=== PATIENT | female | born 1975 | race African-American/Black ===

== ENCOUNTER 2020-06-20 19:17 | Emergency (ER) | payer OTHER ==
[2020-06-20] MEDS ORDERED: Zofran 4 MG/2 ML VIAL IV ONE (19:55)
[2020-06-20] MEDS ORDERED: MORPHINE SULFATE 4 MG INJ IV ONE (19:55)
[2020-06-20] MEDS ORDERED: Zithromax 250 MG TABLET PO ONE (19:56)
[2020-06-20] MEDS ORDERED: ROCEPHIN 250 MG INJ IM ONE (19:56)
[2020-06-20] MEDS ORDERED: Rocephin 500 MG INJ ONE (20:00)
[2020-06-20] MEDS ORDERED: Zofran 4 MG/2 ML VIAL ONE (20:00)
[2020-06-20] MEDS ORDERED: Zithromax 250 MG TABLET ONE (20:00)
[2020-06-20] MEDS ORDERED: MORPHINE SULFATE 4 MG INJ ONE (20:01)
[2020-06-20 20:16] LABS: Amourphous Crystal FEW /HPF (NEGATIVE); Appearance SLIGHTLY CLOUDY (CLEAR); Bacteria FEW /HPF (NEGATIVE); Bilirubin NEGATIVE (NEGATIVE); Blood SMALL Ery/ul (0-5); Epithelial Cells RARE /HPF (FEW); Glucose NEGATIVE (NEGATIVE); Ketones NEGATIVE (NEGATIVE); Leukocyte Esterase LARGE (NEGATIVE); Mucus SLIGHT /HPF (NEGATIVE); Nitrite NEGATIVE (NEGATIVE); Protein,Urine Dip 30 (Negative); Specific Gravity 1.015 (1.005-1.025); Urobilinogen 2 mg/dL (0-1); WBC 26-50 /HPF (0-5)
[2020-06-20 20:25] VITALS: BP 159/117; PULSE 96; O2SAT 94
[2020-06-20 20:28] LABS: ALBUMIN 3.9 g/dL (3.5-5.0); ALKALINE PHOSPHATASE 78 U/L (38-126); ANION GAP 8.7 MEQ/L (5-15); BLOOD UREA NITROGEN 6 mg/dL (7-17); CHLORIDE 100 mmol/L (98-107); Calcium 8.6 mg/dL (8.4-10.2); Carbon Dioxide 32 mmol/L (22-30); Creatinine 1 0.54 mg/dL (0.52-1.04); EST GLOMERULAR FILTRATION RATE > 60.0 ML/MIN; Glucose 105 mg/dL (74-106); Potassium 4.1 mmol/L (3.5-5.1); SGOT/AST 23 U/L (14-36); SGPT/ALT 12 U/L (0-35); SODIUM 137 mmol/L (137-145); Total Protein 7.3 g/dL (6.3-8.2)
[2020-06-20 20:42] LABS: Absolute Neutrophil Ct (ANC) 8.03 (1.4-6.9); BASOPHIL % 0.2 % (0.0-0.4); Basophil (Absolute #) 0.02 (0-0.4); Eosinophil % 5.5 % (0.00-5.0); Eosinophil (Absolute #) 0.68 (0-0.5); Hematocrit 40.8 % (35-47); Hemoglobin 13.7 gm/dl (12.0-16.0); Lymphocyte (Absolute #) 2.57 (1.0-4.6); Lymphocytes % 20.9 % (24.0-44.0); Mean Cell Volume 93.8 fl (78-100); Mean Corpuscular Hemoglobin 31.5 pg (26-32); Mean Corpuscular Hgb Concent. 33.6 g/dl (32-36); Mean Platelet Volume 9.8 fl (7.5-11.0); Monocyte (Absolute #) 0.99 (0.0-1.3); Monocytes % 8.1 % (0.0-12.0); Neutrophil % 65.3 % (36.0-66.0); Platelet Count 405 K/mm3 (150-450); Red Blood Count 4.35 M/mm3 (4.1-5.4); Red Cell Distribution Width 13.2 % (11.5-14.0); White Blood Count 12.3 K/mm3 (4.0-10.5)
--- NOTE | 2020-06-20 20:45 | ERPHSYRPT ---
- History of Present Illness Time Seen by Provider: 06/20/20 19:24 Source: patient Exam Limitations: no limitations Patient Subjective Stated Complaint: pt c/o vaginal pain Triage Nursing Assessment: pt came back to ER via wheelchair. Pt c/o vaginal pain, states, "It's tender, swollen, pain with urination". Pt had bladder tie up approx 1-2 years ago. Pt is poor historian. Physician History: 45 years old female with history of bladder sling almost 2 years ago presented in the ER with chief complaint of vaginal pain/burning/feeling as if she is having a uterine prolapse for the last 2 days with associated milky white discharge. Patient described this as a sharp burning pain which is aggravated with activity, urination coughing and better with being still. Denies any history of STDs in the past. No abdominal pain. Timing/Duration: day(s) (2), gradual onset, worse Activites at Onset: rest Quality: burning, sharpness Onset Location: vaginal Pain Radiation: none Severity of Pain-Max: moderate Severity of Pain-Current: moderate Sexual intercourse history: single partner Modifying Factors: Improves With: rest. Worsens With: coughing, exercise, urinating, position, walking Associated Symptoms: dysuria, swelling, vaginal discharge, vaginal fluid leakage, No abdominal pain, No lower back pain Allergies/Adverse Reactions: UNOBTAINABLE Allergy (Unverified 06/20/20 19:54) Home Medications: Albuterol 2.5 mg/0.5 ml [PROVENTIL Solution 2.5 MG/0.5 ML] 1 neb IH Q4HPRN PRN 06/20/20 [History] Hx Tetanus, Diphtheria Vaccination/Date Given: Yes Hx Influenza Vaccination/Date Given: Yes Hx Pneumococcal Vaccination/Date Given: No Travel Risk - International Travel Have you traveled outside of the country in past 3 weeks: No - Coronavirus Screening Are you exhibiting any of the following symptoms?: No Symptoms: Shortness of Breath, Headaches/Body Aches/Fatigue - Review of Systems Constitutional: No Symptoms Eyes: No Symptoms Ears, Nose, & Throat: No Symptoms Respiratory: No Symptoms Cardiac: No Symptoms Abdominal/Gastrointestinal: No Symptoms Genitourinary Symptoms: Vaginal Discharge Musculoskeletal: No Symptoms Skin: No Symptoms Neurological: No Symptoms Psychological: No Symptoms Endocrine: No Symptoms Hematologic/Lymphatic: No Symptoms - Past Medical History Pertinent Past Medical History: Yes Neurological History: Migraines, TIA ENT History: No Pertinent History Cardiac History: Hypertension Respiratory History: Asthma, Bronchitis, COPD, Emphysema, Pneumonia, Sleep Apnea Endocrine Medical History: No Pertinent History Musculoskeletal History: No Pertinent History GI Medical History: GERD History: No Pertinent History Psycho-Social History: Anxiety, Depression Female Reproductive Disorders: No Pertinent History - Past Surgical History Past Surgical History: Yes Neuro Surgical History: No Pertinent History Cardiac: No Pertinent History Respiratory: No Pertinent History Gastrointestinal: No Pertinent History Genitourinary: No Pertinent History Musculoskeletal: No Pertinent History Female Surgical History: No Pertinent History Other Surgical History: jaw fx repair, tubal pregnancies - Social History Smoking Status: Current every day smoker How long have you smoked: 32 yrs Exposure to second hand smoke: Yes Drug Use: none Patient Lives Alone: No - Female History Hx Now: No - Nursing Vital Signs Nursing Vital Signs: Initial Vital Signs Temperature 98.2 F 06/20/20 19:28 Pulse Rate 108 H 06/20/20 19:28 Respiratory Rate 22 06/20/20 19:28 Blood Pressure 154/120 06/20/20 19:28 O2 Sat by Pulse Oximetry 96 06/20/20 19:28 Pain Scale Pain Intensity 0 - Physical Exam General Appearance: no apparent distress, alert Eye Exam: eyes nml inspection Ears, Nose, Throat Exam: normal ENT inspection, pharynx normal Neck Exam: normal inspection, supple, full range of motion Respiratory Exam: normal breath sounds, lungs clear Cardiovascular Exam: regular rate/rhythm, normal heart sounds Gastrointestinal/Abdomen Exam: soft, normal bowel sounds, No tenderness Pelvic Exam: cervical motion tenderness, uterine tenderness, vaginal discharge (Milky white. Friable vagina wall.), No adnexal tenderness, No vaginal bleeding Back Exam: normal inspection, normal range of motion Neurologic Exam: alert, oriented x 3, cooperative Skin Exam: normal color SpO2 Interpretation: normal SpO2: 94 O2 Delivery: Room Air Ordered Tests: Active Orders 24 hr Category Date Time Status IV Insertion STAT Care 06/20/20 19:40 Completed CBC W DIFF Stat Lab 06/20/20 19:59 Completed CMP Stat Lab 06/20/20 19:59 Completed CULTURE,URINE Stat Lab 06/20/20 19:59 Received HCG,QUALITATIVE URINE Stat Lab 06/20/20 19:59 Completed UA W/RFX UR CULTURE Stat Lab 06/20/20 19:59 Completed Wet Prep Stat Lab 06/20/20 19:59 Completed Medication Summary Discontinued Medications Generic Name Dose Route Start Last Admin Trade Name Agustin MONTES DE OCA Reason Stop Dose Admin Azithromycin 1,000 mg 06/20/20 19:56 06/20/20 20:04 Zithromax 250 Mg Tablet PO 06/20/20 19:57 1,000 mg STAT ONE Administration Azithromycin Confirm 06/20/20 20:00 Zithromax 250 Mg Tablet Administered 06/20/20 20:01 Dose 1,000 mg .ROUTE .STK-MED ONE Ceftriaxone Sodium 250 mg 06/20/20 19:56 06/20/20 20:06 Rocephin 250 Mg Inj IM 06/20/20 19:57 250 mg STAT ONE Administration Ceftriaxone Sodium Confirm 06/20/20 20:00 Rocephin 500 Mg Inj Administered 06/20/20 20:01 Dose 500 mg .ROUTE .STK-MED ONE Doxycycline Hyclate 100 mg 06/20/20 21:12 06/20/20 21:14 Vibramycin 100 Mg PO 06/20/20 21:13 100 mg STAT ONE Administration Doxycycline Hyclate Confirm 06/20/20 21:13 Vibramycin 100 Mg Administered 06/20/20 21:14 Dose 100 mg .ROUTE .STK-MED ONE Metronidazole 500 mg 06/20/20 21:21 06/20/20 21:23 Flagyl 500 Mg PO 06/20/20 21:22 500 mg STAT ONE Administration Metronidazole Confirm 06/20/20 21:23 Flagyl 500 Mg Administered 06/20/20 21:24 Dose 500 mg .ROUTE .STK-MED ONE Morphine Sulfate 4 mg 06/20/20 19:55 06/20/20 20:05 Morphine Sulfate 4 Mg Inj IV 06/20/20 19:56 4 mg STAT ONE Administration Morphine Sulfate Confirm 06/20/20 20:01 Morphine Sulfate 4 Mg Inj Administered 06/20/20 20:02 Dose 4 mg .ROUTE .STK-MED ONE Ondansetron HCl 4 mg 06/20/20 19:55 06/20/20 20:05 Zofran 4 Mg/2 Ml Vial IV 06/20/20 19:56 4 mg STAT ONE Administration Ondansetron HCl Confirm 06/20/20 20:00 Zofran 4 Mg/2 Ml Vial Administered 06/20/20 20:01 Dose 4 mg .ROUTE .STK-MED ONE Lab/Rad Data: Laboratory Result Diagrams 06/20/20 19:59 06/20/20 19:59 Laboratory Results 06/20/20 06/20/20 06/20/20 Range/Units 19:59 19:59 19:59 WBC 12.3 H (4.0-10.5) K/mm3 RBC 4.35 (4.1-5.4) M/mm3 Hgb 13.7 (12.0-16.0) gm/dl Hct 40.8 (35-47) % MCV 93.8 (78-100) fl MCH 31.5 (26-32) pg MCHC 33.6 (32-36) g/dl RDW 13.2 (11.5-14.0) % Plt Count 405 (150-450) K/mm3 MPV 9.8 (7.5-11.0) fl Gran % 65.3 (36.0-66.0) % Eos # (Auto) 0.68 H (0-0.5) Absolute Lymphs (auto) 2.57 (1.0-4.6) Absolute Monos (auto) 0.99 (0.0-1.3) Lymphocytes % 20.9 L (24.0-44.0) % Monocytes % 8.1 (0.0-12.0) % Eosinophils % 5.5 H (0.00-5.0) % Basophils % 0.2 (0.0-0.4) % Absolute Granulocytes 8.03 H (1.4-6.9) Basophils # 0.02 (0-0.4) Sodium 137 (137-145) mmol/L Potassium 4.1 (3.5-5.1) mmol/L Chloride 100 (98-107) mmol/L Carbon Dioxide 32 H (22-30) mmol/L Anion Gap 8.7 (5-15) MEQ/L BUN 6 L (7-17) mg/dL Creatinine 0.54 (0.52-1.04) mg/dL Estimated GFR > 60.0 ML/MIN Glucose 105 (74-106) mg/dL Calcium 8.6 (8.4-10.2) mg/dL Total Bilirubin 0.40 (0.2-1.3) mg/dL AST 23 (14-36) U/L ALT 12 (0-35) U/L Alkaline Phosphatase 78 (38-126) U/L Serum Total Protein 7.3 (6.3-8.2) g/dL Albumin 3.9 (3.5-5.0) g/dL Urine Color (YELLOW) Urine Appearance (CLEAR) Urine pH (5-6) Ur Specific [place] (1.005-1.025) Urine Protein (Negative) Urine Ketones (NEGATIVE) Urine Blood (0-5) Hector/ul Urine Nitrite (NEGATIVE) Urine Bilirubin (NEGATIVE) Urine Urobilinogen (0-1) mg/dL Ur Leukocyte Esterase (NEGATIVE) Urine WBC (Auto) (0-5) /HPF Urine RBC (Auto) (0-2) /HPF U Epithel Cells (Auto) (FEW) /HPF Urine Bacteria (Auto) (NEGATIVE) /HPF Amorphous Crystals (NEGATIVE) /HPF Urine Mucus (Auto) (NEGATIVE) /HPF Urine Culture Reflexed (NO) Urine Glucose (NEGATIVE) mg/dL Urine HCG, Qual (Negative) WBC (Wet Prep) Moderate RBC (Wet Prep) Rare Epi Cells (Wet Prep) Many Bacteria (Wet Prep) Moderate Clue Cells (Wet Prep) None Seen Trichomonas (Wet Prep) Moderate Budding Yeast (Wet Prp) None Seen Chlamydia DNA Probe (NEGATIVE) N.gonorrhoeae DNA Probe (NEGATIVE) 06/20/20 06/20/20 06/20/20 Range/Units 19:59 19:59 19:59 WBC (4.0-10.5) K/mm3 RBC (4.1-5.4) M/mm3 Hgb (12.0-16.0) gm/dl Hct (35-47) % MCV (78-100) fl MCH (26-32) pg MCHC (32-36) g/dl RDW (11.5-14.0) % Plt Count (150-450) K/mm3 MPV (7.5-11.0) fl Gran % (36.0-66.0) % Eos # (Auto) (0-0.5) Absolute Lymphs (auto) (1.0-4.6) Absolute Monos (auto) (0.0-1.3) Lymphocytes % (24.0-44.0) % Monocytes % (0.0-12.0) % Eosinophils % (0.00-5.0) % Basophils % (0.0-0.4) % Absolute Granulocytes (1.4-6.9) Basophils # (0-0.4) Sodium (137-145) mmol/L Potassium (3.5-5.1) mmol/L Chloride (98-107) mmol/L Carbon Dioxide (22-30) mmol/L Anion Gap (5-15) MEQ/L BUN (7-17) mg/dL Creatinine (0.52-1.04) mg/dL Estimated GFR ML/MIN Glucose (74-106) mg/dL Calcium (8.4-10.2) mg/dL Total Bilirubin (0.2-1.3) mg/dL AST (14-36) U/L ALT (0-35) U/L Alkaline Phosphatase (38-126) U/L Serum Total Protein (6.3-8.2) g/dL Albumin (3.5-5.0) g/dL Urine Color YELLOW (YELLOW) Urine Appearance SLIGHTLY CLOUDY (CLEAR) Urine pH 6.0 (5-6) Ur Specific [place] 1.015 (1.005-1.025) Urine Protein 30 (Negative) Urine Ketones NEGATIVE (NEGATIVE) Urine Blood SMALL (0-5) Hector/ul Urine Nitrite NEGATIVE (NEGATIVE) Urine Bilirubin NEGATIVE (NEGATIVE) Urine Urobilinogen 2 (0-1) mg/dL Ur Leukocyte Esterase LARGE (NEGATIVE) Urine WBC (Auto) 26-50 (0-5) /HPF Urine RBC (Auto) 11-15 (0-2) /HPF U Epithel Cells (Auto) RARE (FEW) /HPF Urine Bacteria (Auto) FEW (NEGATIVE) /HPF Amorphous Crystals FEW (NEGATIVE) /HPF Urine Mucus (Auto) SLIGHT (NEGATIVE) /HPF Urine Culture Reflexed YES (NO) Urine Glucose NEGATIVE (NEGATIVE) mg/dL Urine HCG, Qual NEGATIVE (Negative) WBC (Wet Prep) RBC (Wet Prep) Epi Cells (Wet Prep) Bacteria (Wet Prep) Clue Cells (Wet Prep) Trichomonas (Wet Prep) Budding Yeast (Wet Prp) Chlamydia DNA Probe NOT DETECTED (NEGATIVE) N.gonorrhoeae DNA Probe DETECTED (NEGATIVE) - Progress Progress: improved, re-examined Air Movement: good Progress Note: 06/20/20 21:12 45 years old is evaluated for vaginal pain and discharge. On exam she has vaginal/cervical tenderness. Baseline work-up is grossly unremarkable. She does not have any abdominal tenderness at all. She does have UTI. She is given Rocephin and Zithromax in here and will continue with doxy to go home. She also has positive for trichomonas and started on Flagyl. Signs symptoms of worsening needing return to ER which she seems understanding. Blood Culture(s) Obtained: No Antibiotics given: Yes Counseled pt/family regarding: lab results, diagnosis, need for follow-up - Departure Departure Disposition: Home Clinical Impression: Acute UTI (urinary tract infection), Pelvic pain, Trichomonas vaginalis infection Condition: Stable Critical Care Time: No Referrals: DOCTOR,NO FAMILY [Primary Care Provider] - SALINAS PERSAUD [ACTIVE STAFF] - (1 to 2 days for reevaluation) DON BALDERAS DO [ACTIVE STAFF] - (1-2 days for reevaluation) Instructions: Pelvic Inflammatory Disease (DC), Urinary Tract Infection, Adult (DC) Additional Instructions: Follow safe sex practices. Take Tylenol/ibuprofen as needed for pain. Follow- up with [facility] for reevaluation. Return to ER for any worsening pain discharge or if develop abdominal/pelvic pain. Prescriptions: Metronidazole 500 mg [Flagyl 500 MG] 500 mg PO BID #14 tablet Doxycycline Hyclate 100 mg [Vibramycin 100 MG] 100 mg PO BID #14 tab
[2020-06-20] MEDS ORDERED: Vibramycin 100 MG PO ONE (21:12)
[2020-06-20] MEDS ORDERED: Vibramycin 100 MG ONE (21:13)
[2020-06-20 21:15] LABS: Bacteria Moderate; Clue Cells None Seen; Red Blood Cells Rare; Trichomonas Moderate; White Blood Cells Moderate; Yeast None Seen
[2020-06-20] MEDS ORDERED: Flagyl 500 MG PO ONE (21:21)
[2020-06-20] MEDS ORDERED: Flagyl 500 MG ONE (21:23)
[2020-06-20 21:42] LABS: CHLAMYDIA DNA NOT DETECTED (NEGATIVE); GC DNA Probe DETECTED (NEGATIVE)
== END 2020-06-20 21:36 | disposition home or self-care (01) ==
LOC: ED 19:17
DX: R10.2 Pelvic and perineal pain (principal); N39.0 Urinary tract infection, site not specified; A59.01 Trichomonal vulvovaginitis; N89.8 Other specified noninflammatory disorders of vagina; F17.210 Nicotine dependence, cigarettes, uncomplicated
CPT/HCPCS: 36000; 36415; 80053; 81001; 84703; 85025; 87086; 87210; 87491; 87591; 96372; 96374; 96375; 99284; J0696; J2270; J2405; A9270-GY

== ENCOUNTER 2020-06-24 16:36 | Emergency (ER) | payer OTHER ==
--- NOTE | 2020-06-24 16:39 | ERPHSYRPT ---
- History of Present Illness Time Seen by Provider: 06/24/20 16:38 Source: patient Exam Limitations: no limitations Physician History: This is a 45-year-old white female who has COPD and recently moved to [facility] from [facility]. Patient was recently placed on doxycycline and Flagyl antibiotics. Patient is out of her albuterol inhaler. She has her nebu lizer medication but the dogs chewed on her nebulizer machine tubing. Over the last 3 days, the patient states that she is having increasing shortness of breath especially with exertion. She denies chest pain. She has no abdominal pain. She is not on any steroids. She had COVID-19 infection approximately 6 to 8 weeks ago. Her shortness of breath was worsening. She does not have a primary care physician. She does not see a speech instructor. She is decreasing her smoking of cigarettes down to 1/2 pack of cigarettes a day. Timing/Duration: day(s) (3), worse Activities at Onset: activity Severity of Dyspnea-Max: moderate Severity of Dyspnea-Current: moderate Possible Cause: occasional episodes Modifying Factors: Improves With: activity Associated Symptoms: anxiety, No chest pain/discomfort Allergies/Adverse Reactions: cephalexin [From Keflex] Allergy (Verified 06/24/20 17:51) ketorolac [From Toradol] Allergy (Verified 06/24/20 17:51) lisinopril Allergy (Verified 06/24/20 17:51) Sulfa (Sulfonamide Antibiotics) Allergy (Verified 06/24/20 17:51) Home Medications: Albuterol 2.5 mg/0.5 ml [PROVENTIL Solution 2.5 MG/0.5 ML] 1 neb IH Q4HPRN PRN 06/20/20 [History] Hx Tetanus, Diphtheria Vaccination/Date Given: Yes Hx Influenza Vaccination/Date Given: Yes Hx Pneumococcal Vaccination/Date Given: No Travel Risk - International Travel Have you traveled outside of the country in past 3 weeks: No - Coronavirus Screening Are you exhibiting any of the following symptoms?: No Close contact with a COVID-19 positive Pt in past 14-21 Days: No - Review of Systems Constitutional: No Symptoms Eyes: No Symptoms Ears, Nose, & Throat: No Symptoms Respiratory: Dyspnea, Dyspnea on Exertion (ROJO) Cardiac: No Symptoms Abdominal/Gastrointestinal: No Symptoms Genitourinary Symptoms: No Symptoms Musculoskeletal: No Symptoms Skin: No Symptoms Neurological: No Symptoms Psychological: No Symptoms Endocrine: No Symptoms Hematologic/Lymphatic: No Symptoms Immunological/Allergic: No Symptoms All Other Systems: Reviewed and Negative - Past Medical History Pertinent Past Medical History: Yes Neurological History: Migraines, TIA ENT History: No Pertinent History Cardiac History: Hypertension Respiratory History: Asthma, Bronchitis, COPD, Emphysema, Pneumonia, Sleep Apnea Endocrine Medical History: No Pertinent History Musculoskeletal History: No Pertinent History GI Medical History: GERD History: No Pertinent History Psycho-Social History: Anxiety, Depression Female Reproductive Disorders: No Pertinent History - Past Surgical History Past Surgical History: Yes Neuro Surgical History: No Pertinent History Cardiac: No Pertinent History Respiratory: No Pertinent History Gastrointestinal: No Pertinent History Genitourinary: No Pertinent History Musculoskeletal: No Pertinent History Female Surgical History: No Pertinent History Other Surgical History: jaw fx repair, tubal pregnancies - Social History Smoking Status: Current every day smoker How long have you smoked: 32 yrs Exposure to second hand smoke: Yes Drug Use: none Patient Lives Alone: No - Nursing Vital Signs Nursing Vital Signs: Initial Vital Signs Temperature 97.9 F 06/24/20 16:40 Pulse Rate 102 H 06/24/20 16:40 Respiratory Rate 26 H 06/24/20 16:40 Blood Pressure 162/126 06/24/20 16:40 O2 Sat by Pulse Oximetry 97 06/24/20 16:40 Pain Scale Pain Intensity 0 - Physical Exam General Appearance: mild distress, alert, anxiety Eye Exam: PERRL/EOMI, eyes nml inspection Ears, Nose, Throat Exam: hearing grossly normal, normal ENT inspection, normal pharynx Neck Exam: normal inspection, non-tender, supple, full range of motion Respiratory Exam: respiratory distress, airway intact, rhonchi, wheezing, No chest tenderness Cardiovascular/Chest Exam: normal heart sounds, regular rate/rhythm, normal peripheral pulses, No murmur Abdominal/Gastrointestinal Exam: soft, normal bowel sounds, No tenderness Rectal Exam: not done Extremity Exam: non-tender, normal range of motion, normal inspection, normal capillary refill, no calf tenderness Neurologic Exam: alert, oriented x 3, cooperative, transcribing operator head II-XII nml as tested, normal mood/affect, nml cerebellar function, nml station & gait, sensation nml Skin Exam: normal color, warm, dry Lymphatic Exam: No adenopathy SpO2 Interpretation: normal O2 Delivery: Room Air - Course Nursing assessment & vital signs reviewed: Yes EKG Interpreted by Me: RATE (91), Sinus Rhythm, NORMAL AXIS, NORMAL INTERVALS, NORMAL QRS, Other (No acute ischemic changes. There is no comparison EKG present) Ordered Tests: Active Orders 24 hr Category Date Time Status Janitorial Account Manager STAT Care 06/24/20 17:11 Active EKG-ER Only STAT Care 06/24/20 17:10 Active IV Insertion STAT Care 06/24/20 17:10 Active Pulse Oximetry (ED) STAT Care 06/24/20 17:10 Active CHEST 1 VIEW (PORTABLE) Stat Exams 06/24/20 17:11 Completed CHEST WITH CONTRAST [CT] Stat Exams 06/24/20 18:08 Taken BLOOD CULTURE Stat Lab 06/24/20 17:43 Received CBC W DIFF Stat Lab 06/24/20 17:25 Completed CMP Stat Lab 06/24/20 17:25 Completed D-DIMER QUANTITATIVE Stat Lab 06/24/20 17:43 Completed INFLUENZA A+B NOHEMI Stat Lab 06/24/20 17:43 Completed Lactic Acid Stat Lab 06/24/20 17:30 Completed Manual Differential NC Stat Lab 06/24/20 17:25 Completed NT PRO BNP Stat Lab 06/24/20 17:25 Completed PROTIME WITH INR Stat Lab 06/24/20 17:43 Completed TROPONIN Q3H Lab 06/24/20 17:26 Completed TROPONIN Q3H Lab 06/24/20 20:15 Ordered TROPONIN Q3H Lab 06/24/20 23:15 Ordered TROPONIN Q3H Lab 06/25/20 02:15 Ordered TROPONIN Q3H Lab 06/25/20 05:15 Ordered Peak Expiratory Flow Rate ONCE RT 06/24/20 16:59 Active Respiratory Therapy Assessment DAILY RT 06/24/20 16:59 Active Medication Summary Discontinued Medications Generic Name Dose Route Start Last Admin Trade Name Freq PRN Reason Stop Dose Admin Hydrocodone Bitart/Acetaminophen 10 ml 06/24/20 17:26 06/24/20 17:56 Hydrocodone-Acetamin 2.5-108/5 Ml Solution PO 06/24/20 17:27 10 ml STAT STA Administration Hydrocodone Bitart/Acetaminophen Confirm 06/24/20 17:52 Hydrocodone-Acetamin 2.5-108/5 Ml Solution Administered 06/24/20 17:53 Dose 10 ml .ROUTE .STK-MED ONE Albuterol/Ipratropium Confirm 06/24/20 16:46 Duoneb 0.5-3 Mg/3 Ml Neb Administered 06/24/20 16:47 Dose 3 ml IH .STK-MED ONE Albuterol/Ipratropium 3 ml 06/24/20 16:51 06/24/20 16:52 Duoneb 0.5-3 Mg/3 Ml Neb IH 06/24/20 16:52 3 ml STAT ONE Administration Albuterol/Ipratropium Confirm 06/24/20 20:15 Duoneb 0.5-3 Mg/3 Ml Neb Administered 06/24/20 20:16 Dose 3 ml IH .STK-MED ONE Albuterol/Ipratropium 3 ml 06/24/20 20:20 06/24/20 20:21 Duoneb 0.5-3 Mg/3 Ml Neb IH 06/24/20 20:21 3 ml STAT ONE Administration Sodium Chloride 500 mls @ 500 mls/hr 06/24/20 18:08 06/24/20 19:20 Sodium Chloride 0.9% 500 Ml IV 06/24/20 19:07 Infused .Q1H ONE Infusion Sodium Chloride Confirm 06/24/20 18:13 Sodium Chloride 0.9% 500 Ml Administered 06/24/20 18:14 Dose 500 mls @ ud IV .STK-MED ONE Methylprednisolone Sodium Succinate 125 mg 06/24/20 17:10 06/24/20 17:55 Solu-Medrol 125 Mg IV 06/24/20 17:11 125 mg STAT ONE Administration Methylprednisolone Sodium Succinate Confirm 06/24/20 17:52 Solu-Medrol 125 Mg Administered 06/24/20 17:53 Dose 125 mg .ROUTE .STK-MED ONE Lab/Rad Data: Laboratory Result Diagrams 06/24/20 17:25 06/24/20 17:25 Laboratory Results 06/24/20 06/24/20 06/24/20 Range/Units 17:43 17:43 17:30 WBC (4.0-10.5) K/mm3 RBC (4.1-5.4) M/mm3 Hgb (12.0-16.0) gm/dl Hct (35-47) % MCV (78-100) fl MCH (26-32) pg MCHC (32-36) g/dl RDW (11.5-14.0) % Plt Count (150-450) K/mm3 MPV (7.5-11.0) fl Segmented Neutrophils (36.0-66.0) % Lymphocytes (Manual) (24-44) % Monocytes (Manual) (0.0-12.0) % Eosinophils (Manual) (0.00-3.0) % Atypical Lymphocytes % Platelet Estimate (NORMAL) RBC Morphology PT 12.0 (9.95-12.35) SECONDS INR 1.06 (0.8-3.0) D-Dimer 610 H* (215-500) ng/mL Sodium (137-145) mmol/L Potassium (3.5-5.1) mmol/L Chloride (98-107) mmol/L Carbon Dioxide (22-30) mmol/L Anion Gap (5-15) MEQ/L BUN (7-17) mg/dL Creatinine (0.52-1.04) mg/dL Estimated GFR ML/MIN Glucose (74-106) mg/dL Lactic Acid 1.0 (0.4-2.0) Calcium (8.4-10.2) mg/dL Total Bilirubin (0.2-1.3) mg/dL AST (14-36) U/L ALT (0-35) U/L Alkaline Phosphatase (38-126) U/L Troponin I (0.000-0.034) ng/mL NT-Pro-B Natriuret Pep (0-450) pg/mL Serum Total Protein (6.3-8.2) g/dL Albumin (3.5-5.0) g/dL Influenza Type A Ag NEGATIVE (NEGATIVE) Influenza Type B Ag NEGATIVE (NEGATIVE) 06/24/20 06/24/20 06/24/20 Range/Units 17:26 17:25 17:25 WBC 9.8 (4.0-10.5) K/mm3 RBC 4.46 (4.1-5.4) M/mm3 Hgb 14.1 (12.0-16.0) gm/dl Hct 41.8 (35-47) % MCV 93.7 (78-100) fl MCH 31.6 (26-32) pg MCHC 33.7 (32-36) g/dl RDW 13.2 (11.5-14.0) % Plt Count 504 H (150-450) K/mm3 MPV 9.0 (7.5-11.0) fl Segmented Neutrophils 52 (36.0-66.0) % Lymphocytes (Manual) 32 (24-44) % Monocytes (Manual) 3 (0.0-12.0) % Eosinophils (Manual) 4 H (0.00-3.0) % Atypical Lymphocytes 9 % Platelet Estimate NORMAL (NORMAL) RBC Morphology NORMAL PT (9.95-12.35) SECONDS INR (0.8-3.0) D-Dimer (215-500) ng/mL Sodium 137 (137-145) mmol/L Potassium 3.9 (3.5-5.1) mmol/L Chloride 106 (98-107) mmol/L Carbon Dioxide 28 (22-30) mmol/L Anion Gap 7.2 (5-15) MEQ/L BUN 10 (7-17) mg/dL Creatinine 0.50 L (0.52-1.04) mg/dL Estimated GFR > 60.0 ML/MIN Glucose 92 (74-106) mg/dL Lactic Acid (0.4-2.0) Calcium 8.8 (8.4-10.2) mg/dL Total Bilirubin < 0.10 L (0.2-1.3) mg/dL AST 24 (14-36) U/L ALT 14 (0-35) U/L Alkaline Phosphatase 77 (38-126) U/L Troponin I < 0.012 (0.000-0.034) ng/mL NT-Pro-B Natriuret Pep 74.8 (0-450) pg/mL Serum Total Protein 7.1 (6.3-8.2) g/dL Albumin 3.9 (3.5-5.0) g/dL Influenza Type A Ag (NEGATIVE) Influenza Type B Ag (NEGATIVE) - Progress Progress: improved, re-examined Air Movement: fair Progress Note: 06/24/20 18:40 Chest x-ray shows no acute cardiopulmonary process. 06/24/20 20:42 CAT scan of the chest with contrast shows no evidence of pulmonary embolism. There is mucoid impaction in segmental and subsegmental lower lobe bronchi. The patient does not want to remain for Mucomyst therapy. She will be discharged to home Blood Culture(s) Obtained: No Antibiotics given: No Counseled pt/family regarding: lab results, diagnosis, need for follow-up, rad results - Departure Departure Disposition: Home Clinical Impression: COPD exacerbation, Bronchitis Condition: Stable Critical Care Time: No Referrals: DOCTOR,NO FAMILY [Primary Care Provider] - Instructions: Chronic Obstructive Pulmonary Disease Additional Instructions: Stop smoking. Continue your antibiotics as prescribed. Take your steroids as prescribed. Use your nebulizer treatments as prescribed. Fill your albuterol inhaler prescription and use as instructed. Follow-up with your primary care physician for further management. Prescriptions: Prednisone 10 mg [Deltasone 10 mg] 10 mg PO TID #12 tablet Albuterol 8 gm Mdi Hfa [Ventolin Hfa MDI] 8 gm IH Q4H #1 [email or web address] Azithromycin 250 mg [Zithromax 250 MG TABLET] 250 mg PO ZPACK #6 tablet
[2020-06-24] MEDS ORDERED: DUONEB 0.5-3 MG/3 ml Neb IH ONE ×4 (16:46→20:20)
[2020-06-24] MEDS ORDERED: solu-MEDROL 125 MG IV ONE (17:10)
[2020-06-24 17:26] LABS: Hematocrit 41.8 % (35-47); Hemoglobin 14.1 gm/dl (12.0-16.0); Mean Cell Volume 93.7 fl (78-100); Mean Corpuscular Hemoglobin 31.6 pg (26-32); Mean Corpuscular Hgb Concent. 33.7 g/dl (32-36); Platelet Count 504 K/mm3 (150-450); Red Blood Count 4.46 M/mm3 (4.1-5.4); Red Cell Distribution Width 13.2 % (11.5-14.0); White Blood Count 9.8 K/mm3 (4.0-10.5)
[2020-06-24] MEDS ORDERED: HYDROCODONE-ACETAMIN 2.5-108/5 ML SOLUTION PO STA (17:26)
[2020-06-24 17:43] LABS: ALBUMIN 3.9 g/dL (3.5-5.0); ALKALINE PHOSPHATASE 77 U/L (38-126); ANION GAP 7.2 MEQ/L (5-15); BILIRUBIN,TOTAL < 0.10 mg/dL (0.2-1.3); BLOOD UREA NITROGEN 10 mg/dL (7-17); CHLORIDE 106 mmol/L (98-107); Calcium 8.8 mg/dL (8.4-10.2); Carbon Dioxide 28 mmol/L (22-30); EST GLOMERULAR FILTRATION RATE > 60.0 ML/MIN; Glucose 92 mg/dL (74-106); NT PRO BNP 74.8 pg/mL (0-450); Potassium 3.9 mmol/L (3.5-5.1); SGOT/AST 24 U/L (14-36); SGPT/ALT 14 U/L (0-35); SODIUM 137 mmol/L (137-145); Total Protein 7.1 g/dL (6.3-8.2)
[2020-06-24] MEDS ORDERED: solu-MEDROL 125 MG ONE (17:52)
[2020-06-24] MEDS ORDERED: HYDROCODONE-ACETAMIN 2.5-108/5 ML SOLUTION ONE (17:52)
[2020-06-24 17:53] LABS: INR 1.06 (0.8-3.0)
[2020-06-24] MEDS ORDERED: Sodium Chloride 0.9% 500 ML 500 ML IV ONE ×2 (18:08→18:13)
[2020-06-24 18:16] LABS: INFLUENZA A NEGATIVE (NEGATIVE); INFLUENZA B NEGATIVE (NEGATIVE)
--- NOTE | 2020-06-24 18:44 | XRAY ---
Indication: Short of breath and wheezing. COPD. Comparison: None Portable chest demonstrates normal heart and lungs. Bony thorax intact.
[2020-06-24 19:24] LABS: ATYPICAL LYMPHS 9 %; Eosinophil 4 % (0.00-3.0); Lymphocytes 32 % (24-44); Monocyte 3 % (0.0-12.0); Neutrophils 52 % (36.0-66.0); Platelet Estimate NORMAL (NORMAL); Total Cells Counted 100
[2020-06-24 20:04] VITALS: BP 169/114
[2020-06-24 20:43] VITALS: O2SAT 96
[2020-06-24 20:47] VITALS: PULSE 97
--- NOTE | 2020-06-25 07:56 | XRAY ---
Indication: Short of breath and wheezing. Nonproductive cough. Elevated d-dimer. Multiple contiguous axial images obtained through the chest using 100 cc Isovue-370 contrast and PE protocol. Comparison: None There is suboptimal opacification of the pulmonary arteries limiting evaluation for pulmonary embolus. No obvious central pulmonary embolus. Heart is not enlarged. Aorta is normal in course and caliber. Small subcarinal calcified node. No pathologic mediastinal/hilar lymphadenopathy. Lungs are inflated with right upper and right lower lobe calcified granulomas. No suspicious pulmonary mass, infiltrate, or effusion. Bony thorax intact. Limited upper abdomen unremarkable. Impression: 1. Pulmonary embolus evaluation limited due to suboptimal opacification. No obvious central pulmonary embolus. 2. No acute cardiopulmonary abnormalities. 3. Incidental old granulomatous disease. Comment: Preliminary interpretation was made by [facility]. No critical discrepancy.
== END 2020-06-24 19:55 | disposition home or self-care (01) ==
LOC: ED 16:36
DX: J44.1 Chronic obstructive pulmonary disease with (acute) exacerbation (principal); J40 Bronchitis, not specified as acute or chronic
CPT/HCPCS: 36000; 36415; 71045; 71260; 80053; 83605; 83880; 84484; 85025; 85379; 85610; 87040; 87400; 93005; 93041; 94150; 94640; 94760; 96360; 96374; 99284; J2930; A9270-GY

== ENCOUNTER 2020-06-27 03:21 | Observation (INO) | payer OTHER ==
[2020-06-27] MEDS ORDERED: solu-MEDROL 125 MG IV ONE (03:32)
[2020-06-27] MEDS ORDERED: Sodium Chloride 0.9% 1000 ML 1,000 ML IV STA (03:32)
[2020-06-27] MEDS ORDERED: PROVENTIL 2.5 MG/3 ML NEB IH ONE ×2 (03:32→03:35)
[2020-06-27] MEDS ORDERED: Sodium Chloride 0.9% 1000 ML 1,000 ML ONE (03:48)
--- NOTE | 2020-06-27 03:50 | ERPHSYRPT ---
- History of Present Illness Time Seen by Provider: 06/27/20 03:35 Source: patient Exam Limitations: no limitations Patient Subjective Stated Complaint: Pt called EMS due to SOB as was unable to sleep. Pt had sob all day but it got progressively worse. Triage Nursing Assessment: Pt arrived via EMS with SOB. Pt received 2 duoneb treatments in route and solumedrol 125mg IV in route. Pt has prod cough, thick white sputum. Lungs are wheezy I/E bilat. Heart tones reg. Physician History: Ever is a 45-year-old white female who recently moved to this area from [facility] to [place]. She has longstanding COPD she has been seen now the for the third time in 9 days for shortness of breath. She is having increasing shortness of breath over the last few days has been using her medicines as directed but states she is no better she had a COVID-19 infection approximately 6 to 8 weeks ago shortness of breath was worsening she continues to smoke she is down to half pack per day. Per the patient Activities at Onset: none Severity of Dyspnea-Max: moderate Severity of Dyspnea-Current: moderate Possible Cause: frequent episodes Modifying Factors: Improves With: activity, albuterol nebulizer, coughing, exertion Associated Symptoms: cough, chest pain/discomfort, wheezing, chills, heaviness, productive cough Allergies/Adverse Reactions: cephalexin [From Keflex] Allergy (Verified 06/27/20 03:36) ketorolac [From Toradol] Allergy (Verified 06/27/20 03:36) lisinopril Allergy (Verified 06/27/20 03:36) Sulfa (Sulfonamide Antibiotics) Allergy (Verified 06/27/20 03:36) Home Medications: Albuterol 2.5 mg/0.5 ml [PROVENTIL Solution 2.5 MG/0.5 ML] 1 neb IH Q4HPRN PRN 06/20/20 [History] Hx Tetanus, Diphtheria Vaccination/Date Given: Yes Hx Influenza Vaccination/Date Given: Yes Hx Pneumococcal Vaccination/Date Given: No Immunizations Up to Date: Yes Travel Risk - International Travel Have you traveled outside of the country in past 3 weeks: No - Coronavirus Screening Are you exhibiting any of the following symptoms?: Yes Symptoms: Shortness of Breath Close contact with a COVID-19 positive Pt in past 14-21 Days: No - Review of Systems Constitutional: No Fever, No Chills Eyes: No Symptoms Ears, Nose, & Throat: No Symptoms Respiratory: Cough, Dyspnea, Dyspnea on Exertion (ROJO), Wheezing Cardiac: No Chest Pain, No Edema, No Syncope Abdominal/Gastrointestinal: No Abdominal Pain, No Nausea, No Vomiting, No Diarrhea Genitourinary Symptoms: No Dysuria Musculoskeletal: No Back Pain, No Neck Pain Skin: No Rash Neurological: No Dizziness, No Focal Weakness, No Sensory Changes Psychological: No Symptoms Endocrine: No Symptoms All Other Systems: Reviewed and Negative - Past Medical History Pertinent Past Medical History: Yes Neurological History: Migraines, TIA ENT History: No Pertinent History Cardiac History: Hypertension Respiratory History: Asthma, Bronchitis, COPD, Emphysema, Pneumonia, Sleep Apnea Endocrine Medical History: No Pertinent History Musculoskeletal History: No Pertinent History GI Medical History: GERD History: No Pertinent History Psycho-Social History: Anxiety, Depression Female Reproductive Disorders: No Pertinent History - Past Surgical History Past Surgical History: Yes Neuro Surgical History: No Pertinent History Cardiac: No Pertinent History Respiratory: No Pertinent History Gastrointestinal: No Pertinent History Genitourinary: No Pertinent History Musculoskeletal: No Pertinent History Female Surgical History: No Pertinent History Other Surgical History: jaw fx repair, tubal pregnancies - Social History Smoking Status: Current every day smoker How long have you smoked: 32 yrs Exposure to second hand smoke: Yes Drug Use: none Patient Lives Alone: No - Female History Hx Now: No - Nursing Vital Signs Nursing Vital Signs: Initial Vital Signs Temperature 96.2 F 06/27/20 03:23 Pulse Rate 102 H 06/27/20 03:23 Respiratory Rate 24 06/27/20 03:23 Blood Pressure 160/117 06/27/20 03:23 O2 Sat by Pulse Oximetry 97 06/27/20 03:23 Pain Scale Pain Intensity 10 - Physical Exam General Appearance: moderate distress, alert Eye Exam: PERRL/EOMI Neck Exam: normal inspection, supple Respiratory Exam: rhonchi, wheezing Cardiovascular/Chest Exam: normal heart sounds, regular rate/rhythm Abdominal/Gastrointestinal Exam: soft, No tenderness, No distention, No mass Extremity Exam: non-tender, normal range of motion, normal inspection, no calf tenderness, no pedal edema Neurologic Exam: alert, oriented x 3, cooperative, car jockey II-XII nml as tested, sensation nml, No motor deficits Skin Exam: normal color, warm, No dry SpO2 Interpretation: normal SpO2: 98 O2 Delivery: BiPap/CPAP - Course Nursing assessment & vital signs reviewed: Yes EKG Interpreted by Me: RATE (100), Sinus Tach, NORMAL AXIS, NORMAL INTERVALS, Non-specific ST Changes - Radiology Exams Chest X-ray Interpretation: Interpreted by me, Negative Ordered Tests: Active Orders 24 hr Category Date Time Status EKG-ER Only STAT Care 06/27/20 03:32 Active IV Insertion STAT Care 06/27/20 03:32 Active Pulse Oximetry (ED) STAT Care 06/27/20 03:32 Active CHEST 1 VIEW (PORTABLE) Stat Exams 06/27/20 03:33 Taken CBC W DIFF Stat Lab 06/27/20 04:00 Completed CMP Stat Lab 06/27/20 04:00 Completed D-DIMER QUANTITATIVE Stat Lab 06/27/20 04:00 Completed Lactic Acid Stat Lab 06/27/20 03:55 Completed MAGNESIUM Stat Lab 06/27/20 04:00 Completed Manual Differential NC Stat Lab 06/27/20 04:00 Completed NT PRO BNP Stat Lab 06/27/20 04:00 Completed PROTIME WITH INR Stat Lab 06/27/20 04:00 Completed TROPONIN Q3H Lab 06/27/20 04:00 Completed TROPONIN Q3H Lab 06/27/20 06:45 Ordered TROPONIN Q3H Lab 06/27/20 09:45 Ordered TROPONIN Q3H Lab 06/27/20 12:45 Ordered TROPONIN Q3H Lab 06/27/20 15:45 Ordered UA W/RFX UR CULTURE Stat Lab 06/27/20 03:45 Completed BiPap/CPAP STAT RT 06/27/20 03:35 Active Respiratory Therapy Assessment DAILY RT 06/27/20 04:07 Active Medication Summary Discontinued Medications Generic Name Dose Route Start Last Admin Trade Name Freq PRN Reason Stop Dose Admin Albuterol Sulfate Confirm 06/27/20 03:32 Proventil 2.5 Mg/3 Ml Neb Administered 06/27/20 03:33 Dose 10 mg IH .STK-MED ONE Albuterol Sulfate 10 mg 06/27/20 03:35 06/27/20 03:45 Proventil 2.5 Mg/3 Ml Neb IH 06/27/20 03:36 10 mg STAT ONE Administration Sodium Chloride 1,000 mls @ 999 mls/hr 06/27/20 03:32 06/27/20 03:49 Sodium Chloride 0.9% 1000 Ml IV 06/27/20 04:32 999 mls/hr .Q1H1M STA Administration Sodium Chloride Confirm 06/27/20 03:48 Sodium Chloride 0.9% 1000 Ml Administered 06/27/20 03:49 Dose 1,000 mls @ ud .ROUTE .STK-MED ONE Methylprednisolone Sodium Succinate 125 mg 06/27/20 03:32 06/27/20 03:47 Solu-Medrol 125 Mg IV 06/27/20 03:33 Not Given STAT ONE Lab/Rad Data: Laboratory Result Diagrams 06/27/20 04:00 06/27/20 04:00 Laboratory Results 06/27/20 06/27/20 06/27/20 Range/Units 04:00 04:00 04:00 WBC (4.0-10.5) K/mm3 RBC (4.1-5.4) M/mm3 Hgb (12.0-16.0) gm/dl Hct (35-47) % MCV (78-100) fl MCH (26-32) pg MCHC (32-36) g/dl RDW (11.5-14.0) % Plt Count (150-450) K/mm3 MPV (7.5-11.0) fl PT 11.7 (9.95-12.35) SECONDS INR 1.04 (0.8-3.0) D-Dimer 368 (215-500) ng/mL Sodium 140 (137-145) mmol/L Potassium 3.4 L (3.5-5.1) mmol/L Chloride 101 (98-107) mmol/L Carbon Dioxide 30 (22-30) mmol/L Anion Gap 12.0 (5-15) MEQ/L BUN 8 (7-17) mg/dL Creatinine 0.56 (0.52-1.04) mg/dL Estimated GFR > 60.0 ML/MIN Glucose 103 (74-106) mg/dL Lactic Acid (0.4-2.0) Calcium 9.1 (8.4-10.2) mg/dL Magnesium 2.0 (1.6-2.3) mg/dL Total Bilirubin 0.10 L (0.2-1.3) mg/dL AST 33 (14-36) U/L ALT 31 (0-35) U/L Alkaline Phosphatase 83 (38-126) U/L Troponin I < 0.012 (0.000-0.034) ng/mL NT-Pro-B Natriuret Pep 189 (0-450) pg/mL Serum Total Protein 7.7 (6.3-8.2) g/dL Albumin 4.2 (3.5-5.0) g/dL Urine Color (YELLOW) Urine Appearance (CLEAR) Urine pH (5-6) Ur Specific [place] (1.005-1.025) Urine Protein (Negative) Urine Ketones (NEGATIVE) Urine Blood (0-5) Hector/ul Urine Nitrite (NEGATIVE) Urine Bilirubin (NEGATIVE) Urine Urobilinogen (0-1) mg/dL Ur Leukocyte Esterase (NEGATIVE) Urine WBC (Auto) (0-5) /HPF Urine RBC (Auto) (0-2) /HPF U Epithel Cells (Auto) (FEW) /HPF Urine Bacteria (Auto) (NEGATIVE) /HPF Urine Mucus (Auto) (NEGATIVE) /HPF Urine Culture Reflexed (NO) Urine Glucose (NEGATIVE) mg/dL 06/27/20 06/27/20 06/27/20 Range/Units 04:00 03:55 03:45 WBC 15.9 H (4.0-10.5) K/mm3 RBC 4.64 (4.1-5.4) M/mm3 Hgb 14.5 (12.0-16.0) gm/dl Hct 44.2 (35-47) % MCV 95.3 (78-100) fl MCH 31.3 (26-32) pg MCHC 32.8 (32-36) g/dl RDW 13.7 (11.5-14.0) % Plt Count 502 H (150-450) K/mm3 MPV 8.7 (7.5-11.0) fl PT (9.95-12.35) SECONDS INR (0.8-3.0) D-Dimer (215-500) ng/mL Sodium (137-145) mmol/L Potassium (3.5-5.1) mmol/L Chloride (98-107) mmol/L Carbon Dioxide (22-30) mmol/L Anion Gap (5-15) MEQ/L BUN (7-17) mg/dL Creatinine (0.52-1.04) mg/dL Estimated GFR ML/MIN Glucose (74-106) mg/dL Lactic Acid 0.7 (0.4-2.0) Calcium (8.4-10.2) mg/dL Magnesium (1.6-2.3) mg/dL Total Bilirubin (0.2-1.3) mg/dL AST (14-36) U/L ALT (0-35) U/L Alkaline Phosphatase (38-126) U/L Troponin I (0.000-0.034) ng/mL NT-Pro-B Natriuret Pep (0-450) pg/mL Serum Total Protein (6.3-8.2) g/dL Albumin (3.5-5.0) g/dL Urine Color STRAW (YELLOW) Urine Appearance CLEAR (CLEAR) Urine pH 7.0 (5-6) Ur Specific [place] 1.005 (1.005-1.025) Urine Protein NEGATIVE (Negative) Urine Ketones NEGATIVE (NEGATIVE) Urine Blood NEGATIVE (0-5) Hector/ul Urine Nitrite NEGATIVE (NEGATIVE) Urine Bilirubin NEGATIVE (NEGATIVE) Urine Urobilinogen NEGATIVE (0-1) mg/dL Ur Leukocyte Esterase NEGATIVE (NEGATIVE) Urine WBC (Auto) NONE (0-5) /HPF Urine RBC (Auto) NONE (0-2) /HPF U Epithel Cells (Auto) RARE (FEW) /HPF Urine Bacteria (Auto) NONE (NEGATIVE) /HPF Urine Mucus (Auto) SLIGHT (NEGATIVE) /HPF Urine Culture Reflexed NO (NO) Urine Glucose NEGATIVE (NEGATIVE) mg/dL - Progress Air Movement: fair Blood Culture(s) Obtained: No Antibiotics given: No Discussed with : Natanael Will see patient in: hospital (observation) - Departure Departure Disposition: Observation Clinical Impression: COPD exacerbation Condition: Stable Critical Care Time: No Referrals: DOCTOR,NO FAMILY [Primary Care Provider] - Instructions: Chronic Obstructive Pulmonary Disease, Exacerbation of COPD (DC)
[2020-06-27 04:06] LABS: Hematocrit 44.2 % (35-47); Hemoglobin 14.5 gm/dl (12.0-16.0); Mean Cell Volume 95.3 fl (78-100); Mean Corpuscular Hemoglobin 31.3 pg (26-32); Mean Corpuscular Hgb Concent. 32.8 g/dl (32-36); Mean Platelet Volume 8.7 fl (7.5-11.0); Platelet Count 502 K/mm3 (150-450); Red Blood Count 4.64 M/mm3 (4.1-5.4); Red Cell Distribution Width 13.7 % (11.5-14.0); White Blood Count 15.9 K/mm3 (4.0-10.5)
[2020-06-27 04:15] LABS: INR 1.04 (0.8-3.0); PROTIME 11.7 SECONDS (9.95-12.35)
[2020-06-27 04:31] LABS: ALBUMIN 4.2 g/dL (3.5-5.0); ALKALINE PHOSPHATASE 83 U/L (38-126); BLOOD UREA NITROGEN 8 mg/dL (7-17); CHLORIDE 101 mmol/L (98-107); Calcium 9.1 mg/dL (8.4-10.2); Carbon Dioxide 30 mmol/L (22-30); Creatinine 1 0.56 mg/dL (0.52-1.04); EST GLOMERULAR FILTRATION RATE > 60.0 ML/MIN; Glucose 103 mg/dL (74-106); NT PRO BNP 189 pg/mL (0-450); Potassium 3.4 mmol/L (3.5-5.1); SGOT/AST 33 U/L (14-36); SGPT/ALT 31 U/L (0-35); SODIUM 140 mmol/L (137-145); Total Protein 7.7 g/dL (6.3-8.2)
[2020-06-27 04:56] LABS: Appearance CLEAR (CLEAR); Bilirubin NEGATIVE (NEGATIVE); Blood NEGATIVE Ery/ul (0-5); Epithelial Cells RARE /HPF (FEW); Glucose NEGATIVE (NEGATIVE); Ketones NEGATIVE (NEGATIVE); Leukocyte Esterase NEGATIVE (NEGATIVE); Mucus SLIGHT /HPF (NEGATIVE); Nitrite NEGATIVE (NEGATIVE); Protein,Urine Dip NEGATIVE (Negative); Specific Gravity 1.005 (1.005-1.025); Urobilinogen NEGATIVE mg/dL (0-1)
[2020-06-27] MEDS ORDERED: Sodium Chloride 0.9% 1000 ML 1,000 ML IV SCH ×2 (05:30→08:45)
[2020-06-27] MEDS ORDERED: solu-MEDROL 125 MG IV SCH (06:00)
[2020-06-27 06:04] LABS: Eosinophil 1 % (0.00-3.0); Lymphocytes 41 % (24-44); Neutrophils 58 % (36.0-66.0); Platelet Estimate NORMAL (NORMAL); Total Cells Counted 100
[2020-06-27 06:23] LABS: INFLUENZA A NEGATIVE (NEGATIVE); INFLUENZA B NEGATIVE (NEGATIVE); RESPIRATORY SYNCTIAL VIRUS NEGATIVE (Negative)
--- NOTE | 2020-06-27 08:51 | XRAY ---
Indication: Short of breath. COPD. Comparison: June 24, 2020. Portable chest does not include entire left costophrenic angle. Remaining heart, lungs, and bony thorax are normal.
[2020-06-27] MEDS ORDERED: DUONEB 0.5-3 MG/3 ml Neb IH ONE ×2 (09:07→09:14)
[2020-06-27] MEDS ORDERED: Spiriva 18 Mcg/Cap Inhaler IH ONE (09:19)
[2020-06-27] MEDS: DUONEB 0.5-3 MG/3 ml Neb IH SCH ×5 (09:30→23:44)
[2020-06-27] MEDS: Advair Hfa 115/21 Common canister IH SCH ×2 (09:30→19:14)
[2020-06-27] MEDS: Spiriva 18 Mcg/Cap Inhaler IH SCH (09:30)
[2020-06-27] MEDS ORDERED: LEVOFLOXACIN 750MG/150ML D5W 750 MG/150 ML BAG IV STA (09:56)
[2020-06-27] MEDS ORDERED: Zithromax 500 MG/ 250 ML NaCl Premix 500 MG/250 ML IVPB IV SCH (10:00)
--- NOTE | 2020-06-27 10:01 | PCM.HP ---
History of Present Illness - Chief Complaint Chief Complaint: Exacerbation COPD History of Present Illness: is a 45 year old female with no local physician, has a known history of copd and hypertension. has had cough, worsening shortness of breath and wheezing over the last week to two weeks, no fever, minimal sputum production. has been hospitalized multiple times in the past elsewhere she states, continues to smoke, denies alcohol or drug use. - Review of Systems Constitutional: No Fever, No Chills Respiratory: Cough, Short Of Breath, Wheezing Cardiac: No Chest Pain, No Edema, No Syncope Abdominal/Gastrointestinal: No Abdominal Pain, No Nausea, No Vomiting, No Diarrhea Genitourinary Symptoms: No Dysuria Skin: No Rash All Other Systems: Reviewed and Negative Medications & Allergies Home Medications: Home Medication List Albuterol 2.5 mg/0.5 ml [PROVENTIL Solution 2.5 MG/0.5 ML] 1 neb IH Q4HPRN PRN 06/20/20 [History Confirmed 06/27/20] Doxycycline Hyclate 100 mg [Vibramycin 100 MG] 100 mg PO BID #14 tab 06/20/20 [Rx Confirmed 06/27/20] Metronidazole 500 mg [Flagyl 500 MG] 500 mg PO BID #14 tablet 06/20/20 [Rx Confirmed 06/27/20] Albuterol 8 gm Mdi Hfa [Ventolin Hfa MDI] 8 gm IH Q4H #1 hfa.aer.ad 06/24/20 [Rx Confirmed 06/27/20] Azithromycin 250 mg [Zithromax 250 MG TABLET] 250 mg PO ZPACK #6 tablet 06/24/20 [Rx Confirmed 06/27/20] Prednisone 10 mg [Deltasone 10 mg] 10 mg PO TID #12 tablet 06/24/20 [Rx Confirmed 06/27/20] Allergies/Adverse Reactions: Allergies Allergy/AdvReac Type Severity Reaction Status Date / Time cephalexin [From Keflex] Allergy Verified 06/27/20 03:36 ketorolac [From Toradol] Allergy Verified 06/27/20 03:36 lisinopril Allergy Verified 06/27/20 03:36 Sulfa (Sulfonamide Allergy Verified 06/27/20 03:36 Antibiotics) - Past Medical History Past Medical History: Yes Neurological History: No Pertinent History ENT History: No Pertinent History Cardiac History: No Pertinent History Respiratory History: COPD, Sleep Apnea Endocrine Medical History: No Pertinent History Musculoskelatal History: No Pertinent History GI Medical History: Pancreatitis History: No Pertinent History Pyscho-Social History: Anxiety Reproductive Disorders: No Pertinent History - Female History Are you now?: No - Past Surgical History Past Surgical History: Yes Neuro Surgical History: No Pertinent History Cardiac History: No Pertinent History Respiratory Surgery: No Pertinent History GI Surgical History: No Pertinent History Genitourinary Surgical Hx: No Pertinent History Musculskeletal Surgical Hx: No Pertinent History Female Surgical History: Tubal Ligation Other Surgical History: jaw fx repair, tubal pregnancies - Social History Smoking Status: Former smoker How long have you smoked: 30+ years Exposure to second hand smoke: Yes Alcohol: None Drug Use: none - Physical Exam Vital Signs: Vital Signs - 24 hr Temp Pulse Resp BP Pulse Ox 06/27/20 08:40 98.6 F 113 H 24 140/101 94 L 06/27/20 08:08 98.2 F 113 H 24 140/101 94 L 06/27/20 07:04 81 18 111/83 96 06/27/20 06:00 81 18 128/88 99 06/27/20 05:17 98 06/27/20 05:00 79 20 133/84 98 06/27/20 04:30 75 20 114/85 100 06/27/20 04:08 99 H 28 H 100 06/27/20 03:46 100 06/27/20 03:27 24 98 06/27/20 03:23 96.2 F 102 H 24 160/117 97 Oxygen-Last 24 hours Oxygen Flowrate (L/min)-RT 2 General Appearance: no apparent distress Neurologic Exam: alert, oriented x 3, cooperative Respiratory Exam: prolonged expirations, wheezing Cardiovascular Exam: regular rate/rhythm, normal heart sounds, normal peripheral pulses Gastrointestinal/Abdomen Exam: soft, normal bowel sounds, No tenderness, No mass Extremity Exam: normal inspection, normal range of motion, pelvis stable Skin Exam: normal color, warm, dry, No rash Results - Labs Lab/Micro Results: Lab Results-Last 24 Hours 03/09/21 03/09/21 03/09/21 Range/Units 03:45 03:55 04:00 WBC 15.9 H (4.0-10.5) K/mm3 RBC 4.64 (4.1-5.4) M/mm3 Hgb 14.5 (12.0-16.0) gm/dl Hct 44.2 (35-47) % MCV 95.3 (78-100) fl MCH 31.3 (26-32) pg MCHC 32.8 (32-36) g/dl RDW 13.7 (11.5-14.0) % Plt Count 502 H (150-450) K/mm3 MPV 8.7 (7.5-11.0) fl Segmented Neutrophils 58 (36.0-66.0) % Lymphocytes (Manual) 41 (24-44) % Eosinophils (Manual) 1 (0.00-3.0) % Platelet Estimate NORMAL (NORMAL) RBC Morphology NORMAL PT (9.95-12.35) SECONDS INR (0.8-3.0) D-Dimer (215-500) ng/mL Sodium (137-145) mmol/L Potassium (3.5-5.1) mmol/L Chloride (98-107) mmol/L Carbon Dioxide (22-30) mmol/L Anion Gap (5-15) MEQ/L BUN (7-17) mg/dL Creatinine (0.52-1.04) mg/dL Estimated GFR ML/MIN Glucose (74-106) mg/dL Lactic Acid 0.7 (0.4-2.0) Calcium (8.4-10.2) mg/dL Magnesium (1.6-2.3) mg/dL Total Bilirubin (0.2-1.3) mg/dL AST (14-36) U/L ALT (0-35) U/L Alkaline Phosphatase (38-126) U/L Troponin I (0.000-0.034) ng/mL NT-Pro-B Natriuret Pep (0-450) pg/mL Serum Total Protein (6.3-8.2) g/dL Albumin (3.5-5.0) g/dL Urine Color STRAW (YELLOW) Urine Appearance CLEAR (CLEAR) Urine pH 7.0 (5-6) Ur Specific [place] 1.005 (1.005-1.025) Urine Protein NEGATIVE (Negative) Urine Ketones NEGATIVE (NEGATIVE) Urine Blood NEGATIVE (0-5) Hector/ul Urine Nitrite NEGATIVE (NEGATIVE) Urine Bilirubin NEGATIVE (NEGATIVE) Urine Urobilinogen NEGATIVE (0-1) mg/dL Ur Leukocyte Esterase NEGATIVE (NEGATIVE) Urine WBC (Auto) NONE (0-5) /HPF Urine RBC (Auto) NONE (0-2) /HPF U Epithel Cells (Auto) RARE (FEW) /HPF Urine Bacteria (Auto) NONE (NEGATIVE) /HPF Urine Mucus (Auto) SLIGHT (NEGATIVE) /HPF Urine Culture Reflexed NO (NO) Urine Glucose NEGATIVE (NEGATIVE) mg/dL Influenza Type A Ag (NEGATIVE) Influenza Type B Ag (NEGATIVE) RSV (PCR) (Negative) SARS-CoV-2 (PCR) (NEGATIVE) 06/27/20 06/27/20 06/27/20 Range/Units 04:00 04:00 04:00 WBC (4.0-10.5) K/mm3 RBC (4.1-5.4) M/mm3 Hgb (12.0-16.0) gm/dl Hct (35-47) % MCV (78-100) fl MCH (26-32) pg MCHC (32-36) g/dl RDW (11.5-14.0) % Plt Count (150-450) K/mm3 MPV (7.5-11.0) fl Segmented Neutrophils (36.0-66.0) % Lymphocytes (Manual) (24-44) % Eosinophils (Manual) (0.00-3.0) % Platelet Estimate (NORMAL) RBC Morphology PT 11.7 (9.95-12.35) SECONDS INR 1.04 (0.8-3.0) D-Dimer 368 (215-500) ng/mL Sodium 140 (137-145) mmol/L Potassium 3.4 L (3.5-5.1) mmol/L Chloride 101 (98-107) mmol/L Carbon Dioxide 30 (22-30) mmol/L Anion Gap 12.0 (5-15) MEQ/L BUN 8 (7-17) mg/dL Creatinine 0.56 (0.52-1.04) mg/dL Estimated GFR > 60.0 ML/MIN Glucose 103 (74-106) mg/dL Lactic Acid (0.4-2.0) Calcium 9.1 (8.4-10.2) mg/dL Magnesium 2.0 (1.6-2.3) mg/dL Total Bilirubin 0.10 L (0.2-1.3) mg/dL AST 33 (14-36) U/L ALT 31 (0-35) U/L Alkaline Phosphatase 83 (38-126) U/L Troponin I < 0.012 (0.000-0.034) ng/mL NT-Pro-B Natriuret Pep 189 (0-450) pg/mL Serum Total Protein 7.7 (6.3-8.2) g/dL Albumin 4.2 (3.5-5.0) g/dL Urine Color (YELLOW) Urine Appearance (CLEAR) Urine pH (5-6) Ur Specific [place] (1.005-1.025) Urine Protein (Negative) Urine Ketones (NEGATIVE) Urine Blood (0-5) Hector/ul Urine Nitrite (NEGATIVE) Urine Bilirubin (NEGATIVE) Urine Urobilinogen (0-1) mg/dL Ur Leukocyte Esterase (NEGATIVE) Urine WBC (Auto) (0-5) /HPF Urine RBC (Auto) (0-2) /HPF U Epithel Cells (Auto) (FEW) /HPF Urine Bacteria (Auto) (NEGATIVE) /HPF Urine Mucus (Auto) (NEGATIVE) /HPF Urine Culture Reflexed (NO) Urine Glucose (NEGATIVE) mg/dL Influenza Type A Ag (NEGATIVE) Influenza Type B Ag (NEGATIVE) RSV (PCR) (Negative) SARS-CoV-2 (PCR) (NEGATIVE) 06/27/20 06/27/20 Range/Units 05:42 06:46 WBC (4.0-10.5) K/mm3 RBC (4.1-5.4) M/mm3 Hgb (12.0-16.0) gm/dl Hct (35-47) % MCV (78-100) fl MCH (26-32) pg MCHC (32-36) g/dl RDW (11.5-14.0) % Plt Count (150-450) K/mm3 MPV (7.5-11.0) fl Segmented Neutrophils (36.0-66.0) % Lymphocytes (Manual) (24-44) % Eosinophils (Manual) (0.00-3.0) % Platelet Estimate (NORMAL) RBC Morphology PT (9.95-12.35) SECONDS INR (0.8-3.0) D-Dimer (215-500) ng/mL Sodium (137-145) mmol/L Potassium (3.5-5.1) mmol/L Chloride (98-107) mmol/L Carbon Dioxide (22-30) mmol/L Anion Gap (5-15) MEQ/L BUN (7-17) mg/dL Creatinine (0.52-1.04) mg/dL Estimated GFR ML/MIN Glucose (74-106) mg/dL Lactic Acid (0.4-2.0) Calcium (8.4-10.2) mg/dL Magnesium (1.6-2.3) mg/dL Total Bilirubin (0.2-1.3) mg/dL AST (14-36) U/L ALT (0-35) U/L Alkaline Phosphatase (38-126) U/L Troponin I < 0.012 (0.000-0.034) ng/mL NT-Pro-B Natriuret Pep (0-450) pg/mL Serum Total Protein (6.3-8.2) g/dL Albumin (3.5-5.0) g/dL Urine Color (YELLOW) Urine Appearance (CLEAR) Urine pH (5-6) Ur Specific [place] (1.005-1.025) Urine Protein (Negative) Urine Ketones (NEGATIVE) Urine Blood (0-5) Hector/ul Urine Nitrite (NEGATIVE) Urine Bilirubin (NEGATIVE) Urine Urobilinogen (0-1) mg/dL Ur Leukocyte Esterase (NEGATIVE) Urine WBC (Auto) (0-5) /HPF Urine RBC (Auto) (0-2) /HPF U Epithel Cells (Auto) (FEW) /HPF Urine Bacteria (Auto) (NEGATIVE) /HPF Urine Mucus (Auto) (NEGATIVE) /HPF Urine Culture Reflexed (NO) Urine Glucose (NEGATIVE) mg/dL Influenza Type A Ag NEGATIVE (NEGATIVE) Influenza Type B Ag NEGATIVE (NEGATIVE) RSV (PCR) NEGATIVE (Negative) SARS-CoV-2 (PCR) NEGATIVE (NEGATIVE) - Radiology Impressions Radiology Exams & Impressions: Radiology Procedures Category Date Time Status CHEST 1 VIEW (PORTABLE) Stat Exams 06/27/20 03:33 Completed Assessment/Plan (1) COPD exacerbation Current Visit: Yes Status: Acute Assessment & Plan: levaquin, IV solu medrol and nebs ordered. Code(s): J44.1 - CHRONIC OBSTRUCTIVE PULMONARY DISEASE W (ACUTE) EXACERBATION
[2020-06-27] MEDS ORDERED: DUONEB 0.5-3 MG/3 ml Neb IH PRN (10:23)
[2020-06-27] MEDS ORDERED: PROVENTIL 2.5 MG/3 ML NEB IH PRN (11:02)
[2020-06-27] MEDS: solu-MEDROL 125 MG IV SCH ×2 (12:30→17:34)
[2020-06-27] MEDS ORDERED: DUONEB 0.5-3 MG/3 ml Neb IH SCH (13:00)
[2020-06-27] MEDS: Nicoderm CQ 21 MG TOP SCH (20:51)
[2020-06-28] MEDS: solu-MEDROL 125 MG IV SCH ×4 (00:59→17:36)
[2020-06-28] MEDS: DUONEB 0.5-3 MG/3 ml Neb IH SCH ×6 (03:31→23:23)
[2020-06-28 05:12] LABS: Hematocrit 41.7 % (35-47); Hemoglobin 13.7 gm/dl (12.0-16.0); Mean Cell Volume 96.5 fl (78-100); Mean Corpuscular Hemoglobin 31.7 pg (26-32); Mean Corpuscular Hgb Concent. 32.9 g/dl (32-36); Platelet Count 466 K/mm3 (150-450); Red Blood Count 4.32 M/mm3 (4.1-5.4); Red Cell Distribution Width 13.7 % (11.5-14.0); White Blood Count 23.7 K/mm3 (4.0-10.5)
[2020-06-28 05:34] LABS: ALBUMIN 3.7 g/dL (3.5-5.0); ALKALINE PHOSPHATASE 73 U/L (38-126); ANION GAP 12.1 MEQ/L (5-15); BLOOD UREA NITROGEN 11 mg/dL (7-17); CHLORIDE 102 mmol/L (98-107); Calcium 9.4 mg/dL (8.4-10.2); Carbon Dioxide 28 mmol/L (22-30); Creatinine 1 0.54 mg/dL (0.52-1.04); EST GLOMERULAR FILTRATION RATE > 60.0 ML/MIN; Glucose 150 mg/dL (74-106); MAGNESIUM 2.2 mg/dL (1.6-2.3); Potassium 3.9 mmol/L (3.5-5.1); SGOT/AST 26 U/L (14-36); SGPT/ALT 24 U/L (0-35); SODIUM 138 mmol/L (137-145); Total Protein 6.8 g/dL (6.3-8.2)
[2020-06-28] MEDS: Spiriva 18 Mcg/Cap Inhaler IH SCH (06:31)
[2020-06-28] MEDS: Advair Hfa 115/21 Common canister IH SCH ×2 (06:31→19:38)
--- NOTE | 2020-06-28 09:24 | PCM.NOTE ---
Date and Time: 06/28/20922 Subjective Assessment: patient reports some improvement in her symptoms, still with wheezing and requiring oxygen. requested mucinex and tylenol for sinus congestion/drainage Objective Exam General Appearance: no apparent distress, alert Respiratory Exam: prolonged expirations, wheezing, No accessory muscle use Cardiovascular Exam: regular rate/rhythm, normal heart sounds Gastrointestinal/Abdomen Exam: soft, No tenderness, No mass Extremity Exam: normal inspection, normal range of motion OBJECTIVE DATA Vital Signs: Vital Signs - 24 hr Temp Pulse Resp BP Pulse Ox 06/28/20 07:22 97.5 F 90 20 145/96 94 L 06/28/20 06:34 105 H 20 95 06/28/20 04:00 97 F 110 H 18 141/93 93 L 06/28/20 03:31 103 H 20 93 L 06/28/20 01:00 96 06/28/20 00:00 97.5 F 103 H 16 131/88 96 06/27/20 23:45 102 H 20 96 06/27/20 20:00 97.1 F 123 H 24 144/86 96 06/27/20 19:15 105 H 20 96 06/27/20 16:00 97.0 F 113 H 20 135/96 94 L 06/27/20 14:44 100 H 20 06/27/20 13:48 95 06/27/20 12:00 98.0 F 106 H 28 H 152/89 95 06/27/20 11:21 100 H 24 06/27/20 09:30 107 H 24 97 Oxygen-Last 24 hours Oxygen Flowrate (L/min)-RT 2 Oxygen Flowrate (L/min)-RT 2 Pain Assessment - Last Documented Pain Intensity 0 Intake and Output: Intake & Output 06/25/20 06/26/20 06/27/20 06/28/20 11:59 11:59 11:59 11:59 Intake Total 0 2290 Output Total 3400 Balance 0 -1110 Weight 73.6 kg 73.6 kg Lab Results: Lab Results-Last 24 Hours 06/27/20 06/27/20 06/27/20 Range/Units 09:50 12:50 16:05 WBC (4.0-10.5) K/mm3 RBC (4.1-5.4) M/mm3 Hgb (12.0-16.0) gm/dl Hct (35-47) % MCV (78-100) fl MCH (26-32) pg MCHC (32-36) g/dl RDW (11.5-14.0) % Plt Count (150-450) K/mm3 MPV (7.5-11.0) fl Sodium (137-145) mmol/L Potassium (3.5-5.1) mmol/L Chloride (98-107) mmol/L Carbon Dioxide (22-30) mmol/L Anion Gap (5-15) MEQ/L BUN (7-17) mg/dL Creatinine (0.52-1.04) mg/dL Estimated GFR ML/MIN Glucose (74-106) mg/dL Calcium (8.4-10.2) mg/dL Magnesium (1.6-2.3) mg/dL Total Bilirubin (0.2-1.3) mg/dL AST (14-36) U/L ALT (0-35) U/L Alkaline Phosphatase (38-126) U/L Troponin I < 0.012 < 0.012 < 0.012 (0.000-0.034) ng/mL Serum Total Protein (6.3-8.2) g/dL Albumin (3.5-5.0) g/dL 06/28/20 06/28/20 Range/Units 04:34 04:34 WBC 23.7 H (4.0-10.5) K/mm3 RBC 4.32 (4.1-5.4) M/mm3 Hgb 13.7 (12.0-16.0) gm/dl Hct 41.7 (35-47) % MCV 96.5 (78-100) fl MCH 31.7 (26-32) pg MCHC 32.9 (32-36) g/dl RDW 13.7 (11.5-14.0) % Plt Count 466 H (150-450) K/mm3 MPV 9.0 (7.5-11.0) fl Sodium 138 (137-145) mmol/L Potassium 3.9 (3.5-5.1) mmol/L Chloride 102 (98-107) mmol/L Carbon Dioxide 28 (22-30) mmol/L Anion Gap 12.1 (5-15) MEQ/L BUN 11 (7-17) mg/dL Creatinine 0.54 (0.52-1.04) mg/dL Estimated GFR > 60.0 ML/MIN Glucose 150 H (74-106) mg/dL Calcium 9.4 (8.4-10.2) mg/dL Magnesium 2.2 (1.6-2.3) mg/dL Total Bilirubin 0.20 (0.2-1.3) mg/dL AST 26 (14-36) U/L ALT 24 (0-35) U/L Alkaline Phosphatase 73 (38-126) U/L Troponin I (0.000-0.034) ng/mL Serum Total Protein 6.8 (6.3-8.2) g/dL Albumin 3.7 (3.5-5.0) g/dL Radiology Exams: Radiology Procedures Category Date Time Status CHEST 1 VIEW (PORTABLE) Stat Exams 06/27/20 03:33 Completed Multi-Disciplinary Progress Notes: Multi-Disciplinary Progress Notes 06/27/20 10:30 Case Management Note by Eloina Zhou WHEN TALKING ABOUT MEDICAL EQUIPMENT USED AT HOME. PATIENT STATES SHE USES A NEBULIZER DAILY BUT IT HARDLY WORKS. SHE STATED SHE HAS TO HIT IT TO GET IT TO WORK. SHE ALSO STATED SHE WAS ON OXYGEN AT HOME AND HAD A CPAP AT HOME TOO BUT THEY WERE "STOLEN". SHE SAID SHE NOTIFIED THE EQUIPMENT PROVIDER BUT STATED "I GOT THE RUN AROUND" AND NEVER GOT REPLACEMENTS. PATIENT STATES THIS EQUIPMENT WAS ORDERED BACK IN . CASE MANAGEMENT WILL TRY TO ARRANGE FOR A NEB MACHINE AND HOME O2 (IF NEEDED) AT TIME OF DC. PATIENT NOTIFIED SHE WILL LIKELY NEED A NEW SLEEP STUDY PERFORMED TO GET A REPLACEMENT CPAP MACHINE SINCE HER ORIGINAL ORDER IS FROM - SHE VERIFIED UNDERSTANDING. WILL NOTIFY PHYSICIAN Initialized on 06/27/20 10:30 - END OF NOTE Assessment/Plan (1) COPD exacerbation Current Visit: Yes Status: Acute Assessment & Plan: continue IV solu medrol, levaquin and nebulizer therapy Code(s): J44.1 - CHRONIC OBSTRUCTIVE PULMONARY DISEASE W (ACUTE) EXACERBATION
[2020-06-28] MEDS ORDERED: DULCOLAX 5 MG PO PRN (09:27)
[2020-06-28] MEDS: Mucinex 600MG ER Tabs PO SCH ×2 (09:51→21:22)
[2020-06-28] MEDS: LEVOFLOXACIN 750MG/150ML D5W 750 MG/150 ML BAG IV SCH (09:51)
[2020-06-28] MEDS: TYLENOL 325 MG PO PRN ×2 (09:51→19:50)
[2020-06-28] MEDS ORDERED: Zithromax 500 MG/ 250 ML NaCl Premix 500 MG/250 ML IVPB IV SCH (10:00)
[2020-06-28] MEDS: Nicoderm CQ 21 MG TOP SCH (21:22)
[2020-06-29] MEDS: solu-MEDROL 125 MG IV SCH ×2 (00:03→06:11)
[2020-06-29] MEDS: DUONEB 0.5-3 MG/3 ml Neb IH SCH ×2 (03:16→06:42)
[2020-06-29] MEDS: TYLENOL 325 MG PO PRN (03:24)
[2020-06-29 04:56] LABS: Hematocrit 42.5 % (35-47); Hemoglobin 13.7 gm/dl (12.0-16.0); Mean Cell Volume 96.8 fl (78-100); Mean Corpuscular Hemoglobin 31.2 pg (26-32); Mean Corpuscular Hgb Concent. 32.2 g/dl (32-36); Platelet Count 483 K/mm3 (150-450); Red Blood Count 4.39 M/mm3 (4.1-5.4); Red Cell Distribution Width 13.7 % (11.5-14.0)
[2020-06-29 05:15] LABS: ANION GAP 11.7 MEQ/L (5-15); BLOOD UREA NITROGEN 15 mg/dL (7-17); CHLORIDE 100 mmol/L (98-107); Calcium 9.2 mg/dL (8.4-10.2); Carbon Dioxide 29 mmol/L (22-30); Creatinine 1 0.52 mg/dL (0.52-1.04); EST GLOMERULAR FILTRATION RATE > 60.0 ML/MIN; Glucose 137 mg/dL (74-106); SODIUM 137 mmol/L (137-145)
[2020-06-29] MEDS: Spiriva 18 Mcg/Cap Inhaler IH SCH (06:42)
[2020-06-29] MEDS: Advair Hfa 115/21 Common canister IH SCH (06:42)
[2020-06-29 06:46] VITALS: PULSE 106; O2SAT 92
[2020-06-29 08:03] VITALS: BP 154/97
[2020-06-29 08:07] LABS: Lymphocytes 6 % (24-44); Monocyte 4 % (0.0-12.0); Neutrophils 90 % (36.0-66.0); Platelet Estimate NORMAL (NORMAL); Total Cells Counted 100; Toxic Granulation 1+
--- NOTE | 2020-06-29 09:18 | PCM.DS ---
Discharge Summary Date of Admission: 06/27/20 07:46 Admitting Physician: MARBELLA COLON Primary Care Provider: NO FAMILY DOCTOR Allergies Allergies cephalexin [From Keflex] Allergy (Verified 06/27/20 03:36) ketorolac [From Toradol] Allergy (Verified 06/27/20 03:36) lisinopril Allergy (Verified 06/27/20 03:36) Sulfa (Sulfonamide Antibiotics) Allergy (Verified 06/27/20 03:36) Hospital Summary - Hospital Course Hospital Course: patient admitted with cough, shortness of breath and wheezing. no local physician, consistent with acute exacerbation of copd, has progressed and is now off of oxygen maintaining room air oxygen sats currently, doing much better and requesting discharge today - Vitals & Intake/Output Vital Signs: Vital Signs Temperature 97.5 F 06/29/20 08:00 Pulse Rate 106 H 06/29/20 08:00 Respiratory Rate 16 06/29/20 08:00 Blood Pressure 154/97 06/29/20 08:00 O2 Sat by Pulse Oximetry 92 L 06/29/20 08:00 Intake & Output: Intake & Output 06/26/20 06/27/20 06/28/20 06/29/20 11:59 11:59 11:59 11:59 Intake Total 0 2290 2387 Output Total 3400 1750 Balance 0 -1110 637 Weight 73.6 kg 73.6 kg - Lab Result Diagrams: 06/29/20 04:36 06/29/20 04:36 Lab Results-Last 24 Hrs: Lab Results-Last 24 Hours 06/29/20 06/29/20 Range/Units 04:36 04:36 WBC 21.0 H (4.0-10.5) K/mm3 RBC 4.39 (4.1-5.4) M/mm3 Hgb 13.7 (12.0-16.0) gm/dl Hct 42.5 (35-47) % MCV 96.8 (78-100) fl MCH 31.2 (26-32) pg MCHC 32.2 (32-36) g/dl RDW 13.7 (11.5-14.0) % Plt Count 483 H (150-450) K/mm3 MPV 9.0 (7.5-11.0) fl Segmented Neutrophils 90 H (36.0-66.0) % Lymphocytes (Manual) 6 L (24-44) % Monocytes (Manual) 4 (0.0-12.0) % Toxic Granulation 1+ Platelet Estimate NORMAL (NORMAL) RBC Morphology NORMAL Sodium 137 (137-145) mmol/L Potassium 4.0 (3.5-5.1) mmol/L Chloride 100 (98-107) mmol/L Carbon Dioxide 29 (22-30) mmol/L Anion Gap 11.7 (5-15) MEQ/L BUN 15 (7-17) mg/dL Creatinine 0.52 (0.52-1.04) mg/dL Estimated GFR > 60.0 ML/MIN Glucose 137 H (74-106) mg/dL Calcium 9.2 (8.4-10.2) mg/dL - Procedures and Test Procedures and Tests throughout Hospitalization: Therapy Orders & Screens 06/27/20 03:35 BiPap/CPAP STAT Comment: 06/27/20 04:07 Respiratory Therapy Assessment DAILY Comment: 06/27/20 10:34 Oxygen NASAL CANNULA 2 lpm Comment: Diagnosis: Exacerbation COPD Respiratory Therapy Assessment DAILY Comment: Diagnosis: Exacerbation COPD 06/28/20 01:40 BiPap/CPAP ROUTINE Comment: Diagnosis: Exacerbation COPD Discharge Exam General Appearance: no apparent distress Respiratory Exam: prolonged expirations, No respiratory distress, No wheezing Cardiovascular Exam: regular rate/rhythm, normal heart sounds Gastrointestinal/Abdomen Exam: soft, No tenderness, No mass Extremity Exam: normal inspection, normal range of motion Skin Exam: normal color, warm, dry Final Diagnosis/Problem List - Final Discharge Diagnosis/Problem (1) COPD exacerbation Current Visit: Yes Status: Acute Assessment & Plan: home on po levaquin and prednisone taper, nebulizer machine Code(s): J44.1 - CHRONIC OBSTRUCTIVE PULMONARY DISEASE W (ACUTE) EXACERBATION (2) Hypertension Current Visit: Yes Status: Acute Assessment & Plan: add amlodipine Code(s): I10 - ESSENTIAL (PRIMARY) HYPERTENSION - Discharge Disposition: Home, Self-Care Condition: Stable Prescriptions: New Fluticasone/Salmeterol 115/21 [Advair Hfa 115/21 Common canister*] 2 puff IH BIDRT #1 aer.w.adap Prednisone 20 mg [Deltasone 20 mg] 20 mg PO UD #18 tablet Albuterol/Ipratropium 3ml Neb* [DUONEB 0.5-3 MG/3 ml Neb] 3 ml IH Q6H PRN PRN #100 ampul.neb PRN Reason: Shortness Of Breath Levofloxacin [Levaquin] 750 mg PO DAILY #3 tablet Amlodipine Besylate 5 mg [Norvasc 5 mg] 5 mg PO DAILY #30 tablet Tiotropium [place] Inhaler [Spiriva 18 Mcg/Cap Inhaler] 1 ea IH DAILY #30 inh Continue Albuterol 8 gm Mdi Hfa [Ventolin Hfa MDI] 8 gm IH Q4H #1 hfa.aer.ad Discontinued Albuterol 2.5 mg/0.5 ml [PROVENTIL Solution 2.5 MG/0.5 ML] 1 neb IH Q4HPRN PRN PRN Reason: Shortness Of Breath Metronidazole 500 mg [Flagyl 500 MG] 500 mg PO BID #14 tablet Doxycycline Hyclate 100 mg [Vibramycin 100 MG] 100 mg PO BID #14 tab Prednisone 10 mg [Deltasone 10 mg] 10 mg PO TID #12 tablet Azithromycin 250 mg [Zithromax 250 MG TABLET] 250 mg PO ZPACK #6 tablet Follow up with: MARBELLA COLON MD [ACTIVE STAFF] - 1 Week
[2020-06-29] MEDS: Mucinex 600MG ER Tabs PO SCH (09:45)
[2020-06-29] MEDS: LEVOFLOXACIN 750MG/150ML D5W 750 MG/150 ML BAG IV SCH (09:46)
== END 2020-06-29 10:05 | disposition home or self-care (01) ==
LOC: ED 03:21 → EEVIPCON 07:46 → MED SURG 07:46
PROVIDERS: ADMIT Family Medicine; ATTEND Family Medicine
DX: J44.1 Chronic obstructive pulmonary disease with (acute) exacerbation (principal); I10 Essential (primary) hypertension; R06.02 Shortness of breath; R05 Cough; R07.9 Chest pain, unspecified; R06.00 Dyspnea, unspecified; R06.2 Wheezing; Z86.16 Personal history of COVID-19; F17.210 Nicotine dependence, cigarettes, uncomplicated
CPT/HCPCS: 0241U; 36000; 36415; 71045; 80048; 80053; 81001; 83605; 83735; 83880; 84484; 85025; 85027; 85379; 85610; 93005; 94640; 94660; 94760; 96376; 99285; G0378; J0456; J1956; J2930; J7609; A9270-GY

== ENCOUNTER 2020-09-22 19:35 | Inpatient (IN) | payer OTHER ==
[2020-09-22] MEDS ORDERED: PROVENTIL 2.5 MG/3 ML NEB IH ONE (19:43)
--- NOTE | 2020-09-22 19:50 | ERPHSYRPT ---
- History of Present Illness Time Seen by Provider: 09/22/20 19:37 Source: patient Exam Limitations: no limitations Physician History: 45 years old -[place] Citizen female with history of respiratory failure secondary to COPD on oxygen, tobacco abuse presented in the ER with worsening shortness of breath for almost 2 to 3 weeks. She has finished course of oral Levaquin with no significant relief. Patient reports inability to use nebulizer for the last 2 days because her dog chewed tubing. Today her shortness of breath is getting very worse after she was coloring her hairs. On EMS arrival patient's oxygen saturation was 86%, given DuoNeb x2 and Solu-Medrol, on presentation she is tachypneic and tachycardic with some distress and saturation around 97%. Denies fever or chills. No sick contact. Did not receive Covid vaccine. Timing/Duration: week(s), constant, gradual onset, worse Activities at Onset: rest Severity of Dyspnea-Max: severe Severity of Dyspnea-Current: severe Possible Cause: smoke exposure Modifying Factors: Improves With: albuterol nebulizer, oxygen. Worsens With: activity Associated Symptoms: constant, cough, chest pain/discomfort, lightheadedness, wheezing, heaviness, heart racing, painful breathing, productive cough, tightness Allergies/Adverse Reactions: cephalexin [From Keflex] Allergy (Verified 09/22/20 19:41) ketorolac [From Toradol] Allergy (Verified 09/22/20 19:41) lisinopril Allergy (Verified 09/22/20 19:41) Sulfa (Sulfonamide Antibiotics) Allergy (Verified 09/22/20 19:41) Home Medications: Gabapentin 100 mg [Neurontin 100 MG] 1 tab PO BID 09/22/20 [History] Omeprazole 1 tab PO DAILY 09/22/20 [History] Paroxetine HCl 1 tab PO DAILY 09/22/20 [History] Hx Tetanus, Diphtheria Vaccination/Date Given: Yes Hx Influenza Vaccination/Date Given: Yes Hx Pneumococcal Vaccination/Date Given: No - Review of Systems Constitutional: Fatigue, Weakness Eyes: No Symptoms Ears, Nose, & Throat: No Symptoms Respiratory: Cough, Dyspnea, Dyspnea on Exertion (ROJO), Wheezing Cardiac: Chest Pain, Palpitations Abdominal/Gastrointestinal: No Symptoms Genitourinary Symptoms: No Symptoms Musculoskeletal: No Symptoms Skin: No Symptoms Neurological: No Symptoms Psychological: No Symptoms Endocrine: No Symptoms Hematologic/Lymphatic: No Symptoms Immunological/Allergic: No Symptoms - Past Medical History Pertinent Past Medical History: Yes Neurological History: No Pertinent History ENT History: No Pertinent History Cardiac History: No Pertinent History Respiratory History: COPD, Sleep Apnea Endocrine Medical History: No Pertinent History Musculoskeletal History: No Pertinent History GI Medical History: Pancreatitis History: No Pertinent History Psycho-Social History: Anxiety Female Reproductive Disorders: No Pertinent History - Past Surgical History Past Surgical History: Yes Neuro Surgical History: No Pertinent History Cardiac: No Pertinent History Respiratory: No Pertinent History Gastrointestinal: No Pertinent History Genitourinary: No Pertinent History Musculoskeletal: No Pertinent History Female Surgical History: Tubal Ligation Other Surgical History: jaw fx repair, tubal pregnancies - Social History Smoking Status: Former smoker How long have you smoked: 30+ years Exposure to second hand smoke: Yes Drug Use: none Patient Lives Alone: No - Nursing Vital Signs Nursing Vital Signs: Initial Vital Signs Temperature 98.7 F 09/22/20 19:35 Pulse Rate 114 H 09/22/20 19:35 Respiratory Rate 26 H 09/22/20 19:35 Blood Pressure 177/114 09/22/20 19:35 O2 Sat by Pulse Oximetry 99 09/22/20 19:35 Pain Scale Pain Intensity 6 - Physical Exam General Appearance: moderate distress, alert, anxiety Eye Exam: PERRL/EOMI, eyes nml inspection Ears, Nose, Throat Exam: hearing grossly normal, pharyngeal erythema Neck Exam: normal inspection, supple, full range of motion Respiratory Exam: diminished breath sounds, accessory muscle use, crackles/rales, rhonchi, wheezing Cardiovascular/Chest Exam: normal heart sounds, tachycardia Abdominal/Gastrointestinal Exam: soft, normal bowel sounds, No tenderness Extremity Exam: non-tender, normal range of motion Neurologic Exam: alert, oriented x 3, cooperative Skin Exam: normal color SpO2 Interpretation: O2 applied SpO2: 96 O2 Delivery: Oxymask - Course EKG Interpreted by Me: RATE ([id number]), Sinus Tach, Left [place] Deviation, NORMAL INTERVALS, Q-wave Ordered Tests: Active Orders 24 hr Category Date Time Status Program Specialist STAT Care 09/22/20 19:44 Active EKG-ER Only STAT Care 09/22/20 19:43 Active IV Insertion STAT Care 09/22/20 19:43 Active CHEST 1 VIEW (PORTABLE) Stat Exams 09/22/20 19:44 Taken ARTERIAL BLOOD GASES Stat Lab 09/22/20 19:52 Completed BLOOD CULTURE Stat Lab 09/22/20 19:55 Received CBC W DIFF Stat Lab 09/22/20 20:05 Completed CMP Stat Lab 09/22/20 20:05 Completed Lactic Acid Stat Lab 09/22/20 19:52 Completed MAGNESIUM Stat Lab 09/22/20 20:05 Completed NT PRO BNP Stat Lab 09/22/20 20:05 Completed TROPONIN Q3H Lab 09/22/20 20:05 Completed TROPONIN Q3H Lab 09/22/20 22:45 Ordered TROPONIN Q3H Lab 09/23/20 01:45 Ordered TROPONIN Q3H Lab 09/23/20 04:45 Ordered TROPONIN Q3H Lab 09/23/20 07:45 Ordered Transfer Order Routine Transfer 09/22/20 Ordered Medication Summary Generic Name Dose Route Start Last Admin Trade Name Freq PRN Reason Stop Dose Admin Azithromycin / Sodium Chloride 250 mls @ 125 mls/hr 09/22/20 20:31 IV 09/22/20 22:30 STAT ONE Discontinued Medications Generic Name Dose Route Start Last Admin Trade Name Freq PRN Reason Stop Dose Admin Albuterol Sulfate 2.5 mg 09/22/20 19:43 Proventil 2.5 Mg/3 Ml Neb IH 09/22/20 19:44 STAT ONE Piperacillin Sod/Tazobactam 100 mls @ 200 mls/hr 09/22/20 20:31 09/22/20 20:58 Sod 3.375 gm/ Sodium Chloride IV 09/22/20 21:00 200 mls/hr STAT ONE Administration Sodium Chloride 1,000 mls @ 999 mls/hr 09/22/20 20:33 09/22/20 20:46 Sodium Chloride 0.9% 1000 Ml IV 09/22/20 21:33 999 mls/hr .Q1H1M STA Administration Sodium Chloride 1,000 mls @ 999 mls/hr 09/22/20 20:34 09/22/20 21:06 Sodium Chloride 0.9% 1000 Ml IV 09/22/20 21:34 Not Given .Q1H1M STA Sodium Chloride Confirm 09/22/20 20:45 Sodium Chloride 0.9% 1000 Ml Administered 09/22/20 20:46 Dose 2,000 mls @ ud .ROUTE .STK-MED ONE Sodium Chloride Confirm 09/22/20 20:45 Sodium Chloride 100ml Mini-Bag Plus Administered 09/22/20 20:46 Dose 100 mls @ ud IV .STK-MED ONE Lorazepam 1 mg 09/22/20 21:43 09/22/20 21:48 Ativan 2 Mg/1 Ml Vial IV 09/22/20 21:44 1 mg STAT ONE Administration Lorazepam Confirm 09/22/20 21:48 Ativan 2 Mg/1 Ml Vial Administered 09/22/20 21:49 Dose 2 mg .ROUTE .STK-MED ONE Piperacillin Sod/Tazobactam Sod Confirm 09/22/20 20:45 Zosyn 3.375 Gm Vial Administered 09/22/20 20:46 Dose 3.375 gm IV .STK-MED ONE Lab/Rad Data: Laboratory Result Diagrams 09/22/20 20:05 09/22/20 20:05 Laboratory Results 09/22/20 09/22/20 09/22/20 Range/Units 20:05 20:05 20:05 WBC 13.5 H (4.0-10.5) K/mm3 RBC 4.68 (4.1-5.4) M/mm3 Hgb 15.0 (12.0-16.0) gm/dl Hct 44.4 (35-47) % MCV 94.9 (78-100) fl MCH 32.1 H (26-32) pg MCHC 33.8 (32-36) g/dl RDW 12.9 (11.5-14.0) % Plt Count 341 (150-450) K/mm3 MPV 9.4 (7.5-11.0) fl Gran % 57.2 (36.0-66.0) % Eos # (Auto) 0.62 H (0-0.5) Absolute Lymphs (auto) 4.06 (1.0-4.6) Absolute Monos (auto) 1.05 (0.0-1.3) Lymphocytes % 30.2 (24.0-44.0) % Monocytes % 7.8 (0.0-12.0) % Eosinophils % 4.6 (0.00-5.0) % Basophils % 0.2 (0.0-0.4) % Absolute Granulocytes 7.70 H (1.4-6.9) Basophils # 0.03 (0-0.4) Puncture Site pCO2 (35-45) mmHg pO2 (75-100) mmHg Base Excess (-2.0-2.0) O2 Saturation (94-100) g/dF ABG pH (7.35-7.45) ABG HCO3 (22-28) ABG O2 Sat (Measured) (95-100) % Apollo Test A-a Gradient a/A Ratio Hemoglobin Carboxyhemoglobin (0.0-6.9) % THgb Methemoglobin (1.4-1.5) % Potassium 3.6 (3.5-5.1) Temperature C POC O2 Flow Rate % Vent Mode Sodium 140 (137-145) mmol/L Chloride 105 (98-107) mmol/L Carbon Dioxide 28 (22-30) mmol/L Anion Gap 11.2 (5-15) MEQ/L BUN 15 (7-17) mg/dL Creatinine 0.69 (0.52-1.04) mg/dL Estimated GFR > 60.0 ML/MIN Glucose 123 H (74-106) mg/dL Lactic Acid (0.4-2.0) Calcium 8.6 (8.4-10.2) mg/dL Magnesium 1.9 (1.6-2.3) mg/dL Total Bilirubin 0.30 (0.2-1.3) mg/dL AST 34 (14-36) U/L ALT 21 (0-35) U/L Alkaline Phosphatase 90 (38-126) U/L Troponin I < 0.012 (0.000-0.034) ng/mL NT-Pro-B Natriuret Pep 44.9 (0-450) pg/mL Serum Total Protein 7.1 (6.3-8.2) g/dL Albumin 4.3 (3.5-5.0) g/dL 09/22/20 Range/Units 19:52 WBC (4.0-10.5) K/mm3 RBC (4.1-5.4) M/mm3 Hgb (12.0-16.0) gm/dl Hct (35-47) % MCV (78-100) fl MCH (26-32) pg MCHC (32-36) g/dl RDW (11.5-14.0) % Plt Count (150-450) K/mm3 MPV (7.5-11.0) fl Gran % (36.0-66.0) % Eos # (Auto) (0-0.5) Absolute Lymphs (auto) (1.0-4.6) Absolute Monos (auto) (0.0-1.3) Lymphocytes % (24.0-44.0) % Monocytes % (0.0-12.0) % Eosinophils % (0.00-5.0) % Basophils % (0.0-0.4) % Absolute Granulocytes (1.4-6.9) Basophils # (0-0.4) Puncture Site RIGHT RADIAL pCO2 46 H (35-45) mmHg pO2 149 H* (75-100) mmHg Base Excess 0.8 (-2.0-2.0) O2 Saturation 94.4 (94-100) g/dF ABG pH 7.37 (7.35-7.45) ABG HCO3 26.6 (22-28) ABG O2 Sat (Measured) 99.0 (95-100) % Apollo Test YES A-a Gradient 150 a/A Ratio 0.50 Hemoglobin 15.5 Carboxyhemoglobin 3.6 (0.0-6.9) % THgb Methemoglobin 1.0 L (1.4-1.5) % Potassium 3.6 (3.5-5.1) Temperature 37.0 C POC O2 Flow Rate 50 % Vent Mode BiPAP Sodium (137-145) mmol/L Chloride (98-107) mmol/L Carbon Dioxide (22-30) mmol/L Anion Gap (5-15) MEQ/L BUN (7-17) mg/dL Creatinine (0.52-1.04) mg/dL Estimated GFR ML/MIN Glucose (74-106) mg/dL Lactic Acid 0.6 (0.4-2.0) Calcium (8.4-10.2) mg/dL Magnesium (1.6-2.3) mg/dL Total Bilirubin (0.2-1.3) mg/dL AST (14-36) U/L ALT (0-35) U/L Alkaline Phosphatase (38-126) U/L Troponin I (0.000-0.034) ng/mL NT-Pro-B Natriuret Pep (0-450) pg/mL Serum Total Protein (6.3-8.2) g/dL Albumin (3.5-5.0) g/dL - Progress Progress: improved, re-examined Air Movement: fair Progress Note: 09/22/20 21:32 Patient was in moderate distress on presentation, placed on BiPAP, started on broad-spectrum antibiotics, on reevaluation feeling better. Work-up showed white count of 13, chest x-ray showed questionable pneumonia on the right side. She already have outpatient treatment failure and is given Zosyn and Zithromax at this time. Patient is feeling much better on reevaluation and satting fine on BiPAP. Discussed with Dr. Colon and patient is admitted. Blood Culture(s) Obtained: Yes Antibiotics given: Yes Discussed with .: Natanael Will see patient in: hospital (full admit) Counseled pt/family regarding: lab results, diagnosis, rad results - Departure Departure Disposition: In-patient Admission Clinical Impression: COPD exacerbation Respiratory failure Qualifiers: Chronicity: acute on chronic Respiratory failure complication: hypoxia Qualified Code(s): J96.21 - Acute and chronic respiratory failure with hypoxia Condition: Stable Critical Care Time: Yes Critical Care Time(excluding separately billable procedures): Critical 30-74 mins Referrals: MARBELLA COLON MD [Primary Care Provider] - Instructions: Chronic Obstructive Pulmonary Disease
[2020-09-22 20:13] LABS: A-aADO2 150; ABG HEMOGLOBIN 15.5; ABG POTASSIUM 3.6 (3.5-5.1); ARTERIAL BLOOD GAS BASE EXCESS 0.8 (-2.0-2.0); ARTERIAL BLOOD GAS FIO2 50 %; ARTERIAL BLOOD GAS PCO2 46 mmHg (35-45); ARTERIAL BLOOD GAS PO2 149 mmHg (75-100); ARTERIAL BLOOD GAS VENT MODE BiPAP; ARTERIAL BLOOD GAS pH 7.37 (7.35-7.45); CARBOXYHEMOGLOBIN 3.6 % THgb (0.0-6.9); HCO3- 26.6 (22-28); HGB O2 SAT 94.4 g/dF (94-100); Lactic Acid 0.6 (0.4-2.0)
[2020-09-22 20:14] LABS: ABG SITE RIGHT RADIAL; ALLEN TEST OK? YES
[2020-09-22 20:15] LABS: BASOPHIL % 0.2 % (0.0-0.4); Basophil (Absolute #) 0.03 (0-0.4); Eosinophil % 4.6 % (0.00-5.0); Eosinophil (Absolute #) 0.62 (0-0.5); Hematocrit 44.4 % (35-47); Lymphocyte (Absolute #) 4.06 (1.0-4.6); Lymphocytes % 30.2 % (24.0-44.0); Mean Cell Volume 94.9 fl (78-100); Mean Corpuscular Hemoglobin 32.1 pg (26-32); Mean Corpuscular Hgb Concent. 33.8 g/dl (32-36); Mean Platelet Volume 9.4 fl (7.5-11.0); Monocyte (Absolute #) 1.05 (0.0-1.3); Monocytes % 7.8 % (0.0-12.0); Neutrophil % 57.2 % (36.0-66.0); Platelet Count 341 K/mm3 (150-450); Red Blood Count 4.68 M/mm3 (4.1-5.4); Red Cell Distribution Width 12.9 % (11.5-14.0); White Blood Count 13.5 K/mm3 (4.0-10.5)
[2020-09-22] MEDS ORDERED: Zosyn 3.375 GM Vial 3.375 GM in Sodium Chloride 100ML MINI-BAG PLUS 100 ML IV ONE (20:31)
[2020-09-22] MEDS ORDERED: ZITHROMAX IV 500 MG*** 0 MG in Sodium Chloride 0.9% 250 ML 250 ML IV ONE (20:31)
[2020-09-22] MEDS ORDERED: Sodium Chloride 0.9% 1000 ML 1,000 ML IV STA (20:33)
[2020-09-22 20:36] LABS: ALBUMIN 4.3 g/dL (3.5-5.0); ALKALINE PHOSPHATASE 90 U/L (38-126); ANION GAP 11.2 MEQ/L (5-15); BLOOD UREA NITROGEN 15 mg/dL (7-17); CHLORIDE 105 mmol/L (98-107); Calcium 8.6 mg/dL (8.4-10.2); Carbon Dioxide 28 mmol/L (22-30); Creatinine 1 0.69 mg/dL (0.52-1.04); EST GLOMERULAR FILTRATION RATE > 60.0 ML/MIN; Glucose 123 mg/dL (74-106); MAGNESIUM 1.9 mg/dL (1.6-2.3); NT PRO BNP 44.9 pg/mL (0-450); Potassium 3.6 mmol/L (3.5-5.1); SGOT/AST 34 U/L (14-36); SGPT/ALT 21 U/L (0-35); SODIUM 140 mmol/L (137-145); Total Protein 7.1 g/dL (6.3-8.2)
[2020-09-22] MEDS ORDERED: Zosyn 3.375 GM Vial IV ONE (20:45)
[2020-09-22] MEDS ORDERED: Sodium Chloride 0.9% 1000 ML 2,000 ML ONE (20:45)
[2020-09-22] MEDS ORDERED: Sodium Chloride 100ML MINI-BAG PLUS 100 ML IV ONE (20:45)
[2020-09-22] MEDS: Sodium Chloride 0.9% 1000 ML 1,000 ML IV STA ×2 (20:58→21:06)
[2020-09-22] MEDS ORDERED: Ativan 2 MG/1 ML VIAL IV ONE (21:43)
[2020-09-22] MEDS ORDERED: Ativan 2 MG/1 ML VIAL ONE (21:48)
--- NOTE | 2020-09-22 22:19 | XRAY ---
Indication: Chest pain and short of breath. Comparison: June 27, 2020. Portable chest demonstrates new subtle right infrahilar infiltrate versus atelectasis. Remaining heart, lungs, and bony thorax unremarkable.
[2020-09-23] MEDS ORDERED: Zofran 4 MG/2 ML VIAL IV PRN (00:18)
[2020-09-23] MEDS ORDERED: DUONEB 0.5-3 MG/3 ml Neb IH SCH (00:18)
[2020-09-23] MEDS: DUONEB 0.5-3 MG/3 ml Neb IH SCH ×6 (02:53→22:54)
[2020-09-23] MEDS: Zosyn 3.375 GM Vial 3.375 GM in Sodium Chloride 100ML MINI-BAG PLUS 100 ML IV SCH ×5 (03:32→23:54)
[2020-09-23] MEDS: solu-MEDROL 125 MG IV SCH ×5 (03:33→23:31)
[2020-09-23] MEDS ORDERED: Zosyn 3.375 GM Vial IV ONE (05:26)
[2020-09-23] MEDS ORDERED: Sodium Chloride 100ML MINI-BAG PLUS 100 ML IV ONE (05:26)
[2020-09-23 06:06] LABS: Absolute Neutrophil Ct (ANC) 7.89 (1.4-6.9); BASOPHIL % 0.1 % (0.0-0.4); Basophil (Absolute #) 0.01 (0-0.4); Eosinophil (Absolute #) 0 (0-0.5); Hematocrit 41.7 % (35-47); Hemoglobin 13.9 gm/dl (12.0-16.0); Lymphocyte (Absolute #) 1.28 (1.0-4.6); Lymphocytes % 13.3 % (24.0-44.0); Mean Cell Volume 96.3 fl (78-100); Mean Corpuscular Hemoglobin 32.1 pg (26-32); Mean Corpuscular Hgb Concent. 33.3 g/dl (32-36); Mean Platelet Volume 9.6 fl (7.5-11.0); Monocyte (Absolute #) 0.42 (0.0-1.3); Monocytes % 4.4 % (0.0-12.0); Neutrophil % 82.2 % (36.0-66.0); Platelet Count 327 K/mm3 (150-450); Red Blood Count 4.33 M/mm3 (4.1-5.4); Red Cell Distribution Width 12.8 % (11.5-14.0); White Blood Count 9.6 K/mm3 (4.0-10.5)
[2020-09-23 06:26] LABS: ALBUMIN 3.7 g/dL (3.5-5.0); ALKALINE PHOSPHATASE 81 U/L (38-126); ANION GAP 8.9 MEQ/L (5-15); BLOOD UREA NITROGEN 11 mg/dL (7-17); CHLORIDE 106 mmol/L (98-107); Calcium 8.9 mg/dL (8.4-10.2); Carbon Dioxide 28 mmol/L (22-30); Creatinine 1 0.58 mg/dL (0.52-1.04); EST GLOMERULAR FILTRATION RATE > 60.0 ML/MIN; Glucose 159 mg/dL (74-106); Potassium 4.2 mmol/L (3.5-5.1); SGOT/AST 28 U/L (14-36); SGPT/ALT 20 U/L (0-35); SODIUM 138 mmol/L (137-145)
[2020-09-23] MEDS: TYLENOL 325 MG PO PRN (08:11)
[2020-09-23] MEDS: Spiriva 18 Mcg/Cap Inhaler IH SCH ×2 (08:15→11:36)
[2020-09-23] MEDS: Advair Hfa 115/21 Common canister IH SCH ×2 (08:15→19:15)
[2020-09-23] MEDS ORDERED: PROTONIX 40 MG IV IV SCH (10:00)
[2020-09-23] MEDS: ENOXAPARIN SODIUM SQ SCH (10:44)
--- NOTE | 2020-09-23 11:04 | PCM.HP ---
History of Present Illness - Chief Complaint Chief Complaint: Acute on chronic hypoxic respiratory failure History of Present Illness: is a 45 year old female who presented to the ER with cough, shortness of breath and wheezing. has longstanding copd and chronic resp failure, she was ok until her dog chewed her nebulizer tubing 2-3 days prior, now she feels poorly and cough is productive, sinus congestion and very short of breath with minimal activity. chest is sore from coughing so hard. she reports she has been monitoring her blood sugars at home off steroids recently and running 200-250 - Review of Systems Constitutional: No Fever, No Chills Respiratory: Cough, Short Of Breath, Wheezing Cardiac: No Chest Pain, No Edema, No Syncope Abdominal/Gastrointestinal: No Abdominal Pain, No Nausea, No Vomiting, No Diarrhea Genitourinary Symptoms: No Dysuria Skin: No Rash All Other Systems: Reviewed and Negative Medications & Allergies Home Medications: Home Medication List Albuterol 8 gm Mdi Hfa [Ventolin Hfa MDI] 8 gm IH Q4H #1 hfa.aer.ad 06/24/20 [Rx Confirmed 09/22/20] Albuterol/Ipratropium 3ml Neb* [DUONEB 0.5-3 MG/3 ml Neb] 3 ml IH Q6H PRN PRN #100 ampul.neb 06/29/20 [Rx Confirmed 09/22/20] Amlodipine Besylate 5 mg [Norvasc 5 mg] 5 mg PO DAILY #30 tablet 06/29/20 [Rx Confirmed 09/22/20] Fluticasone/Salmeterol 115/21 [Advair Hfa 115/21 Common canister*] 2 puff IH BIDRT #1 aer.w.adap 06/29/20 [Rx Confirmed 09/22/20] Tiotropium Apex Inhaler [Spiriva 18 Mcg/Cap Inhaler] 1 ea IH DAILY #30 inh 06/29/20 [Rx Confirmed 09/22/20] Gabapentin 100 mg [Neurontin 100 MG] 1 tab PO BID 09/22/20 [History Confirmed 09/22/20] Omeprazole 1 tab PO DAILY 09/22/20 [History Confirmed 09/22/20] Paroxetine HCl 1 tab PO DAILY 09/22/20 [History Confirmed 09/22/20] Allergies/Adverse Reactions: Allergies Allergy/AdvReac Type Severity Reaction Status Date / Time cephalexin [From Keflex] Allergy Verified 09/22/20 19:41 ketorolac [From Toradol] Allergy Verified 09/22/20 19:41 lisinopril Allergy Verified 09/22/20 19:41 Sulfa (Sulfonamide Allergy Verified 09/22/20 19:41 Antibiotics) - Past Medical History Past Medical History: Yes Neurological History: No Pertinent History ENT History: No Pertinent History Cardiac History: No Pertinent History Respiratory History: COPD, Sleep Apnea Endocrine Medical History: No Pertinent History Musculoskelatal History: No Pertinent History GI Medical History: Pancreatitis History: No Pertinent History Pyscho-Social History: Anxiety Reproductive Disorders: No Pertinent History - Female History Are you now?: No (unkn) - Past Surgical History Past Surgical History: Yes Neuro Surgical History: No Pertinent History Cardiac History: No Pertinent History Respiratory Surgery: No Pertinent History GI Surgical History: No Pertinent History Genitourinary Surgical Hx: No Pertinent History Musculskeletal Surgical Hx: No Pertinent History Female Surgical History: Tubal Ligation Other Surgical History: jaw fx repair, tubal pregnancies - Social History Smoking Status: Current every day smoker How long have you smoked: 30+ years Exposure to second hand smoke: Yes Alcohol: None Drug Use: none - Physical Exam Vital Signs: Vital Signs - 24 hr Temp Pulse Resp BP Pulse Ox 09/23/20 09:10 97 H 20 97 09/23/20 08:00 98.7 F 98 H 23 127/87 09/23/20 04:21 98.0 F 102 H 26 H 152/99 93 L 09/23/20 04:00 102 H 09/23/20 02:56 80 16 99 09/23/20 00:30 88 19 143/92 98 09/22/20 23:00 88 145/100 98 09/22/20 22:04 96 09/22/20 22:00 98 H 20 171/113 98 09/22/20 21:00 100 H 22 152/113 96 09/22/20 20:32 104 H 23 63/42 97 09/22/20 20:01 108 H 28 H 158/118 99 09/22/20 19:44 28 H 98 09/22/20 19:35 98.7 F 114 H 26 H 177/114 99 General Appearance: no apparent distress Neurologic Exam: alert, oriented x 3, cooperative Respiratory Exam: rhonchi, wheezing Cardiovascular Exam: regular rate/rhythm, normal heart sounds, normal peripheral pulses Gastrointestinal/Abdomen Exam: soft, normal bowel sounds, No tenderness, No mass Extremity Exam: normal inspection, normal range of motion, pelvis stable Results - Labs Lab/Micro Results: Lab Results-Last 24 Hours 09/22/20 09/22/20 09/22/20 Range/Units 19:52 20:05 20:05 WBC 13.5 H (4.0-10.5) K/mm3 RBC 4.68 (4.1-5.4) M/mm3 Hgb 15.0 (12.0-16.0) gm/dl Hct 44.4 (35-47) % MCV 94.9 (78-100) fl MCH 32.1 H (26-32) pg MCHC 33.8 (32-36) g/dl RDW 12.9 (11.5-14.0) % Plt Count 341 (150-450) K/mm3 MPV 9.4 (7.5-11.0) fl Gran % 57.2 (36.0-66.0) % Eos # (Auto) 0.62 H (0-0.5) Absolute Lymphs (auto) 4.06 (1.0-4.6) Absolute Monos (auto) 1.05 (0.0-1.3) Lymphocytes % 30.2 (24.0-44.0) % Monocytes % 7.8 (0.0-12.0) % Eosinophils % 4.6 (0.00-5.0) % Basophils % 0.2 (0.0-0.4) % Absolute Granulocytes 7.70 H (1.4-6.9) Basophils # 0.03 (0-0.4) Puncture Site RIGHT RADIAL pCO2 46 H (35-45) mmHg pO2 149 H* (75-100) mmHg Base Excess 0.8 (-2.0-2.0) O2 Saturation 94.4 (94-100) g/dF ABG pH 7.37 (7.35-7.45) ABG HCO3 26.6 (22-28) ABG O2 Sat (Measured) 99.0 (95-100) % Apollo Test YES A-a Gradient 150 a/A Ratio 0.50 Hemoglobin 15.5 Carboxyhemoglobin 3.6 (0.0-6.9) % THgb Methemoglobin 1.0 L (1.4-1.5) % Potassium 3.6 3.6 (3.5-5.1) Temperature 37.0 C POC O2 Flow Rate 50 % Vent Mode BiPAP Sodium 140 (137-145) mmol/L Chloride 105 (98-107) mmol/L Carbon Dioxide 28 (22-30) mmol/L Anion Gap 11.2 (5-15) MEQ/L BUN 15 (7-17) mg/dL Creatinine 0.69 (0.52-1.04) mg/dL Estimated GFR > 60.0 ML/MIN Glucose 123 H (74-106) mg/dL Lactic Acid 0.6 (0.4-2.0) Calcium 8.6 (8.4-10.2) mg/dL Magnesium 1.9 (1.6-2.3) mg/dL Total Bilirubin 0.30 (0.2-1.3) mg/dL AST 34 (14-36) U/L ALT 21 (0-35) U/L Alkaline Phosphatase 90 (38-126) U/L Troponin I (0.000-0.034) ng/mL NT-Pro-B Natriuret Pep 44.9 (0-450) pg/mL Serum Total Protein 7.1 (6.3-8.2) g/dL Albumin 4.3 (3.5-5.0) g/dL SARS-CoV-2 (PCR) (NEGATIVE) 09/22/20 09/22/20 09/22/20 Range/Units 20:05 21:44 22:45 WBC (4.0-10.5) K/mm3 RBC (4.1-5.4) M/mm3 Hgb (12.0-16.0) gm/dl Hct (35-47) % MCV (78-100) fl MCH (26-32) pg MCHC (32-36) g/dl RDW (11.5-14.0) % Plt Count (150-450) K/mm3 MPV (7.5-11.0) fl Gran % (36.0-66.0) % Eos # (Auto) (0-0.5) Absolute Lymphs (auto) (1.0-4.6) Absolute Monos (auto) (0.0-1.3) Lymphocytes % (24.0-44.0) % Monocytes % (0.0-12.0) % Eosinophils % (0.00-5.0) % Basophils % (0.0-0.4) % Absolute Granulocytes (1.4-6.9) Basophils # (0-0.4) Puncture Site pCO2 (35-45) mmHg pO2 (75-100) mmHg Base Excess (-2.0-2.0) O2 Saturation (94-100) g/dF ABG pH (7.35-7.45) ABG HCO3 (22-28) ABG O2 Sat (Measured) (95-100) % Apollo Test A-a Gradient a/A Ratio Hemoglobin Carboxyhemoglobin (0.0-6.9) % THgb Methemoglobin (1.4-1.5) % Potassium (3.5-5.1) Temperature C POC O2 Flow Rate % Vent Mode Sodium (137-145) mmol/L Chloride (98-107) mmol/L Carbon Dioxide (22-30) mmol/L Anion Gap (5-15) MEQ/L BUN (7-17) mg/dL Creatinine (0.52-1.04) mg/dL Estimated GFR ML/MIN Glucose (74-106) mg/dL Lactic Acid (0.4-2.0) Calcium (8.4-10.2) mg/dL Magnesium (1.6-2.3) mg/dL Total Bilirubin (0.2-1.3) mg/dL AST (14-36) U/L ALT (0-35) U/L Alkaline Phosphatase (38-126) U/L Troponin I < 0.012 < 0.012 (0.000-0.034) ng/mL NT-Pro-B Natriuret Pep (0-450) pg/mL Serum Total Protein (6.3-8.2) g/dL Albumin (3.5-5.0) g/dL SARS-CoV-2 (PCR) NEGATIVE (NEGATIVE) 09/23/20 09/23/20 09/23/20 Range/Units 02:03 05:30 05:30 WBC 9.6 (4.0-10.5) K/mm3 RBC 4.33 (4.1-5.4) M/mm3 Hgb 13.9 (12.0-16.0) gm/dl Hct 41.7 (35-47) % MCV 96.3 (78-100) fl MCH 32.1 H (26-32) pg MCHC 33.3 (32-36) g/dl RDW 12.8 (11.5-14.0) % Plt Count 327 (150-450) K/mm3 MPV 9.6 (7.5-11.0) fl Gran % 82.2 H (36.0-66.0) % Eos # (Auto) 0 (0-0.5) Absolute Lymphs (auto) 1.28 (1.0-4.6) Absolute Monos (auto) 0.42 (0.0-1.3) Lymphocytes % 13.3 L (24.0-44.0) % Monocytes % 4.4 (0.0-12.0) % Eosinophils % 0.0 (0.00-5.0) % Basophils % 0.1 (0.0-0.4) % Absolute Granulocytes 7.89 H (1.4-6.9) Basophils # 0.01 (0-0.4) Puncture Site pCO2 (35-45) mmHg pO2 (75-100) mmHg Base Excess (-2.0-2.0) O2 Saturation (94-100) g/dF ABG pH (7.35-7.45) ABG HCO3 (22-28) ABG O2 Sat (Measured) (95-100) % Apollo Test A-a Gradient a/A Ratio Hemoglobin Carboxyhemoglobin (0.0-6.9) % THgb Methemoglobin (1.4-1.5) % Potassium (3.5-5.1) Temperature C POC O2 Flow Rate % Vent Mode Sodium (137-145) mmol/L Chloride (98-107) mmol/L Carbon Dioxide (22-30) mmol/L Anion Gap (5-15) MEQ/L BUN (7-17) mg/dL Creatinine (0.52-1.04) mg/dL Estimated GFR ML/MIN Glucose (74-106) mg/dL Lactic Acid (0.4-2.0) Calcium (8.4-10.2) mg/dL Magnesium (1.6-2.3) mg/dL Total Bilirubin (0.2-1.3) mg/dL AST (14-36) U/L ALT (0-35) U/L Alkaline Phosphatase (38-126) U/L Troponin I < 0.012 < 0.012 (0.000-0.034) ng/mL NT-Pro-B Natriuret Pep (0-450) pg/mL Serum Total Protein (6.3-8.2) g/dL Albumin (3.5-5.0) g/dL SARS-CoV-2 (PCR) (NEGATIVE) 09/23/20 09/23/20 Range/Units 05:30 08:00 WBC (4.0-10.5) K/mm3 RBC (4.1-5.4) M/mm3 Hgb (12.0-16.0) gm/dl Hct (35-47) % MCV (78-100) fl MCH (26-32) pg MCHC (32-36) g/dl RDW (11.5-14.0) % Plt Count (150-450) K/mm3 MPV (7.5-11.0) fl Gran % (36.0-66.0) % Eos # (Auto) (0-0.5) Absolute Lymphs (auto) (1.0-4.6) Absolute Monos (auto) (0.0-1.3) Lymphocytes % (24.0-44.0) % Monocytes % (0.0-12.0) % Eosinophils % (0.00-5.0) % Basophils % (0.0-0.4) % Absolute Granulocytes (1.4-6.9) Basophils # (0-0.4) Puncture Site pCO2 (35-45) mmHg pO2 (75-100) mmHg Base Excess (-2.0-2.0) O2 Saturation (94-100) g/dF ABG pH (7.35-7.45) ABG HCO3 (22-28) ABG O2 Sat (Measured) (95-100) % Apollo Test A-a Gradient a/A Ratio Hemoglobin Carboxyhemoglobin (0.0-6.9) % THgb Methemoglobin (1.4-1.5) % Potassium 4.2 (3.5-5.1) Temperature C POC O2 Flow Rate % Vent Mode Sodium 138 (137-145) mmol/L Chloride 106 (98-107) mmol/L Carbon Dioxide 28 (22-30) mmol/L Anion Gap 8.9 (5-15) MEQ/L BUN 11 (7-17) mg/dL Creatinine 0.58 (0.52-1.04) mg/dL Estimated GFR > 60.0 ML/MIN Glucose 159 H (74-106) mg/dL Lactic Acid (0.4-2.0) Calcium 8.9 (8.4-10.2) mg/dL Magnesium (1.6-2.3) mg/dL Total Bilirubin 0.20 (0.2-1.3) mg/dL AST 28 (14-36) U/L ALT 20 (0-35) U/L Alkaline Phosphatase 81 (38-126) U/L Troponin I < 0.012 (0.000-0.034) ng/mL NT-Pro-B Natriuret Pep (0-450) pg/mL Serum Total Protein 6.0 L (6.3-8.2) g/dL Albumin 3.7 (3.5-5.0) g/dL SARS-CoV-2 (PCR) (NEGATIVE) - Radiology Impressions Radiology Exams & Impressions: Radiology Procedures Category Date Time Status CHEST 1 VIEW (PORTABLE) Stat Exams 09/22/20 19:44 Completed - Other Procedures and Tests Respiratory Therapy 09/23/20 02:18 BiPap/CPAP ROUTINE 09/23/20 02:19 Respiratory Therapy Assessment DAILY 09/23/20 02:30 Oxygen Nasal Cannula 2 lpm Assessment/Plan (1) COPD exacerbation Current Visit: Yes Status: Acute Code(s): J44.1 - CHRONIC OBSTRUCTIVE PULMONARY DISEASE W (ACUTE) EXACERBATION (2) Chronic hypoxemic respiratory failure Current Visit: Yes Status: Acute (3) Chest wall pain Current Visit: Yes Status: Acute Code(s): R07.89 - OTHER CHEST PAIN (4) Hyperglycemia Current Visit: Yes Status: Acute Assessment & Plan: check a1c, will monitor blood sugars and give SSI as needed with steroids Code(s): R73.9 - HYPERGLYCEMIA, UNSPECIFIED
[2020-09-23] MEDS: HYDROCODONE-CHLORPHEN ER SUSP PO PRN ×2 (11:40→23:31)
[2020-09-23] MEDS: Paxil 20 MG PO SCH (12:50)
[2020-09-23] MEDS: NORVASC 5 MG PO SCH (12:50)
[2020-09-23] MEDS: Neurontin 100 MG PO SCH ×2 (12:51→22:06)
[2020-09-23] MEDS: HUMALOG SQ PRN ×3 (13:33→22:06)
[2020-09-23] MEDS: NICODERM CQ 14 MG TOP SCH (16:46)
[2020-09-23] MEDS: MOTRIN 600 MG PO PRN (16:46)
[2020-09-23] MEDS: Zithromax 500 MG/ 250 ML NaCl Premix 500 MG/250 ML IVPB IV SCH (22:06)
[2020-09-24] MEDS: DUONEB 0.5-3 MG/3 ml Neb IH SCH ×6 (02:52→22:41)
[2020-09-24] MEDS: solu-MEDROL 125 MG IV SCH ×4 (06:08→23:52)
[2020-09-24] MEDS: Zosyn 3.375 GM Vial 3.375 GM in Sodium Chloride 100ML MINI-BAG PLUS 100 ML IV SCH ×4 (06:08→23:52)
[2020-09-24 06:36] LABS: Absolute Neutrophil Ct (ANC) 15.47 (1.4-6.9); BASOPHIL % 0.1 % (0.0-0.4); Basophil (Absolute #) 0.02 (0-0.4); Eosinophil % 0.1 % (0.00-5.0); Eosinophil (Absolute #) 0.01 (0-0.5); Hematocrit 37.9 % (35-47); Hemoglobin 12.4 gm/dl (12.0-16.0); Lymphocyte (Absolute #) 1.28 (1.0-4.6); Lymphocytes % 7.4 % (24.0-44.0); Mean Cell Volume 97.2 fl (78-100); Mean Corpuscular Hemoglobin 31.8 pg (26-32); Mean Corpuscular Hgb Concent. 32.7 g/dl (32-36); Mean Platelet Volume 10.2 fl (7.5-11.0); Monocyte (Absolute #) 0.54 (0.0-1.3); Monocytes % 3.1 % (0.0-12.0); Neutrophil % 89.3 % (36.0-66.0); Platelet Count 305 K/mm3 (150-450); Red Cell Distribution Width 12.7 % (11.5-14.0); White Blood Count 17.3 K/mm3 (4.0-10.5)
[2020-09-24 06:53] LABS: ANION GAP 10.6 MEQ/L (5-15); BLOOD UREA NITROGEN 12 mg/dL (7-17); CHLORIDE 109 mmol/L (98-107); Calcium 8.7 mg/dL (8.4-10.2); Carbon Dioxide 25 mmol/L (22-30); Creatinine 1 0.58 mg/dL (0.52-1.04); EST GLOMERULAR FILTRATION RATE > 60.0 ML/MIN; Glucose 155 mg/dL (74-106); SODIUM 141 mmol/L (137-145)
[2020-09-24] MEDS: Spiriva 18 Mcg/Cap Inhaler IH SCH (06:58)
[2020-09-24] MEDS: Advair Hfa 115/21 Common canister IH SCH ×2 (06:58→18:58)
--- NOTE | 2020-09-24 08:08 | PCM.NOTE ---
Date and Time: 09/24/20806 Subjective Assessment: patient notes some improvement in her breathing, she normally wears oxygen at night at home. she is not able to get much sputum up Objective Exam General Appearance: no apparent distress, alert Respiratory Exam: prolonged expirations, wheezing Cardiovascular Exam: regular rate/rhythm, normal heart sounds Gastrointestinal/Abdomen Exam: soft, No tenderness, No mass OBJECTIVE DATA Vital Signs: Vital Signs - 24 hr Temp Pulse Resp BP Pulse Ox 09/24/20 07:43 98.2 F 87 18 123/79 97 09/24/20 07:04 88 23 98 09/24/20 04:10 98.2 F 108 H 23 131/81 96 09/24/20 03:03 108 H 18 97 09/24/20 00:10 98.1 F 116 H 20 122/75 98 09/23/20 23:19 112 H 18 98 09/23/20 20:00 98.2 F 106 H 21 128/82 96 09/23/20 19:16 110 H 16 98 09/23/20 16:00 97 H 22 137/88 98 09/23/20 14:49 88 20 96 09/23/20 12:00 98.5 F 105 H 22 139/90 94 L 09/23/20 11:43 97 H 20 96 09/23/20 09:10 97 H 20 97 Pain Assessment - Last Documented Pain Intensity 2 Pain Scale Used 0-10 Pain Scale Intake and Output: Intake & Output 09/21/20 09/22/20 09/23/20 09/24/20 11:59 11:59 11:59 11:59 Intake Total 300 1397 Output Total 1500 Balance 300 -103 Weight 84.7 kg Lab Results: Lab Results-Last 24 Hours 09/23/20 09/23/20 09/23/20 Range/Units 05:30 08:00 12:14 WBC (4.0-10.5) K/mm3 RBC (4.1-5.4) M/mm3 Hgb (12.0-16.0) gm/dl Hct (35-47) % MCV (78-100) fl MCH (26-32) pg MCHC (32-36) g/dl RDW (11.5-14.0) % Plt Count (150-450) K/mm3 MPV (7.5-11.0) fl Gran % (36.0-66.0) % Eos # (Auto) (0-0.5) Absolute Lymphs (auto) (1.0-4.6) Absolute Monos (auto) (0.0-1.3) Lymphocytes % (24.0-44.0) % Monocytes % (0.0-12.0) % Eosinophils % (0.00-5.0) % Basophils % (0.0-0.4) % Absolute Granulocytes (1.4-6.9) Basophils # (0-0.4) Sodium (137-145) mmol/L Potassium (3.5-5.1) mmol/L Chloride (98-107) mmol/L Carbon Dioxide (22-30) mmol/L Anion Gap (5-15) MEQ/L BUN (7-17) mg/dL Creatinine (0.52-1.04) mg/dL Estimated GFR ML/MIN Glucose (74-106) mg/dL POC Glucometer 153 H (74 to 106) mg/dL Hemoglobin A1c 5.29 (4.5-6.0) % Calcium (8.4-10.2) mg/dL Troponin I < 0.012 (0.000-0.034) ng/mL 09/23/20 09/23/20 09/24/20 Range/Units 16:46 20:57 05:15 WBC 17.3 H (4.0-10.5) K/mm3 RBC 3.90 L (4.1-5.4) M/mm3 Hgb 12.4 (12.0-16.0) gm/dl Hct 37.9 (35-47) % MCV 97.2 (78-100) fl MCH 31.8 (26-32) pg MCHC 32.7 (32-36) g/dl RDW 12.7 (11.5-14.0) % Plt Count 305 (150-450) K/mm3 MPV 10.2 (7.5-11.0) fl Gran % 89.3 H (36.0-66.0) % Eos # (Auto) 0.01 (0-0.5) Absolute Lymphs (auto) 1.28 (1.0-4.6) Absolute Monos (auto) 0.54 (0.0-1.3) Lymphocytes % 7.4 L (24.0-44.0) % Monocytes % 3.1 (0.0-12.0) % Eosinophils % 0.1 (0.00-5.0) % Basophils % 0.1 (0.0-0.4) % Absolute Granulocytes 15.47 H (1.4-6.9) Basophils # 0.02 (0-0.4) Sodium (137-145) mmol/L Potassium (3.5-5.1) mmol/L Chloride (98-107) mmol/L Carbon Dioxide (22-30) mmol/L Anion Gap (5-15) MEQ/L BUN (7-17) mg/dL Creatinine (0.52-1.04) mg/dL Estimated GFR ML/MIN Glucose (74-106) mg/dL POC Glucometer 171 H 183 H (74 to 106) mg/dL Hemoglobin A1c (4.5-6.0) % Calcium (8.4-10.2) mg/dL Troponin I (0.000-0.034) ng/mL 09/24/20 09/24/20 Range/Units 05:15 07:08 WBC (4.0-10.5) K/mm3 RBC (4.1-5.4) M/mm3 Hgb (12.0-16.0) gm/dl Hct (35-47) % MCV (78-100) fl MCH (26-32) pg MCHC (32-36) g/dl RDW (11.5-14.0) % Plt Count (150-450) K/mm3 MPV (7.5-11.0) fl Gran % (36.0-66.0) % Eos # (Auto) (0-0.5) Absolute Lymphs (auto) (1.0-4.6) Absolute Monos (auto) (0.0-1.3) Lymphocytes % (24.0-44.0) % Monocytes % (0.0-12.0) % Eosinophils % (0.00-5.0) % Basophils % (0.0-0.4) % Absolute Granulocytes (1.4-6.9) Basophils # (0-0.4) Sodium 141 (137-145) mmol/L Potassium 4.0 (3.5-5.1) mmol/L Chloride 109 H (98-107) mmol/L Carbon Dioxide 25 (22-30) mmol/L Anion Gap 10.6 (5-15) MEQ/L BUN 12 (7-17) mg/dL Creatinine 0.58 (0.52-1.04) mg/dL Estimated GFR > 60.0 ML/MIN Glucose 155 H (74-106) mg/dL POC Glucometer 145 H (74 to 106) mg/dL Hemoglobin A1c (4.5-6.0) % Calcium 8.7 (8.4-10.2) mg/dL Troponin I (0.000-0.034) ng/mL Radiology Exams: Radiology Procedures Category Date Time Status CHEST 1 VIEW (PORTABLE) Stat Exams 09/22/20 19:44 Completed Assessment/Plan (1) COPD exacerbation Current Visit: Yes Status: Acute Assessment & Plan: continue nebs, IV steroids and abx. clinically improving. Code(s): J44.1 - CHRONIC OBSTRUCTIVE PULMONARY DISEASE W (ACUTE) EXACERBATION (2) Chronic hypoxemic respiratory failure Current Visit: Yes Status: Acute (3) Chest wall pain Current Visit: Yes Status: Acute Code(s): R07.89 - OTHER CHEST PAIN (4) Hyperglycemia Current Visit: Yes Status: Acute Code(s): R73.9 - HYPERGLYCEMIA, UNSPECIFIED
[2020-09-24] MEDS: NORVASC 5 MG PO SCH (09:52)
[2020-09-24] MEDS: Neurontin 100 MG PO SCH ×2 (09:52→21:30)
[2020-09-24] MEDS: Paxil 20 MG PO SCH (09:52)
[2020-09-24] MEDS: Protonix 40MG Tablet PO SCH (09:52)
[2020-09-24] MEDS: ENOXAPARIN SODIUM SQ SCH (09:53)
[2020-09-24] MEDS ORDERED: NON-FORMULARY ITEM (Omeprazole [Omeprazole] 1 TAB) PO SCH (10:00)
[2020-09-24] MEDS ORDERED: PAROXETINE HCL PO SCH (10:00)
[2020-09-24] MEDS: HUMALOG SQ PRN ×2 (12:54→21:31)
[2020-09-24] MEDS: HYDROCODONE-CHLORPHEN ER SUSP PO PRN (12:55)
[2020-09-24] MEDS ORDERED: DULCOLAX 5 MG PO ONE (13:45)
[2020-09-24] MEDS: NICODERM CQ 14 MG TOP SCH (17:54)
[2020-09-24] MEDS: TYLENOL 325 MG PO PRN (21:30)
[2020-09-24] MEDS: Zithromax 500 MG/ 250 ML NaCl Premix 500 MG/250 ML IVPB IV SCH (21:31)
[2020-09-25] MEDS: HYDROCODONE-CHLORPHEN ER SUSP PO PRN ×2 (01:09→17:13)
[2020-09-25] MEDS: DUONEB 0.5-3 MG/3 ml Neb IH SCH ×6 (02:40→23:35)
[2020-09-25 05:38] LABS: Hematocrit 38.7 % (35-47); Hemoglobin 12.6 gm/dl (12.0-16.0); Mean Cell Volume 98.2 fl (78-100); Mean Corpuscular Hgb Concent. 32.6 g/dl (32-36); Mean Platelet Volume 9.6 fl (7.5-11.0); Platelet Count 295 K/mm3 (150-450); Red Blood Count 3.94 M/mm3 (4.1-5.4); White Blood Count 16.6 K/mm3 (4.0-10.5)
[2020-09-25 06:09] LABS: BLOOD UREA NITROGEN 10 mg/dL (7-17); CHLORIDE 106 mmol/L (98-107); Calcium 8.4 mg/dL (8.4-10.2); Carbon Dioxide 28 mmol/L (22-30); Creatinine 1 0.63 mg/dL (0.52-1.04); EST GLOMERULAR FILTRATION RATE > 60.0 ML/MIN; Glucose 139 mg/dL (74-106); Potassium 3.3 mmol/L (3.5-5.1); SODIUM 141 mmol/L (137-145)
[2020-09-25] MEDS: solu-MEDROL 125 MG IV SCH ×4 (06:29→23:06)
[2020-09-25] MEDS: Zosyn 3.375 GM Vial 3.375 GM in Sodium Chloride 100ML MINI-BAG PLUS 100 ML IV SCH ×4 (06:29→23:06)
[2020-09-25] MEDS: Spiriva 18 Mcg/Cap Inhaler IH SCH (06:37)
[2020-09-25] MEDS: Advair Hfa 115/21 Common canister IH SCH ×2 (06:37→19:45)
[2020-09-25] MEDS: MORPHINE SULFATE 2 MG INJ IV PRN ×4 (07:52→21:16)
--- NOTE | 2020-09-25 08:09 | PCM.NOTE ---
Date and Time: 09/25/20805 Subjective Assessment: improving at this time, still has significant cough and can't get anything up but feels like there is mucous in her chest Objective Exam General Appearance: no apparent distress, alert Respiratory Exam: wheezing Cardiovascular Exam: regular rate/rhythm, normal heart sounds Gastrointestinal/Abdomen Exam: soft, No tenderness, No mass Extremity Exam: normal inspection, normal range of motion OBJECTIVE DATA Vital Signs: Vital Signs - 24 hr Temp Pulse Resp BP Pulse Ox 09/25/20 06:41 97 H 20 94 L 09/25/20 04:00 98.0 F 108 H 20 129/85 96 09/25/20 02:40 86 14 98 09/25/20 00:00 98.2 F 91 H 18 118/82 97 09/24/20 22:42 91 H 18 97 09/24/20 20:00 98.4 F 91 H 24 147/92 96 09/24/20 18:59 91 H 22 96 09/24/20 16:00 97.9 F 94 H 16 132/82 96 09/24/20 14:48 97 H 20 98 09/24/20 12:00 97.2 F 105 H 20 111/74 98 09/24/20 10:52 105 H 20 98 Pain Assessment - Last Documented Pain Intensity 10 Pain Scale Used 0-10 Pain Scale Intake and Output: Intake & Output 09/22/20 09/23/20 09/24/20 09/25/20 11:59 11:59 11:59 11:59 Intake Total 300 1397 2802 Output Total 1500 3200 Balance 300 -103 -398 Weight 84.7 kg Lab Results: Lab Results-Last 24 Hours 09/24/20 09/24/20 09/24/20 Range/Units 11:19 16:35 21:17 WBC (4.0-10.5) K/mm3 RBC (4.1-5.4) M/mm3 Hgb (12.0-16.0) gm/dl Hct (35-47) % MCV (78-100) fl MCH (26-32) pg MCHC (32-36) g/dl RDW (11.5-14.0) % Plt Count (150-450) K/mm3 MPV (7.5-11.0) fl Sodium (137-145) mmol/L Potassium (3.5-5.1) mmol/L Chloride (98-107) mmol/L Carbon Dioxide (22-30) mmol/L Anion Gap (5-15) MEQ/L BUN (7-17) mg/dL Creatinine (0.52-1.04) mg/dL Estimated GFR ML/MIN Glucose (74-106) mg/dL POC Glucometer 166 H 112 H 192 H (74 to 106) mg/dL Calcium (8.4-10.2) mg/dL 09/25/20 09/25/20 09/25/20 Range/Units 05:05 05:05 07:50 WBC 16.6 H (4.0-10.5) K/mm3 RBC 3.94 L (4.1-5.4) M/mm3 Hgb 12.6 (12.0-16.0) gm/dl Hct 38.7 (35-47) % MCV 98.2 (78-100) fl MCH 32.0 (26-32) pg MCHC 32.6 (32-36) g/dl RDW 13.0 (11.5-14.0) % Plt Count 295 (150-450) K/mm3 MPV 9.6 (7.5-11.0) fl Sodium 141 (137-145) mmol/L Potassium 3.3 L (3.5-5.1) mmol/L Chloride 106 (98-107) mmol/L Carbon Dioxide 28 (22-30) mmol/L Anion Gap 10.0 (5-15) MEQ/L BUN 10 (7-17) mg/dL Creatinine 0.63 (0.52-1.04) mg/dL Estimated GFR > 60.0 ML/MIN Glucose 139 H (74-106) mg/dL POC Glucometer 148 H (74 to 106) mg/dL Calcium 8.4 (8.4-10.2) mg/dL Assessment/Plan (1) COPD exacerbation Current Visit: Yes Status: Acute Assessment & Plan: IV solu medrol, nebs and antibiotics Code(s): J44.1 - CHRONIC OBSTRUCTIVE PULMONARY DISEASE W (ACUTE) EXACERBATION (2) Chronic hypoxemic respiratory failure Current Visit: Yes Status: Acute (3) Chest wall pain Current Visit: Yes Status: Acute Code(s): R07.89 - OTHER CHEST PAIN (4) Hyperglycemia Current Visit: Yes Status: Acute Code(s): R73.9 - HYPERGLYCEMIA, UNSPECIFIED
[2020-09-25 08:15] LABS: Lymphocytes 9 % (24-44); Neutrophils 91 % (36.0-66.0); Platelet Estimate NORMAL (NORMAL); Total Cells Counted 100; Toxic Granulation 1+
[2020-09-25] MEDS: Paxil 20 MG PO SCH (09:13)
[2020-09-25] MEDS: Protonix 40MG Tablet PO SCH (09:13)
[2020-09-25] MEDS: ENOXAPARIN SODIUM SQ SCH (09:14)
[2020-09-25] MEDS: Neurontin 100 MG PO SCH ×2 (09:14→21:13)
[2020-09-25] MEDS: NORVASC 5 MG PO SCH (09:14)
[2020-09-25] MEDS: Mucinex 600MG ER Tabs PO SCH ×2 (10:01→21:13)
[2020-09-25] MEDS: HUMALOG SQ PRN ×2 (12:18→21:15)
[2020-09-25] MEDS: NICODERM CQ 14 MG TOP SCH (17:08)
[2020-09-25] MEDS: Zithromax 500 MG/ 250 ML NaCl Premix 500 MG/250 ML IVPB IV SCH (21:14)
[2020-09-26] MEDS: MORPHINE SULFATE 2 MG INJ IV PRN ×2 (01:59→06:12)
[2020-09-26] MEDS: DUONEB 0.5-3 MG/3 ml Neb IH SCH ×3 (03:14→10:14)
[2020-09-26] MEDS: TYLENOL 325 MG PO PRN (04:50)
[2020-09-26 05:09] LABS: Hematocrit 38.2 % (35-47); Hemoglobin 12.6 gm/dl (12.0-16.0); Mean Cell Volume 98.7 fl (78-100); Mean Corpuscular Hemoglobin 32.6 pg (26-32); Platelet Count 303 K/mm3 (150-450); Red Blood Count 3.87 M/mm3 (4.1-5.4); Red Cell Distribution Width 13.2 % (11.5-14.0); White Blood Count 12.3 K/mm3 (4.0-10.5)
[2020-09-26 06:03] LABS: BLOOD UREA NITROGEN 11 mg/dL (7-17); CHLORIDE 107 mmol/L (98-107); Calcium 8.1 mg/dL (8.4-10.2); Carbon Dioxide 31 mmol/L (22-30); Creatinine 1 0.58 mg/dL (0.52-1.04); EST GLOMERULAR FILTRATION RATE > 60.0 ML/MIN; Glucose 120 mg/dL (74-106); Potassium 3.3 mmol/L (3.5-5.1); SODIUM 143 mmol/L (137-145)
[2020-09-26] MEDS: solu-MEDROL 125 MG IV SCH (06:10)
[2020-09-26] MEDS: Zosyn 3.375 GM Vial 3.375 GM in Sodium Chloride 100ML MINI-BAG PLUS 100 ML IV SCH (06:12)
[2020-09-26] MEDS: Advair Hfa 115/21 Common canister IH SCH (06:42)
[2020-09-26] MEDS: Spiriva 18 Mcg/Cap Inhaler IH SCH (06:44)
[2020-09-26 08:00] VITALS: BP 161/99
[2020-09-26] MEDS: MOTRIN 600 MG PO PRN (08:22)
[2020-09-26] MEDS: HYDROCODONE-CHLORPHEN ER SUSP PO PRN (08:22)
[2020-09-26] MEDS: Protonix 40MG Tablet PO SCH (09:49)
[2020-09-26] MEDS: Neurontin 100 MG PO SCH (09:49)
[2020-09-26] MEDS: Mucinex 600MG ER Tabs PO SCH (09:49)
[2020-09-26] MEDS: Paxil 20 MG PO SCH (09:49)
[2020-09-26] MEDS: NORVASC 5 MG PO SCH (09:49)
[2020-09-26] MEDS: ENOXAPARIN SODIUM SQ SCH (09:51)
[2020-09-26 09:52] LABS: Eosinophil 1 % (0.00-3.0); Lymphocytes 7 % (24-44); Monocyte 1 % (0.0-12.0); Neutrophils 91 % (36.0-66.0); Total Cells Counted 100
[2020-09-26 09:53] LABS: Platelet Estimate NORMAL (NORMAL)
[2020-09-26 10:24] VITALS: PULSE 79; O2SAT 95
--- NOTE | 2020-09-26 10:32 | PCM.DS ---
Discharge Summary Date of Admission: 09/23/20 00:07 Admitting Physician: MARBELLA COLON Primary Care Provider: MARBELLA COLON Allergies Allergies cephalexin [From Keflex] Allergy (Verified 09/22/20 19:41) ketorolac [From Toradol] Allergy (Verified 09/22/20 19:41) lisinopril Allergy (Verified 09/22/20 19:41) Sulfa (Sulfonamide Antibiotics) Allergy (Verified 09/22/20 19:41) Hospital Summary - Hospital Course Hospital Course: patient admitted with cough and shortness of breath, treated for copd exacerbation. has oxygen at home, advised to use around the clock on discharge. home on po steroids and abx, improved with treatment. - Vitals & Intake/Output Vital Signs: Vital Signs Temperature 98.4 F 09/26/20 07:00 Pulse Rate 79 09/26/20 10:10 Respiratory Rate 09/26/20 10:10 Blood Pressure 161/99 09/26/20 07:00 O2 Sat by Pulse Oximetry 95 09/26/20 10:10 Intake & Output: Intake & Output 09/23/20 09/24/20 09/25/20 09/26/20 11:59 11:59 11:59 11:59 Intake Total 300 1397 2802 2425 Output Total 1500 3200 3900 Balance 790 -476 -127 -9386 Weight 84.7 kg 87.3 kg 87.3 kg - Lab Result Diagrams: 09/26/20 04:00 09/26/20 04:00 Lab Results-Last 24 Hrs: Lab Results-Last 24 Hours 09/25/20 09/25/20 09/25/20 Range/Units 11:24 16:32 20:19 WBC (4.0-10.5) K/mm3 RBC (4.1-5.4) M/mm3 Hgb (12.0-16.0) gm/dl Hct (35-47) % MCV (78-100) fl MCH (26-32) pg MCHC (32-36) g/dl RDW (11.5-14.0) % Plt Count (150-450) K/mm3 MPV (7.5-11.0) fl Segmented Neutrophils (36.0-66.0) % Lymphocytes (Manual) (24-44) % Monocytes (Manual) (0.0-12.0) % Eosinophils (Manual) (0.00-3.0) % Platelet Estimate (NORMAL) RBC Morphology Sodium (137-145) mmol/L Potassium (3.5-5.1) mmol/L Chloride (98-107) mmol/L Carbon Dioxide (22-30) mmol/L Anion Gap (5-15) MEQ/L BUN (7-17) mg/dL Creatinine (0.52-1.04) mg/dL Estimated GFR ML/MIN Glucose (74-106) mg/dL POC Glucometer 264 H 145 H 235 H (74 to 106) mg/dL Calcium (8.4-10.2) mg/dL 09/26/20 09/26/20 09/26/20 Range/Units 04:00 04:00 07:39 WBC 12.3 H (4.0-10.5) K/mm3 RBC 3.87 L (4.1-5.4) M/mm3 Hgb 12.6 (12.0-16.0) gm/dl Hct 38.2 (35-47) % MCV 98.7 (78-100) fl MCH 32.6 H (26-32) pg MCHC 33.0 (32-36) g/dl RDW 13.2 (11.5-14.0) % Plt Count 303 (150-450) K/mm3 MPV 10.0 (7.5-11.0) fl Segmented Neutrophils 91 H (36.0-66.0) % Lymphocytes (Manual) 7 L (24-44) % Monocytes (Manual) 1 (0.0-12.0) % Eosinophils (Manual) 1 (0.00-3.0) % Platelet Estimate NORMAL (NORMAL) RBC Morphology NORMAL Sodium 143 (137-145) mmol/L Potassium 3.3 L (3.5-5.1) mmol/L Chloride 107 (98-107) mmol/L Carbon Dioxide 31 H (22-30) mmol/L Anion Gap 9.0 (5-15) MEQ/L BUN 11 (7-17) mg/dL Creatinine 0.58 (0.52-1.04) mg/dL Estimated GFR > 60.0 ML/MIN Glucose 120 H (74-106) mg/dL POC Glucometer 132 H (74 to 106) mg/dL Calcium 8.1 L (8.4-10.2) mg/dL Micro Results-Entire Visit: Microbiology 09/22/20 20:05 Blood Culture - Preliminary Blood NO GROWTH TO DATE 09/22/20 19:55 Blood Culture - Preliminary Blood NO GROWTH TO DATE Accuchecks Date 09/25/20 Time 20:19 - Procedures and Test Procedures and Tests throughout Hospitalization: Therapy Orders & Screens 09/23/20 01:09 RT Screen per Nursing Assess ONCE Comment: Protocol Order Physician Instructions: Greater than 3 points order RT Admission Screen Reason For Exam: Triggered on Admission Diagnosis: Acute on chronic hypoxic respiratory failure Diagnosis: Acute on chronic hypoxic respiratory failure Pneumonia: No Asthma: Yes CHF: No Home CPAP/BIPAP: Yes Home Nebs/MDI: Yes Total Points: 14 Smoking Cessation Education ONCE Comment: Diagnosis: Acute on chronic hypoxic respiratory failure Smoking Status: Current every day smoker How long have you smoked: 30+ years Have you smoked in the past 12 months: Yes Approximately how many cigarettes per day: 1 or 2 Do you dip or chew tobacco: No 09/23/20 02:18 BiPap/CPAP ROUTINE Comment: Diagnosis: Acute on chronic hypoxic respiratory failure 09/23/20 02:19 Respiratory Therapy Assessment DAILY Comment: Diagnosis: Acute on chronic hypoxic respiratory failure 09/23/20 02:30 Oxygen Nasal Cannula 2 lpm Comment: Diagnosis: Acute on chronic hypoxic respiratory failure 09/23/20 23:21 Flutter Therapy UD Comment: Diagnosis: Acute on chronic hypoxic respiratory failure 09/26/20 08:36 Qualify for Home Oxygen TODAY Comment: Diagnosis: Acute on chronic hypoxic respiratory failure Discharge Exam General Appearance: no apparent distress, alert Respiratory Exam: prolonged expirations, wheezing, No accessory muscle use Cardiovascular Exam: regular rate/rhythm, normal heart sounds Gastrointestinal/Abdomen Exam: soft, No tenderness, No mass Extremity Exam: normal inspection, normal range of motion Skin Exam: normal color, warm, dry Final Diagnosis/Problem List - Final Discharge Diagnosis/Problem (1) COPD exacerbation Current Visit: Yes Status: Acute Assessment & Plan: home on nebs, prednisone and levaquin Code(s): J44.1 - CHRONIC OBSTRUCTIVE PULMONARY DISEASE W (ACUTE) EXACERBATION (2) Chronic hypoxemic respiratory failure Current Visit: Yes Status: Acute Assessment & Plan: continue oxygen at 3L NC continuously (3) Chest wall pain Current Visit: Yes Status: Acute Code(s): R07.89 - OTHER CHEST PAIN (4) Hyperglycemia Current Visit: Yes Status: Acute Assessment & Plan: a1c normal Code(s): R73.9 - HYPERGLYCEMIA, UNSPECIFIED - Discharge Disposition: Home, Self-Care Condition: Stable Prescriptions: New Nebulizer Accessories [Adult Aerosol Mask] 1 each MC UD 1 Days #1 each Prednisone 20 mg [Deltasone 20 mg] 20 mg PO UD #18 tablet Levofloxacin [Levaquin] 500 mg PO DAILY #7 tablet Continue Fluticasone/Salmeterol 115/21 [Advair Hfa 115/21 Common canister*] 2 puff IH BIDRT #1 aer.w.[email or web address] Albuterol/Ipratropium 3ml Neb* [DUONEB 0.5-3 MG/3 ml Neb] 3 ml IH Q6H PRN PRN #100 ampul.neb PRN Reason: Shortness Of Breath Amlodipine Besylate 5 mg [Norvasc 5 mg] 5 mg PO DAILY #30 tablet Tiotropium [place] Inhaler [Spiriva 18 Mcg/Cap Inhaler] 1 ea IH DAILY #30 inh Paroxetine HCl 1 tab PO DAILY Gabapentin 100 mg [Neurontin 100 MG] 1 tab PO BID Omeprazole 1 tab PO DAILY No Action Albuterol 8 gm Mdi Hfa [Ventolin Hfa MDI] 8 gm IH Q4H #1 hfa.aer.ad Follow up with: MARBELLA COLON MD [Primary Care Provider] - 1 Week
== END 2020-09-26 12:20 | disposition home or self-care (01) | DRG 191 ==
LOC: ED 19:35 → ICU 09-23 00:07
PROVIDERS: ADMIT Family Medicine; ATTEND Family Medicine
DX: J44.1 Chronic obstructive pulmonary disease with (acute) exacerbation (principal); J96.11 Chronic respiratory failure with hypoxia; Z99.81 Dependence on supplemental oxygen; Z79.899 Other long term (current) drug therapy; R07.89 Other chest pain; R73.9 Hyperglycemia, unspecified; G47.30 Sleep apnea, unspecified; Z20.828 Contact with and (suspected) exposure to other viral communicable diseases
CPT/HCPCS: 36000; 36415; 36600; 71045; 80048; 80053; 82375; 82803; 82947; 83036; 83605; 83735; 83880; 84484; 85025; 87040; 93005; 93041; 94002; 94003; 94640; 94667; 94668; 94760; 94762; 96365; 96374; 99285; 99291; J0456; J1650; J1817; J2060; J2270; J2930; U0003; A9270-GY

== ENCOUNTER 2020-10-10 21:18 | Observation (INO) | payer OTHER ==
[2020-10-10 21:57] LABS: Hematocrit 42.7 % (35-47); Hemoglobin 14.4 gm/dl (12.0-16.0); Mean Corpuscular Hemoglobin 32.4 pg (26-32); Mean Corpuscular Hgb Concent. 33.7 g/dl (32-36); Mean Platelet Volume 9.4 fl (7.5-11.0); Platelet Count 277 K/mm3 (150-450); Red Blood Count 4.45 M/mm3 (4.1-5.4); Red Cell Distribution Width 13.2 % (11.5-14.0); White Blood Count 12.4 K/mm3 (4.0-10.5)
[2020-10-10 22:37] LABS: ALBUMIN 3.6 g/dL (3.5-5.0); ALKALINE PHOSPHATASE 73 U/L (38-126); ANION GAP 7.1 MEQ/L (5-15); BLOOD UREA NITROGEN 12 mg/dL (7-17); CHLORIDE 105 mmol/L (98-107); Calcium 8.5 mg/dL (8.4-10.2); Carbon Dioxide 28 mmol/L (22-30); Creatinine 1 0.63 mg/dL (0.52-1.04); EST GLOMERULAR FILTRATION RATE > 60.0 ML/MIN; Glucose 105 mg/dL (74-106); MAGNESIUM 2.1 mg/dL (1.6-2.3); Potassium 3.7 mmol/L (3.5-5.1); SGOT/AST 22 U/L (14-36); SGPT/ALT 24 U/L (0-35); SODIUM 136 mmol/L (137-145); Total Protein 6.2 g/dL (6.3-8.2)
--- NOTE | 2020-10-11 00:06 | ERPHSYRPT ---
- History of Present Illness Time Seen by Provider: 10/10/20 21:30 Historian: patient Exam Limitations: no limitations Patient Subjective Stated Complaint: pt states "I'm having chest pain." Triage Nursing Assessment: pt came into the er via ambulance, pt is axo x4; c/o chest pain and SOB; pt states 4/10 pain to the chest; pt states that she has pressure in chest; pt states that she stressed out today because of a ty; pt states that when she went to the bedroom and seen to dog had ate her medication; pt states that she felt like her heart was going to come out of her chest; pt states that she felt better after receiving a nitro in the ambulance; pt was given 4 aspirin and 1 nitro in route to the er; pt states that she is SOB; pt has audible wheezing; pt states that she wears 3L all the time; lung sounds are coarse throughout; clear apical heart tone; strong mildred radial pulses; strong pedal pulses; no edema present; pt states that she thinks that it maybe her anxiety instead of heart; vitals wnl Physician History: Patient is a 45-year-old female history of smoking, obesity presents to our ED via EMS for evaluation of chest pain or shortness of breath. Chest pain and shortness of breath started just prior to arrival. Chest pain described as a pressure sensation rated 4 out of 10. Patient states she has been extremely stressed. Patient is having issues with a man. Patient also states that her dog ate her meds. Patient became very angry at her dog. Patient states it felt like her heart was coming out of her chest. Patient received nitroglycerin sublingual via EMS. She also received aspirin x4. Patient admits that she has a history of COPD. She uses 3 L of oxygen at home via nasal cannula. Patient states that she believes her symptoms are due to her anxiety and stress. No associated nausea or vomiting. No trauma. No fever. No diaphoresis. Symptoms are mild to moderate in intensity. Patient voices no other complaints or concerns at this time. Timing/Duration: today Activities at Onset: emotional stress Quality: pressure Location: substernal Chest Pain Radiation: no radiation Severity of Pain-Max: moderate Severity of Pain-Current: mild Modifying Factors: Improves With: nitroglycerin Associated Symptoms: shortness of breath, No nausea, No vomiting, No cough, No hurts to breathe, No weakness, No syncope, No headache, No dizziness, No edema Nitro Today/Relief: 0.4 mg x 1 Aspirin Treatment Today: 81 mg x 4 Allergies/Adverse Reactions: cephalexin [From Keflex] Allergy (Verified 10/10/20 21:19) ketorolac [From Toradol] Allergy (Verified 10/10/20 21:19) lisinopril Allergy (Verified 10/10/20 21:19) Sulfa (Sulfonamide Antibiotics) Allergy (Verified 10/10/20 21:19) Home Medications: Gabapentin 100 mg [Neurontin 100 MG] 300 mg PO BID 09/22/20 [History] Omeprazole 1 tab PO DAILY 09/22/20 [History] Paroxetine HCl 1 tab PO DAILY 09/22/20 [History] Hx Tetanus, Diphtheria Vaccination/Date Given: Yes Hx Influenza Vaccination/Date Given: Yes Hx Pneumococcal Vaccination/Date Given: No Travel Risk - International Travel Have you traveled outside of the country in past 3 weeks: No - Coronavirus Screening Are you exhibiting any of the following symptoms?: No Close contact with a COVID-19 positive Pt in past 14-21 Days: No - Vaccine Status Have you recieved a Covid-19 vaccination: No - Review of Systems Constitutional: No Symptoms, No Fever, No Chills Eyes: No Symptoms Ears, Nose, & Throat: No Symptoms Respiratory: No Symptoms, No Cough, No Dyspnea Cardiac: No Symptoms, No Chest Pain, No Edema, No Syncope Abdominal/Gastrointestinal: No Symptoms, No Abdominal Pain, No Nausea, No Vomiting, No Diarrhea Genitourinary Symptoms: No Symptoms, No Dysuria Musculoskeletal: No Symptoms, No Back Pain, No Neck Pain Skin: No Symptoms, No Rash Neurological: No Symptoms, No Dizziness, No Focal Weakness, No Sensory Changes Psychological: No Symptoms Endocrine: No Symptoms Hematologic/Lymphatic: No Symptoms Immunological/Allergic: No Symptoms All Other Systems: Reviewed and Negative - Past Medical History Pertinent Past Medical History: Yes Neurological History: No Pertinent History ENT History: No Pertinent History Cardiac History: No Pertinent History Respiratory History: COPD, Sleep Apnea Endocrine Medical History: No Pertinent History Musculoskeletal History: No Pertinent History GI Medical History: Pancreatitis History: No Pertinent History Psycho-Social History: Anxiety Female Reproductive Disorders: No Pertinent History - Past Surgical History Past Surgical History: Yes Neuro Surgical History: No Pertinent History Cardiac: No Pertinent History Respiratory: No Pertinent History Gastrointestinal: No Pertinent History Genitourinary: No Pertinent History Musculoskeletal: No Pertinent History Female Surgical History: Tubal Ligation Other Surgical History: jaw fx repair, tubal pregnancies - Social History Smoking Status: Current every day smoker How long have you smoked: 30+ years Exposure to second hand smoke: Yes Drug Use: none Patient Lives Alone: No - Female History Hx Now: No - Nursing Vital Signs Nursing Vital Signs: Initial Vital Signs Temperature 97.8 F 10/10/20 21:22 Pulse Rate 98 H 10/10/20 21:22 Blood Pressure 138/100 10/10/20 21:22 O2 Sat by Pulse Oximetry 96 10/10/20 21:22 Pain Scale Pain Intensity 0 - Physical Exam General Appearance: no apparent distress, alert Eye Exam: PERRL/EOMI, eyes nml inspection Ears, Nose, Throat Exam: normal ENT inspection, moist mucous membranes Neck Exam: normal inspection, non-tender, supple, full range of motion Respiratory Exam: normal breath sounds, lungs clear, No respiratory distress Cardiovascular Exam: regular rate/rhythm, normal heart sounds Gastrointestinal/Abdomen Exam: soft, No tenderness, No mass Back Exam: normal inspection, No CVA tenderness, No vertebral tenderness Extremity Exam: normal inspection, normal range of motion Neurologic Exam: alert, oriented x 3, cooperative, normal mood/affect, sensation nml, No motor deficits Skin Exam: normal color, warm, dry Lymphatic Exam: No adenopathy SpO2 Interpretation: normal SpO2: 97 O2 Delivery: Room Air - Course Nursing assessment & vital signs reviewed: Yes EKG Interpreted by Me: RATE (98), Sinus Rhythm, NORMAL AXIS, NORMAL INTERVALS - Radiology Exams Chest X-ray Interpretation: Teleradiologist Report (No acute cardiopulmonary process observed.) Ordered Tests: Medication Summary Discontinued Medications Generic Name Dose Route Start Last Admin Trade Name Freq PRN Reason Stop Dose Admin Acetaminophen 650 mg 10/11/20 03:55 Tylenol 325 Mg PO 11/10/20 03:54 Q4H PRN PRN PAIN AND/OR FEVER Al Hydrox/Mg Hydrox/Simethicone 30 ml 10/11/20 03:55 Maalox Es 30 Ml Unit Dose PO 11/10/20 03:54 Q4H PRN PRN INDIGESTION Albuterol/Ipratropium 3 ml 10/11/20 00:14 10/11/20 00:30 Duoneb 0.5-3 Mg/3 Ml Neb IH 10/11/20 00:15 3 ml STAT ONE Administration Albuterol/Ipratropium Confirm 10/11/20 00:20 Duoneb 0.5-3 Mg/3 Ml Neb Administered 10/11/20 00:21 Dose 3 ml IH .STK-MED ONE Albuterol/Ipratropium 3 ml 10/11/20 07:00 10/11/20 10:32 Duoneb 0.5-3 Mg/3 Ml Neb IH 11/10/20 06:59 3 ml QIDRT CHARMAINE Administration Amlodipine Besylate 5 mg 10/11/20 10:00 10/11/20 10:36 Norvasc 5 Mg PO 11/10/20 09:59 5 mg DAILY CHARMAINE Administration Gabapentin 300 mg 10/11/20 10:00 10/11/20 10:35 Neurontin 300 Mg PO 11/10/20 09:59 300 mg BID CHARMAINE Administration Doxycycline Hyclate 100 mg/ 100 mls @ 100 mls/hr 10/11/20 10:00 Dextrose IV 11/10/20 09:59 Q12HT CHARMAINE Magnesium Hydroxide 30 - 60 ml 10/11/20 03:55 Milk Of Magnesia 30 Ml PO 11/10/20 03:54 QDP PRN CONSTIPATION Methylprednisolone Sodium Succinate 125 mg 10/11/20 00:14 10/11/20 00:27 Solu-Medrol 125 Mg IV 10/11/20 00:15 125 mg STAT ONE Administration Methylprednisolone Sodium Succinate Confirm 10/11/20 00:25 Solu-Medrol 125 Mg Administered 10/11/20 00:26 Dose 125 mg .ROUTE .STK-MED ONE Methylprednisolone Sodium Succinate 80 mg 10/11/20 06:00 10/11/20 05:22 Solu-Medrol 125 Mg IV 11/10/20 05:59 80 mg Q6HT CHARMAINE Administration Pantoprazole Sodium 40 mg 10/11/20 10:00 10/11/20 10:36 Protonix 40mg Tablet PO 11/10/20 09:59 40 mg DAILY CHARMAINE Administration Paroxetine HCl 10 mg 10/11/20 10:00 10/11/20 10:35 Paxil 20 Mg PO 11/10/20 09:59 10 mg DAILY CHARMAINE Administration Fluticasone/Salmeterol 2 puff 10/11/20 07:00 10/11/20 06:49 Advair Hfa 115/21 Common Canister* IH 11/10/20 06:59 2 puff BIDRT CHARMAINE Administration Senna/Docusate Sodium 2 udtab 10/11/20 03:55 Senokot-S Tablet PO 11/10/20 03:54 BID PRN PRN CONSTIPATION Tiotropium [place] 1 ea 10/11/20 10:00 Spiriva 18 Mcg/Cap Inhaler 11/10/20 09:59 DAILY@0700 [facility] Lab/Rad Data: Laboratory Result Diagrams 10/10/20 21:37 10/10/20 21:37 Laboratory Results 10/11/20 10/11/20 10/10/20 Range/Units 01:13 00:30 23:55 WBC (4.0-10.5) K/mm3 RBC (4.1-5.4) M/mm3 Hgb (12.0-16.0) gm/dl Hct (35-47) % MCV (78-100) fl MCH (26-32) pg MCHC (32-36) g/dl RDW (11.5-14.0) % Plt Count (150-450) K/mm3 MPV (7.5-11.0) fl Segmented Neutrophils (36.0-66.0) % Lymphocytes (Manual) (24-44) % Monocytes (Manual) (0.0-12.0) % Eosinophils (Manual) (0.00-3.0) % Platelet Estimate (NORMAL) RBC Morphology Sodium (137-145) mmol/L Potassium (3.5-5.1) mmol/L Chloride (98-107) mmol/L Carbon Dioxide (22-30) mmol/L Anion Gap (5-15) MEQ/L BUN (7-17) mg/dL Creatinine (0.52-1.04) mg/dL Estimated GFR ML/MIN Glucose (74-106) mg/dL Calcium (8.4-10.2) mg/dL Magnesium (1.6-2.3) mg/dL Total Bilirubin (0.2-1.3) mg/dL AST (14-36) U/L ALT (0-35) U/L Alkaline Phosphatase (38-126) U/L Troponin I < 0.012 (0.000-0.034) ng/mL Serum Total Protein (6.3-8.2) g/dL Albumin (3.5-5.0) g/dL Urine Color (YELLOW) Urine Appearance (CLEAR) Urine pH (5-6) Ur Specific [place] (1.005-1.025) Urine Protein (Negative) Urine Ketones (NEGATIVE) Urine Blood (0-5) Hector/ul Urine Nitrite (NEGATIVE) Urine Bilirubin (NEGATIVE) Urine Urobilinogen (0-1) mg/dL Ur Leukocyte Esterase (NEGATIVE) Urine WBC (Auto) (0-5) /HPF Urine RBC (Auto) (0-2) /HPF U Epithel Cells (Auto) (FEW) /HPF Urine Bacteria (Auto) (NEGATIVE) /HPF Fatty Casts (NEGATIVE) /LPF Urine Mucus (Auto) (NEGATIVE) /HPF Urine Culture Reflexed (NO) Urine Glucose (NEGATIVE) mg/dL Urine HCG, Qual NEGATIVE (Negative) SARS-CoV-2 (PCR) NEGATIVE (NEGATIVE) 10/10/20 10/10/20 10/10/20 Range/Units 23:55 21:37 21:37 WBC (4.0-10.5) K/mm3 RBC (4.1-5.4) M/mm3 Hgb (12.0-16.0) gm/dl Hct (35-47) % MCV (78-100) fl MCH (26-32) pg MCHC (32-36) g/dl RDW (11.5-14.0) % Plt Count (150-450) K/mm3 MPV (7.5-11.0) fl Segmented Neutrophils (36.0-66.0) % Lymphocytes (Manual) (24-44) % Monocytes (Manual) (0.0-12.0) % Eosinophils (Manual) (0.00-3.0) % Platelet Estimate (NORMAL) RBC Morphology Sodium 136 L (137-145) mmol/L Potassium 3.7 (3.5-5.1) mmol/L Chloride 105 (98-107) mmol/L Carbon Dioxide 28 (22-30) mmol/L Anion Gap 7.1 (5-15) MEQ/L BUN 12 (7-17) mg/dL Creatinine 0.63 (0.52-1.04) mg/dL Estimated GFR > 60.0 ML/MIN Glucose 105 (74-106) mg/dL Calcium 8.5 (8.4-10.2) mg/dL Magnesium 2.1 (1.6-2.3) mg/dL Total Bilirubin 0.20 (0.2-1.3) mg/dL AST 22 (14-36) U/L ALT 24 (0-35) U/L Alkaline Phosphatase 73 (38-126) U/L Troponin I < 0.012 (0.000-0.034) ng/mL Serum Total Protein 6.2 L (6.3-8.2) g/dL Albumin 3.6 (3.5-5.0) g/dL Urine Color YELLOW (YELLOW) Urine Appearance CLEAR (CLEAR) Urine pH 5.0 (5-6) Ur Specific [place] 1.017 (1.005-1.025) Urine Protein NEGATIVE (Negative) Urine Ketones NEGATIVE (NEGATIVE) Urine Blood SMALL (0-5) Hector/ul Urine Nitrite NEGATIVE (NEGATIVE) Urine Bilirubin NEGATIVE (NEGATIVE) Urine Urobilinogen NEGATIVE (0-1) mg/dL Ur Leukocyte Esterase NEGATIVE (NEGATIVE) Urine WBC (Auto) NONE (0-5) /HPF Urine RBC (Auto) NONE (0-2) /HPF U Epithel Cells (Auto) RARE (FEW) /HPF Urine Bacteria (Auto) NONE (NEGATIVE) /HPF Fatty Casts N (NEGATIVE) /LPF Urine Mucus (Auto) SLIGHT (NEGATIVE) /HPF Urine Culture Reflexed NO (NO) Urine Glucose NEGATIVE (NEGATIVE) mg/dL Urine HCG, Qual (Negative) SARS-CoV-2 (PCR) (NEGATIVE) 10/10/20 Range/Units 21:37 WBC 12.4 H (4.0-10.5) K/mm3 RBC 4.45 (4.1-5.4) M/mm3 Hgb 14.4 (12.0-16.0) gm/dl Hct 42.7 (35-47) % MCV 96.0 (78-100) fl MCH 32.4 H (26-32) pg MCHC 33.7 (32-36) g/dl RDW 13.2 (11.5-14.0) % Plt Count 277 (150-450) K/mm3 MPV 9.4 (7.5-11.0) fl Segmented Neutrophils 60 (36.0-66.0) % Lymphocytes (Manual) 30 (24-44) % Monocytes (Manual) 8 (0.0-12.0) % Eosinophils (Manual) 2 (0.00-3.0) % Platelet Estimate NORMAL (NORMAL) RBC Morphology NORMAL Sodium (137-145) mmol/L Potassium (3.5-5.1) mmol/L Chloride (98-107) mmol/L Carbon Dioxide (22-30) mmol/L Anion Gap (5-15) MEQ/L BUN (7-17) mg/dL Creatinine (0.52-1.04) mg/dL Estimated GFR ML/MIN Glucose (74-106) mg/dL Calcium (8.4-10.2) mg/dL Magnesium (1.6-2.3) mg/dL Total Bilirubin (0.2-1.3) mg/dL AST (14-36) U/L ALT (0-35) U/L Alkaline Phosphatase (38-126) U/L Troponin I (0.000-0.034) ng/mL Serum Total Protein (6.3-8.2) g/dL Albumin (3.5-5.0) g/dL Urine Color (YELLOW) Urine Appearance (CLEAR) Urine pH (5-6) Ur Specific [place] (1.005-1.025) Urine Protein (Negative) Urine Ketones (NEGATIVE) Urine Blood (0-5) Hector/ul Urine Nitrite (NEGATIVE) Urine Bilirubin (NEGATIVE) Urine Urobilinogen (0-1) mg/dL Ur Leukocyte Esterase (NEGATIVE) Urine WBC (Auto) (0-5) /HPF Urine RBC (Auto) (0-2) /HPF U Epithel Cells (Auto) (FEW) /HPF Urine Bacteria (Auto) (NEGATIVE) /HPF Fatty Casts (NEGATIVE) /LPF Urine Mucus (Auto) (NEGATIVE) /HPF Urine Culture Reflexed (NO) Urine Glucose (NEGATIVE) mg/dL Urine HCG, Qual (Negative) SARS-CoV-2 (PCR) (NEGATIVE) - Progress Progress: improved Air Movement: good Progress Note: Patient reassessed. She feels well. Vital stable. Case discussed with admitting physician who excepts admission to observation. Patient voices no other complaints concerns will discharge for further evaluation and treatment. 10/13/20 01:53 10/13/20 01:59 Blood Culture(s) Obtained: Yes Antibiotics given: Yes Counseled pt/family regarding: lab results, diagnosis, rad results - Departure Departure Disposition: Observation Clinical Impression: ACS (acute coronary syndrome), COPD exacerbation, Leukocytosis Condition: Good Critical Care Time: No
[2020-10-11] MEDS ORDERED: DUONEB 0.5-3 MG/3 ml Neb IH ONE ×2 (00:14→00:20)
[2020-10-11] MEDS ORDERED: solu-MEDROL 125 MG IV ONE (00:14)
[2020-10-11] MEDS ORDERED: solu-MEDROL 125 MG ONE (00:25)
[2020-10-11 00:44] LABS: Appearance CLEAR (CLEAR); Bilirubin NEGATIVE (NEGATIVE); Blood SMALL Ery/ul (0-5); Epithelial Cells RARE /HPF (FEW); Glucose NEGATIVE (NEGATIVE); Ketones NEGATIVE (NEGATIVE); Leukocyte Esterase NEGATIVE (NEGATIVE); Mucus SLIGHT /HPF (NEGATIVE); Nitrite NEGATIVE (NEGATIVE); Protein,Urine Dip NEGATIVE (Negative); Specific Gravity 1.017 (1.005-1.025); Urobilinogen NEGATIVE mg/dL (0-1)
[2020-10-11 01:47] LABS: Fatty Casts,Urine N /LPF (NEGATIVE)
[2020-10-11 03:50] LABS: Eosinophil 2 % (0.00-3.0); Lymphocytes 30 % (24-44); Monocyte 8 % (0.0-12.0); Neutrophils 60 % (36.0-66.0); Platelet Estimate NORMAL (NORMAL); Total Cells Counted 100
[2020-10-11] MEDS ORDERED: Senokot-S Tablet PO PRN (03:55)
[2020-10-11] MEDS ORDERED: TYLENOL 325 MG PO PRN (03:55)
[2020-10-11] MEDS ORDERED: MILK OF MAGNESIA 30 ML PO PRN (03:55)
[2020-10-11] MEDS ORDERED: MAALOX ES 30 ML UNIT DOSE PO PRN (03:55)
[2020-10-11] MEDS: DUONEB 0.5-3 MG/3 ml Neb IH SCH ×2 (05:10→10:32)
[2020-10-11 05:13] LABS: Hematocrit 47.7 % (35-47); Hemoglobin 15.8 gm/dl (12.0-16.0); Mean Cell Volume 96.8 fl (78-100); Mean Corpuscular Hgb Concent. 33.1 g/dl (32-36); Mean Platelet Volume 9.7 fl (7.5-11.0); Platelet Count 281 K/mm3 (150-450); Red Blood Count 4.93 M/mm3 (4.1-5.4); Red Cell Distribution Width 13.5 % (11.5-14.0); White Blood Count 13.5 K/mm3 (4.0-10.5)
[2020-10-11] MEDS ORDERED: solu-MEDROL 125 MG IV SCH (06:00)
[2020-10-11 06:09] LABS: ALBUMIN 4.2 g/dL (3.5-5.0); ALKALINE PHOSPHATASE 82 U/L (38-126); ANION GAP 12.2 MEQ/L (5-15); BLOOD UREA NITROGEN 12 mg/dL (7-17); CHLORIDE 105 mmol/L (98-107); Calcium 8.7 mg/dL (8.4-10.2); Carbon Dioxide 27 mmol/L (22-30); Cholesterol 206 mg/dL (50-200); Creatinine 1 0.62 mg/dL (0.52-1.04); EST GLOMERULAR FILTRATION RATE > 60.0 ML/MIN; Glucose 149 mg/dL (74-106); HDL CHOLESTEROL 66 mg/dL (40-60); LDL, DIRECT 124 mg/dL (30-100); Potassium 4.1 mmol/L (3.5-5.1); Risk Ratio 3.1; SGOT/AST 26 U/L (14-36); SGPT/ALT 27 U/L (0-35); SODIUM 140 mmol/L (137-145); TRIGLYCERIDE 75 mg/dL (30-150); Total Protein 7.2 g/dL (6.3-8.2)
[2020-10-11] MEDS ORDERED: Advair Hfa 115/21 Common canister IH SCH (07:00)
[2020-10-11 08:11] VITALS: BP 141/74
--- NOTE | 2020-10-11 08:54 | XRAY ---
Exam: AP upright portable chest film from 10/10/2020. Comparison: AP upright portable chest film from 09/22/2020. Indication: 45-year-old female with chest pain. Findings: The heart size and contour are normal. The missy and mediastinal structures appear unremarkable. There is adequate inflation of the lungs. No acute air space infiltrates, vascular congestion, pneumothorax, or pleural fluid is seen. No acute osseous abnormality is seen. Some EKG leads are noted in place. Impression: 1. No acute cardiopulmonary process is seen.
--- NOTE | 2020-10-11 08:59 | PCM.SSS ---
History of Present Illness - Chief Complaint Chief Complaint: ACS History of Present Illness: is a 45 year old female who presented to the ER with chest pain last night, it began while she was arguing with a family member then she got off the phone and her dog had chewed up several items, she became very upset and developed chest pain and palptiations, she feels her anxiety is not well controlled. - Review of Systems Constitutional: No Fever, No Chills Respiratory: No Cough, No Short Of Breath Cardiac: Chest Pain Abdominal/Gastrointestinal: No Abdominal Pain, No Nausea, No Vomiting, No Diarrhea Skin: No Rash All Other Systems: Reviewed and Negative Medications & Allergies Home Medications: Home Medication List Albuterol 8 gm Mdi Hfa [Ventolin Hfa MDI] 8 gm IH Q4H #1 hfa.aer.ad 06/24/20 [Rx Confirmed 10/10/20] Albuterol/Ipratropium 3ml Neb* [DUONEB 0.5-3 MG/3 ml Neb] 3 ml IH Q6H PRN PRN #100 ampul.neb 06/29/20 [Rx Confirmed 10/10/20] Amlodipine Besylate 5 mg [Norvasc 5 mg] 5 mg PO DAILY #30 tablet 06/29/20 [Rx Confirmed 10/10/20] Fluticasone/Salmeterol 115/ [Advair Hfa 115 Common canister*] 2 puff IH BIDRT #1 aer.w.adap 06/29/20 [Rx Confirmed 10/10/20] Tiotropium [place] Inhaler [Spiriva 18 Mcg/Cap Inhaler] 1 ea IH DAILY #30 inh 06/29/20 [Rx Confirmed 10/10/20] Gabapentin 100 mg [Neurontin 100 MG] 300 mg PO BID 09/22/20 [History Confirmed 10/10/20] Omeprazole 1 tab PO DAILY 09/22/20 [History Confirmed 10/10/20] Paroxetine HCl 1 tab PO DAILY 09/22/20 [History Confirmed 10/10/20] Buspirone HCl 5 mg [Buspar 5 mg] 5 mg PO BID #60 tablet 10/11/20 [Rx] Allergies/Adverse Reactions: Allergies Allergy/AdvReac Type Severity Reaction Status Date / Time cephalexin [From Keflex] Allergy Verified 10/10/20 21:19 ketorolac [From Toradol] Allergy Verified 10/10/20 21:19 lisinopril Allergy Verified 10/10/20 21:19 Sulfa (Sulfonamide Allergy Verified 10/10/20 21:19 Antibiotics) - Past Medical History Past Medical History: Yes Neurological History: No Pertinent History ENT History: No Pertinent History Cardiac History: No Pertinent History Respiratory History: COPD, Sleep Apnea Endocrine Medical History: No Pertinent History Musculoskelatal History: No Pertinent History GI Medical History: Pancreatitis History: No Pertinent History Pyscho-Social History: Anxiety Reproductive Disorders: No Pertinent History - Female History Hx Last Menstrual Period: August 2020 Are you now?: No - Past Surgical History Past Surgical History: Yes Neuro Surgical History: No Pertinent History Cardiac History: No Pertinent History Respiratory Surgery: No Pertinent History GI Surgical History: No Pertinent History Genitourinary Surgical Hx: No Pertinent History Musculskeletal Surgical Hx: No Pertinent History Female Surgical History: Tubal Ligation Other Surgical History: jaw fx repair, tubal pregnancies - Social History Smoking Status: Current every day smoker How long have you smoked: 32 Exposure to second hand smoke: Yes Alcohol: None Drug Use: none - Physical Exam Vital Signs: Vital Signs - 24 hr Temp Pulse Pulse Resp BP Pulse Ox 10/11/20 08:00 98.4 F 85 18 141/74 93 L 10/11/20 06:52 90 16 96 10/11/20 05:10 81 16 98 10/11/20 05:00 97 10/11/20 03:56 97.2 F 74 20 146/94 98 10/11/20 03:20 84 16 124/71 95 10/11/20 02:00 86 16 118/86 97 10/11/20 01:00 86 15 148/89 97 10/11/20 00:20 85 15 98 10/11/20 00:16 97 10/11/20 00:00 88 20 133/80 96 10/10/20 23:00 87 138/100 97 10/10/20 21:25 96 10/10/20 21:22 97.8 F 96 H 98 H 138/100 96 General Appearance: no apparent distress, alert Neurologic Exam: alert, oriented x 3, cooperative, normal mood/affect, nml cerebellar function, nml station & gait, sensation nml, No motor deficits Respiratory Exam: normal breath sounds, lungs clear, prolonged expirations, No respiratory distress Cardiovascular Exam: regular rate/rhythm, normal heart sounds, normal peripheral pulses Gastrointestinal/Abdomen Exam: soft, normal bowel sounds, No tenderness, No mass Extremity Exam: normal inspection, normal range of motion, pelvis stable Skin Exam: normal color, warm, dry, No rash Results - Labs Lab/Micro Results: Lab Results-Last 24 Hours 10/10/20 10/10/20 10/10/20 Range/Units 21:37 21:37 21:37 WBC 12.4 H (4.0-10.5) K/mm3 RBC 4.45 (4.1-5.4) M/mm3 Hgb 14.4 (12.0-16.0) gm/dl Hct 42.7 (35-47) % MCV 96.0 (78-100) fl MCH 32.4 H (26-32) pg MCHC 33.7 (32-36) g/dl RDW 13.2 (11.5-14.0) % Plt Count 277 (150-450) K/mm3 MPV 9.4 (7.5-11.0) fl Segmented Neutrophils 60 (36.0-66.0) % Lymphocytes (Manual) 30 (24-44) % Monocytes (Manual) 8 (0.0-12.0) % Eosinophils (Manual) 2 (0.00-3.0) % Platelet Estimate NORMAL (NORMAL) RBC Morphology NORMAL Sodium 136 L (137-145) mmol/L Potassium 3.7 (3.5-5.1) mmol/L Chloride 105 (98-107) mmol/L Carbon Dioxide 28 (22-30) mmol/L Anion Gap 7.1 (5-15) MEQ/L BUN 12 (7-17) mg/dL Creatinine 0.63 (0.52-1.04) mg/dL Estimated GFR > 60.0 ML/MIN Glucose 105 (74-106) mg/dL Calcium 8.5 (8.4-10.2) mg/dL Magnesium 2.1 (1.6-2.3) mg/dL Total Bilirubin 0.20 (0.2-1.3) mg/dL AST 22 (14-36) U/L ALT 24 (0-35) U/L Alkaline Phosphatase 73 (38-126) U/L Troponin I < 0.012 (0.000-0.034) ng/mL Serum Total Protein 6.2 L (6.3-8.2) g/dL Albumin 3.6 (3.5-5.0) g/dL Triglycerides (30-150) mg/dL Cholesterol (50-200) mg/dL LDL Cholesterol (30-100) mg/dL HDL Cholesterol (40-60) mg/dL Heart Disease Risk Ratio Urine Color (YELLOW) Urine Appearance (CLEAR) Urine pH (5-6) Ur Specific Powers (1.005-1.025) Urine Protein (Negative) Urine Ketones (NEGATIVE) Urine Blood (0-5) Hector/ul Urine Nitrite (NEGATIVE) Urine Bilirubin (NEGATIVE) Urine Urobilinogen (0-1) mg/dL Ur Leukocyte Esterase (NEGATIVE) Urine WBC (Auto) (0-5) /HPF Urine RBC (Auto) (0-2) /HPF U Epithel Cells (Auto) (FEW) /HPF Urine Bacteria (Auto) (NEGATIVE) /HPF Fatty Casts (NEGATIVE) /LPF Urine Mucus (Auto) (NEGATIVE) /HPF Urine Culture Reflexed (NO) Urine Glucose (NEGATIVE) mg/dL Urine HCG, Qual (Negative) SARS-CoV-2 (PCR) (NEGATIVE) 10/10/20 10/10/20 10/11/20 Range/Units 23:55 23:55 00:30 WBC (4.0-10.5) K/mm3 RBC (4.1-5.4) M/mm3 Hgb (12.0-16.0) gm/dl Hct (35-47) % MCV (78-100) fl MCH (26-32) pg MCHC (32-36) g/dl RDW (11.5-14.0) % Plt Count (150-450) K/mm3 MPV (7.5-11.0) fl Segmented Neutrophils (36.0-66.0) % Lymphocytes (Manual) (24-44) % Monocytes (Manual) (0.0-12.0) % Eosinophils (Manual) (0.00-3.0) % Platelet Estimate (NORMAL) RBC Morphology Sodium (137-145) mmol/L Potassium (3.5-5.1) mmol/L Chloride (98-107) mmol/L Carbon Dioxide (22-30) mmol/L Anion Gap (5-15) MEQ/L BUN (7-17) mg/dL Creatinine (0.52-1.04) mg/dL Estimated GFR ML/MIN Glucose (74-106) mg/dL Calcium (8.4-10.2) mg/dL Magnesium (1.6-2.3) mg/dL Total Bilirubin (0.2-1.3) mg/dL AST (14-36) U/L ALT (0-35) U/L Alkaline Phosphatase (38-126) U/L Troponin I < 0.012 (0.000-0.034) ng/mL Serum Total Protein (6.3-8.2) g/dL Albumin (3.5-5.0) g/dL Triglycerides (30-150) mg/dL Cholesterol (50-200) mg/dL LDL Cholesterol (30-100) mg/dL HDL Cholesterol (40-60) mg/dL Heart Disease Risk Ratio Urine Color YELLOW (YELLOW) Urine Appearance CLEAR (CLEAR) Urine pH 5.0 (5-6) Ur Specific Powers 1.017 (1.005-1.025) Urine Protein NEGATIVE (Negative) Urine Ketones NEGATIVE (NEGATIVE) Urine Blood SMALL (0-5) Hector/ul Urine Nitrite NEGATIVE (NEGATIVE) Urine Bilirubin NEGATIVE (NEGATIVE) Urine Urobilinogen NEGATIVE (0-1) mg/dL Ur Leukocyte Esterase NEGATIVE (NEGATIVE) Urine WBC (Auto) NONE (0-5) /HPF Urine RBC (Auto) NONE (0-2) /HPF U Epithel Cells (Auto) RARE (FEW) /HPF Urine Bacteria (Auto) NONE (NEGATIVE) /HPF Fatty Casts N (NEGATIVE) /LPF Urine Mucus (Auto) SLIGHT (NEGATIVE) /HPF Urine Culture Reflexed NO (NO) Urine Glucose NEGATIVE (NEGATIVE) mg/dL Urine HCG, Qual NEGATIVE (Negative) SARS-CoV-2 (PCR) (NEGATIVE) 10/11/20 10/11/20 10/11/20 Range/Units 01:13 04:43 04:43 WBC 13.5 H (4.0-10.5) K/mm3 RBC 4.93 (4.1-5.4) M/mm3 Hgb 15.8 (12.0-16.0) gm/dl Hct 47.7 H (35-47) % MCV 96.8 (78-100) fl MCH 32.0 (26-32) pg MCHC 33.1 (32-36) g/dl RDW 13.5 (11.5-14.0) % Plt Count 281 (150-450) K/mm3 MPV 9.7 (7.5-11.0) fl Segmented Neutrophils (36.0-66.0) % Lymphocytes (Manual) (24-44) % Monocytes (Manual) (0.0-12.0) % Eosinophils (Manual) (0.00-3.0) % Platelet Estimate (NORMAL) RBC Morphology Sodium (137-145) mmol/L Potassium (3.5-5.1) mmol/L Chloride (98-107) mmol/L Carbon Dioxide (22-30) mmol/L Anion Gap (5-15) MEQ/L BUN (7-17) mg/dL Creatinine (0.52-1.04) mg/dL Estimated GFR ML/MIN Glucose (74-106) mg/dL Calcium (8.4-10.2) mg/dL Magnesium (1.6-2.3) mg/dL Total Bilirubin (0.2-1.3) mg/dL AST (14-36) U/L ALT (0-35) U/L Alkaline Phosphatase (38-126) U/L Troponin I < 0.012 (0.000-0.034) ng/mL Serum Total Protein (6.3-8.2) g/dL Albumin (3.5-5.0) g/dL Triglycerides (30-150) mg/dL Cholesterol (50-200) mg/dL LDL Cholesterol (30-100) mg/dL HDL Cholesterol (40-60) mg/dL Heart Disease Risk Ratio Urine Color (YELLOW) Urine Appearance (CLEAR) Urine pH (5-6) Ur Specific Powers (1.005-1.025) Urine Protein (Negative) Urine Ketones (NEGATIVE) Urine Blood (0-5) Hector/ul Urine Nitrite (NEGATIVE) Urine Bilirubin (NEGATIVE) Urine Urobilinogen (0-1) mg/dL Ur Leukocyte Esterase (NEGATIVE) Urine WBC (Auto) (0-5) /HPF Urine RBC (Auto) (0-2) /HPF U Epithel Cells (Auto) (FEW) /HPF Urine Bacteria (Auto) (NEGATIVE) /HPF Fatty Casts (NEGATIVE) /LPF Urine Mucus (Auto) (NEGATIVE) /HPF Urine Culture Reflexed (NO) Urine Glucose (NEGATIVE) mg/dL Urine HCG, Qual (Negative) SARS-CoV-2 (PCR) NEGATIVE (NEGATIVE) 10/11/20 10/11/20 Range/Units 04:43 06:50 WBC (4.0-10.5) K/mm3 RBC (4.1-5.4) M/mm3 Hgb (12.0-16.0) gm/dl Hct (35-47) % MCV (78-100) fl MCH (26-32) pg MCHC (32-36) g/dl RDW (11.5-14.0) % Plt Count (150-450) K/mm3 MPV (7.5-11.0) fl Segmented Neutrophils (36.0-66.0) % Lymphocytes (Manual) (24-44) % Monocytes (Manual) (0.0-12.0) % Eosinophils (Manual) (0.00-3.0) % Platelet Estimate (NORMAL) RBC Morphology Sodium 140 (137-145) mmol/L Potassium 4.1 (3.5-5.1) mmol/L Chloride 105 (98-107) mmol/L Carbon Dioxide 27 (22-30) mmol/L Anion Gap 12.2 (5-15) MEQ/L BUN 12 (7-17) mg/dL Creatinine 0.62 (0.52-1.04) mg/dL Estimated GFR > 60.0 ML/MIN Glucose 149 H (74-106) mg/dL Calcium 8.7 (8.4-10.2) mg/dL Magnesium (1.6-2.3) mg/dL Total Bilirubin 0.40 (0.2-1.3) mg/dL AST 26 (14-36) U/L ALT 27 (0-35) U/L Alkaline Phosphatase 82 (38-126) U/L Troponin I < 0.012 (0.000-0.034) ng/mL Serum Total Protein 7.2 (6.3-8.2) g/dL Albumin 4.2 (3.5-5.0) g/dL Triglycerides 75 (30-150) mg/dL Cholesterol 206 H (50-200) mg/dL LDL Cholesterol 124 H (30-100) mg/dL HDL Cholesterol 66 H (40-60) mg/dL Heart Disease Risk Ratio 3.1 Urine Color (YELLOW) Urine Appearance (CLEAR) Urine pH (5-6) Ur Specific Powers (1.005-1.025) Urine Protein (Negative) Urine Ketones (NEGATIVE) Urine Blood (0-5) Hector/ul Urine Nitrite (NEGATIVE) Urine Bilirubin (NEGATIVE) Urine Urobilinogen (0-1) mg/dL Ur Leukocyte Esterase (NEGATIVE) Urine WBC (Auto) (0-5) /HPF Urine RBC (Auto) (0-2) /HPF U Epithel Cells (Auto) (FEW) /HPF Urine Bacteria (Auto) (NEGATIVE) /HPF Fatty Casts (NEGATIVE) /LPF Urine Mucus (Auto) (NEGATIVE) /HPF Urine Culture Reflexed (NO) Urine Glucose (NEGATIVE) mg/dL Urine HCG, Qual (Negative) SARS-CoV-2 (PCR) (NEGATIVE) - Radiology Impressions Radiology Exams & Impressions: Radiology Procedures Category Date Time Status CHEST 1 VIEW (PORTABLE) Stat Exams 10/10/20 22:00 Taken - Other Procedures and Tests Respiratory Therapy 10/11/20 00:31 Respiratory Therapy Assessment DAILY 10/11/20 05:28 Oxygen Nasal Cannula 3 lpm 10/12/20 05:00 EKG ROUTINE 10/13/20 05:00 EKG ROUTINE Assessment/Plan (1) Chest pain Current Visit: Yes Status: Acute Assessment & Plan: one more pending troponin, all have been negative. ekg no acute changes. pain seems anxiety related Code(s): R07.9 - CHEST PAIN, UNSPECIFIED (2) Anxiety Current Visit: Yes Status: Acute Assessment & Plan: add buspar Code(s): F41.9 - ANXIETY DISORDER, UNSPECIFIED (3) COPD (chronic obstructive pulmonary disease) Current Visit: Yes Status: Acute (4) Chronic hypoxemic respiratory failure Current Visit: No Status: Acute Hospital Summary - Vitals & Intake/Output Vital Signs: Vital Signs Temperature 98.4 F 10/11/20 08:00 Pulse Rate 85 10/11/20 08:00 Respiratory Rate 18 10/11/20 08:00 Blood Pressure 141/74 10/11/20 08:00 O2 Sat by Pulse Oximetry 93 L 10/11/20 08:00 Intake & Output: Intake & Output 10/08/20 10/09/20 10/10/20 10/11/20 11:59 11:59 11:59 11:59 Intake Total 200 Output Total 200 Balance 0 Weight 86.5 kg - Lab Result Diagrams: 10/11/20 04:43 10/11/20 04:43 Lab Results-Last 24 Hrs: Lab Results-Last 24 Hours 10/10/20 10/10/20 10/10/20 Range/Units 21:37 21:37 21:37 WBC 12.4 H (4.0-10.5) K/mm3 RBC 4.45 (4.1-5.4) M/mm3 Hgb 14.4 (12.0-16.0) gm/dl Hct 42.7 (35-47) % MCV 96.0 (78-100) fl MCH 32.4 H (26-32) pg MCHC 33.7 (32-36) g/dl RDW 13.2 (11.5-14.0) % Plt Count 277 (150-450) K/mm3 MPV 9.4 (7.5-11.0) fl Segmented Neutrophils 60 (36.0-66.0) % Lymphocytes (Manual) 30 (24-44) % Monocytes (Manual) 8 (0.0-12.0) % Eosinophils (Manual) 2 (0.00-3.0) % Platelet Estimate NORMAL (NORMAL) RBC Morphology NORMAL Sodium 136 L (137-145) mmol/L Potassium 3.7 (3.5-5.1) mmol/L Chloride 105 (98-107) mmol/L Carbon Dioxide 28 (22-30) mmol/L Anion Gap 7.1 (5-15) MEQ/L BUN 12 (7-17) mg/dL Creatinine 0.63 (0.52-1.04) mg/dL Estimated GFR > 60.0 ML/MIN Glucose 105 (74-106) mg/dL Calcium 8.5 (8.4-10.2) mg/dL Magnesium 2.1 (1.6-2.3) mg/dL Total Bilirubin 0.20 (0.2-1.3) mg/dL AST 22 (14-36) U/L ALT 24 (0-35) U/L Alkaline Phosphatase 73 (38-126) U/L Troponin I < 0.012 (0.000-0.034) ng/mL Serum Total Protein 6.2 L (6.3-8.2) g/dL Albumin 3.6 (3.5-5.0) g/dL Triglycerides (30-150) mg/dL Cholesterol (50-200) mg/dL LDL Cholesterol (30-100) mg/dL HDL Cholesterol (40-60) mg/dL Heart Disease Risk Ratio Urine Color (YELLOW) Urine Appearance (CLEAR) Urine pH (5-6) Ur Specific Powers (1.005-1.025) Urine Protein (Negative) Urine Ketones (NEGATIVE) Urine Blood (0-5) Hector/ul Urine Nitrite (NEGATIVE) Urine Bilirubin (NEGATIVE) Urine Urobilinogen (0-1) mg/dL Ur Leukocyte Esterase (NEGATIVE) Urine WBC (Auto) (0-5) /HPF Urine RBC (Auto) (0-2) /HPF U Epithel Cells (Auto) (FEW) /HPF Urine Bacteria (Auto) (NEGATIVE) /HPF Fatty Casts (NEGATIVE) /LPF Urine Mucus (Auto) (NEGATIVE) /HPF Urine Culture Reflexed (NO) Urine Glucose (NEGATIVE) mg/dL Urine HCG, Qual (Negative) SARS-CoV-2 (PCR) (NEGATIVE) 10/10/20 10/10/20 10/11/20 Range/Units 23:55 23:55 00:30 WBC (4.0-10.5) K/mm3 RBC (4.1-5.4) M/mm3 Hgb (12.0-16.0) gm/dl Hct (35-47) % MCV (78-100) fl MCH (26-32) pg MCHC (32-36) g/dl RDW (11.5-14.0) % Plt Count (150-450) K/mm3 MPV (7.5-11.0) fl Segmented Neutrophils (36.0-66.0) % Lymphocytes (Manual) (24-44) % Monocytes (Manual) (0.0-12.0) % Eosinophils (Manual) (0.00-3.0) % Platelet Estimate (NORMAL) RBC Morphology Sodium (137-145) mmol/L Potassium (3.5-5.1) mmol/L Chloride (98-107) mmol/L Carbon Dioxide (22-30) mmol/L Anion Gap (5-15) MEQ/L BUN (7-17) mg/dL Creatinine (0.52-1.04) mg/dL Estimated GFR ML/MIN Glucose (74-106) mg/dL Calcium (8.4-10.2) mg/dL Magnesium (1.6-2.3) mg/dL Total Bilirubin (0.2-1.3) mg/dL AST (14-36) U/L ALT (0-35) U/L Alkaline Phosphatase (38-126) U/L Troponin I < 0.012 (0.000-0.034) ng/mL Serum Total Protein (6.3-8.2) g/dL Albumin (3.5-5.0) g/dL Triglycerides (30-150) mg/dL Cholesterol (50-200) mg/dL LDL Cholesterol (30-100) mg/dL HDL Cholesterol (40-60) mg/dL Heart Disease Risk Ratio Urine Color YELLOW (YELLOW) Urine Appearance CLEAR (CLEAR) Urine pH 5.0 (5-6) Ur Specific Powers 1.017 (1.005-1.025) Urine Protein NEGATIVE (Negative) Urine Ketones NEGATIVE (NEGATIVE) Urine Blood SMALL (0-5) Hector/ul Urine Nitrite NEGATIVE (NEGATIVE) Urine Bilirubin NEGATIVE (NEGATIVE) Urine Urobilinogen NEGATIVE (0-1) mg/dL Ur Leukocyte Esterase NEGATIVE (NEGATIVE) Urine WBC (Auto) NONE (0-5) /HPF Urine RBC (Auto) NONE (0-2) /HPF U Epithel Cells (Auto) RARE (FEW) /HPF Urine Bacteria (Auto) NONE (NEGATIVE) /HPF Fatty Casts N (NEGATIVE) /LPF Urine Mucus (Auto) SLIGHT (NEGATIVE) /HPF Urine Culture Reflexed NO (NO) Urine Glucose NEGATIVE (NEGATIVE) mg/dL Urine HCG, Qual NEGATIVE (Negative) SARS-CoV-2 (PCR) (NEGATIVE) 10/11/20 10/11/20 10/11/20 Range/Units 01:13 04:43 04:43 WBC 13.5 H (4.0-10.5) K/mm3 RBC 4.93 (4.1-5.4) M/mm3 Hgb 15.8 (12.0-16.0) gm/dl Hct 47.7 H (35-47) % MCV 96.8 (78-100) fl MCH 32.0 (26-32) pg MCHC 33.1 (32-36) g/dl RDW 13.5 (11.5-14.0) % Plt Count 281 (150-450) K/mm3 MPV 9.7 (7.5-11.0) fl Segmented Neutrophils (36.0-66.0) % Lymphocytes (Manual) (24-44) % Monocytes (Manual) (0.0-12.0) % Eosinophils (Manual) (0.00-3.0) % Platelet Estimate (NORMAL) RBC Morphology Sodium (137-145) mmol/L Potassium (3.5-5.1) mmol/L Chloride (98-107) mmol/L Carbon Dioxide (22-30) mmol/L Anion Gap (5-15) MEQ/L BUN (7-17) mg/dL Creatinine (0.52-1.04) mg/dL Estimated GFR ML/MIN Glucose (74-106) mg/dL Calcium (8.4-10.2) mg/dL Magnesium (1.6-2.3) mg/dL Total Bilirubin (0.2-1.3) mg/dL AST (14-36) U/L ALT (0-35) U/L Alkaline Phosphatase (38-126) U/L Troponin I < 0.012 (0.000-0.034) ng/mL Serum Total Protein (6.3-8.2) g/dL Albumin (3.5-5.0) g/dL Triglycerides (30-150) mg/dL Cholesterol (50-200) mg/dL LDL Cholesterol (30-100) mg/dL HDL Cholesterol (40-60) mg/dL Heart Disease Risk Ratio Urine Color (YELLOW) Urine Appearance (CLEAR) Urine pH (5-6) Ur Specific Powers (1.005-1.025) Urine Protein (Negative) Urine Ketones (NEGATIVE) Urine Blood (0-5) Hector/ul Urine Nitrite (NEGATIVE) Urine Bilirubin (NEGATIVE) Urine Urobilinogen (0-1) mg/dL Ur Leukocyte Esterase (NEGATIVE) Urine WBC (Auto) (0-5) /HPF Urine RBC (Auto) (0-2) /HPF U Epithel Cells (Auto) (FEW) /HPF Urine Bacteria (Auto) (NEGATIVE) /HPF Fatty Casts (NEGATIVE) /LPF Urine Mucus (Auto) (NEGATIVE) /HPF Urine Culture Reflexed (NO) Urine Glucose (NEGATIVE) mg/dL Urine HCG, Qual (Negative) SARS-CoV-2 (PCR) NEGATIVE (NEGATIVE) 10/11/20 10/11/20 Range/Units 04:43 06:50 WBC (4.0-10.5) K/mm3 RBC (4.1-5.4) M/mm3 Hgb (12.0-16.0) gm/dl Hct (35-47) % MCV (78-100) fl MCH (26-32) pg MCHC (32-36) g/dl RDW (11.5-14.0) % Plt Count (150-450) K/mm3 MPV (7.5-11.0) fl Segmented Neutrophils (36.0-66.0) % Lymphocytes (Manual) (24-44) % Monocytes (Manual) (0.0-12.0) % Eosinophils (Manual) (0.00-3.0) % Platelet Estimate (NORMAL) RBC Morphology Sodium 140 (137-145) mmol/L Potassium 4.1 (3.5-5.1) mmol/L Chloride 105 (98-107) mmol/L Carbon Dioxide 27 (22-30) mmol/L Anion Gap 12.2 (5-15) MEQ/L BUN 12 (7-17) mg/dL Creatinine 0.62 (0.52-1.04) mg/dL Estimated GFR > 60.0 ML/MIN Glucose 149 H (74-106) mg/dL Calcium 8.7 (8.4-10.2) mg/dL Magnesium (1.6-2.3) mg/dL Total Bilirubin 0.40 (0.2-1.3) mg/dL AST 26 (14-36) U/L ALT 27 (0-35) U/L Alkaline Phosphatase 82 (38-126) U/L Troponin I < 0.012 (0.000-0.034) ng/mL Serum Total Protein 7.2 (6.3-8.2) g/dL Albumin 4.2 (3.5-5.0) g/dL Triglycerides 75 (30-150) mg/dL Cholesterol 206 H (50-200) mg/dL LDL Cholesterol 124 H (30-100) mg/dL HDL Cholesterol 66 H (40-60) mg/dL Heart Disease Risk Ratio 3.1 Urine Color (YELLOW) Urine Appearance (CLEAR) Urine pH (5-6) Ur Specific Powers (1.005-1.025) Urine Protein (Negative) Urine Ketones (NEGATIVE) Urine Blood (0-5) Hector/ul Urine Nitrite (NEGATIVE) Urine Bilirubin (NEGATIVE) Urine Urobilinogen (0-1) mg/dL Ur Leukocyte Esterase (NEGATIVE) Urine WBC (Auto) (0-5) /HPF Urine RBC (Auto) (0-2) /HPF U Epithel Cells (Auto) (FEW) /HPF Urine Bacteria (Auto) (NEGATIVE) /HPF Fatty Casts (NEGATIVE) /LPF Urine Mucus (Auto) (NEGATIVE) /HPF Urine Culture Reflexed (NO) Urine Glucose (NEGATIVE) mg/dL Urine HCG, Qual (Negative) SARS-CoV-2 (PCR) (NEGATIVE) - Radiology Exams Ordered Rad Exams-Entire Visit: Radiology Procedures Category Date Time Status CHEST 1 VIEW (PORTABLE) Stat Exams 10/10/20 22:00 Taken - Procedures and Test Procedures and Tests throughout Hospitalization: Therapy Orders & Screens 10/11/20 00:31 Respiratory Therapy Assessment DAILY Comment: 10/11/20 04:20 RT Screen per Nursing Assess ONCE Comment: Protocol Order Physician Instructions: Greater than 3 points order RT Admission Screen Reason For Exam: Triggered on Admission Diagnosis: ACS Diagnosis: ACS Pneumonia: No Home O2: Yes Asthma: Yes CHF: No Home CPAP/BIPAP: No Home Nebs/MDI: Yes Total Points: 14 Smoking Cessation Education ONCE Comment: Diagnosis: ACS Smoking Status: Current every day smoker How long have you smoked: 32 Have you smoked in the past 12 months: Yes Approximately how many cigarettes per day: 2 Do you dip or chew tobacco: No 10/11/20 05:00 EKG ROUTINE Comment: Diagnosis: ACS 10/11/20 05:28 Oxygen Nasal Cannula 3 lpm Comment: Diagnosis: ACS 10/12/20 05:00 EKG ROUTINE Comment: Diagnosis: ACS 10/13/20 05:00 EKG ROUTINE Comment: Diagnosis: ACS - Discharge Disposition: Home, Self-Care Condition: Good Prescriptions: New Buspirone HCl 5 mg [Buspar 5 mg] 5 mg PO BID #60 tablet Continue Albuterol 8 gm Mdi Hfa [Ventolin Hfa MDI] 8 gm IH Q4H #1 hfa.aer.ad Fluticasone/Salmeterol 115/21 [Advair Hfa 115/21 Common canister*] 2 puff IH BIDRT #1 aer.w.adap Albuterol/Ipratropium 3ml Neb* [DUONEB 0.5-3 MG/3 ml Neb] 3 ml IH Q6H PRN PRN #100 ampul.neb PRN Reason: Shortness Of Breath Amlodipine Besylate 5 mg [Norvasc 5 mg] 5 mg PO DAILY #30 tablet Tiotropium [place] Inhaler [Spiriva 18 Mcg/Cap Inhaler] 1 ea IH DAILY #30 inh Paroxetine HCl 1 tab PO DAILY Gabapentin 100 mg [Neurontin 100 MG] 300 mg PO BID Omeprazole 1 tab PO DAILY Follow up with: MARBELLA COLON MD [Primary Care Provider] -
[2020-10-11] MEDS ORDERED: NON-FORMULARY ITEM (Omeprazole [Omeprazole] 1 TAB) PO SCH (10:00)
[2020-10-11] MEDS ORDERED: Spiriva 18 Mcg/Cap Inhaler IH SCH (10:00)
[2020-10-11] MEDS ORDERED: PAROXETINE HCL PO SCH (10:00)
[2020-10-11] MEDS ORDERED: Protonix 40MG Tablet PO SCH (10:00)
[2020-10-11] MEDS ORDERED: Neurontin 100 MG PO SCH (10:00)
[2020-10-11] MEDS ORDERED: Paxil 20 MG PO SCH (10:00)
[2020-10-11] MEDS ORDERED: NEURONTIN 300 MG PO SCH (10:00)
[2020-10-11] MEDS ORDERED: NORVASC 5 MG PO SCH (10:00)
[2020-10-11] MEDS ORDERED: VIBRAMYCIN 100 MG*** 100 MG in Dextrose 5%/Water IV Soln. 100ML PLUS BAG 100 ML IV SCH (10:00)
[2020-10-11 10:36] VITALS: PULSE 122
[2020-10-13 01:49] VITALS: O2SAT 97
== END 2020-10-11 10:50 | disposition home or self-care (01) ==
LOC: ED 21:18 → MED SURG 10-11 03:53
PROVIDERS: ADMIT Family Medicine; ATTEND Family Medicine
DX: R07.9 Chest pain, unspecified (principal); Z99.81 Dependence on supplemental oxygen; J96.11 Chronic respiratory failure with hypoxia; Z79.899 Other long term (current) drug therapy; J44.9 Chronic obstructive pulmonary disease, unspecified; G47.30 Sleep apnea, unspecified; F17.200 Nicotine dependence, unspecified, uncomplicated; R00.2 Palpitations; F41.9 Anxiety disorder, unspecified; Z20.828 Contact with and (suspected) exposure to other viral communicable diseases
CPT/HCPCS: 36000; 36415; 71045; 80053; 80061; 81001; 83721; 83735; 84484; 84703; 85025; 85027; 87040; 93005; 93041; 93268; 94640; 94760; 94762; 96374; 99285; G0378; U0003; J2930; A9270-GY

== ENCOUNTER 2020-10-29 19:59 | Emergency (ER) | payer OTHER ==
[2020-10-29] MEDS ORDERED: DUONEB 0.5-3 MG/3 ml Neb IH ONE ×2 (20:26→20:28)
[2020-10-29] MEDS ORDERED: solu-MEDROL 125 MG, Sterile H2O 10 ml 2 ML IV ONE ×2 (20:28)
[2020-10-29] MEDS ORDERED: LEVOFLOXACIN 750MG/150ML D5W 750 MG/150 ML BAG IV STA (20:29)
[2020-10-29] MEDS ORDERED: BABY ASPIRIN 81 MG CHEW PO ONE (20:31)
[2020-10-29 20:37] LABS: Appearance CLEAR (CLEAR); Bilirubin NEGATIVE (NEGATIVE); Blood NEGATIVE Ery/ul (0-5); Epithelial Cells RARE /HPF (FEW); Glucose NEGATIVE (NEGATIVE); Ketones NEGATIVE (NEGATIVE); Leukocyte Esterase NEGATIVE (NEGATIVE); Nitrite NEGATIVE (NEGATIVE); Protein,Urine Dip NEGATIVE (Negative); Specific Gravity 1.009 (1.005-1.025); Urobilinogen NEGATIVE mg/dL (0-1)
[2020-10-29 20:38] LABS: Bacteria NONE SEEN /HPF (NEGATIVE)
[2020-10-29 20:40] LABS: Hematocrit 43.8 % (35-47); Hemoglobin 14.6 gm/dl (12.0-16.0); Mean Cell Volume 97.1 fl (78-100); Mean Corpuscular Hemoglobin 32.4 pg (26-32); Mean Corpuscular Hgb Concent. 33.3 g/dl (32-36); Mean Platelet Volume 9.6 fl (7.5-11.0); Platelet Count 347 K/mm3 (150-450); Red Blood Count 4.51 M/mm3 (4.1-5.4); Red Cell Distribution Width 13.3 % (11.5-14.0); White Blood Count 9.5 K/mm3 (4.0-10.5)
[2020-10-29] MEDS ORDERED: LEVOFLOXACIN 750MG/150ML D5W 750 MG/150 ML BAG IV ONE (20:43)
[2020-10-29] MEDS ORDERED: BABY ASPIRIN 81 MG CHEW ONE (20:43)
[2020-10-29] MEDS ORDERED: solu-MEDROL ONE (20:43)
--- NOTE | 2020-10-29 20:43 | ERPHSYRPT ---
- History of Present Illness Time Seen by Provider: 10/29/20 20:02 Source: patient Exam Limitations: no limitations Patient Subjective Stated Complaint: "My breathing is bad." Triage Nursing Assessment: Reported acute onset dyspnea today while working outside. Significant history of COPD, emphysema, and asthma. Wears oxygen at home 3 L/min via [place]. Daily breathing treatments. No improvement after treatments. Slight productive cough is normal for her. Lungs with inspiratory/expiratory wheezing throughout. Intercostal retractions. Peripheral pulses +3 bilateral. Heart tones tachycardic. no dependent edema. Physician History: 45 years old -[place] female with history of chronic respiratory failure secondary to COPD on 3 L oxygen, tobacco abuse presented in the ER with worsening shortness of breath for the last 3 to 4 days. Patient was today at work and inhaled some bleach and her shortness of breath got very worse. She is on 4 L on presentation but still huffing and puffing. Complaining of chest ti ghtness pressure and wheezing along with minimal productive clear to yellow sputum. Denies fever or chills. Reports having similar symptoms multiple times in the past. Continues to smoke. Did not have Covid vaccine. Timing/Duration: day(s) (3), constant, gradual onset, worse Activities at Onset: activity, rest Severity of Dyspnea-Max: severe Severity of Dyspnea-Current: moderate Possible Cause: occasional episodes Modifying Factors: Improves With: albuterol nebulizer, oxygen. Worsens With: activity, coughing Associated Symptoms: cough, chest pain/discomfort, productive cough, tightness, No fever, No hemoptysis, No heaviness, No muscle spasms hands, No painful breathing Allergies/Adverse Reactions: cephalexin [From Keflex] Allergy (Verified 10/29/20 20:01) ketorolac [From Toradol] Allergy (Verified 10/29/20 20:01) lisinopril Allergy (Verified 10/29/20 20:01) Sulfa (Sulfonamide Antibiotics) Allergy (Verified 10/29/20 20:01) Home Medications: Gabapentin 100 mg [Neurontin 100 MG] 300 mg PO BID 09/22/20 [History] Omeprazole 1 tab PO DAILY 09/22/20 [History] Paroxetine HCl 1 tab PO DAILY 09/22/20 [History] Cyclobenzaprine HCl 5 mg PO BID PRN 10/29/20 [History] Hx Tetanus, Diphtheria Vaccination/Date Given: Yes Hx Influenza Vaccination/Date Given: Yes Hx Pneumococcal Vaccination/Date Given: No Travel Risk - International Travel Have you traveled outside of the country in past 3 weeks: No - Coronavirus Screening Are you exhibiting any of the following symptoms?: No Close contact with a COVID-19 positive Pt in past 14-21 Days: No - Vaccine Status Have you recieved a Covid-19 vaccination: No - Review of Systems Constitutional: Fatigue, Weakness Eyes: No Symptoms Ears, Nose, & Throat: No Symptoms Respiratory: Cough, Dyspnea, Dyspnea on Exertion (ROJO), Wheezing Cardiac: No Symptoms Abdominal/Gastrointestinal: No Symptoms Genitourinary Symptoms: No Symptoms Musculoskeletal: No Symptoms Neurological: No Symptoms Psychological: No Symptoms Endocrine: No Symptoms Hematologic/Lymphatic: No Symptoms Immunological/Allergic: No Symptoms - Past Medical History Pertinent Past Medical History: Yes Neurological History: No Pertinent History ENT History: No Pertinent History Cardiac History: No Pertinent History Respiratory History: COPD, Sleep Apnea Endocrine Medical History: No Pertinent History Musculoskeletal History: No Pertinent History GI Medical History: Pancreatitis History: No Pertinent History Psycho-Social History: Anxiety Female Reproductive Disorders: No Pertinent History - Past Surgical History Past Surgical History: Yes Neuro Surgical History: No Pertinent History Cardiac: No Pertinent History Respiratory: No Pertinent History Gastrointestinal: No Pertinent History Genitourinary: No Pertinent History Musculoskeletal: No Pertinent History Female Surgical History: Tubal Ligation Other Surgical History: jaw fx repair, tubal pregnancies - Social History Smoking Status: Current every day smoker How long have you smoked: 30+ years Exposure to second hand smoke: Yes Drug Use: none Patient Lives Alone: No - Female History Hx Now: No - Nursing Vital Signs Nursing Vital Signs: Initial Vital Signs Temperature 97.9 F 10/29/20 19:59 Pulse Rate 100 H 10/29/20 19:59 Respiratory Rate 24 10/29/20 19:59 Blood Pressure 153/113 10/29/20 19:59 O2 Sat by Pulse Oximetry 92 L 10/29/20 19:59 Pain Scale Pain Intensity 0 - Physical Exam General Appearance: moderate distress Eye Exam: PERRL/EOMI, eyes nml inspection Ears, Nose, Throat Exam: hearing grossly normal, nasal congestion, pharyngeal e rythema Neck Exam: normal inspection, non-tender, supple, full range of motion Respiratory Exam: respiratory distress, diminished breath sounds, accessory muscle use, crackles/rales, rhonchi, wheezing Cardiovascular/Chest Exam: normal heart sounds, regular rate/rhythm Abdominal/Gastrointestinal Exam: soft, No tenderness Extremity Exam: non-tender, normal range of motion Neurologic Exam: alert, oriented x 3, cooperative, illustrator set II-XII nml as tested Skin Exam: normal color SpO2 Interpretation: normal SpO2: 97 O2 Delivery: Nasal Cannula - Course EKG Interpreted by Me: RATE ([id number]), Sinus Rhythm, NORMAL AXIS, NORMAL INTERVALS, NORMAL QRS Ordered Tests: Active Orders 24 hr Category Date Time Status AMA [Release AMA] OM.NOW Care 10/29/20 22:11 Completed Product Operations Associate STAT Care 10/29/20 20:28 Completed EKG-ER Only STAT Care 10/29/20 20:28 Completed IV Insertion STAT Care 10/29/20 20:28 Completed NPO (ED) STAT Care 10/29/20 20:28 Completed Oxygen-ED Only Nasal Cannula 3 lpm Care 10/29/20 20:28 Completed CHEST 1 VIEW (PORTABLE) Stat Exams 10/29/20 20:28 Taken ARTERIAL BLOOD GASES Stat Lab 10/29/20 20:34 Completed BLOOD CULTURE Stat Lab 10/29/20 21:06 Received CBC W DIFF Stat Lab 10/29/20 20:35 Completed CMP Stat Lab 10/29/20 20:35 Completed HCG,QUALITATIVE URINE Stat Lab 10/29/20 20:31 Completed Lactic Acid Stat Lab 10/29/20 20:34 Completed MAGNESIUM Stat Lab 10/29/20 20:35 Completed Manual Differential NC Stat Lab 10/29/20 20:35 Completed NT PRO BNP Stat Lab 10/29/20 20:35 Completed TROPONIN Q3H Lab 10/29/20 20:35 Completed UA W/RFX UR CULTURE Stat Lab 10/29/20 20:31 Completed Respiratory Therapy Assessment DAILY RT 10/29/20 20:31 Completed Medication Summary Discontinued Medications Generic Name Dose Route Start Last Admin Trade Name Freq PRN Reason Stop Dose Admin Albuterol/Ipratropium Confirm 10/29/20 20:26 Duoneb 0.5-3 Mg/3 Ml Neb Administered 10/29/20 20:27 Dose 3 ml IH .STK-MED ONE Albuterol/Ipratropium 3 ml 10/29/20 20:28 10/29/20 20:30 Duoneb 0.5-3 Mg/3 Ml Neb IH 10/29/20 20:29 3 ml STAT ONE Administration Aspirin 324 mg 10/29/20 20:31 10/29/20 20:46 Baby Aspirin 81 Mg Chew PO 10/29/20 20:32 324 mg STAT ONE Administration Aspirin Confirm 10/29/20 20:43 Baby Aspirin 81 Mg Chew Administered 10/29/20 20:44 Dose 324 mg .ROUTE .STK-MED ONE Methylprednisolone Sodium 0 mg 10/29/20 20:28 10/29/20 20:48 Succinate 125 mg/ Sterile IV 10/29/20 20:29 125 mg Water 2 ml STAT ONE Administration Levofloxacin/Dextrose 750 mg in 150 mls @ 100 mls/hr 10/29/20 20:29 10/29/20 20:56 Levofloxacin 750mg/150ml D5w IV 10/29/20 21:58 100 ml/hr STAT STA 100 mls/hr Administration Levofloxacin/Dextrose Confirm 10/29/20 20:43 Levofloxacin 750mg/150ml D5w Administered 10/29/20 20:44 Dose 750 mg in 150 mls @ ud IV .STK-MED ONE Methylprednisolone Sodium Succinate Confirm 10/29/20 20:43 Solu-Medrol Administered 10/29/20 20:44 Dose 125 mg .ROUTE .STK-MED ONE Sterile Water Confirm 10/29/20 20:49 Sterile H2o 10 Ml Administered 10/29/20 20:50 Dose 10 ml IJ .STK-MED ONE Lab/Rad Data: Laboratory Result Diagrams 10/29/20 20:35 10/29/20 20:35 Laboratory Results 10/29/20 10/29/20 10/29/20 Range/Units 20:35 20:35 20:35 WBC 9.5 (4.0-10.5) K/mm3 RBC 4.51 (4.1-5.4) M/mm3 Hgb 14.6 (12.0-16.0) gm/dl Hct 43.8 (35-47) % MCV 97.1 (78-100) fl MCH 32.4 H (26-32) pg MCHC 33.3 (32-36) g/dl RDW 13.3 (11.5-14.0) % Plt Count 347 (150-450) K/mm3 MPV 9.6 (7.5-11.0) fl Segmented Neutrophils 59 (36.0-66.0) % Band Neutrophils 3 H (0.0-2.0) % Lymphocytes (Manual) 26 (24-44) % Monocytes (Manual) 7 (0.0-12.0) % Eosinophils (Manual) 3 (0.00-3.0) % Atypical Lymphocytes 2 % Platelet Estimate NORMAL (NORMAL) RBC Morphology NORMAL Puncture Site pCO2 (35-45) mmHg pO2 (75-100) mmHg Base Excess (-2.0-2.0) O2 Saturation (94-100) g/dF ABG pH (7.35-7.45) ABG HCO3 (22-28) ABG O2 Sat (Measured) (95-100) % Apollo Test A-a Gradient a/A Ratio Hemoglobin Carboxyhemoglobin (0.0-6.9) % THgb Methemoglobin (1.4-1.5) % Potassium 4.0 (3.5-5.1) Temperature C POC O2 Flow Rate % Sodium 140 (137-145) mmol/L Chloride 103 (98-107) mmol/L Carbon Dioxide 30 (22-30) mmol/L Anion Gap 10.2 (5-15) MEQ/L BUN 18 H (7-17) mg/dL Creatinine 0.65 (0.52-1.04) mg/dL Estimated GFR > 60.0 ML/MIN Glucose 97 (74-106) mg/dL Lactic Acid (0.4-2.0) Calcium 8.6 (8.4-10.2) mg/dL Magnesium 1.9 (1.6-2.3) mg/dL Total Bilirubin 0.20 (0.2-1.3) mg/dL AST 33 (14-36) U/L ALT 19 (0-35) U/L Alkaline Phosphatase 71 (38-126) U/L Troponin I 0.018 (0.000-0.034) ng/mL NT-Pro-B Natriuret Pep 22.3 (0-450) pg/mL Serum Total Protein 6.7 (6.3-8.2) g/dL Albumin 4.0 (3.5-5.0) g/dL Urine Color (YELLOW) Urine Appearance (CLEAR) Urine pH (5-6) Ur Specific [place] (1.005-1.025) Urine Protein (Negative) Urine Ketones (NEGATIVE) Urine Blood (0-5) Hector/ul Urine Nitrite (NEGATIVE) Urine Bilirubin (NEGATIVE) Urine Urobilinogen (0-1) mg/dL Ur Leukocyte Esterase (NEGATIVE) Urine WBC (Auto) (0-5) /HPF Urine RBC (Auto) (0-2) /HPF U Epithel Cells (Auto) (FEW) /HPF Urine Bacteria (Auto) (NEGATIVE) /HPF Urine Culture Reflexed (NO) Urine Glucose (NEGATIVE) mg/dL Urine HCG, Qual (Negative) 10/29/20 10/29/20 10/29/20 Range/Units 20:34 20:31 20:31 WBC (4.0-10.5) K/mm3 RBC (4.1-5.4) M/mm3 Hgb (12.0-16.0) gm/dl Hct (35-47) % MCV (78-100) fl MCH (26-32) pg MCHC (32-36) g/dl RDW (11.5-14.0) % Plt Count (150-450) K/mm3 MPV (7.5-11.0) fl Segmented Neutrophils (36.0-66.0) % Band Neutrophils (0.0-2.0) % Lymphocytes (Manual) (24-44) % Monocytes (Manual) (0.0-12.0) % Eosinophils (Manual) (0.00-3.0) % Atypical Lymphocytes % Platelet Estimate (NORMAL) RBC Morphology Puncture Site RIGHT RADIAL pCO2 41 (35-45) mmHg pO2 105 H (75-100) mmHg Base Excess 4.1 H (-2.0-2.0) O2 Saturation 94.7 (94-100) g/dF ABG pH 7.45 (7.35-7.45) ABG HCO3 28.5 H (22-28) ABG O2 Sat (Measured) 98.9 (95-100) % Apollo Test YES A-a Gradient 43 a/A Ratio 0.71 Hemoglobin 14.5 Carboxyhemoglobin 3.5 (0.0-6.9) % THgb Methemoglobin 0.7 L (1.4-1.5) % Potassium 3.8 (3.5-5.1) Temperature 37.0 C POC O2 Flow Rate 28 % Sodium (137-145) mmol/L Chloride (98-107) mmol/L Carbon Dioxide (22-30) mmol/L Anion Gap (5-15) MEQ/L BUN (7-17) mg/dL Creatinine (0.52-1.04) mg/dL Estimated GFR ML/MIN Glucose (74-106) mg/dL Lactic Acid 0.7 (0.4-2.0) Calcium (8.4-10.2) mg/dL Magnesium (1.6-2.3) mg/dL Total Bilirubin (0.2-1.3) mg/dL AST (14-36) U/L ALT (0-35) U/L Alkaline Phosphatase (38-126) U/L Troponin I (0.000-0.034) ng/mL NT-Pro-B Natriuret Pep (0-450) pg/mL Serum Total Protein (6.3-8.2) g/dL Albumin (3.5-5.0) g/dL Urine Color STRAW (YELLOW) Urine Appearance CLEAR (CLEAR) Urine pH 7.0 (5-6) Ur Specific [place] 1.009 (1.005-1.025) Urine Protein NEGATIVE (Negative) Urine Ketones NEGATIVE (NEGATIVE) Urine Blood NEGATIVE (0-5) Hector/ul Urine Nitrite NEGATIVE (NEGATIVE) Urine Bilirubin NEGATIVE (NEGATIVE) Urine Urobilinogen NEGATIVE (0-1) mg/dL Ur Leukocyte Esterase NEGATIVE (NEGATIVE) Urine WBC (Auto) NONE (0-5) /HPF Urine RBC (Auto) NONE (0-2) /HPF U Epithel Cells (Auto) RARE (FEW) /HPF Urine Bacteria (Auto) NONE SEEN (NEGATIVE) /HPF Urine Culture Reflexed NO (NO) Urine Glucose NEGATIVE (NEGATIVE) mg/dL Urine HCG, Qual NEGATIVE (Negative) - Progress Progress: improved Air Movement: good Progress Note: 10/29/20 22:20 45 years old is evaluated for worsening dyspnea. Patient was in moderate distress on presentation, given DuoNeb and Solu-Medrol, on reevaluation feeling much better. She is satting around 99% on 3 L. Chest x-ray questionable infiltrative process in the right lower lobe. She is given a dose of Levaquin as well. It could be related to her exposure to bleach causing reactive bronchospasm/COPD exacerbation. She is recommended observation admission but patient does not want to stay in the hospital at all. Patient is not confused or altered at all. Patient states "I have a lot of things to do and I would follow-up with my insurance producer and primary care. She wants to leave AGAINST MEDICAL ADVICE. Discussed risk of worsening dyspnea which could be fatal but she is still adamant about leaving. She is counseled about outpatient follow-up and returning to ER for any worsening. I have also discussed with Dr. Colon and patient will be seen in the clinic in 1 to 2 days if she wants. 10/29/20 22:22 Blood Culture(s) Obtained: Yes Antibiotics given: Yes Discussed with Dr.: Natanael Counseled pt/family regarding: lab results, diagnosis, need for follow-up, rad results, smoking cessation - Departure Departure Disposition: AMA Clinical Impression: COPD exacerbation Condition: Fair Critical Care Time: Yes Critical Care Time(excluding separately billable procedures): Critical 30-74 mins Referrals: MARBELLA COLON MD [Primary Care Provider] - (Tomorrow for reevaluation) SAMMY BALBUENA [ACTIVE STAFF] - (Tomorrow for reevaluation) Instructions: Chronic Obstructive Pulmonary Disease, Exacerbation of COPD (DC) Additional Instructions: Do not smoke. Continue with your meds every 6 hourly. Follow-up with primary care/insurance producer for reevaluation in 1 to 2 days. Return to ER for worsening shortness of breath/chest pain/palpitations/fever chills etc.
[2020-10-29] MEDS ORDERED: Sterile H2O 10 ml IJ ONE (20:49)
[2020-10-29 20:52] LABS: A-aADO2 43; ABG HEMOGLOBIN 14.5; ABG POTASSIUM 3.8 (3.5-5.1); ABG SITE RIGHT RADIAL; ALLEN TEST OK? YES; ARTERIAL BLD GAS O2 SATURATION 98.9 % (95-100); ARTERIAL BLOOD GAS BASE EXCESS 4.1 (-2.0-2.0); ARTERIAL BLOOD GAS FIO2 28 %; ARTERIAL BLOOD GAS PCO2 41 mmHg (35-45); ARTERIAL BLOOD GAS PO2 105 mmHg (75-100); ARTERIAL BLOOD GAS pH 7.45 (7.35-7.45); CARBOXYHEMOGLOBIN 3.5 % THgb (0.0-6.9); HCO3- 28.5 (22-28); HGB O2 SAT 94.7 g/dF (94-100); Lactic Acid 0.7 (0.4-2.0); Methhemoglobin 0.7 % (1.4-1.5)
[2020-10-29 20:55] LABS: ALKALINE PHOSPHATASE 71 U/L (38-126); ANION GAP 10.2 MEQ/L (5-15); BLOOD UREA NITROGEN 18 mg/dL (7-17); CHLORIDE 103 mmol/L (98-107); Calcium 8.6 mg/dL (8.4-10.2); Carbon Dioxide 30 mmol/L (22-30); Creatinine 1 0.65 mg/dL (0.52-1.04); EST GLOMERULAR FILTRATION RATE > 60.0 ML/MIN; Glucose 97 mg/dL (74-106); MAGNESIUM 1.9 mg/dL (1.6-2.3); NT PRO BNP 22.3 pg/mL (0-450); SGOT/AST 33 U/L (14-36); SGPT/ALT 19 U/L (0-35); SODIUM 140 mmol/L (137-145); Total Protein 6.7 g/dL (6.3-8.2)
[2020-10-29 21:42] VITALS: BP 146/98; PULSE 86
[2020-10-29 22:22] VITALS: O2SAT 97
[2020-10-29 23:41] LABS: ATYPICAL LYMPHS 2 %; BAND 3 % (0.0-2.0); Eosinophil 3 % (0.00-3.0); Lymphocytes 26 % (24-44); Monocyte 7 % (0.0-12.0); Neutrophils 59 % (36.0-66.0); Platelet Estimate NORMAL (NORMAL); Total Cells Counted 100
--- NOTE | 2020-10-30 22:18 | XRAY ---
Exam: AP upright portable chest film from 10/29/2020. Comparison: AP upright portable chest films from 10/10/2020 and 09/22/2020. Indication: Shortness of breath. Findings: The heart size and contour are normal. The missy and mediastinal structures appear unremarkable. The lungs are adequately inflated. There is a question of minimal atelectasis/scarring or infiltrate at the medial right lung base within the right infrahilar projection. This appears similar to 09/22/2020. Otherwise, the peripheral lungs appear clear, except for a small calcified granuloma within the right upper lobe which can be seen anteriorly on the CT chest study from 06/24/2020. The pulmonary vascularity is normal. No pneumothorax or pleural effusion is seen. Very slight convexity of the mid thoracic spine toward the right is seen. No acute osseous process is seen. Impression: 1. Query minimal right infrahilar scarring/atelectasis versus infiltrate. This appears similar to 09/22/2020. 2. The remainder of the lung ferrer are free of active disease.
== END 2020-10-29 22:51 | disposition left against medical advice (07) ==
LOC: ED 19:59
DX: J44.1 Chronic obstructive pulmonary disease with (acute) exacerbation (principal); Z99.81 Dependence on supplemental oxygen; R07.9 Chest pain, unspecified; F17.200 Nicotine dependence, unspecified, uncomplicated; Z79.899 Other long term (current) drug therapy; G47.30 Sleep apnea, unspecified
CPT/HCPCS: 36000; 36415; 36600; 71045; 80053; 81001; 82375; 82803; 83605; 83735; 83880; 84484; 84703; 85025; 87040; 93005; 93041; 94640; 96374; 99284; 99291; J1956; J2930; A9270-GY

== ENCOUNTER 2020-10-31 20:26 | Emergency (ER) | payer OTHER ==
[2020-10-31] MEDS ORDERED: Sodium Chloride 0.9% 1000 ML 1,000 ML IV STA (20:41)
[2020-10-31 20:54] LABS: Hematocrit 44.4 % (35-47); Hemoglobin 14.8 gm/dl (12.0-16.0); Mean Cell Volume 96.5 fl (78-100); Mean Corpuscular Hemoglobin 32.2 pg (26-32); Mean Corpuscular Hgb Concent. 33.3 g/dl (32-36); Mean Platelet Volume 9.7 fl (7.5-11.0); Platelet Count 356 K/mm3 (150-450); Red Cell Distribution Width 13.4 % (11.5-14.0); White Blood Count 12.4 K/mm3 (4.0-10.5)
[2020-10-31 21:02] LABS: Appearance CLEAR (CLEAR); Bilirubin NEGATIVE (NEGATIVE); Blood NEGATIVE Ery/ul (0-5); Glucose NEGATIVE (NEGATIVE); Ketones NEGATIVE (NEGATIVE); Leukocyte Esterase NEGATIVE (NEGATIVE); Nitrite NEGATIVE (NEGATIVE); Protein,Urine Dip NEGATIVE (Negative); Specific Gravity 1.003 (1.005-1.025); Urobilinogen NEGATIVE mg/dL (0-1)
[2020-10-31 21:05] LABS: Bacteria NONE SEEN /HPF (NEGATIVE); WBC NONE SEEN /HPF (0-5)
[2020-10-31 21:06] LABS: ACETAMINOPHEN < 10 ug/ml (10-30); ALBUMIN 4.2 g/dL (3.5-5.0); ALKALINE PHOSPHATASE 70 U/L (38-126); ANION GAP 10.6 MEQ/L (5-15); BLOOD UREA NITROGEN 13 mg/dL (7-17); CHLORIDE 104 mmol/L (98-107); Calcium 8.6 mg/dL (8.4-10.2); Carbon Dioxide 30 mmol/L (22-30); Creatinine 1 0.58 mg/dL (0.52-1.04); EST GLOMERULAR FILTRATION RATE > 60.0 ML/MIN; ETHYL ALCOHOL < 10 mg/dL (0-10); Glucose 107 mg/dL (74-106); Potassium 3.4 mmol/L (3.5-5.1); SALICYLATE < 1.0 mg/dL (2-20); SGOT/AST 32 U/L (14-36); SGPT/ALT 21 U/L (0-35); SODIUM 141 mmol/L (137-145); Total Protein 6.9 g/dL (6.3-8.2)
[2020-10-31] MEDS ORDERED: Sodium Chloride 0.9% 1000 ML 1,000 ML ONE (21:10)
[2020-10-31 21:17] LABS: Amphetamine,Urine NEGATIVE (NEGATIVE); Barbiturate,Urine NEGATIVE (NEGATIVE); Benzodiazepine,Urine NEGATIVE (NEGATIVE); Cocaine,Urine NEGATIVE (NEGATIVE); Methadone,Urine NEGATIVE (NEGATIVE); Opiate,Urine NEGATIVE (NEGATIVE); PCP,Urine NEGATIVE (NEGATIVE); THC,Urine NEGATIVE (NEGATIVE)
[2020-10-31 21:25] LABS: ATYPICAL LYMPHS 9 %; Eosinophil 1 % (0.00-3.0); Lymphocytes 38 % (24-44); Monocyte 6 % (0.0-12.0); Neutrophils 46 % (36.0-66.0); Platelet Estimate NORMAL (NORMAL); Total Cells Counted 100
[2020-10-31] MEDS ORDERED: Klor Con 10 MEQ PO ONE (23:32)
--- NOTE | 2020-10-31 23:33 | ERPHSYRPT ---
- History of Present Illness Time Seen by Provider: 10/31/20 20:45 Source: patient Exam Limitations: no limitations Patient Subjective Stated Complaint: per pt's friend, pt took a whole bottle of flexeril 5mg tabs approx 10min prior to coming to er. pt states she isnt sure how many pills were in the bottle but it was "a lot". states she had a fight with her neighbors and then took the pills. states she was trying to kill herself. Triage Nursing Assessment: pt awake and alert, age approp behavior. respirations nonlabored. pt back to room per wheelchair and transfers to stretcher with assist of 1. skin warm and dry. pupils equal and reactive. Physician History: Patient is a 45-year-old female presents to our emergency department evaluation of a suicide attempt. Per report patient got into a fight with her neighbors. Patient was very upset. Patient reportedly took a large number of Flexeril pills. Each pill was 5 mg. The exact number is unknown. However the ingestion was approximately 10 to 15 minutes prior to arrival. Patient unable to provide additional insight. Patient appears to be somewhat sleepy. Patient denies pain. No nausea or vomiting. No diaphoresis. No rash. No diarrhea. Symptoms are mild to moderate in intensity. No specific worsening improving factors. Patient voices no other complaints at this time. Patient's friend is at the bedside providing some information that is included in this HPI. Timing/Duration: today Severity of Symptoms-Max: moderate Severity of Symptoms-Current: mild Context related to: other (Fight with neighbors.) Suicidal thoughts: attempt Associated Symptoms: other (Appears sleepy.) Previous symptoms: no prior history Allergies/Adverse Reactions: cephalexin [From Keflex] Allergy (Verified 10/31/20 20:39) ketorolac [From Toradol] Allergy (Verified 10/31/20 20:39) lisinopril Allergy (Verified 10/31/20 20:39) Sulfa (Sulfonamide Antibiotics) Allergy (Verified 10/31/20 20:39) Home Medications: Gabapentin 100 mg [Neurontin 100 MG] 300 mg PO BID 09/22/20 [History] Omeprazole 1 tab PO DAILY 09/22/20 [History] Paroxetine HCl 1 tab PO DAILY 09/22/20 [History] Cyclobenzaprine HCl 5 mg PO BID PRN 10/29/20 [History] Hx Tetanus, Diphtheria Vaccination/Date Given: Yes Hx Influenza Vaccination/Date Given: Yes Hx Pneumococcal Vaccination/Date Given: No Immunizations Up to Date: Yes Travel Risk - International Travel Have you traveled outside of the country in past 3 weeks: No - Coronavirus Screening Are you exhibiting any of the following symptoms?: No Close contact with a COVID-19 positive Pt in past 14-21 Days: No - Vaccine Status Have you recieved a Covid-19 vaccination: No - Past Medical History Pertinent Past Medical History: Yes Neurological History: No Pertinent History ENT History: No Pertinent History Cardiac History: No Pertinent History Respiratory History: COPD, Sleep Apnea Endocrine Medical History: No Pertinent History Musculoskeletal History: No Pertinent History GI Medical History: Pancreatitis History: No Pertinent History Psycho-Social History: Anxiety Female Reproductive Disorders: No Pertinent History - Past Surgical History Past Surgical History: Yes Neuro Surgical History: No Pertinent History Cardiac: No Pertinent History Respiratory: No Pertinent History Gastrointestinal: No Pertinent History Genitourinary: No Pertinent History Musculoskeletal: No Pertinent History Female Surgical History: Tubal Ligation Other Surgical History: jaw fx repair, tubal pregnancies - Social History Smoking Status: Current every day smoker How long have you smoked: 30+ years Exposure to second hand smoke: Yes Drug Use: none Patient Lives Alone: No - Female History Hx Last Menstrual Period: unsure Hx Now: No - Review of Systems Constitutional: No Symptoms, No Fever, No Chills Eyes: No Symptoms Ears, Nose, & Throat: No Symptoms Respiratory: No Symptoms, No Cough, No Dyspnea Cardiac: No Symptoms, No Chest Pain, No Edema, No Syncope Abdominal/Gastrointestinal: No Symptoms, No Abdominal Pain, No Nausea, No Vomiting, No Diarrhea Genitourinary Symptoms: No Symptoms, No Dysuria Musculoskeletal: No Symptoms, No Back Pain, No Neck Pain Skin: No Symptoms, No Rash Neurological: No Symptoms, No Dizziness, No Focal Weakness, No Sensory Changes Psychological: No Symptoms Endocrine: No Symptoms Hematologic/Lymphatic: No Symptoms Immunological/Allergic: No Symptoms All Other Systems: Reviewed and Negative - Nursing Vital Signs Nursing Vital Signs: Initial Vital Signs Pulse Rate 107 H 10/31/20 20:29 Respiratory Rate 22 10/31/20 20:29 Blood Pressure 131/108 10/31/20 20:29 O2 Sat by Pulse Oximetry 100 10/31/20 20:29 Pain Scale Pain Intensity 0 - Physical Exam General Appearance: other (Appears somewhat sleepy. But sponsor verbal and tactile stimuli. No signs of trauma. Patient denies pain.) Eyes, Ears, Nose, Throat Exam: normal ENT inspection, moist mucous membranes Neck Exam: normal inspection, non-tender, supple Respiratory Exam: normal breath sounds, lungs clear, airway intact, No chest tenderness, No respiratory distress, No crackles/rales, No rhonchi, No wheezing Cardiovascular Exam: regular rate/rhythm, normal heart sounds, normal peripheral pulses, No edema Gastrointestinal/Abdominal Exam: soft, No tenderness, No distention Extremities Exam: normal inspection, normal range of motion, No evidence of injury, No edema Peripheral Pulses: dorsalis-pedis (R): 2+, dorsalis-pedis (L): 2+ Current Suicidality: has suicide plan Neurological Exam: alert, calm, oriented x 3, motor strength Behavior/Eye Contact/Speech: cooperative, No refused to answer, No increased rate of speech Thoughts/Hallucinations: no apparent hallucination, No tactile hallucinations, No visual hallucinations Skin Exam: normal color, warm, dry, No rash SpO2 Interpretation: normal SpO2: 98 O2 Delivery: Room Air - Course Nursing assessment & vital signs reviewed: Yes EKG Interpreted by Me: RATE (112), Sinus Rhythm, NORMAL AXIS, NORMAL INTERVALS Ordered Tests: Active Orders 24 hr Category Date Time Status Safety Person STAT Care 10/31/20 20:42 Active EKG-ER Only STAT Care 10/31/20 20:41 Active IV Insertion STAT Care 10/31/20 20:41 Active ACETAMINOPHEN Stat Lab 10/31/20 20:49 Completed CBC W DIFF Stat Lab 10/31/20 20:49 Completed CMP Stat Lab 10/31/20 20:49 Completed ETHYL ALCOHOL Stat Lab 10/31/20 20:49 Completed Manual Differential [place] Stat Lab 10/31/20 20:49 Completed SALICYLATE Stat Lab 10/31/20 20:49 Completed UA W/RFX UR CULTURE Stat Lab 10/31/20 20:46 Completed Urine Triage Profile Stat Lab 10/31/20 20:46 Completed Medication Summary Discontinued Medications Generic Name Dose Route Start Last Admin Trade Name Freq PRN Reason Stop Dose Admin Sodium Chloride 1,000 mls @ 999 mls/hr 10/31/20 20:41 11/01/20 02:01 Sodium Chloride 0.9% 1000 Ml IV 10/31/20 21:41 Infused .Q1H1M STA Infusion Sodium Chloride Confirm 10/31/20 21:10 Sodium Chloride 0.9% 1000 Ml Administered 10/31/20 21:11 Dose 1,000 mls @ ud .ROUTE .STK-MED ONE Potassium Chloride 40 meq 10/31/20 23:32 11/01/20 01:54 Klor Con 10 Meq PO 10/31/20 23:33 40 meq STAT ONE Administration Lab/Rad Data: Laboratory Result Diagrams 10/31/20 20:49 10/31/20 20:49 Laboratory Results 10/31/20 10/31/20 10/31/20 Range/Units 20:49 20:49 20:46 WBC 12.4 H (4.0-10.5) K/mm3 RBC 4.60 (4.1-5.4) M/mm3 Hgb 14.8 (12.0-16.0) gm/dl Hct 44.4 (35-47) % MCV 96.5 (78-100) fl MCH 32.2 H (26-32) pg MCHC 33.3 (32-36) g/dl RDW 13.4 (11.5-14.0) % Plt Count 356 (150-450) K/mm3 MPV 9.7 (7.5-11.0) fl Segmented Neutrophils 46 (36.0-66.0) % Lymphocytes (Manual) 38 (24-44) % Monocytes (Manual) 6 (0.0-12.0) % Eosinophils (Manual) 1 (0.00-3.0) % Atypical Lymphocytes 9 % Platelet Estimate NORMAL (NORMAL) RBC Morphology NORMAL Sodium 141 (137-145) mmol/L Potassium 3.4 L (3.5-5.1) mmol/L Chloride 104 (98-107) mmol/L Carbon Dioxide 30 (22-30) mmol/L Anion Gap 10.6 (5-15) MEQ/L BUN 13 (7-17) mg/dL Creatinine 0.58 (0.52-1.04) mg/dL Estimated GFR > 60.0 ML/MIN Glucose 107 H (74-106) mg/dL Calcium 8.6 (8.4-10.2) mg/dL Total Bilirubin 0.10 L (0.2-1.3) mg/dL AST 32 (14-36) U/L ALT 21 (0-35) U/L Alkaline Phosphatase 70 (38-126) U/L Serum Total Protein 6.9 (6.3-8.2) g/dL Albumin 4.2 (3.5-5.0) g/dL Urine Color (YELLOW) Urine Appearance (CLEAR) Urine pH (5-6) Ur Specific [place] (1.005-1.025) Urine Protein (Negative) Urine Ketones (NEGATIVE) Urine Blood (0-5) Hector/ul Urine Nitrite (NEGATIVE) Urine Bilirubin (NEGATIVE) Urine Urobilinogen (0-1) mg/dL Ur Leukocyte Esterase (NEGATIVE) Urine WBC (Auto) (0-5) /HPF Urine RBC (Auto) (0-2) /HPF U Epithel Cells (Auto) (FEW) /HPF Urine Bacteria (Auto) (NEGATIVE) /HPF Urine Culture Reflexed (NO) Urine Glucose (NEGATIVE) mg/dL Salicylates < 1.0 L (2-20) mg/dL Urine Opiates Level NEGATIVE (NEGATIVE) Ur Methadone NEGATIVE (NEGATIVE) Acetaminophen < 10 L (10-30) ug/ml Urine Barbiturates NEGATIVE (NEGATIVE) Ur Phencyclidine (PCP) NEGATIVE (NEGATIVE) Urine Amphetamine NEGATIVE (NEGATIVE) U Benzodiazepine Level NEGATIVE (NEGATIVE) Urine Cocaine NEGATIVE (NEGATIVE) Urine Marijuana (THC) NEGATIVE (NEGATIVE) Ethyl Alcohol < 10 (0-10) mg/dL 10/31/20 Range/Units 20:46 WBC (4.0-10.5) K/mm3 RBC (4.1-5.4) M/mm3 Hgb (12.0-16.0) gm/dl Hct (35-47) % MCV (78-100) fl MCH (26-32) pg MCHC (32-36) g/dl RDW (11.5-14.0) % Plt Count (150-450) K/mm3 MPV (7.5-11.0) fl Segmented Neutrophils (36.0-66.0) % Lymphocytes (Manual) (24-44) % Monocytes (Manual) (0.0-12.0) % Eosinophils (Manual) (0.00-3.0) % Atypical Lymphocytes % Platelet Estimate (NORMAL) RBC Morphology Sodium (137-145) mmol/L Potassium (3.5-5.1) mmol/L Chloride (98-107) mmol/L Carbon Dioxide (22-30) mmol/L Anion Gap (5-15) MEQ/L BUN (7-17) mg/dL Creatinine (0.52-1.04) mg/dL Estimated GFR ML/MIN Glucose (74-106) mg/dL Calcium (8.4-10.2) mg/dL Total Bilirubin (0.2-1.3) mg/dL AST (14-36) U/L ALT (0-35) U/L Alkaline Phosphatase (38-126) U/L Serum Total Protein (6.3-8.2) g/dL Albumin (3.5-5.0) g/dL Urine Color COLORLESS (YELLOW) Urine Appearance CLEAR (CLEAR) Urine pH 7.0 (5-6) Ur Specific [place] 1.003 (1.005-1.025) Urine Protein NEGATIVE (Negative) Urine Ketones NEGATIVE (NEGATIVE) Urine Blood NEGATIVE (0-5) Hector/ul Urine Nitrite NEGATIVE (NEGATIVE) Urine Bilirubin NEGATIVE (NEGATIVE) Urine Urobilinogen NEGATIVE (0-1) mg/dL Ur Leukocyte Esterase NEGATIVE (NEGATIVE) Urine WBC (Auto) NONE SEEN (0-5) /HPF Urine RBC (Auto) NONE (0-2) /HPF U Epithel Cells (Auto) NONE (FEW) /HPF Urine Bacteria (Auto) NONE SEEN (NEGATIVE) /HPF Urine Culture Reflexed NO (NO) Urine Glucose NEGATIVE (NEGATIVE) mg/dL Salicylates (2-20) mg/dL Urine Opiates Level (NEGATIVE) Ur Methadone (NEGATIVE) Acetaminophen (10-30) ug/ml Urine Barbiturates (NEGATIVE) Ur Phencyclidine (PCP) (NEGATIVE) Urine Amphetamine (NEGATIVE) U Benzodiazepine Level (NEGATIVE) Urine Cocaine (NEGATIVE) Urine Marijuana (THC) (NEGATIVE) Ethyl Alcohol (0-10) mg/dL - Progress Progress: improved Progress Note: Poison control notified. They advised 8 hours of observation time. Patient may develop anticholinergic symptomology. If so patient to be treated with Ativan/benzodiazepines. Supportive care. Tachycardia as expected. No further recommendations. 11/01/20 01:02 11/01/20 01:03 Patient is medically cleared at this time. Patient has a history of COPD. She currently has 2 L nasal cannula. Patient requires oxygen 24 hours a day due to her chronic COPD. 11/01/20 06:39 Counseled pt/family regarding: lab results, diagnosis, rad results - Departure Departure Disposition: Transfer Clinical Impression: Overdose, Suicide attempt, Hypokalemia, Leukocytosis Condition: Stable Critical Care Time: No Referrals: MARBELLA COLON MD [Primary Care Provider] -
[2020-11-01 14:37] VITALS: BP 129/89; PULSE 116; O2SAT 97
== END 2020-11-01 14:36 ==
LOC: ED 20:26
DX: T48.1X2A Poisoning by skeletal muscle relaxants [neuromuscular blocking agents], intentional self-harm, initial encounter (principal); E87.6 Hypokalemia; D72.829 Elevated white blood cell count, unspecified; Z79.899 Other long term (current) drug therapy
CPT/HCPCS: 36000; 36415; 80053; 80307; 81001; 85025; 93005; 93041; 96360; 99285; U0003; A9270-GY; G0480

== ENCOUNTER 2020-12-02 20:40 | Emergency (ER) | payer OTHER ==
[2020-12-02] MEDS ORDERED: solu-MEDROL 125 MG, Sterile H2O 10 ml 2 ML IV ONE ×2 (20:53)
[2020-12-02] MEDS ORDERED: DUONEB 0.5-3 MG/3 ml Neb IH ONE ×2 (20:53→21:01)
--- NOTE | 2020-12-02 20:53 | ERPHSYRPT ---
- History of Present Illness Time Seen by Provider: 12/02/20 20:49 Source: patient, family Exam Limitations: no limitations Physician History: pt has developed increased shortness of breath over past 2 days and is known COPD asthma - no fever. No cough No N/V abd nontender. Bilateral wheezes on auscultation. Timing/Duration: day(s) Activities at Onset: none Severity of Dyspnea-Max: moderate Severity of Dyspnea-Current: moderate Possible Cause: frequent episodes, chronic episodes Associated Symptoms: wheezing, tingling hands Allergies/Adverse Reactions: cephalexin [From Keflex] Allergy (Verified 12/02/20 20:52) ketorolac [From Toradol] Allergy (Verified 12/02/20 20:52) lisinopril Allergy (Verified 12/02/20 20:52) Sulfa (Sulfonamide Antibiotics) Allergy (Verified 12/02/20 20:52) Home Medications: Gabapentin 100 mg [Neurontin 100 MG] 300 mg PO BID 09/22/20 [History] Omeprazole 1 tab PO DAILY 09/22/20 [History] Paroxetine HCl 1 tab PO DAILY 09/22/20 [History] Cyclobenzaprine HCl 5 mg PO BID PRN 10/29/20 [History] Hx Tetanus, Diphtheria Vaccination/Date Given: Yes Hx Influenza Vaccination/Date Given: Yes Hx Pneumococcal Vaccination/Date Given: No Travel Risk - Vaccine Status Have you recieved a Covid-19 vaccination: No - Review of Systems Constitutional: No Fever, No Chills Eyes: No Symptoms Ears, Nose, & Throat: No Symptoms Respiratory: No Cough, No Dyspnea Cardiac: No Chest Pain, No Edema, No Syncope Abdominal/Gastrointestinal: No Abdominal Pain, No Nausea, No Vomiting, No Diarrhea Genitourinary Symptoms: No Dysuria Musculoskeletal: No Back Pain, No Neck Pain Skin: No Rash Neurological: No Dizziness, No Focal Weakness, No Sensory Changes Psychological: No Symptoms Endocrine: No Symptoms Hematologic/Lymphatic: No Symptoms Immunological/Allergic: No Symptoms All Other Systems: Reviewed and Negative - Past Medical History Pertinent Past Medical History: Yes Neurological History: No Pertinent History ENT History: No Pertinent History Cardiac History: No Pertinent History Respiratory History: COPD, Sleep Apnea Endocrine Medical History: No Pertinent History Musculoskeletal History: No Pertinent History GI Medical History: Pancreatitis History: No Pertinent History Psycho-Social History: Anxiety Female Reproductive Disorders: No Pertinent History - Past Surgical History Past Surgical History: Yes Neuro Surgical History: No Pertinent History Cardiac: No Pertinent History Respiratory: No Pertinent History Gastrointestinal: No Pertinent History Genitourinary: No Pertinent History Musculoskeletal: No Pertinent History Female Surgical History: Tubal Ligation Other Surgical History: jaw fx repair, tubal pregnancies - Social History Smoking Status: Current every day smoker How long have you smoked: 30+ years Exposure to second hand smoke: Yes Drug Use: none Patient Lives Alone: No - Nursing Vital Signs Nursing Vital Signs: Initial Vital Signs Temperature 98.6 F 12/02/20 20:55 Pulse Rate 116 H 12/02/20 20:55 Respiratory Rate 24 12/02/20 20:55 Blood Pressure 160/119 12/02/20 20:55 O2 Sat by Pulse Oximetry 97 12/02/20 20:55 Pain Scale Pain Intensity 6 - Physical Exam General Appearance: no apparent distress, alert Eye Exam: PERRL/EOMI Ears, Nose, Throat Exam: normal pharynx, No pharyngeal erythema Neck Exam: normal inspection, supple Respiratory Exam: airway intact, wheezing Cardiovascular/Chest Exam: normal heart sounds, regular rate/rhythm Abdominal/Gastrointestinal Exam: soft, No tenderness, No distention, No mass Extremity Exam: non-tender, normal range of motion, normal inspection, no calf tenderness, no pedal edema Peripheral Pulses Exam: carotid (R): 2+, carotid (L): 2+, femoral (R): 2+, femoral (L): 2+, dorsalis-pedis (R): 2+, dorsalis-pedis (L): 2+ Neurologic Exam: alert, oriented x 3, cooperative, 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 tested, sensation nml, No motor deficits Skin Exam: normal color, warm, No dry SpO2 Interpretation: normal SpO2: 96 (after Tx ) O2 Delivery: Room Air - Course Nursing assessment & vital signs reviewed: Yes EKG Interpreted by Me: Sinus Tach, Non-specific ST Changes - Radiology Exams Chest X-ray Interpretation: Reviewed by me, Other (possible lower infiltrates) Ordered Tests: Active Orders 24 hr Category Date Time Status Fertilizing Machine Operator STAT Care 12/02/20 20:55 Active EKG-ER Only STAT Care 12/02/20 20:53 Active IV Insertion STAT Care 12/02/20 20:53 Active Pulse Oximetry (ED) STAT Care 12/02/20 20:53 Active CHEST 1 VIEW (PORTABLE) Stat Exams 12/02/20 20:54 Taken CBC W DIFF Stat Lab 12/02/20 21:11 Completed CMP Stat Lab 12/02/20 21:11 Completed D-DIMER QUANTITATIVE Stat Lab 12/02/20 21:11 Completed HCG QUALITATIVE,SERUM Stat Lab 12/02/20 21:11 Completed Manual Differential [place] Stat Lab 12/02/20 21:11 Completed NT PRO BNP Stat Lab 12/02/20 21:11 Completed TROPONIN Q3H Lab 12/02/20 21:00 Completed TROPONIN Q3H Lab 12/03/20 00:00 Ordered TROPONIN Q3H Lab 12/03/20 03:00 Ordered TROPONIN Q3H Lab 12/03/20 06:00 Ordered TROPONIN Q3H Lab 12/03/20 09:00 Ordered UA W/RFX UR CULTURE Stat Lab 12/02/20 20:59 Completed Respiratory Therapy Assessment DAILY RT 12/02/20 21:06 Active Medication Summary Generic Name Dose Route Start Last Admin Trade Name Freq PRN Reason Stop Dose Admin Sodium Chloride 1,000 mls @ 100 mls/hr 12/02/20 21:00 12/02/20 21:24 Sodium Chloride 0.9% 1000 Ml IV 01/01/21 20:59 100 mls/hr .Q10H CHARMA[place] Administration Discontinued Medications Generic Name Dose Route Start Last Admin Trade Name Freq PRN Reason Stop Dose Admin Albuterol/Ipratropium 3 ml 12/02/20 20:53 12/02/20 21:02 Duoneb 0.5-3 Mg/3 Ml Neb IH 12/02/20 20:54 3 ml STAT ONE Administration Albuterol/Ipratropium Confirm 12/02/20 21:01 Duoneb 0.5-3 Mg/3 Ml Neb Administered 12/02/20 21:02 Dose 3 ml IH .STK-MED ONE Azithromycin 500 mg 12/02/20 23:40 Zithromax 250 Mg Tablet PO 12/02/20 23:41 STAT ONE Methylprednisolone Sodium 0 mg 12/02/20 20:53 12/02/20 21:24 Succinate 125 mg/ Sterile IV 12/02/20 20:54 125 mg Water 2 ml STAT ONE Administration Methylprednisolone Sodium Succinate Confirm 12/02/20 21:22 Solu-Medrol Administered 12/02/20 21:23 Dose 125 mg .ROUTE .STK-MED ONE Sterile Water Confirm 12/02/20 21:22 Sterile H2o 10 Ml Administered 12/02/20 21:23 Dose 10 ml IJ .STK-MED ONE Lab/Rad Data: Laboratory Result Diagrams 12/02/20 21:11 12/02/20 21:11 Laboratory Results 12/02/20 12/02/20 12/02/20 Range/Units 21:11 21:11 21:11 WBC (4.0-10.5) K/mm3 RBC (4.1-5.4) M/mm3 Hgb (12.0-16.0) gm/dl Hct (35-47) % MCV (78-100) fl MCH (26-32) pg MCHC (32-36) g/dl RDW (11.5-14.0) % Plt Count (150-450) K/mm3 MPV (7.5-11.0) fl Segmented Neutrophils (36.0-66.0) % Lymphocytes (Manual) (24-44) % Monocytes (Manual) (0.0-12.0) % Platelet Estimate (NORMAL) RBC Morphology D-Dimer 239 (215-500) ng/mL Sodium 139 (137-145) mmol/L Potassium 3.8 (3.5-5.1) mmol/L Chloride 104 (98-107) mmol/L Carbon Dioxide 25 (22-30) mmol/L Anion Gap 13.8 (5-15) MEQ/L BUN 12 (7-17) mg/dL Creatinine 0.60 (0.52-1.04) mg/dL Estimated GFR > 60.0 ML/MIN Glucose 144 H (74-106) mg/dL Calcium 9.0 (8.4-10.2) mg/dL Total Bilirubin 0.40 (0.2-1.3) mg/dL AST 26 (14-36) U/L ALT 34 (0-35) U/L Alkaline Phosphatase 68 (38-126) U/L Troponin I (0.000-0.034) ng/mL NT-Pro-B Natriuret Pep 31.5 (0-450) pg/mL Serum Total Protein 7.5 (6.3-8.2) g/dL Albumin 4.5 (3.5-5.0) g/dL Serum , Qual NEGATIVE (Negative) Urine Color (YELLOW) Urine Appearance (CLEAR) Urine pH (5-6) Ur Specific [place] (1.005-1.025) Urine Protein (Negative) Urine Ketones (NEGATIVE) Urine Blood (0-5) Hector/ul Urine Nitrite (NEGATIVE) Urine Bilirubin (NEGATIVE) Urine Urobilinogen (0-1) mg/dL Ur Leukocyte Esterase (NEGATIVE) Urine WBC (Auto) (0-5) /HPF Urine RBC (Auto) (0-2) /HPF U Epithel Cells (Auto) (FEW) /HPF Urine Bacteria (Auto) (NEGATIVE) /HPF Urine Culture Reflexed (NO) Urine Glucose (NEGATIVE) mg/dL 12/02/20 12/02/20 12/02/20 Range/Units 21:11 21:00 20:59 WBC 14.4 H (4.0-10.5) K/mm3 RBC 4.67 (4.1-5.4) M/mm3 Hgb 14.9 (12.0-16.0) gm/dl Hct 45.0 (35-47) % MCV 96.4 (78-100) fl MCH 31.9 (26-32) pg MCHC 33.1 (32-36) g/dl RDW 13.3 (11.5-14.0) % Plt Count 352 (150-450) K/mm3 MPV 9.6 (7.5-11.0) fl Segmented Neutrophils 66 (36.0-66.0) % Lymphocytes (Manual) 27 (24-44) % Monocytes (Manual) 7 (0.0-12.0) % Platelet Estimate NORMAL (NORMAL) RBC Morphology NORMAL D-Dimer (215-500) ng/mL Sodium (137-145) mmol/L Potassium (3.5-5.1) mmol/L Chloride (98-107) mmol/L Carbon Dioxide (22-30) mmol/L Anion Gap (5-15) MEQ/L BUN (7-17) mg/dL Creatinine (0.52-1.04) mg/dL Estimated GFR ML/MIN Glucose (74-106) mg/dL Calcium (8.4-10.2) mg/dL Total Bilirubin (0.2-1.3) mg/dL AST (14-36) U/L ALT (0-35) U/L Alkaline Phosphatase (38-126) U/L Troponin I < 0.012 (0.000-0.034) ng/mL NT-Pro-B Natriuret Pep (0-450) pg/mL Serum Total Protein (6.3-8.2) g/dL Albumin (3.5-5.0) g/dL Serum , Qual (Negative) Urine Color YELLOW (YELLOW) Urine Appearance CLEAR (CLEAR) Urine pH 6.0 (5-6) Ur Specific [place] 1.015 (1.005-1.025) Urine Protein NEGATIVE (Negative) Urine Ketones NEGATIVE (NEGATIVE) Urine Blood NEGATIVE (0-5) Hector/ul Urine Nitrite NEGATIVE (NEGATIVE) Urine Bilirubin NEGATIVE (NEGATIVE) Urine Urobilinogen NEGATIVE (0-1) mg/dL Ur Leukocyte Esterase NEGATIVE (NEGATIVE) Urine WBC (Auto) NONE (0-5) /HPF Urine RBC (Auto) 0-2 (0-2) /HPF U Epithel Cells (Auto) RARE (FEW) /HPF Urine Bacteria (Auto) NONE (NEGATIVE) /HPF Urine Culture Reflexed NO (NO) Urine Glucose NEGATIVE (NEGATIVE) mg/dL - Progress Progress: improved, re-examined Air Movement: good Progress Note: 12/02/20 23:24 pt says symptoms are now resolved and wishes to go home and followup with her PMD, she is aware that additional pathology could still be developing and of the limitations of testing performed so far, and will return if further symptoms. 12/02/20 23:32 12/02/20 23:43 O2 sat improved to high 90s on RA after Tx. but pt does use O2 at home [place]. Blood Culture(s) Obtained: No Antibiotics given: Yes Counseled pt/family regarding: lab results, diagnosis, need for follow-up, rad results - Departure Departure Disposition: Home Clinical Impression: COPD (chronic obstructive pulmonary disease), COPD exacerbation, Asthma attack, Walking pneumonia Condition: Good Critical Care Time: No Referrals: MARBELLA COLON MD [Primary Care Provider] - Instructions: Chronic Obstructive Pulmonary Disease, Asthma, Adult (DC), Shortness of Breath (Dyspnea) (DC), Exacerbation of COPD (DC), Atypical Pneumonia (Mycoplasma and Viral) (DC) Additional Instructions: Followup with your this week to adjust your breathing meds and for your blood pressure. Prescriptions: Azithromycin 250 mg PO DAILY #4 tablet Methylprednisolone Packet [Medrol Dosepack] 4 mg PO UD #30 packet
[2020-12-02] MEDS ORDERED: Sodium Chloride 0.9% 1000 ML 1,000 ML IV SCH (21:00)
[2020-12-02 21:15] LABS: Hemoglobin 14.9 gm/dl (12.0-16.0); Mean Cell Volume 96.4 fl (78-100); Mean Corpuscular Hemoglobin 31.9 pg (26-32); Mean Corpuscular Hgb Concent. 33.1 g/dl (32-36); Mean Platelet Volume 9.6 fl (7.5-11.0); Platelet Count 352 K/mm3 (150-450); Red Blood Count 4.67 M/mm3 (4.1-5.4); Red Cell Distribution Width 13.3 % (11.5-14.0); White Blood Count 14.4 K/mm3 (4.0-10.5)
[2020-12-02 21:22] LABS: Appearance CLEAR (CLEAR); Bilirubin NEGATIVE (NEGATIVE); Blood NEGATIVE Ery/ul (0-5); Epithelial Cells RARE /HPF (FEW); Glucose NEGATIVE (NEGATIVE); Ketones NEGATIVE (NEGATIVE); Leukocyte Esterase NEGATIVE (NEGATIVE); Nitrite NEGATIVE (NEGATIVE); Protein,Urine Dip NEGATIVE (Negative); RBC 0-2 /HPF (0-2); Specific Gravity 1.015 (1.005-1.025); Urobilinogen NEGATIVE mg/dL (0-1)
[2020-12-02] MEDS ORDERED: solu-MEDROL ONE (21:22)
[2020-12-02] MEDS ORDERED: Sterile H2O 10 ml IJ ONE (21:22)
[2020-12-02] MEDS ORDERED: Sodium Chloride 0.9% 1000 ML 1,000 ML ONE (21:22)
[2020-12-02 21:33] LABS: ALBUMIN 4.5 g/dL (3.5-5.0); ALKALINE PHOSPHATASE 68 U/L (38-126); ANION GAP 13.8 MEQ/L (5-15); BLOOD UREA NITROGEN 12 mg/dL (7-17); CHLORIDE 104 mmol/L (98-107); Carbon Dioxide 25 mmol/L (22-30); EST GLOMERULAR FILTRATION RATE > 60.0 ML/MIN; Glucose 144 mg/dL (74-106); NT PRO BNP 31.5 pg/mL (0-450); Potassium 3.8 mmol/L (3.5-5.1); SGOT/AST 26 U/L (14-36); SGPT/ALT 34 U/L (0-35); SODIUM 139 mmol/L (137-145); Total Protein 7.5 g/dL (6.3-8.2)
[2020-12-02 22:25] LABS: Lymphocytes 27 % (24-44); Monocyte 7 % (0.0-12.0); Neutrophils 66 % (36.0-66.0); Platelet Estimate NORMAL (NORMAL); Total Cells Counted 100
[2020-12-02 23:20] VITALS: BP 155/100; PULSE 87
[2020-12-02] MEDS ORDERED: Zithromax 250 MG TABLET PO ONE (23:40)
[2020-12-02 23:44] VITALS: O2SAT 96
[2020-12-02] MEDS ORDERED: Zithromax 250 MG TABLET ONE (23:50)
--- NOTE | 2020-12-03 06:49 | XRAY ---
Indication: Short of breath. Comparison: October 29, 2020. Portable chest remains clear of infiltrate, consolidation, or large effusion. Heart not enlarged. Bony thorax intact. No new/acute findings.
== END 2020-12-02 23:57 | disposition home or self-care (01) ==
LOC: ED 20:40
DX: J44.1 Chronic obstructive pulmonary disease with (acute) exacerbation (principal); J45.901 Unspecified asthma with (acute) exacerbation; J18.9 Pneumonia, unspecified organism
CPT/HCPCS: 36000; 36415; 71045; 80053; 81001; 81025; 83880; 84484; 85025; 85379; 93005; 93041; 94640; 94760; 96374; 99284; J2930; A9270-GY

== ENCOUNTER 2020-12-16 15:25 | Emergency (ER) | payer OTHER ==
[2020-12-16] MEDS ORDERED: DUONEB 0.5-3 MG/3 ml Neb IH ONE ×2 (15:42→16:00)
[2020-12-16] MEDS ORDERED: solu-MEDROL 125 MG, Sterile H2O 10 ml 2 ML IV ONE ×2 (15:42)
[2020-12-16] MEDS ORDERED: LEVOFLOXACIN 750MG/150ML D5W 750 MG/150 ML BAG IV STA (15:42)
[2020-12-16] MEDS ORDERED: Sodium Chloride 0.9% 1000 ML 1,000 ML IV STA (15:42)
[2020-12-16 15:55] VITALS: O2SAT 98
[2020-12-16 16:17] LABS: Hematocrit 40.2 % (35-47); Hemoglobin 13.4 gm/dl (12.0-16.0); Mean Corpuscular Hgb Concent. 33.3 g/dl (32-36); Mean Platelet Volume 9.4 fl (7.5-11.0); Platelet Count 313 K/mm3 (150-450); Red Blood Count 4.06 M/mm3 (4.1-5.4); White Blood Count 11.6 K/mm3 (4.0-10.5)
[2020-12-16] MEDS ORDERED: Sodium Chloride 0.9% 1000 ML 1,000 ML ONE (16:22)
[2020-12-16] MEDS ORDERED: solu-MEDROL ONE (16:22)
[2020-12-16] MEDS ORDERED: Sterile H2O 10 ml IJ ONE (16:22)
[2020-12-16] MEDS ORDERED: LEVOFLOXACIN 750MG/150ML D5W 750 MG/150 ML BAG IV ONE (16:22)
--- NOTE | 2020-12-16 16:40 | ERPHSYRPT ---
- History of Present Illness Time Seen by Provider: 12/16/20 15:50 Source: patient Exam Limitations: no limitations Patient Subjective Stated Complaint: Pt c/o shortness of breath due to her oxygen running out Triage Nursing Assessment: Pt. states that she ran out of oxygen because her boyfriend didn't inform her that she was running low on her to-go oxygen. Pt. has been without to-go oxygen for two days and states she has been very tired and only wants to sleep. Pt. friend whom lives with her states she keeps passing out and that she had to carry her to the car today. Pt. stood and walked a few steps to bed without assistance. Pt. does not have noted SOB but has audible wheezing, and with ascultation has rhonchi and rales. Pt. skin is pink, warm, dry. Pt. is AAOX3 Physician History: Patient is a 45-year-old female who presents with a complaint of shortness of breath 2 days ago. She relies on her boyfriend apparently to tell her when the oxygen tanks are low and she only has 2 left and he let her down. She has had some coughing some vomiting she also has been worked up for neuropathy for tingling in her hands and legs. She has had a bad cough. Timing/Duration: day(s) (2) Activities at Onset: none Severity of Dyspnea-Max: moderate Severity of Dyspnea-Current: moderate Possible Cause: chronic episodes Modifying Factors: Improves With: albuterol inhaler, albuterol nebulizer Associated Symptoms: cough, wheezing, tingling hands Allergies/Adverse Reactions: cephalexin [From Keflex] Allergy (Verified 12/16/20 15:50) ketorolac [From Toradol] Allergy (Verified 12/16/20 15:50) lisinopril Allergy (Verified 12/16/20 15:50) Sulfa (Sulfonamide Antibiotics) Allergy (Verified 12/16/20 15:50) Home Medications: Gabapentin 100 mg [Neurontin 100 MG] 300 mg PO BID 09/22/20 [History] Paroxetine HCl 1 tab PO DAILY 09/22/20 [History] Cyclobenzaprine HCl 5 mg PO BID PRN 10/29/20 [History] Hx Tetanus, Diphtheria Vaccination/Date Given: Yes Hx Influenza Vaccination/Date Given: Yes Hx Pneumococcal Vaccination/Date Given: No Travel Risk - International Travel Have you traveled outside of the country in past 3 weeks: No - Coronavirus Screening Are you exhibiting any of the following symptoms?: No Close contact with a COVID-19 positive Pt in past 14-21 Days: No - Vaccine Status Have you recieved a Covid-19 vaccination: No - Review of Systems Constitutional: No Fever, No Chills Eyes: No Symptoms Ears, Nose, & Throat: No Symptoms Respiratory: Cough, Dyspnea, Wheezing Cardiac: No Chest Pain, No Edema, No Syncope Abdominal/Gastrointestinal: No Abdominal Pain, No Nausea, No Vomiting, No Diarrhea Genitourinary Symptoms: No Dysuria Musculoskeletal: No Back Pain, No Neck Pain Skin: No Rash Neurological: No Dizziness, No Focal Weakness, No Sensory Changes Psychological: No Symptoms Endocrine: No Symptoms All Other Systems: Reviewed and Negative - Past Medical History Pertinent Past Medical History: Yes Neurological History: Migraines, Peripheral Neuropathy, TIA ENT History: No Pertinent History Cardiac History: Hypertension Respiratory History: Asthma, COPD, Emphysema Endocrine Medical History: No Pertinent History Musculoskeletal History: Osteoarthritis, Other GI Medical History: Pancreatitis History: No Pertinent History Psycho-Social History: Anxiety Female Reproductive Disorders: No Pertinent History Other Medical History: SCIATIC NERVE PROBLEMS - Past Surgical History Past Surgical History: Yes Neuro Surgical History: No Pertinent History Cardiac: No Pertinent History Respiratory: No Pertinent History Gastrointestinal: No Pertinent History Genitourinary: No Pertinent History Musculoskeletal: No Pertinent History Female Surgical History: Tubal Ligation Other Surgical History: jaw fx repair, tubal pregnancies - Social History Smoking Status: Current every day smoker How long have you smoked: 30+ years Exposure to second hand smoke: Yes Drug Use: none Patient Lives Alone: No - Female History Hx Last Menstrual Period: 12/08/2020 Hx Now: No - Nursing Vital Signs Nursing Vital Signs: Initial Vital Signs Pulse Rate 105 H 12/16/20 15:43 Respiratory Rate 22 12/16/20 15:43 Blood Pressure 134/95 12/16/20 15:43 O2 Sat by Pulse Oximetry 97 12/16/20 15:43 Pain Scale Pain Intensity 10 - Physical Exam General Appearance: mild distress, alert Eye Exam: PERRL/EOMI Neck Exam: normal inspection, supple Respiratory Exam: respiratory distress, crackles/rales, rhonchi, wheezing Cardiovascular/Chest Exam: normal heart sounds, regular rate/rhythm Abdominal/Gastrointestinal Exam: soft, No tenderness, No distention, No mass Extremity Exam: non-tender, normal range of motion, normal inspection, no calf tenderness, no pedal edema Neurologic Exam: alert, oriented x 3, cooperative, credit verifier II-XII nml as tested, sensation nml, No motor deficits Skin Exam: normal color, warm, No dry SpO2 Interpretation: hypoxic, O2 applied SpO2: 98 O2 Delivery: Nasal Cannula - Course Nursing assessment & vital signs reviewed: Yes - Radiology Exams Chest X-ray Interpretation: Interpreted by me, Other (Chronic changes without any acute processes identified) Ordered Tests: Active Orders 24 hr Category Date Time Status EKG-ER Only STAT Care 12/16/20 15:42 Active IV Insertion STAT Care 12/16/20 15:42 Active Pulse Oximetry (ED) STAT Care 12/16/20 15:42 Active CHEST 1 VIEW (PORTABLE) Stat Exams 12/16/20 15:43 Completed BLOOD CULTURE Stat Lab 12/16/20 15:54 Received CBC W DIFF Stat Lab 12/16/20 16:05 Completed CMP Stat Lab 12/16/20 15:54 Completed CULTURE,SPUTUM Stat Lab 12/16/20 17:14 Ordered CULTURE,URINE Stat Lab 12/16/20 18:20 Received D-DIMER QUANTITATIVE Stat Lab 12/16/20 15:54 Completed Lactic Acid Stat Lab 12/16/20 15:42 Completed MAGNESIUM Stat Lab 12/16/20 15:54 Completed Manual Differential NC Stat Lab 12/16/20 16:05 Completed NT PRO BNP Stat Lab 12/16/20 15:54 Completed TROPONIN Q3H Lab 12/16/20 15:45 Completed TROPONIN Q3H Lab 12/16/20 18:45 Ordered TROPONIN Q3H Lab 12/16/20 21:45 Ordered TROPONIN Q3H Lab 12/17/20 00:45 Ordered TROPONIN Q3H Lab 12/17/20 03:45 Ordered UA W/RFX UR CULTURE Stat Lab 12/16/20 18:20 Received Urine Triage Profile Stat Lab 12/16/20 18:20 Received Respiratory Therapy Assessment DAILY RT 12/16/20 16:22 Active Medication Summary Discontinued Medications Generic Name Dose Route Start Last Admin Trade Name Freq PRN Reason Stop Dose Admin Albuterol/Ipratropium 3 ml 12/16/20 15:42 12/16/20 16:11 Duoneb 0.5-3 Mg/3 Ml Neb IH 12/16/20 15:43 3 ml STAT ONE Administration Albuterol/Ipratropium Confirm 12/16/20 16:00 Duoneb 0.5-3 Mg/3 Ml Neb Administered 12/16/20 16:01 Dose 3 ml IH .STK-MED ONE Methylprednisolone Sodium 0 mg 12/16/20 15:42 12/16/20 16:27 Succinate 125 mg/ Sterile IV 12/16/20 15:43 125 mg Water 2 ml STAT ONE Administration Sodium Chloride 1,000 mls @ 999 mls/hr 12/16/20 15:42 12/16/20 16:28 Sodium Chloride 0.9% 1000 Ml IV 12/16/20 16:42 999 mls/hr .Q1H1M STA Administration Levofloxacin/Dextrose 750 mg in 150 mls @ 100 mls/hr 12/16/20 15:42 12/16/20 16:27 Levofloxacin 750mg/150ml D5w IV 12/16/20 17:11 100 mls/hr STAT STA 100 mls/hr Administration Sodium Chloride Confirm 12/16/20 16:22 Sodium Chloride 0.9% 1000 Ml Administered 12/16/20 16:23 Dose 1,000 mls @ ud .ROUTE .STK-MED ONE Levofloxacin/Dextrose Confirm 12/16/20 16:22 Levofloxacin 750mg/150ml D5w Administered 12/16/20 16:23 Dose 750 mg in 150 mls @ ud IV .STK-MED ONE Methylprednisolone Sodium Succinate Confirm 12/16/20 16:22 Solu-Medrol Administered 12/16/20 16:23 Dose 125 mg .ROUTE .STK-MED ONE Sterile Water Confirm 12/16/20 16:22 Sterile H2o 10 Ml Administered 12/16/20 16:23 Dose 10 ml IJ .STK-MED ONE Lab/Rad Data: Laboratory Result Diagrams 12/16/20 16:05 12/16/20 15:54 Laboratory Results 12/16/20 12/16/20 12/16/20 Range/Units 18:20 16:05 15:54 WBC 11.6 H (4.0-10.5) K/mm3 RBC 4.06 L (4.1-5.4) M/mm3 Hgb 13.4 (12.0-16.0) gm/dl Hct 40.2 (35-47) % MCV 99.0 (78-100) fl MCH 33.0 H (26-32) pg MCHC 33.3 (32-36) g/dl RDW 13.0 (11.5-14.0) % Plt Count 313 (150-450) K/mm3 MPV 9.4 (7.5-11.0) fl Segmented Neutrophils 62 (36.0-66.0) % Band Neutrophils 1 (0.0-2.0) % Lymphocytes (Manual) 26 (24-44) % Monocytes (Manual) 6 (0.0-12.0) % Eosinophils (Manual) 4 H (0.00-3.0) % Basophils (Manual) 1 (0.0-1.0) % Platelet Estimate NORMAL (NORMAL) RBC Morphology NORMAL D-Dimer 510 H* (215-500) ng/mL Sodium (137-145) mmol/L Potassium (3.5-5.1) mmol/L Chloride (98-107) mmol/L Carbon Dioxide (22-30) mmol/L Anion Gap (5-15) MEQ/L BUN (7-17) mg/dL Creatinine (0.52-1.04) mg/dL Estimated GFR ML/MIN Glucose (74-106) mg/dL Lactic Acid (0.4-2.0) Calcium (8.4-10.2) mg/dL Magnesium (1.6-2.3) mg/dL Total Bilirubin (0.2-1.3) mg/dL AST (14-36) U/L ALT (0-35) U/L Alkaline Phosphatase (38-126) U/L Troponin I (0.000-0.034) ng/mL NT-Pro-B Natriuret Pep (0-450) pg/mL Serum Total Protein (6.3-8.2) g/dL Albumin (3.5-5.0) g/dL Urine Color YELLOW (YELLOW) Urine Appearance CLEAR (CLEAR) Urine pH 5.0 (5-6) Ur Specific [place] 1.020 (1.005-1.025) Urine Protein NEGATIVE (Negative) Urine Ketones NEGATIVE (NEGATIVE) Urine Blood NEGATIVE (0-5) Hector/ul Urine Nitrite NEGATIVE (NEGATIVE) Urine Bilirubin NEGATIVE (NEGATIVE) Urine Urobilinogen NEGATIVE (0-1) mg/dL Ur Leukocyte Esterase NEGATIVE (NEGATIVE) Urine WBC (Auto) NONE (0-5) /HPF Urine RBC (Auto) NONE (0-2) /HPF U Epithel Cells (Auto) RARE (FEW) /HPF Urine Bacteria (Auto) NONE (NEGATIVE) /HPF Urine Mucus (Auto) SLIGHT (NEGATIVE) /HPF Urine Culture Reflexed YES (NO) Urine Glucose NEGATIVE (NEGATIVE) mg/dL 12/16/20 12/16/20 12/16/20 Range/Units 15:54 15:45 15:42 WBC (4.0-10.5) K/mm3 RBC (4.1-5.4) M/mm3 Hgb (12.0-16.0) gm/dl Hct (35-47) % MCV (78-100) fl MCH (26-32) pg MCHC (32-36) g/dl RDW (11.5-14.0) % Plt Count (150-450) K/mm3 MPV (7.5-11.0) fl Segmented Neutrophils (36.0-66.0) % Band Neutrophils (0.0-2.0) % Lymphocytes (Manual) (24-44) % Monocytes (Manual) (0.0-12.0) % Eosinophils (Manual) (0.00-3.0) % Basophils (Manual) (0.0-1.0) % Platelet Estimate (NORMAL) RBC Morphology D-Dimer (215-500) ng/mL Sodium 141 (137-145) mmol/L Potassium 3.3 L (3.5-5.1) mmol/L Chloride 106 (98-107) mmol/L Carbon Dioxide 28 (22-30) mmol/L Anion Gap 10.7 (5-15) MEQ/L BUN 13 (7-17) mg/dL Creatinine 0.66 (0.52-1.04) mg/dL Estimated GFR > 60.0 ML/MIN Glucose 119 H (74-106) mg/dL Lactic Acid 1.2 (0.4-2.0) Calcium 8.3 L (8.4-10.2) mg/dL Magnesium 2.0 (1.6-2.3) mg/dL Total Bilirubin 0.20 (0.2-1.3) mg/dL AST 40 H (14-36) U/L ALT 27 (0-35) U/L Alkaline Phosphatase 63 (38-126) U/L Troponin I < 0.012 (0.000-0.034) ng/mL NT-Pro-B Natriuret Pep 44.1 (0-450) pg/mL Serum Total Protein 6.1 L (6.3-8.2) g/dL Albumin 3.6 (3.5-5.0) g/dL Urine Color (YELLOW) Urine Appearance (CLEAR) Urine pH (5-6) Ur Specific [place] (1.005-1.025) Urine Protein (Negative) Urine Ketones (NEGATIVE) Urine Blood (0-5) Hector/ul Urine Nitrite (NEGATIVE) Urine Bilirubin (NEGATIVE) Urine Urobilinogen (0-1) mg/dL Ur Leukocyte Esterase (NEGATIVE) Urine WBC (Auto) (0-5) /HPF Urine RBC (Auto) (0-2) /HPF U Epithel Cells (Auto) (FEW) /HPF Urine Bacteria (Auto) (NEGATIVE) /HPF Urine Mucus (Auto) (NEGATIVE) /HPF Urine Culture Reflexed (NO) Urine Glucose (NEGATIVE) mg/dL - Progress Progress: improved Air Movement: good Blood Culture(s) Obtained: No Antibiotics given: Yes - Departure Departure Disposition: Home Clinical Impression: COPD exacerbation Condition: Stable Critical Care Time: No Referrals: MARBELLA COLON MD [Primary Care Provider] - Instructions: Chronic Obstructive Pulmonary Disease, Exacerbation of COPD (DC) Prescriptions: Prednisone 10 mg [Deltasone 10 mg] 10 mg PO TID #12 tablet Levofloxacin [Levaquin 500 MG Tablet] 500 mg PO DAILY #7 tablet
[2020-12-16 17:03] LABS: ALBUMIN 3.6 g/dL (3.5-5.0); ALKALINE PHOSPHATASE 63 U/L (38-126); ANION GAP 10.7 MEQ/L (5-15); BLOOD UREA NITROGEN 13 mg/dL (7-17); CHLORIDE 106 mmol/L (98-107); Calcium 8.3 mg/dL (8.4-10.2); Carbon Dioxide 28 mmol/L (22-30); Creatinine 1 0.66 mg/dL (0.52-1.04); EST GLOMERULAR FILTRATION RATE > 60.0 ML/MIN; Glucose 119 mg/dL (74-106); NT PRO BNP 44.1 pg/mL (0-450); Potassium 3.3 mmol/L (3.5-5.1); SGOT/AST 40 U/L (14-36); SGPT/ALT 27 U/L (0-35); SODIUM 141 mmol/L (137-145); Total Protein 6.1 g/dL (6.3-8.2)
[2020-12-16 18:14] LABS: BAND 1 % (0.0-2.0); Basophil 1 % (0.0-1.0); Eosinophil 4 % (0.00-3.0); Lymphocytes 26 % (24-44); Monocyte 6 % (0.0-12.0); Neutrophils 62 % (36.0-66.0); Total Cells Counted 100
[2020-12-16 18:15] LABS: Platelet Estimate NORMAL (NORMAL)
[2020-12-16 18:27] LABS: Appearance CLEAR (CLEAR); Bilirubin NEGATIVE (NEGATIVE); Blood NEGATIVE Ery/ul (0-5); Epithelial Cells RARE /HPF (FEW); Glucose NEGATIVE (NEGATIVE); Ketones NEGATIVE (NEGATIVE); Leukocyte Esterase NEGATIVE (NEGATIVE); Mucus SLIGHT /HPF (NEGATIVE); Nitrite NEGATIVE (NEGATIVE); Protein,Urine Dip NEGATIVE (Negative); Urobilinogen NEGATIVE mg/dL (0-1)
--- NOTE | 2020-12-16 18:30 | XRAY ---
Indication: Short of breath. Comparison: December 02, 2020. Portable chest remains clear. Heart not enlarged. No new/acute findings.
[2020-12-16 18:39] LABS: Amphetamine,Urine NEGATIVE (NEGATIVE); Barbiturate,Urine NEGATIVE (NEGATIVE); Benzodiazepine,Urine NEGATIVE (NEGATIVE); Cocaine,Urine NEGATIVE (NEGATIVE); Methadone,Urine NEGATIVE (NEGATIVE); Opiate,Urine POSITIVE (NEGATIVE); PCP,Urine NEGATIVE (NEGATIVE); THC,Urine NEGATIVE (NEGATIVE)
[2020-12-16 18:51] VITALS: BP 141/90; PULSE 90
== END 2020-12-16 18:57 | disposition home or self-care (01) ==
LOC: ED 15:25
DX: J44.1 Chronic obstructive pulmonary disease with (acute) exacerbation (principal); R06.02 Shortness of breath; R05 Cough; R06.2 Wheezing; Z79.899 Other long term (current) drug therapy; I10 Essential (primary) hypertension
CPT/HCPCS: 36415; 71045; 80053; 80307; 81001; 83605; 83735; 83880; 84484; 85025; 85379; 87040; 87070; 87077; 87086; 87186; 94640; 94760; 96360; 96365; 96374; 99284; J1956; J2930; A9270-GY

== ENCOUNTER 2020-12-27 15:07 | Emergency (ER) | payer OTHER ==
[2020-12-27 16:06] LABS: Appearance SLIGHTLY CLOUDY (CLEAR); Bacteria RARE /HPF (NEGATIVE); Bilirubin SMALL (NEGATIVE); Blood NEGATIVE Ery/ul (0-5); Epithelial Cells FEW /HPF (FEW); Glucose NEGATIVE (NEGATIVE); Ketones NEGATIVE (NEGATIVE); Leukocyte Esterase NEGATIVE (NEGATIVE); Mucus SLIGHT /HPF (NEGATIVE); Nitrite NEGATIVE (NEGATIVE); Protein,Urine Dip 30 (Negative); RBC 0-2 /HPF (0-2); Specific Gravity 1.033 (1.005-1.025); Urobilinogen NEGATIVE mg/dL (0-1); WBC 0-2 /HPF (0-5)
[2020-12-27 16:33] LABS: BASOPHIL % 0.1 % (0.0-0.4); Basophil (Absolute #) 0.02 (0-0.4); Eosinophil % 0.7 % (0.00-5.0); Hematocrit 42.3 % (35-47); Lymphocyte (Absolute #) 1.22 (1.0-4.6); Mean Cell Volume 98.4 fl (78-100); Mean Corpuscular Hemoglobin 32.6 pg (26-32); Mean Corpuscular Hgb Concent. 33.1 g/dl (32-36); Mean Platelet Volume 9.4 fl (7.5-11.0); Monocyte (Absolute #) 0.57 (0.0-1.3); Monocytes % 4.2 % (0.0-12.0); Platelet Count 333 K/mm3 (150-450); Red Cell Distribution Width 13.4 % (11.5-14.0); White Blood Count 13.5 K/mm3 (4.0-10.5)
[2020-12-27 16:41] LABS: ALBUMIN 3.9 g/dL (3.5-5.0); ALKALINE PHOSPHATASE 57 U/L (38-126); ANION GAP 11.9 MEQ/L (5-15); BLOOD UREA NITROGEN 14 mg/dL (7-17); CHLORIDE 105 mmol/L (98-107); Calcium 8.5 mg/dL (8.4-10.2); Carbon Dioxide 25 mmol/L (22-30); Creatinine 1 0.64 mg/dL (0.52-1.04); EST GLOMERULAR FILTRATION RATE > 60.0 ML/MIN; Glucose 114 mg/dL (74-106); LIPASE 69 U/L (23-300); Potassium 3.9 mmol/L (3.5-5.1); SGOT/AST 27 U/L (14-36); SGPT/ALT 27 U/L (0-35); SODIUM 139 mmol/L (137-145); Total Protein 6.7 g/dL (6.3-8.2)
[2020-12-27] MEDS ORDERED: MORPHINE SULFATE 2 MG INJ IV ONE (16:41)
--- NOTE | 2020-12-27 16:57 | XRAY ---
Indication: Left upper quadrant pain, bloating, and swelling 4-5 days. Multiple contiguous axial images obtained through the abdomen and pelvis using 80 cc Isovue 370 contrast. Comparison: None Lung bases demonstrates minimal dependent atelectasis. No infiltrate or effusion. Heart not enlarged. Noncontrasted stomach and bowel loops appear nonobstructed. Normal appendix. Mild scattered colonic fecal debris greatest in the right hemicolon. Scattered descending and sigmoid diverticulosis without diverticulitis. No free fluid/air. Remaining liver, gallbladder, pancreas, spleen, adrenal glands, kidneys, ureters, bladder, uterus, and aorta are unremarkable. No pathologic retroperitoneal lymphadenopathy. Osseous structures intact. No ventral or inguinal hernias. Impression: 1. Mild diffuse fecal stasis and scattered colonic diverticulosis. 2. Remaining CT abdomen/pelvis with contrast exam is negative.
--- NOTE | 2020-12-27 17:01 | ERPHSYRPT ---
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 Patient states that she picked up a propane tank today and her pain acutely became worse. Patient felt warm. She admits to subjective fever. Pain described as an ache that is localized to the left upper quadrant lower rib area. Pain rated 10 out of 10. Pain worse with movement and palpation. Pain improved with rest. Patient describes area as feeling swollen. No associated chest pain. No nausea vomiting or diaphoresis. Symptoms are moderate in intensity. Patient states is otherwise healthy. She voices no other complaints or concerns at this time. Timing/Duration: today Activities at Onset: none Quality: aching Abdominal Pain Onset Location: [facility] Pain Radiation: no radiation Severity of Pain-Max: moderate Severity of Pain-Current: mild Modifying Factors: Improves With: movement, palpation Associated Symptoms: denies symptoms Previous symptoms: no prior history Allergies/Adverse Reactions: cephalexin [From Keflex] Allergy (Verified 12/27/20 15:30) ketorolac [From Toradol] Allergy (Verified 12/27/20 15:30) lisinopril Allergy (Verified 12/27/20 15:30) Sulfa (Sulfonamide Antibiotics) Allergy (Verified 12/27/20 15:30) Home Medications: Gabapentin 100 mg [Neurontin 100 MG] 300 mg PO BID 09/22/20 [History] Paroxetine HCl 1 tab PO DAILY 09/22/20 [History] Cyclobenzaprine HCl 5 mg PO BID PRN 10/29/20 [History] Hx Tetanus, Diphtheria Vaccination/Date Given: Yes Hx Influenza Vaccination/Date Given: Yes Hx Pneumococcal Vaccination/Date Given: No Travel Risk - International Travel Have you traveled outside of the country in past 3 weeks: No - Coronavirus Screening Are you exhibiting any of the following symptoms?: No Close contact with a COVID-19 positive Pt in past 14-21 Days: No - Vaccine Status Have you recieved a Covid-19 vaccination: No - Review of Systems Constitutional: No Symptoms, No Fever, No Chills Eyes: No Symptoms Ears, Nose, & Throat: No Symptoms Respiratory: No Symptoms, No Cough, No Dyspnea Cardiac: No Symptoms, No Chest Pain, No Edema, No Syncope Abdominal/Gastrointestinal: No Symptoms, No Abdominal Pain, No Nausea, No Vomiting, No Diarrhea Genitourinary Symptoms: No Symptoms, No Dysuria Musculoskeletal: No Symptoms, No Back Pain, No Neck Pain Skin: No Symptoms, No Rash Neurological: No Symptoms, No Dizziness, No Focal Weakness, No Sensory Changes Psychological: No Symptoms Endocrine: No Symptoms Hematologic/Lymphatic: No Symptoms Immunological/Allergic: No Symptoms All Other Systems: Reviewed and Negative - Past Medical History Pertinent Past Medical History: Yes Neurological History: Migraines, Peripheral Neuropathy, TIA ENT History: No Pertinent History Cardiac History: Hypertension Respiratory History: Asthma, COPD, Emphysema Endocrine Medical History: No Pertinent History Musculoskeletal History: Osteoarthritis, Other GI Medical History: Pancreatitis History: No Pertinent History Psycho-Social History: Anxiety Female Reproductive Disorders: No Pertinent History Other Medical History: SCIATIC NERVE PROBLEMS - Past Surgical History Past Surgical History: Yes Neuro Surgical History: No Pertinent History Cardiac: No Pertinent History Respiratory: No Pertinent History Gastrointestinal: No Pertinent History Genitourinary: No Pertinent History Musculoskeletal: No Pertinent History Female Surgical History: Tubal Ligation Other Surgical History: jaw fx repair, tubal pregnancies - Social History Smoking Status: Current every day smoker How long have you smoked: 30+ years Exposure to second hand smoke: Yes Drug Use: none Patient Lives Alone: No - Female History Hx Now: No - Nursing Vital Signs Nursing Vital Signs: Initial Vital Signs Temperature 97.6 F 12/27/20 15:19 Pulse Rate 107 H 12/27/20 15:19 Blood Pressure 151/111 12/27/20 15:19 O2 Sat by Pulse Oximetry 99 12/27/20 15:19 Pain Scale Pain Intensity 10 - Physical Exam General Appearance: no apparent distress, alert Eye Exam: PERRL/EOMI, eyes nml inspection Ears, Nose, Throat Exam: normal ENT inspection, pharynx normal, moist mucous membranes Neck Exam: normal inspection, non-tender, supple, full range of motion Respiratory Exam: normal breath sounds, lungs clear, No respiratory distress Cardiovascular Exam: regular rate/rhythm, normal heart sounds Gastrointestinal/Abdomen Exam: soft, other (Tenderness to palpation left upper quadrant. Overlying soft tissue intact.), No tenderness, No mass Back Exam: normal inspection, normal range of motion, No CVA tenderness, No vertebral tenderness Extremity Exam: normal inspection, normal range of motion, pelvis stable Neurologic Exam: alert, oriented x 3, cooperative, sensation nml, No motor deficits Skin Exam: normal color, warm, dry Lymphatic Exam: No adenopathy SpO2 Interpretation: normal SpO2: 99 O2 Delivery: Room Air - Course Nursing assessment & vital signs reviewed: Yes Ordered Tests: Active Orders 24 hr Category Date Time Status IV Insertion STAT Care 12/27/20 15:56 Active ABDOMEN AND PELVIS W CONTRAST [CT] Stat Exams 12/27/20 15:57 Taken CBC W DIFF Stat Lab 12/27/20 04:00 Completed CMP Stat Lab 12/27/20 04:00 Received HCG QUALITATIVE,SERUM Stat Lab 12/27/20 16:30 Completed LIPASE Stat Lab 12/27/20 04:00 Received TROPONIN Q3H Lab 12/27/20 04:00 Received TROPONIN Q3H Lab 12/27/20 19:00 Ordered TROPONIN Q3H Lab 12/27/20 22:00 Ordered TROPONIN Q3H Lab 12/28/20 01:00 Ordered TROPONIN Q3H Lab 12/28/20 04:00 Ordered UA W/RFX UR CULTURE Stat Lab 12/27/20 15:57 Ordered Medication Summary Discontinued Medications Generic Name Dose Route Start Last Admin Trade Name Freq PRN Reason Stop Dose Admin Morphine Sulfate 2 mg 12/27/20 16:41 Morphine Sulfate 2 Mg Inj IV 12/27/20 16:42 STAT ONE Lab/Rad Data: Laboratory Result Diagrams 12/27/20 04:00 12/27/20 04:00 Laboratory Results 12/27/20 12/27/20 12/27/20 Range/Units 16:30 15:57 04:00 WBC (4.0-10.5) K/mm3 RBC (4.1-5.4) M/mm3 Hgb (12.0-16.0) gm/dl Hct (35-47) % MCV (78-100) fl MCH (26-32) pg MCHC (32-36) g/dl RDW (11.5-14.0) % Plt Count (150-450) K/mm3 MPV (7.5-11.0) fl Gran % (36.0-66.0) % Eos # (Auto) (0-0.5) Absolute Lymphs (auto) (1.0-4.6) Absolute Monos (auto) (0.0-1.3) Lymphocytes % (24.0-44.0) % Monocytes % (0.0-12.0) % Eosinophils % (0.00-5.0) % Basophils % (0.0-0.4) % Absolute Granulocytes (1.4-6.9) Basophils # (0-0.4) Sodium (137-145) mmol/L Potassium (3.5-5.1) mmol/L Chloride (98-107) mmol/L Carbon Dioxide (22-30) mmol/L Anion Gap (5-15) MEQ/L BUN (7-17) mg/dL Creatinine (0.52-1.04) mg/dL Estimated GFR ML/MIN Glucose (74-106) mg/dL Calcium (8.4-10.2) mg/dL Total Bilirubin (0.2-1.3) mg/dL AST (14-36) U/L ALT (0-35) U/L Alkaline Phosphatase (38-126) U/L Troponin I < 0.012 (0.000-0.034) ng/mL Serum Total Protein (6.3-8.2) g/dL Albumin (3.5-5.0) g/dL Lipase (23-300) U/L Serum , Qual NEGATIVE (Negative) Urine Color CHEIKH (YELLOW) Urine Appearance SLIGHTLY CLOUDY (CLEAR) Urine pH 5.0 (5-6) Ur Specific [place] 1.033 (1.005-1.025) Urine Protein 30 (Negative) Urine Ketones NEGATIVE (NEGATIVE) Urine Blood NEGATIVE (0-5) Hector/ul Urine Nitrite NEGATIVE (NEGATIVE) Urine Bilirubin SMALL (NEGATIVE) Urine Urobilinogen NEGATIVE (0-1) mg/dL Ur Leukocyte Esterase NEGATIVE (NEGATIVE) Urine WBC (Auto) 0-2 (0-5) /HPF Urine RBC (Auto) 0-2 (0-2) /HPF U Epithel Cells (Auto) FEW (FEW) /HPF Urine Bacteria (Auto) RARE (NEGATIVE) /HPF Urine Mucus (Auto) SLIGHT (NEGATIVE) /HPF Urine Culture Reflexed NO (NO) Urine Glucose NEGATIVE (NEGATIVE) mg/dL 12/27/20 12/27/20 Range/Units 04:00 04:00 WBC 13.5 H (4.0-10.5) K/mm3 RBC 4.30 (4.1-5.4) M/mm3 Hgb 14.0 (12.0-16.0) gm/dl Hct 42.3 (35-47) % MCV 98.4 (78-100) fl MCH 32.6 H (26-32) pg MCHC 33.1 (32-36) g/dl RDW 13.4 (11.5-14.0) % Plt Count 333 (150-450) K/mm3 MPV 9.4 (7.5-11.0) fl Gran % 86.0 H (36.0-66.0) % Eos # (Auto) 0.10 (0-0.5) Absolute Lymphs (auto) 1.22 (1.0-4.6) Absolute Monos (auto) 0.57 (0.0-1.3) Lymphocytes % 9.0 L (24.0-44.0) % Monocytes % 4.2 (0.0-12.0) % Eosinophils % 0.7 (0.00-5.0) % Basophils % 0.1 (0.0-0.4) % Absolute Granulocytes 11.60 H (1.4-6.9) Basophils # 0.02 (0-0.4) Sodium 139 (137-145) mmol/L Potassium 3.9 (3.5-5.1) mmol/L Chloride 105 (98-107) mmol/L Carbon Dioxide 25 (22-30) mmol/L Anion Gap 11.9 (5-15) MEQ/L BUN 14 (7-17) mg/dL Creatinine 0.64 (0.52-1.04) mg/dL Estimated GFR > 60.0 ML/MIN Glucose 114 H (74-106) mg/dL Calcium 8.5 (8.4-10.2) mg/dL Total Bilirubin 0.50 (0.2-1.3) mg/dL AST 27 (14-36) U/L ALT 27 (0-35) U/L Alkaline Phosphatase 57 (38-126) U/L Troponin I (0.000-0.034) ng/mL Serum Total Protein 6.7 (6.3-8.2) g/dL Albumin 3.9 (3.5-5.0) g/dL Lipase 69 (23-300) U/L Serum , Qual (Negative) Urine Color (YELLOW) Urine Appearance (CLEAR) Urine pH (5-6) Ur Specific [place] (1.005-1.025) Urine Protein (Negative) Urine Ketones (NEGATIVE) Urine Blood (0-5) Hector/ul Urine Nitrite (NEGATIVE) Urine Bilirubin (NEGATIVE) Urine Urobilinogen (0-1) mg/dL Ur Leukocyte Esterase (NEGATIVE) Urine WBC (Auto) (0-5) /HPF Urine RBC (Auto) (0-2) /HPF U Epithel Cells (Auto) (FEW) /HPF Urine Bacteria (Auto) (NEGATIVE) /HPF Urine Mucus (Auto) (NEGATIVE) /HPF Urine Culture Reflexed (NO) Urine Glucose (NEGATIVE) mg/dL - Progress Progress: improved Progress Note: Patient reassessed. She feels well. No pain. Patient has a history of COPD and requires 24-hour nasal cannula oxygen. Nasal cannula oxygen intact. No shortness of breath or chest pain. No abdominal pain. Mild leukocytosis observed on CBC. Otherwise essentially unremarkable labs. Patient states he is ready for discharge. Will discharge home. Patient agrees to follow-up with her primary care doctor within 48 hours for reevaluation. 12/27/20 17:09 12/27/20 17:10 Portions of this note were created with voice recognition technology. There may be grammatical, spelling, punctuation or sound alike errors Counseled pt/family regarding: lab results, diagnosis, need for follow-up, rad results - Departure Departure Disposition: Home Clinical Impression: Abdominal pain, Leukocytosis, Proteinuria, Diverticulosis Condition: Stable Critical Care Time: No Referrals: MARBELLA COLON MD [Primary Care Provider] - Additional Instructions: Discharge/Care Plan SHAWNEE MASON was seen on 12/27/20 in the Emergency Room. The patient was counseled regarding Diagnosis,Lab results, Imaging studies, need for follow up and when to return to the Emergency Room. Prescriptions given: Discharge Note I have spoken with the patient and/or caregivers. I have explained the patient's condition, diagnosis and treatment plan based on the information available to me at this time. I have answered the patient's and/or caregiver's questions and addressed any concerns. The patient and/or caregivers have as good understanding of the patient's diagnosis, condition and treatment plan as can be expected at this point. The vital signs have been stable. The patient's condition is stable and appropriate for discharge from the emergency department. The patient will pursue further outpatient evaluation with the primary care physician or other designated or consulting physician as outlined in the discharge instructions. The patient and/or caregivers are agreeable to this plan of care and follow-up instructions have been explained in detail. The patient and/or caregivers have received these instruction. The patient/and or caregivers are aware that any significant change in condition or worsening of symptoms should prompt an immediate return to this or the closest emergency department or call 911.
[2020-12-27] MEDS ORDERED: MORPHINE SULFATE 2 MG INJ ONE (17:15)
[2020-12-27 17:22] VITALS: BP 135/86; PULSE 106; O2SAT 100
== END 2020-12-27 17:26 | disposition home or self-care (01) ==
LOC: ED 15:07
DX: R10.9 Unspecified abdominal pain (principal)
CPT/HCPCS: 36000; 36415; 74177; 80053; 81001; 81025; 83690; 84484; 85025; 99284; J2270

== ENCOUNTER 2020-12-30 16:25 | Emergency (ER) | payer OTHER ==
[2020-12-30] MEDS ORDERED: Sodium Chloride 0.9% 1000 ML 1,000 ML IV SCH (16:45)
[2020-12-30] MEDS ORDERED: solu-MEDROL 125 MG, Sterile H2O 10 ml 10 ML IV ONE ×2 (16:45)
[2020-12-30] MEDS ORDERED: DUONEB 0.5-3 MG/3 ml Neb IH ONE ×3 (16:45→17:53)
[2020-12-30] MEDS ORDERED: Sodium Chloride 0.9% 1000 ML 1,000 ML ONE (16:56)
[2020-12-30] MEDS ORDERED: solu-MEDROL ONE (16:56)
[2020-12-30] MEDS ORDERED: Sterile H2O 10 ml IJ ONE (16:56)
[2020-12-30 17:09] LABS: Hematocrit 43.7 % (35-47); Hemoglobin 14.5 gm/dl (12.0-16.0); Mean Cell Volume 98.4 fl (78-100); Mean Corpuscular Hemoglobin 32.7 pg (26-32); Mean Corpuscular Hgb Concent. 33.2 g/dl (32-36); Mean Platelet Volume 9.5 fl (7.5-11.0); Platelet Count 360 K/mm3 (150-450); Red Blood Count 4.44 M/mm3 (4.1-5.4); Red Cell Distribution Width 13.3 % (11.5-14.0); White Blood Count 21.3 K/mm3 (4.0-10.5)
[2020-12-30] MEDS ORDERED: Zithromax 500 MG/ 250 ML NaCl Premix 500 MG/250 ML IVPB IV STA (17:22)
[2020-12-30 17:27] LABS: ALBUMIN 4.1 g/dL (3.5-5.0); ALKALINE PHOSPHATASE 78 U/L (38-126); BLOOD UREA NITROGEN 12 mg/dL (7-17); CHLORIDE 103 mmol/L (98-107); Calcium 8.8 mg/dL (8.4-10.2); Carbon Dioxide 29 mmol/L (22-30); Creatinine 1 0.76 mg/dL (0.52-1.04); EST GLOMERULAR FILTRATION RATE > 60.0 ML/MIN; Glucose 160 mg/dL (74-106); NT PRO BNP 47.9 pg/mL (0-450); Potassium 3.9 mmol/L (3.5-5.1); SGOT/AST 23 U/L (14-36); SGPT/ALT 32 U/L (0-35); SODIUM 141 mmol/L (137-145); Total Protein 6.8 g/dL (6.3-8.2)
--- NOTE | 2020-12-30 17:50 | ERPHSYRPT ---
- History of Present Illness Time Seen by Provider: 12/30/20 17:46 Source: patient Exam Limitations: no limitations Patient Subjective Stated Complaint: Pt states "I have been having a hard time breathing but today has been really bad." Triage Nursing Assessment: Pt presented alert and oriented X 3, skin pwd. Pt ambulates with a slow gait, pt is tachypneic with audible wheezes noted, pt on home O2 at 3 lpm. Physician History: Pt states "I have been having a hard time breathing but today has been really bad." 45-year-old female came to the emergency room with complaining of worsening shortness of breath for last 2 days. Patient also has a history of asthma which has been bothering her recently more often. Patient is denying any fever chills nausea vomiting. Patient has never been intubated before. Timing/Duration: yesterday, worse Activities at Onset: none Severity of Dyspnea-Max: moderate Severity of Dyspnea-Current: moderate Possible Cause: frequent episodes Modifying Factors: Improves With: nothing Associated Symptoms: wheezing Allergies/Adverse Reactions: cephalexin [From Keflex] Allergy (Verified 12/27/20 15:30) ketorolac [From Toradol] Allergy (Verified 12/27/20 15:30) lisinopril Allergy (Verified 12/27/20 15:30) Sulfa (Sulfonamide Antibiotics) Allergy (Verified 12/27/20 15:30) Home Medications: Gabapentin 100 mg [Neurontin 100 MG] 300 mg PO BID 09/22/20 [History] Paroxetine HCl 1 tab PO DAILY 09/22/20 [History] Cyclobenzaprine HCl 5 mg PO BID PRN 10/29/20 [History] Hx Tetanus, Diphtheria Vaccination/Date Given: Yes Hx Influenza Vaccination/Date Given: Yes Hx Pneumococcal Vaccination/Date Given: Yes Immunizations Up to Date: Yes Travel Risk - International Travel Have you traveled outside of the country in past 3 weeks: No - Coronavirus Screening Are you exhibiting any of the following symptoms?: No Close contact with a COVID-19 positive Pt in past 14-21 Days: No - Vaccine Status Have you recieved a Covid-19 vaccination: No - Review of Systems Constitutional: No Fever, No Chills Eyes: No Symptoms Ears, Nose, & Throat: No Symptoms Respiratory: Dyspnea, Dyspnea on Exertion (ROJO), Wheezing, No Cough Cardiac: No Chest Pain, No Edema, No Syncope Abdominal/Gastrointestinal: No Abdominal Pain, No Nausea, No Vomiting, No Diarrhea Genitourinary Symptoms: No Dysuria Musculoskeletal: No Back Pain, No Neck Pain Skin: No Rash Neurological: No Dizziness, No Focal Weakness, No Sensory Changes Psychological: No Symptoms Endocrine: No Symptoms All Other Systems: Reviewed and Negative - Past Medical History Pertinent Past Medical History: Yes Neurological History: Migraines, Peripheral Neuropathy, TIA ENT History: No Pertinent History Cardiac History: Hypertension Respiratory History: Asthma, COPD, Emphysema Endocrine Medical History: No Pertinent History Musculoskeletal History: Osteoarthritis, Other GI Medical History: Pancreatitis History: No Pertinent History Psycho-Social History: Anxiety Female Reproductive Disorders: No Pertinent History Other Medical History: SCIATIC NERVE PROBLEMS - Past Surgical History Past Surgical History: Yes Neuro Surgical History: No Pertinent History Cardiac: No Pertinent History Respiratory: No Pertinent History Gastrointestinal: No Pertinent History Genitourinary: No Pertinent History Musculoskeletal: No Pertinent History Female Surgical History: Tubal Ligation Other Surgical History: jaw fx repair, tubal pregnancies - Social History Smoking Status: Current some day smoker How long have you smoked: 0.2 Exposure to second hand smoke: Yes Drug Use: none Patient Lives Alone: No - Female History Hx Last Menstrual Period: 12/13/2020 Hx Now: No - Nursing Vital Signs Nursing Vital Signs: Initial Vital Signs Temperature 98.2 F 12/30/20 16:32 Pulse Rate 118 H 12/30/20 16:32 Respiratory Rate 28 H 12/30/20 16:32 Blood Pressure 174/104 12/30/20 16:32 O2 Sat by Pulse Oximetry 99 12/30/20 16:32 Pain Scale Pain Intensity 8 - Physical Exam General Appearance: no apparent distress, alert Eye Exam: PERRL/EOMI Neck Exam: normal inspection, supple Respiratory Exam: respiratory distress, accessory muscle use, wheezing Cardiovascular/Chest Exam: normal heart sounds, regular rate/rhythm Abdominal/Gastrointestinal Exam: soft, No tenderness, No distention, No mass Extremity Exam: non-tender, normal range of motion, normal inspection, no calf tenderness, no pedal edema Neurologic Exam: alert, oriented x 3, cooperative, repeater chief II-XII nml as tested, sensation nml, No motor deficits Skin Exam: normal color, warm, No dry SpO2 Interpretation: normal SpO2: 98 O2 Delivery: Room Air - Course Nursing assessment & vital signs reviewed: Yes - Radiology Exams Chest X-ray Interpretation: Reviewed by me, Infiltrates (right lower lobe) Ordered Tests: Active Orders 24 hr Category Date Time Status EKG-ER Only STAT Care 12/30/20 16:45 Active Oxygen-ED Only Nasal Cannula 3 lpm Care 12/30/20 16:45 Active CHEST 2 VIEWS (PA AND LAT) Stat Exams 12/30/20 16:46 Taken CBC W DIFF Stat Lab 12/30/20 17:06 Completed CMP Stat Lab 12/30/20 17:06 Completed D-DIMER QUANTITATIVE Stat Lab 12/30/20 17:06 Completed MAGNESIUM Stat Lab 12/30/20 17:06 Completed Manual Differential NC Stat Lab 12/30/20 17:06 Completed NT PRO BNP Stat Lab 12/30/20 17:06 Completed TROPONIN Q3H Lab 12/30/20 17:06 Completed TROPONIN Q3H Lab 12/30/20 19:45 Ordered TROPONIN Q3H Lab 12/30/20 22:45 Ordered TROPONIN Q3H Lab 12/31/20 01:45 Ordered TROPONIN Q3H Lab 12/31/20 04:45 Ordered Respiratory Therapy Assessment DAILY RT 12/30/20 17:29 Completed Medication Summary Generic Name Dose Route Start Last Admin Trade Name Freq PRN Reason Stop Dose Admin Sodium Chloride 1,000 mls @ 100 mls/hr 12/30/20 16:45 12/30/20 16:59 Sodium Chloride 0.9% 1000 Ml IV 01/29/21 16:44 100 mls/hr .Q10H CHARMAINE Administration Discontinued Medications Generic Name Dose Route Start Last Admin Trade Name Freq PRN Reason Stop Dose Admin Albuterol/Ipratropium 3 ml 12/30/20 16:45 12/30/20 17:28 Duoneb 0.5-3 Mg/3 Ml Neb IH 12/30/20 16:46 3 ml STAT ONE Administration Albuterol/Ipratropium Confirm 12/30/20 17:23 Duoneb 0.5-3 Mg/3 Ml Neb Administered 12/30/20 17:24 Dose 3 ml IH .STK-MED ONE Albuterol/Ipratropium 3 ml 12/30/20 17:53 Duoneb 0.5-3 Mg/3 Ml Neb IH 12/30/20 17:54 STAT ONE Budesonide 0.5 mg 12/30/20 17:53 Pulmicort 0.5 Mg/2 Ml Respules IH 12/30/20 17:54 HSPRN STA Methylprednisolone Sodium 0 mg 12/30/20 16:45 12/30/20 16:59 Succinate 125 mg/ Sterile IV 12/30/20 16:46 125 mg Water 10 ml STAT ONE Administration Azithromycin 500 mg in 250 mls @ 250 mls/hr 12/30/20 17:22 12/30/20 18:14 Zithromax 500 Mg/ 250 Ml Nacl Premix IV 12/30/20 18:21 250 mls/hr STAT STA 250 mls/hr Administration Azithromycin Confirm 12/30/20 18:13 Zithromax 500 Mg/ 250 Ml Nacl Premix Administered 12/30/20 18:14 Dose 500 mg in 250 mls @ ud IV .STK-MED ONE Methylprednisolone Sodium Succinate Confirm 12/30/20 16:56 Solu-Medrol Administered 12/30/20 16:57 Dose 125 mg .ROUTE .STK-MED ONE Sterile Water Confirm 12/30/20 16:56 Sterile H2o 10 Ml Administered 12/30/20 16:57 Dose 10 ml IJ .STK-MED ONE Lab/Rad Data: Laboratory Result Diagrams 12/30/20 17:06 12/30/20 17:06 Laboratory Results 12/30/20 12/30/20 12/30/20 Range/Units 17:06 17:06 17:06 WBC 21.3 H (4.0-10.5) K/mm3 RBC 4.44 (4.1-5.4) M/mm3 Hgb 14.5 (12.0-16.0) gm/dl Hct 43.7 (35-47) % MCV 98.4 (78-100) fl MCH 32.7 H (26-32) pg MCHC 33.2 (32-36) g/dl RDW 13.3 (11.5-14.0) % Plt Count 360 (150-450) K/mm3 MPV 9.5 (7.5-11.0) fl D-Dimer 224 (215-500) ng/mL Sodium 141 (137-145) mmol/L Potassium 3.9 (3.5-5.1) mmol/L Chloride 103 (98-107) mmol/L Carbon Dioxide 29 (22-30) mmol/L Anion Gap 13.0 (5-15) MEQ/L BUN 12 (7-17) mg/dL Creatinine 0.76 (0.52-1.04) mg/dL Estimated GFR > 60.0 ML/MIN Glucose 160 H (74-106) mg/dL Calcium 8.8 (8.4-10.2) mg/dL Magnesium 2.0 (1.6-2.3) mg/dL Total Bilirubin 0.20 (0.2-1.3) mg/dL AST 23 (14-36) U/L ALT 32 (0-35) U/L Alkaline Phosphatase 78 (38-126) U/L Troponin I (0.000-0.034) ng/mL NT-Pro-B Natriuret Pep 47.9 (0-450) pg/mL Serum Total Protein 6.8 (6.3-8.2) g/dL Albumin 4.1 (3.5-5.0) g/dL 12/30/20 Range/Units 17:06 WBC (4.0-10.5) K/mm3 RBC (4.1-5.4) M/mm3 Hgb (12.0-16.0) gm/dl Hct (35-47) % MCV (78-100) fl MCH (26-32) pg MCHC (32-36) g/dl RDW (11.5-14.0) % Plt Count (150-450) K/mm3 MPV (7.5-11.0) fl D-Dimer (215-500) ng/mL Sodium (137-145) mmol/L Potassium (3.5-5.1) mmol/L Chloride (98-107) mmol/L Carbon Dioxide (22-30) mmol/L Anion Gap (5-15) MEQ/L BUN (7-17) mg/dL Creatinine (0.52-1.04) mg/dL Estimated GFR ML/MIN Glucose (74-106) mg/dL Calcium (8.4-10.2) mg/dL Magnesium (1.6-2.3) mg/dL Total Bilirubin (0.2-1.3) mg/dL AST (14-36) U/L ALT (0-35) U/L Alkaline Phosphatase (38-126) U/L Troponin I < 0.012 (0.000-0.034) ng/mL NT-Pro-B Natriuret Pep (0-450) pg/mL Serum Total Protein (6.3-8.2) g/dL Albumin (3.5-5.0) g/dL - Progress Progress: improved Air Movement: good Blood Culture(s) Obtained: No Antibiotics given: Yes Counseled pt/family regarding: lab results, diagnosis, need for follow-up, rad results - Departure Departure Disposition: Home Clinical Impression: COPD exacerbation Asthma attack Qualifiers: Asthma severity: moderate Asthma persistence: unspecified Qualified Code(s): J45.901 - Unspecified asthma with (acute) exacerbation Condition: Stable Critical Care Time: Yes Critical Care Time(excluding separately billable procedures): Critical 30-74 mins Referrals: MARBELLA COLON MD [Primary Care Provider] - Follow Up with PCP/3 days Instructions: Chronic Obstructive Pulmonary Disease, Exacerbation of COPD (DC), Asthma, Adult (DC) Additional Instructions: Discharge/Care Plan LOVE MASONJairon was seen on 12/30/20 in the Emergency Room. The patient was counseled regarding Diagnosis,Lab results, Imaging studies, need for follow up and when to return to the Emergency Room. Prescriptions given: Discharge Note I have spoken with the patient and/or caregivers. I have explained the patient's condition, diagnosis and treatment plan based on the information available to me at this time. I have answered the patient's and/or caregiver's questions and addressed any concerns. The patient and/or caregivers have as good understanding of the patient's diagnosis, condition and treatment plan as can be expected at this point. The vital signs have been stable. The patient's condition is stable and appropriate for discharge from the emergency department. The patient will pursue further outpatient evaluation with the primary care physician or other designated or consulting physician as outlined in the discharge instructions. The patient and/or caregivers are agreeable to this plan of care and follow-up instructions have been explained in detail. The patient and/or caregivers have received these instruction. The patient/and or caregivers are aware that any significant change in condition or worsening of symptoms s hould prompt an immediate return to this or the closest emergency department or call 911. SHAWNEE MASON was seen on 12/30/20 n the Emergency Room. At that time you were treated for an emergent condition, during your visit Laboratory, Radiology and/or other procedures may have been ordered. It is very important that you follow-up with your Primary Care Physician MARBELLA COLON within the next 24- 48 hours to review your Emergency Room visit and the final results of testing that was ordered. Some test results such as Urine Cultures, Blood Cultures, and other cultures if ordered will not be finalized for 24-48 hours. If you do not have a Primary Care Provider please call the medical records department at [phone] ext [phone] to obtain a copy of your results or you may sign into our patient portal to obtain these results by visiting us @ [email or web address] and completing the following steps: 1. Click on the Patient Portal link 2. Click the Patient Self Enrollment Link to complete the enrollment form and entering your 3. Once the enrollment form is completed you will receive an email with a temporary ID and password at the email address you provided. 4. Next choose a user name and password. Your user name must be at least 4 characters long and your password must be at least 4 characters long. 5. Choose a security question from the list and provide your answer to the question. If you already have signed into the Health Portal you may access your Health Care Information 11/11 by the following steps: 1. Login to our website @ [email or web address] 2. Enter your original user name and password. FAQS The [facility] Health Portal is an online tool that contains your Lab Results, Radiology Reports, Visit History, Discharge Instructions and Health Summary Lab and Radiology Results will not be available for 72 hours on the portal. The Portal is a secure site, passwords are encryted and URLs are re-written so they cannot be copied and pasted. You and authorized family members are the only ones who can access your Portal. Also there is a timeout feature that protects your information if you leave the Portal page open. If you have technical difficulty please use the Contact Us link on the page this will allow you to submit any questions you have regarding the Portal or you may contact the Medical Record Department at [phone] ext [phone]. Prescriptions: Methylprednisolone Packet [Medrol Dosepack] 4 mg PO UD #30 packet Azithromycin [Zithromax] 250 mg PO UD 5 Days #6 tablet
[2020-12-30] MEDS ORDERED: PULMICORT 0.5 MG/2 ML RESPULES IH STA (17:53)
[2020-12-30] MEDS ORDERED: Zithromax 500 MG/ 250 ML NaCl Premix 500 MG/250 ML IVPB IV ONE (18:13)
[2020-12-30 18:24] VITALS: O2SAT 98
[2020-12-30 18:47] VITALS: BP 136/94; PULSE 97
[2020-12-30 19:15] LABS: Lymphocytes 8 % (24-44); Monocyte 1 % (0.0-12.0); Neutrophils 91 % (36.0-66.0); Platelet Estimate NORMAL (NORMAL); Total Cells Counted 100
--- NOTE | 2020-12-30 20:36 | XRAY ---
Indication: Short of breath. Comparison: December 16, 2020. PA/lateral chest again demonstrates normal heart and lungs. Bony thorax intact. No new/acute findings.
== END 2020-12-30 18:57 | disposition home or self-care (01) ==
LOC: ED 16:25
DX: J44.1 Chronic obstructive pulmonary disease with (acute) exacerbation (principal); J45.901 Unspecified asthma with (acute) exacerbation; Z79.899 Other long term (current) drug therapy
CPT/HCPCS: 36000; 36415; 71046; 80053; 83735; 83880; 84484; 85025; 85379; 93005; 94640; 96374; 99284; 99291; J0456; J2930; A9270-GY

== ENCOUNTER 2021-02-06 18:59 | Observation (INO) | payer OTHER ==
[2021-02-06] MEDS ORDERED: DUONEB 0.5-3 MG/3 ml Neb IH ONE ×2 (19:37→19:43)
[2021-02-06] MEDS ORDERED: solu-MEDROL 125 MG, Sterile H2O 10 ml 2 ML IV ONE ×2 (19:37)
[2021-02-06] MEDS ORDERED: solu-MEDROL ONE (19:42)
[2021-02-06] MEDS ORDERED: Sterile H2O 10 ml IJ ONE (19:42)
[2021-02-06 19:58] LABS: Hematocrit 45.8 % (35-47); Hemoglobin 15.6 gm/dl (12.0-16.0); Mean Cell Volume 96.4 fl (78-100); Mean Corpuscular Hemoglobin 32.8 pg (26-32); Mean Corpuscular Hgb Concent. 34.1 g/dl (32-36); Mean Platelet Volume 9.9 fl (7.5-11.0); Platelet Count 396 K/mm3 (150-450); Red Blood Count 4.75 M/mm3 (4.1-5.4); Red Cell Distribution Width 12.9 % (11.5-14.0)
[2021-02-06] MEDS ORDERED: LEVOFLOXACIN 750MG/150ML D5W 750 MG/150 ML BAG IV STA (20:00)
--- NOTE | 2021-02-06 20:01 | ERPHSYRPT ---
- History of Present Illness Time Seen by Provider: 02/06/21 19:33 Source: patient Exam Limitations: no limitations Patient Subjective Stated Complaint: C/O SOB and chest pain that started a few days ago. Triage Nursing Assessment: Ambulated to ED wheeling portable 02 tank with her. Patient is alert and oriented and able to respond appropriately. SOB observed with some labored breaths. Inspiratory wheezes throughout with Expiratory rhales and rhonchi. Physician History: 45 years old female with history of chronic respiratory failure secondary to COPD on 3 L oxygen, tobacco abuse presented in the ER with chief complaint of increasing shortness of breath for the last 3 to 4 days with progressive worsening despite using her routine medications and inhaler and oxygen. Patient reports increased wheezing and crackling all over. Also reports increased chest tightness and pressure bilaterally which gets worse with minimal activity. Timing/Duration: day(s) (4), constant, gradual onset, worse Activities at Onset: activity, rest Severity of Dyspnea-Max: moderate Severity of Dyspnea-Current: moderate Possible Cause: frequent episodes Modifying Factors: Improves With: albuterol nebulizer, oxygen. Worsens With: coughing, exertion Associated Symptoms: anxiety, cough, chest pain/discomfort, wheezing, weakness, heaviness, productive cough, tightness, No fever Allergies/Adverse Reactions: cephalexin [From Keflex] Allergy (Verified 02/06/21 19:13) ketorolac [From Toradol] Allergy (Verified 02/06/21 19:13) lisinopril Allergy (Verified 02/06/21 19:13) Sulfa (Sulfonamide Antibiotics) Allergy (Verified 02/06/21 19:13) Home Medications: Gabapentin 100 mg [Neurontin 100 MG] 300 mg PO BID 09/22/20 [History] Paroxetine HCl 1 tab PO DAILY 09/22/20 [History] Cyclobenzaprine HCl 5 mg PO BID PRN 10/29/20 [History] Omeprazole 20 mg PO DAILY 02/06/21 [History] Hx Tetanus, Diphtheria Vaccination/Date Given: Yes Hx Influenza Vaccination/Date Given: Yes Hx Pneumococcal Vaccination/Date Given: Yes Immunizations Up to Date: Yes Travel Risk - International Travel Have you traveled outside of the country in past 3 weeks: No - Coronavirus Screening Are you exhibiting any of the following symptoms?: Yes Symptoms: Cough: New Onset, Shortness of Breath Close contact with a COVID-19 positive Pt in past 14-21 Days: No - Vaccine Status Have you recieved a Covid-19 vaccination: No - Review of Systems Constitutional: Fatigue, Weakness Eyes: No Symptoms Ears, Nose, & Throat: No Symptoms Respiratory: Cough, Dyspnea, Wheezing Cardiac: Chest Pain, Palpitations Abdominal/Gastrointestinal: No Symptoms Genitourinary Symptoms: No Symptoms Musculoskeletal: Back Pain Neurological: No Symptoms Psychological: Anxiety Endocrine: No Symptoms Hematologic/Lymphatic: No Symptoms Immunological/Allergic: No Symptoms - Past Medical History Pertinent Past Medical History: Yes Neurological History: Migraines, Peripheral Neuropathy, TIA ENT History: No Pertinent History Cardiac History: Hypertension Respiratory History: Asthma, COPD, Emphysema Endocrine Medical History: No Pertinent History Musculoskeletal History: Osteoarthritis, Other GI Medical History: Pancreatitis History: No Pertinent History Psycho-Social History: Anxiety Female Reproductive Disorders: No Pertinent History Other Medical History: SCIATIC NERVE PROBLEMS - Past Surgical History Past Surgical History: Yes Neuro Surgical History: No Pertinent History Cardiac: No Pertinent History Respiratory: No Pertinent History Gastrointestinal: No Pertinent History Genitourinary: No Pertinent History Musculoskeletal: No Pertinent History Female Surgical History: Tubal Ligation Other Surgical History: jaw fx repair, tubal pregnancies - Social History Smoking Status: Current some day smoker How long have you smoked: 13 y.o. Exposure to second hand smoke: Yes Drug Use: none Patient Lives Alone: No - Female History Hx Now: No - Nursing Vital Signs Nursing Vital Signs: Initial Vital Signs Temperature 97.2 F 02/06/21 19:00 Pulse Rate 114 H 02/06/21 19:00 Respiratory Rate 30 H 02/06/21 19:00 O2 Sat by Pulse Oximetry 97 02/06/21 19:00 Pain Scale Pain Intensity 0 - Physical Exam General Appearance: mild distress, alert, anxiety Eye Exam: PERRL/EOMI, eyes nml inspection Ears, Nose, Throat Exam: hearing grossly normal, pharyngeal erythema Neck Exam: normal inspection, full range of motion Respiratory Exam: diminished breath sounds, accessory muscle use, crackles/rales, rhonchi, wheezing Cardiovascular/Chest Exam: normal heart sounds, tachycardia Abdominal/Gastrointestinal Exam: soft, normal bowel sounds Extremity Exam: non-tender, normal range of motion Neurologic Exam: alert, oriented x 3, cooperative Skin Exam: normal color SpO2 Interpretation: normal SpO2: 97 O2 Delivery: Room Air - Course EKG Interpreted by Me: RATE (103), Sinus Tach, NORMAL AXIS, NORMAL INTERVALS, Q- wave (Anteroseptal) Ordered Tests: Active Orders 24 hr Category Date Time Status Pan Devulcanizer Helper STAT Care 02/06/21 19:38 Active EKG-ER Only STAT Care 02/06/21 19:37 Active IV Insertion STAT Care 02/06/21 19:37 Active Oxygen-ED Only Nasal Cannula 3 lpm Care 02/06/21 19:40 Active CHEST 1 VIEW (PORTABLE) Stat Exams 02/06/21 20:02 Taken BLOOD CULTURE Stat Lab 02/06/21 19:53 Received CBC W DIFF Stat Lab 02/06/21 19:52 Completed CMP Stat Lab 02/06/21 19:52 Completed Lactic Acid Stat Lab 02/06/21 19:48 Completed MAGNESIUM Stat Lab 02/06/21 19:52 Completed Manual Differential NC Stat Lab 02/06/21 19:52 Completed NT PRO BNP Stat Lab 02/06/21 19:52 Completed TROPONIN Q3H Lab 02/06/21 19:52 Completed TROPONIN Q3H Lab 02/06/21 22:45 Ordered TROPONIN Q3H Lab 02/07/21 01:45 Ordered TROPONIN Q3H Lab 02/07/21 04:45 Ordered TROPONIN Q3H Lab 02/07/21 07:45 Ordered Respiratory Therapy Assessment DAILY RT 02/06/21 20:48 Active Medication Summary Generic Name Dose Route Start Last Admin Trade Name Freq PRN Reason Stop Dose Admin Levofloxacin/Dextrose 750 mg in 150 mls @ 100 mls/hr 02/06/21 20:00 02/06/21 20:13 Levofloxacin 750mg/150ml D5w IV 02/06/21 21:29 100 ml/hr STAT STA 100 mls/hr Administration Discontinued Medications Generic Name Dose Route Start Last Admin Trade Name Freq PRN Reason Stop Dose Admin Albuterol/Ipratropium 3 ml 02/06/21 19:37 02/06/21 19:45 Ipratropium/Albuterol Sulfate 3 Ml Ampul.Neb IH 02/06/21 19:38 3 ml STAT ONE Administration Albuterol/Ipratropium Confirm 02/06/21 19:43 Ipratropium/Albuterol Sulfate 3 Ml Ampul.Neb Administered 02/06/21 19:44 Dose 3 ml IH .STK-MED ONE Methylprednisolone Sodium 0 mg 02/06/21 19:37 02/06/21 19:44 Succinate 125 mg/ Sterile IV 02/06/21 19:38 125 mg Water 2 ml STAT ONE Administration Levofloxacin/Dextrose Confirm 02/06/21 20:11 Levofloxacin 750mg/150ml D5w Administered 02/06/21 20:12 Dose 750 mg in 150 mls @ ud IV .STK-MED ONE Methylprednisolone Sodium Succinate Confirm 02/06/21 19:42 Methylprednis Sod Succ 125 Mg/2 Ml Vial Administered 02/06/21 19:43 Dose 125 mg .ROUTE .STK-MED ONE Sterile Water Confirm 02/06/21 19:42 Water For Injection,Sterile 10 Ml Vial Administered 02/06/21 19:43 Dose 10 ml IJ .STK-MED ONE Lab/Rad Data: Laboratory Result Diagrams 02/06/21 19:52 02/06/21 19:52 Laboratory Results 02/06/21 02/06/21 02/06/21 Range/Units 19:52 19:52 19:52 WBC 11.0 H (4.0-10.5) K/mm3 RBC 4.75 (4.1-5.4) M/mm3 Hgb 15.6 (12.0-16.0) gm/dl Hct 45.8 (35-47) % MCV 96.4 (78-100) fl MCH 32.8 H (26-32) pg MCHC 34.1 (32-36) g/dl RDW 12.9 (11.5-14.0) % Plt Count 396 (150-450) K/mm3 MPV 9.9 (7.5-11.0) fl Sodium 141 (137-145) mmol/L Potassium 3.3 L (3.5-5.1) mmol/L Chloride 101 (98-107) mmol/L Carbon Dioxide 32 H (22-30) mmol/L Anion Gap 10.7 (5-15) MEQ/L BUN 8 (7-17) mg/dL Creatinine 0.68 (0.52-1.04) mg/dL Estimated GFR > 60.0 ML/MIN Glucose 97 (74-106) mg/dL Lactic Acid (0.4-2.0) Calcium 8.8 (8.4-10.2) mg/dL Magnesium 1.9 (1.6-2.3) mg/dL Total Bilirubin 0.20 (0.2-1.3) mg/dL AST 29 (14-36) U/L ALT 26 (0-35) U/L Alkaline Phosphatase 81 (38-126) U/L Troponin I < 0.012 (0.000-0.034) ng/mL NT-Pro-B Natriuret Pep 28.1 (0-450) pg/mL Serum Total Protein 6.6 (6.3-8.2) g/dL Albumin 3.9 (3.5-5.0) g/dL 02/06/21 Range/Units 19:48 WBC (4.0-10.5) K/mm3 RBC (4.1-5.4) M/mm3 Hgb (12.0-16.0) gm/dl Hct (35-47) % MCV (78-100) fl MCH (26-32) pg MCHC (32-36) g/dl RDW (11.5-14.0) % Plt Count (150-450) K/mm3 MPV (7.5-11.0) fl Sodium (137-145) mmol/L Potassium (3.5-5.1) mmol/L Chloride (98-107) mmol/L Carbon Dioxide (22-30) mmol/L Anion Gap (5-15) MEQ/L BUN (7-17) mg/dL Creatinine (0.52-1.04) mg/dL Estimated GFR ML/MIN Glucose (74-106) mg/dL Lactic Acid 1.4 (0.4-2.0) Calcium (8.4-10.2) mg/dL Magnesium (1.6-2.3) mg/dL Total Bilirubin (0.2-1.3) mg/dL AST (14-36) U/L ALT (0-35) U/L Alkaline Phosphatase (38-126) U/L Troponin I (0.000-0.034) ng/mL NT-Pro-B Natriuret Pep (0-450) pg/mL Serum Total Protein (6.3-8.2) g/dL Albumin (3.5-5.0) g/dL - Progress Progress: improved, re-examined Air Movement: fair Progress Note: 02/06/21 21:13 45 years old is evaluated in the ER for increasing shortness of breath. She is given DuoNeb along with Solu-Medrol and a dose of antibiotic. Work-up showed white count of 11, mildly low potassium of 3.3, negative troponins. EKG showed sinus tach without any ST elevations. Patient is feeling better on reevaluation and currently on [address] Patel and patient is being admitted for observation. Blood Culture(s) Obtained: Yes Antibiotics given: Yes Will see patient in: hospital (observation) Counseled pt/family regarding: lab results, diagnosis, rad results - Departure Departure Disposition: Home Clinical Impression: COPD exacerbation Condition: Stable Critical Care Time: No Referrals: MARBELLA COLON MD [Primary Care Provider] - Instructions: Chronic Obstructive Pulmonary Disease
[2021-02-06] MEDS ORDERED: LEVOFLOXACIN 750MG/150ML D5W 750 MG/150 ML BAG IV ONE (20:11)
[2021-02-06 20:48] LABS: ALBUMIN 3.9 g/dL (3.5-5.0); ALKALINE PHOSPHATASE 81 U/L (38-126); ANION GAP 10.7 MEQ/L (5-15); BLOOD UREA NITROGEN 8 mg/dL (7-17); CHLORIDE 101 mmol/L (98-107); Calcium 8.8 mg/dL (8.4-10.2); Carbon Dioxide 32 mmol/L (22-30); Creatinine 1 0.68 mg/dL (0.52-1.04); EST GLOMERULAR FILTRATION RATE > 60.0 ML/MIN; Glucose 97 mg/dL (74-106); MAGNESIUM 1.9 mg/dL (1.6-2.3); NT PRO BNP 28.1 pg/mL (0-450); Potassium 3.3 mmol/L (3.5-5.1); SGOT/AST 29 U/L (14-36); SGPT/ALT 26 U/L (0-35); SODIUM 141 mmol/L (137-145); Total Protein 6.6 g/dL (6.3-8.2)
[2021-02-06 21:23] LABS: Eosinophil 3 % (0.00-3.0); Lymphocytes 33 % (24-44); Monocyte 10 % (0.0-12.0); Neutrophils 54 % (36.0-66.0); Total Cells Counted 100
[2021-02-06 21:24] LABS: Platelet Estimate NORMAL (NORMAL)
[2021-02-07] MEDS ORDERED: TYLENOL 325 MG PO PRN (00:56)
[2021-02-07] MEDS: DUONEB 0.5-3 MG/3 ml Neb IH SCH ×2 (01:40→06:35)
[2021-02-07 05:14] LABS: Hematocrit 44.2 % (35-47); Hemoglobin 14.8 gm/dl (12.0-16.0); Mean Cell Volume 96.7 fl (78-100); Mean Corpuscular Hemoglobin 32.4 pg (26-32); Mean Corpuscular Hgb Concent. 33.5 g/dl (32-36); Mean Platelet Volume 9.9 fl (7.5-11.0); Platelet Count 384 K/mm3 (150-450); Red Blood Count 4.57 M/mm3 (4.1-5.4); Red Cell Distribution Width 12.8 % (11.5-14.0); White Blood Count 13.7 K/mm3 (4.0-10.5)
[2021-02-07 05:35] LABS: ALBUMIN 4.1 g/dL (3.5-5.0); ALKALINE PHOSPHATASE 79 U/L (38-126); ANION GAP 13.8 MEQ/L (5-15); BLOOD UREA NITROGEN 11 mg/dL (7-17); CHLORIDE 101 mmol/L (98-107); Calcium 9.2 mg/dL (8.4-10.2); Carbon Dioxide 28 mmol/L (22-30); Creatinine 1 0.71 mg/dL (0.52-1.04); EST GLOMERULAR FILTRATION RATE > 60.0 ML/MIN; Glucose 237 mg/dL (74-106); Potassium 3.6 mmol/L (3.5-5.1); SGOT/AST 28 U/L (14-36); SGPT/ALT 28 U/L (0-35); SODIUM 139 mmol/L (137-145); Total Protein 6.9 g/dL (6.3-8.2)
[2021-02-07 06:30] LABS: Lymphocytes 5 % (24-44); Monocyte 1 % (0.0-12.0); Neutrophils 94 % (36.0-66.0); Platelet Estimate NORMAL (NORMAL); Total Cells Counted 100
[2021-02-07 06:42] VITALS: PULSE 98; O2SAT 95
[2021-02-07 07:51] VITALS: BP 126/97
--- NOTE | 2021-02-07 08:43 | XRAY ---
Indication: Short of breath. COPD. Comparison: December 30, 2020. Portable apical lordotic chest again demonstrates normal heart and lungs. Bony thorax intact. No new/acute findings.
[2021-02-07] MEDS ORDERED: PROTONIX 40 MG IV IV SCH (10:00)
--- NOTE | 2021-02-07 10:02 | PCM.SSS ---
History of Present Illness - Chief Complaint Chief Complaint: COPD exacerbation History of Present Illness: is a 45 year old female with advanced copd, chronic hypoxemic respiratory failure on home oxygen and she continues to smoke, she arrived with increase in shortness of breath, nonproductive cough. feeling much better with 1 dose of IV steroids and nebs with abx therapy, insists to go home to care for her pet dog. she feels back to her baseline, knows she should quit smoking. has increase in anxiety which is worsening her dyspnea. - Review of Systems Constitutional: No Fever, No Chills Respiratory: Cough, Short Of Breath, Wheezing Cardiac: No Chest Pain, No Edema, No Syncope Abdominal/Gastrointestinal: No Abdominal Pain, No Nausea, No Vomiting, No Diarrhea Skin: No Rash All Other Systems: Reviewed and Negative Medications & Allergies Home Medications: Home Medication List Albuterol 8 gm Mdi Hfa [Ventolin Hfa MDI] 8 gm IH Q4H #1 hfa.aer.ad 06/24/20 [Rx Confirmed 02/06/21] Albuterol/Ipratropium 3ml Neb* [DUONEB 0.5-3 MG/3 ml Neb] 3 ml IH Q6H PRN PRN #100 ampul.neb 06/29/20 [Rx Confirmed 02/06/21] Amlodipine Besylate 5 mg [Norvasc 5 mg] 5 mg PO DAILY #30 tablet 06/29/20 [Rx Confirmed 02/06/21] Fluticasone/Salmeterol 115/21 [Advair Hfa 115/21 Common canister*] 2 puff IH BIDRT #1 aer.w.adap 06/29/20 [Rx Confirmed 02/06/21] Tiotropium [place] Inhaler [Spiriva 18 Mcg/Cap Inhaler] 1 ea IH DAILY #30 inh 06/29/20 [Rx Confirmed 02/06/21] Gabapentin 100 mg [Neurontin 100 MG] 300 mg PO BID 09/22/20 [History Confirmed 02/06/21] Cyclobenzaprine HCl 5 mg PO BID PRN 10/29/20 [History Confirmed 02/06/21] Omeprazole 40 mg PO DAILY 02/06/21 [History Confirmed 02/07/21] Buspirone HCl 5 mg [Buspar 5 mg] 10 mg PO BID 02/07/21 [History Confirmed 02/07/21] Levofloxacin [Levaquin] 500 mg PO DAILY #7 tablet 02/07/21 [Rx] Levofloxacin [Levofloxacin 500 MG Tablet] 500 mg PO DAILY #7 tablet 02/07/21 [Rx] Paroxetine HCl 20 mg [Paxil 20 MG] 20 mg PO DAILY #30 tablet 02/07/21 [Rx] Prednisone 20 mg [Deltasone 20 mg] 20 mg PO UD #18 tablet 02/07/21 [Rx] Allergies/Adverse Reactions: Allergies Allergy/AdvReac Type Severity Reaction Status Date / Time cephalexin [From Keflex] Allergy Verified 02/06/21 19:13 ketorolac [From Toradol] Allergy Verified 02/06/21 19:13 lisinopril Allergy Verified 02/06/21 19:13 Sulfa (Sulfonamide Allergy Verified 02/06/21 19:13 Antibiotics) - Past Medical History Past Medical History: Yes Neurological History: Migraines, Peripheral Neuropathy, TIA ENT History: No Pertinent History Cardiac History: Hypertension Respiratory History: Asthma, COPD, Emphysema Endocrine Medical History: No Pertinent History Musculoskelatal History: Arthritis, Osteoarthritis, Other GI Medical History: Pancreatitis History: No Pertinent History Pyscho-Social History: Anxiety Reproductive Disorders: No Pertinent History Comment: SCIATIC NERVE PROBLEMS - Female History Hx Last Menstrual Period: 1 week Are you now?: No - Past Surgical History Past Surgical History: Yes Neuro Surgical History: No Pertinent History Cardiac History: No Pertinent History Respiratory Surgery: No Pertinent History GI Surgical History: No Pertinent History Genitourinary Surgical Hx: No Pertinent History Musculskeletal Surgical Hx: No Pertinent History Female Surgical History: Tubal Ligation Other Surgical History: jaw fx repair, tubal pregnancies - Social History Smoking Status: Current every day smoker How long have you smoked: 30 yrs Exposure to second hand smoke: Yes Alcohol: Occasionally Drug Use: none - Physical Exam Vital Signs: Vital Signs - 24 hr Temp Pulse Resp BP Pulse Ox 02/07/21 07:50 97.7 F 98 H 20 126/97 95 02/07/21 06:40 98 H 20 95 02/07/21 04:00 97.9 F 106 H 20 159/92 94 L 02/07/21 01:25 101 H 20 96 02/07/21 01:16 97.5 F 97 H 18 156/100 97 02/06/21 22:00 96 H 18 143/88 97 02/06/21 21:14 97 02/06/21 21:00 98 H 18 149/107 96 02/06/21 20:00 81 28 H 111/67 98 02/06/21 19:45 98 H 20 99 02/06/21 19:00 97.2 F 114 H 30 H 97 General Appearance: no apparent distress, alert Neurologic Exam: alert, oriented x 3, cooperative Ears, Nose, Throat Exam: normal ENT inspection, TMs normal, pharynx normal, moist mucous membranes Neck Exam: normal inspection, non-tender, supple, full range of motion Respiratory Exam: prolonged expirations, wheezing, No respiratory distress, No accessory muscle use Cardiovascular Exam: regular rate/rhythm, normal heart sounds, normal peripheral pulses Gastrointestinal/Abdomen Exam: soft, normal bowel sounds, No tenderness, No mass Extremity Exam: normal inspection, normal range of motion, pelvis stable Skin Exam: normal color, warm, dry, No rash Results - Labs Lab/Micro Results: Lab Results-Last 24 Hours 02/06/21 02/06/21 02/06/21 Range/Units 19:48 19:52 19:52 WBC 11.0 H (4.0-10.5) K/mm3 RBC 4.75 (4.1-5.4) M/mm3 Hgb 15.6 (12.0-16.0) gm/dl Hct 45.8 (35-47) % MCV 96.4 (78-100) fl MCH 32.8 H (26-32) pg MCHC 34.1 (32-36) g/dl RDW 12.9 (11.5-14.0) % Plt Count 396 (150-450) K/mm3 MPV 9.9 (7.5-11.0) fl Segmented Neutrophils 54 (36.0-66.0) % Lymphocytes (Manual) 33 (24-44) % Monocytes (Manual) 10 (0.0-12.0) % Eosinophils (Manual) 3 (0.00-3.0) % Platelet Estimate NORMAL (NORMAL) RBC Morphology NORMAL Sodium 141 (137-145) mmol/L Potassium 3.3 L (3.5-5.1) mmol/L Chloride 101 (98-107) mmol/L Carbon Dioxide 32 H (22-30) mmol/L Anion Gap 10.7 (5-15) MEQ/L BUN 8 (7-17) mg/dL Creatinine 0.68 (0.52-1.04) mg/dL Estimated GFR > 60.0 ML/MIN Glucose 97 (74-106) mg/dL POC Glucometer (74 to 106) mg/dL Lactic Acid 1.4 (0.4-2.0) Calcium 8.8 (8.4-10.2) mg/dL Magnesium 1.9 (1.6-2.3) mg/dL Total Bilirubin 0.20 (0.2-1.3) mg/dL AST 29 (14-36) U/L ALT 26 (0-35) U/L Alkaline Phosphatase 81 (38-126) U/L Troponin I (0.000-0.034) ng/mL NT-Pro-B Natriuret Pep 28.1 (0-450) pg/mL Serum Total Protein 6.6 (6.3-8.2) g/dL Albumin 3.9 (3.5-5.0) g/dL SARS-CoV-2 (PCR) (NEGATIVE) 02/06/21 02/06/21 02/06/21 Range/Units 19:52 21:48 22:45 WBC (4.0-10.5) K/mm3 RBC (4.1-5.4) M/mm3 Hgb (12.0-16.0) gm/dl Hct (35-47) % MCV (78-100) fl MCH (26-32) pg MCHC (32-36) g/dl RDW (11.5-14.0) % Plt Count (150-450) K/mm3 MPV (7.5-11.0) fl Segmented Neutrophils (36.0-66.0) % Lymphocytes (Manual) (24-44) % Monocytes (Manual) (0.0-12.0) % Eosinophils (Manual) (0.00-3.0) % Platelet Estimate (NORMAL) RBC Morphology Sodium (137-145) mmol/L Potassium (3.5-5.1) mmol/L Chloride (98-107) mmol/L Carbon Dioxide (22-30) mmol/L Anion Gap (5-15) MEQ/L BUN (7-17) mg/dL Creatinine (0.52-1.04) mg/dL Estimated GFR ML/MIN Glucose (74-106) mg/dL POC Glucometer (74 to 106) mg/dL Lactic Acid (0.4-2.0) Calcium (8.4-10.2) mg/dL Magnesium (1.6-2.3) mg/dL Total Bilirubin (0.2-1.3) mg/dL AST (14-36) U/L ALT (0-35) U/L Alkaline Phosphatase (38-126) U/L Troponin I < 0.012 < 0.012 (0.000-0.034) ng/mL NT-Pro-B Natriuret Pep (0-450) pg/mL Serum Total Protein (6.3-8.2) g/dL Albumin (3.5-5.0) g/dL SARS-CoV-2 (PCR) NEGATIVE (NEGATIVE) 02/07/21 02/07/21 02/07/21 Range/Units 04:19 04:19 06:49 WBC 13.7 H (4.0-10.5) K/mm3 RBC 4.57 (4.1-5.4) M/mm3 Hgb 14.8 (12.0-16.0) gm/dl Hct 44.2 (35-47) % MCV 96.7 (78-100) fl MCH 32.4 H (26-32) pg MCHC 33.5 (32-36) g/dl RDW 12.8 (11.5-14.0) % Plt Count 384 (150-450) K/mm3 MPV 9.9 (7.5-11.0) fl Segmented Neutrophils 94 H (36.0-66.0) % Lymphocytes (Manual) 5 L (24-44) % Monocytes (Manual) 1 (0.0-12.0) % Eosinophils (Manual) (0.00-3.0) % Platelet Estimate NORMAL (NORMAL) RBC Morphology NORMAL Sodium 139 (137-145) mmol/L Potassium 3.6 (3.5-5.1) mmol/L Chloride 101 (98-107) mmol/L Carbon Dioxide 28 (22-30) mmol/L Anion Gap 13.8 (5-15) MEQ/L BUN 11 (7-17) mg/dL Creatinine 0.71 (0.52-1.04) mg/dL Estimated GFR > 60.0 ML/MIN Glucose 237 H (74-106) mg/dL POC Glucometer 159 H (74 to 106) mg/dL Lactic Acid (0.4-2.0) Calcium 9.2 (8.4-10.2) mg/dL Magnesium (1.6-2.3) mg/dL Total Bilirubin 0.30 (0.2-1.3) mg/dL AST 28 (14-36) U/L ALT 28 (0-35) U/L Alkaline Phosphatase 79 (38-126) U/L Troponin I (0.000-0.034) ng/mL NT-Pro-B Natriuret Pep (0-450) pg/mL Serum Total Protein 6.9 (6.3-8.2) g/dL Albumin 4.1 (3.5-5.0) g/dL SARS-CoV-2 (PCR) (NEGATIVE) Accuchecks Date 02/07/21 - Radiology Impressions Radiology Exams & Impressions: Radiology Procedures Category Date Time Status CHEST 1 VIEW (PORTABLE) Stat Exams 02/06/21 20:02 Completed - Other Procedures and Tests Respiratory Therapy 02/06/21 20:48 Respiratory Therapy Assessment DAILY 02/07/21 00:56 Oxygen Nasal Cannula 4 lpm Assessment/Plan (1) COPD exacerbation Current Visit: Yes Status: Acute Assessment & Plan: home on po levaquin and prednisone Code(s): J44.1 - CHRONIC OBSTRUCTIVE PULMONARY DISEASE W (ACUTE) EXACERBATION (2) Chronic hypoxemic respiratory failure Current Visit: No Status: Acute (3) Anxiety Current Visit: No Status: Acute Code(s): F41.9 - ANXIETY DISORDER, UNSPECIFIED Hospital Summary - Vitals & Intake/Output Vital Signs: Vital Signs Temperature 97.7 F 02/07/21 07:50 Pulse Rate 98 H 02/07/21 07:50 Respiratory Rate 20 02/07/21 07:50 Blood Pressure 126/97 02/07/21 07:50 O2 Sat by Pulse Oximetry 95 02/07/21 07:50 Intake & Output: Intake & Output 02/04/21 02/05/21 02/06/21 10/20/21 11:59 11:59 11:59 11:59 Intake Total 380 Balance 380 Weight 89.8 kg - Lab Result Diagrams: 02/07/21 04:19 02/07/21 04:19 Lab Results-Last 24 Hrs: Lab Results-Last 24 Hours 02/06/21 02/06/21 02/06/21 Range/Units 19:48 19:52 19:52 WBC 11.0 H (4.0-10.5) K/mm3 RBC 4.75 (4.1-5.4) M/mm3 Hgb 15.6 (12.0-16.0) gm/dl Hct 45.8 (35-47) % MCV 96.4 (78-100) fl MCH 32.8 H (26-32) pg MCHC 34.1 (32-36) g/dl RDW 12.9 (11.5-14.0) % Plt Count 396 (150-450) K/mm3 MPV 9.9 (7.5-11.0) fl Segmented Neutrophils 54 (36.0-66.0) % Lymphocytes (Manual) 33 (24-44) % Monocytes (Manual) 10 (0.0-12.0) % Eosinophils (Manual) 3 (0.00-3.0) % Platelet Estimate NORMAL (NORMAL) RBC Morphology NORMAL Sodium 141 (137-145) mmol/L Potassium 3.3 L (3.5-5.1) mmol/L Chloride 101 (98-107) mmol/L Carbon Dioxide 32 H (22-30) mmol/L Anion Gap 10.7 (5-15) MEQ/L BUN 8 (7-17) mg/dL Creatinine 0.68 (0.52-1.04) mg/dL Estimated GFR > 60.0 ML/MIN Glucose 97 (74-106) mg/dL POC Glucometer (74 to 106) mg/dL Lactic Acid 1.4 (0.4-2.0) Calcium 8.8 (8.4-10.2) mg/dL Magnesium 1.9 (1.6-2.3) mg/dL Total Bilirubin 0.20 (0.2-1.3) mg/dL AST 29 (14-36) U/L ALT 26 (0-35) U/L Alkaline Phosphatase 81 (38-126) U/L Troponin I (0.000-0.034) ng/mL NT-Pro-B Natriuret Pep 28.1 (0-450) pg/mL Serum Total Protein 6.6 (6.3-8.2) g/dL Albumin 3.9 (3.5-5.0) g/dL SARS-CoV-2 (PCR) (NEGATIVE) 02/06/21 02/06/21 02/06/21 Range/Units 19:52 21:48 22:45 WBC (4.0-10.5) K/mm3 RBC (4.1-5.4) M/mm3 Hgb (12.0-16.0) gm/dl Hct (35-47) % MCV (78-100) fl MCH (26-32) pg MCHC (32-36) g/dl RDW (11.5-14.0) % Plt Count (150-450) K/mm3 MPV (7.5-11.0) fl Segmented Neutrophils (36.0-66.0) % Lymphocytes (Manual) (24-44) % Monocytes (Manual) (0.0-12.0) % Eosinophils (Manual) (0.00-3.0) % Platelet Estimate (NORMAL) RBC Morphology Sodium (137-145) mmol/L Potassium (3.5-5.1) mmol/L Chloride (98-107) mmol/L Carbon Dioxide (22-30) mmol/L Anion Gap (5-15) MEQ/L BUN (7-17) mg/dL Creatinine (0.52-1.04) mg/dL Estimated GFR ML/MIN Glucose (74-106) mg/dL POC Glucometer (74 to 106) mg/dL Lactic Acid (0.4-2.0) Calcium (8.4-10.2) mg/dL Magnesium (1.6-2.3) mg/dL Total Bilirubin (0.2-1.3) mg/dL AST (14-36) U/L ALT (0-35) U/L Alkaline Phosphatase (38-126) U/L Troponin I < 0.012 < 0.012 (0.000-0.034) ng/mL NT-Pro-B Natriuret Pep (0-450) pg/mL Serum Total Protein (6.3-8.2) g/dL Albumin (3.5-5.0) g/dL SARS-CoV-2 (PCR) NEGATIVE (NEGATIVE) 02/07/21 02/07/21 02/07/21 Range/Units 04:19 04:19 06:49 WBC 13.7 H (4.0-10.5) K/mm3 RBC 4.57 (4.1-5.4) M/mm3 Hgb 14.8 (12.0-16.0) gm/dl Hct 44.2 (35-47) % MCV 96.7 (78-100) fl MCH 32.4 H (26-32) pg MCHC 33.5 (32-36) g/dl RDW 12.8 (11.5-14.0) % Plt Count 384 (150-450) K/mm3 MPV 9.9 (7.5-11.0) fl Segmented Neutrophils 94 H (36.0-66.0) % Lymphocytes (Manual) 5 L (24-44) % Monocytes (Manual) 1 (0.0-12.0) % Eosinophils (Manual) (0.00-3.0) % Platelet Estimate NORMAL (NORMAL) RBC Morphology NORMAL Sodium 139 (137-145) mmol/L Potassium 3.6 (3.5-5.1) mmol/L Chloride 101 (98-107) mmol/L Carbon Dioxide 28 (22-30) mmol/L Anion Gap 13.8 (5-15) MEQ/L BUN 11 (7-17) mg/dL Creatinine 0.71 (0.52-1.04) mg/dL Estimated GFR > 60.0 ML/MIN Glucose 237 H (74-106) mg/dL POC Glucometer 159 H (74 to 106) mg/dL Lactic Acid (0.4-2.0) Calcium 9.2 (8.4-10.2) mg/dL Magnesium (1.6-2.3) mg/dL Total Bilirubin 0.30 (0.2-1.3) mg/dL AST 28 (14-36) U/L ALT 28 (0-35) U/L Alkaline Phosphatase 79 (38-126) U/L Troponin I (0.000-0.034) ng/mL NT-Pro-B Natriuret Pep (0-450) pg/mL Serum Total Protein 6.9 (6.3-8.2) g/dL Albumin 4.1 (3.5-5.0) g/dL SARS-CoV-2 (PCR) (NEGATIVE) Micro Results-Entire Visit: Accuchecks Date 02/07/21 - Radiology Exams Ordered Rad Exams-Entire Visit: Radiology Procedures Category Date Time Status CHEST 1 VIEW (PORTABLE) Stat Exams 02/06/21 20:02 Completed - Procedures and Test Procedures and Tests throughout Hospitalization: Therapy Orders & Screens 02/06/21 20:48 Respiratory Therapy Assessment DAILY Comment: 02/07/21 00:56 Oxygen Nasal Cannula 4 lpm Comment: 02/07/21 01:53 RT Screen per Nursing Assess ONCE Comment: Protocol Order Physician Instructions: Greater than 3 points order RT Admission Screen Reason For Exam: Triggered on Admission Diagnosis: COPD exacerbation Diagnosis: COPD exacerbation Pneumonia: Yes Home O2: Yes Asthma: Yes CHF: No Home CPAP/BIPAP: Yes Home Nebs/MDI: Yes Total Points: 22 Smoking Cessation Education ONCE Comment: Diagnosis: COPD exacerbation Smoking Status: Current every day smoker How long have you smoked: 30 yrs Have you smoked in the past 12 months: Yes Approximately how many cigarettes per day: 10 Do you dip or chew tobacco: No - Discharge Disposition: Home, Self-Care Condition: Stable Prescriptions: New Prednisone 20 mg [Deltasone 20 mg] 20 mg PO UD #18 tablet Levofloxacin [Levaquin] 500 mg PO DAILY #7 tablet Paroxetine HCl 20 mg [Paxil 20 MG] 20 mg PO DAILY #30 tablet Levofloxacin [Levofloxacin 500 MG Tablet] 500 mg PO DAILY #7 tablet Continue Albuterol 8 gm Mdi Hfa [Ventolin Hfa MDI] 8 gm IH Q4H #1 hfa.aer.ad Fluticasone/Salmeterol 115/21 [Advair Hfa 115/21 Common canister*] 2 puff IH BIDRT #1 aer.w.adap Albuterol/Ipratropium 3ml Neb* [DUONEB 0.5-3 MG/3 ml Neb] 3 ml IH Q6H PRN PRN #100 ampul.neb PRN Reason: Shortness Of Breath Amlodipine Besylate 5 mg [Norvasc 5 mg] 5 mg PO DAILY #30 tablet Tiotropium [place] Inhaler [Spiriva 18 Mcg/Cap Inhaler] 1 ea IH DAILY #30 inh Gabapentin 100 mg [Neurontin 100 MG] 300 mg PO BID Cyclobenzaprine HCl 5 mg PO BID PRN PRN Reason: Muscle Spasms Omeprazole 40 mg PO DAILY Buspirone HCl 5 mg [Buspar 5 mg] 10 mg PO BID Discontinued Paroxetine HCl 1 tab PO DAILY Follow up with: MARBELLA COLON MD [Primary Care Provider] - 02/21/21 10:15 am
[2021-02-07] MEDS ORDERED: DUONEB 0.5-3 MG/3 ml Neb IH SCH (11:00)
[2021-02-07] MEDS ORDERED: Levofloxacin 500MG/100ML D5W 500 MG/100 ML BAG IV SCH (22:00)
== END 2021-02-07 10:45 | disposition home or self-care (01) ==
LOC: ED 18:59 → MED SURG 02-07 00:50
PROVIDERS: ADMIT Family Medicine; ATTEND Family Medicine
DX: J44.1 Chronic obstructive pulmonary disease with (acute) exacerbation (principal); Z99.81 Dependence on supplemental oxygen; J96.11 Chronic respiratory failure with hypoxia; I10 Essential (primary) hypertension; R07.9 Chest pain, unspecified; F41.9 Anxiety disorder, unspecified; Z79.899 Other long term (current) drug therapy; Z86.73 Personal history of transient ischemic attack (TIA), and cerebral infarction without residual deficits; Z20.822 Contact with and (suspected) exposure to COVID-19; R00.2 Palpitations
CPT/HCPCS: 36000; 36415; 71045; 80053; 82947; 83605; 83735; 83880; 84484; 85025; 87040; 93005; 93041; 93268; 94640; 94760; 96374; 99285; G0378; U0003; J1956; J2930; A9270-GY

== ENCOUNTER 2021-03-05 16:23 | Emergency (ER) | payer OTHER ==
[2021-03-05] MEDS ORDERED: solu-MEDROL 125 MG, Sterile H2O 10 ml 2 ML IV ONE ×2 (16:45)
[2021-03-05] MEDS ORDERED: DUONEB 0.5-3 MG/3 ml Neb IH ONE ×2 (16:45→17:03)
[2021-03-05] MEDS ORDERED: Zithromax 500 MG/ 250 ML NaCl Premix 500 MG/250 ML IVPB IV STA (16:48)
[2021-03-05] MEDS ORDERED: solu-MEDROL ONE (17:00)
[2021-03-05] MEDS ORDERED: Sterile H2O 10 ml IJ ONE (17:00)
[2021-03-05] MEDS ORDERED: VIBRAMYCIN 100 MG IV ONE (17:01)
[2021-03-05] MEDS ORDERED: D5w 100ML Mini Bag 100 ML 100 ML IV ONE (17:01)
--- NOTE | 2021-03-05 17:04 | XRAY ---
Indication: Short of breath. COPD. Comparison: February 06, 2021. Portable chest demonstrates new subtle bilateral mid to lower lung hazy interstitial alveolar opacities without consolidation/large effusion. Remaining heart and thorax normal.
--- NOTE | 2021-03-05 17:09 | ERPHSYRPT ---
- History of Present Illness Time Seen by Provider: 03/05/21 16:45 Source: patient Exam Limitations: no limitations Patient Subjective Stated Complaint: pt here for increase sob and cough,she has not had a breathing treatment today, aslo co sore throat, Triage Nursing Assessment: pt alert, walked in, resp labored with excertion , pt with coarse wheezes heard throughout Physician History: Patient is a 45-year-old female with a history of COPD due to chronic smoking now vapes regularly presents to our ED with progressive shortness of breath and coughing that she has been experiencing for the past several days. Patient states that her symptoms are typical of her usual COPD exacerbation. Patient admits to a cough. Shortness of breath occurs with exertion. No chest pain. Patient does have a slight sore throat which he experiences only when she coughs. No nausea vomiting or diaphoresis. No rash. Symptoms are mild to moderate in intensity. Patient voices no other complaints or concerns at this time. Timing/Duration: day(s) (2 to 3 days) Activities at Onset: activity Severity of Dyspnea-Max: moderate Severity of Dyspnea-Current: mild Possible Cause: occasional episodes Modifying Factors: Improves With: albuterol inhaler, albuterol nebulizer Associated Symptoms: cough, No chest pain/discomfort, No fever, No lightheadedness, No painful breathing, No tightness Allergies/Adverse Reactions: cephalexin [From Keflex] Allergy (Verified 03/05/21 16:31) ketorolac [From Toradol] Allergy (Verified 03/05/21 16:31) lisinopril Allergy (Verified 03/05/21 16:31) Sulfa (Sulfonamide Antibiotics) Allergy (Verified 03/05/21 16:31) Home Medications: Gabapentin 100 mg [Neurontin 100 MG] 300 mg PO BID 09/22/20 [History] Cyclobenzaprine HCl 5 mg PO BID PRN 10/29/20 [History] Omeprazole 40 mg PO DAILY 02/06/21 [History] Buspirone HCl 5 mg [Buspar 5 mg] 10 mg PO BID 02/07/21 [History] Hx Tetanus, Diphtheria Vaccination/Date Given: Yes Hx Influenza Vaccination/Date Given: Yes Hx Pneumococcal Vaccination/Date Given: Yes Immunizations Up to Date: Yes Travel Risk - International Travel Have you traveled outside of the country in past 3 weeks: No - Coronavirus Screening Are you exhibiting any of the following symptoms?: Yes Symptoms: Cough: New Onset, Shortness of Breath Close contact with a COVID-19 positive Pt in past 14-21 Days: No - Vaccine Status Have you recieved a Covid-19 vaccination: No - Review of Systems Constitutional: No Symptoms, No Fever, No Chills Eyes: No Symptoms Ears, Nose, & Throat: No Symptoms Respiratory: No Symptoms, No Cough, No Dyspnea Cardiac: No Symptoms, No Chest Pain, No Edema, No Syncope Abdominal/Gastrointestinal: No Symptoms, No Abdominal Pain, No Nausea, No Vo miting, No Diarrhea Genitourinary Symptoms: No Symptoms, No Dysuria Musculoskeletal: No Symptoms, No Back Pain, No Neck Pain Skin: No Symptoms, No Rash Neurological: No Symptoms, No Dizziness, No Focal Weakness, No Sensory Changes Psychological: No Symptoms Endocrine: No Symptoms Hematologic/Lymphatic: No Symptoms Immunological/Allergic: No Symptoms All Other Systems: Reviewed and Negative - Past Medical History Pertinent Past Medical History: Yes Neurological History: Migraines, Peripheral Neuropathy, TIA ENT History: No Pertinent History Cardiac History: Hypertension Respiratory History: Asthma, COPD, Emphysema Endocrine Medical History: No Pertinent History Musculoskeletal History: Arthritis, Osteoarthritis, Other GI Medical History: Pancreatitis History: No Pertinent History Psycho-Social History: Anxiety Female Reproductive Disorders: No Pertinent History Other Medical History: SCIATIC NERVE PROBLEMS - Past Surgical History Past Surgical History: Yes Neuro Surgical History: No Pertinent History Cardiac: No Pertinent History Respiratory: No Pertinent History Gastrointestinal: No Pertinent History Genitourinary: No Pertinent History Musculoskeletal: No Pertinent History Female Surgical History: Tubal Ligation Other Surgical History: jaw fx repair, tubal pregnancies - Social History Smoking Status: Former smoker How long have you smoked: 30 yrs Exposure to second hand smoke: Yes Drug Use: none Patient Lives Alone: No - Female History Hx Last Menstrual Period: feb 20 Hx Now: No - Nursing Vital Signs Nursing Vital Signs: Initial Vital Signs Temperature 97.5 F 03/05/21 16:33 Pulse Rate 108 H 03/05/21 16:33 Respiratory Rate 18 03/05/21 16:33 Blood Pressure 138/95 03/05/21 16:33 O2 Sat by Pulse Oximetry 97 03/05/21 16:33 Pain Scale Pain Intensity 5 - Physical Exam General Appearance: no apparent distress, alert Eye Exam: PERRL/EOMI Ears, Nose, Throat Exam: hearing grossly normal, normal ENT inspection, normal pharynx Neck Exam: normal inspection, supple, full range of motion, No non-tender Respiratory Exam: crackles/rales, wheezing, No respiratory distress, No accessory muscle use Cardiovascular/Chest Exam: normal heart sounds, regular rate/rhythm, normal peripheral pulses Abdominal/Gastrointestinal Exam: soft, normal bowel sounds, No tenderness, No distention, No mass Extremity Exam: non-tender, normal range of motion, normal inspection, no calf tenderness, no pedal edema Peripheral Pulses Exam: dorsalis-pedis (R): 2+, dorsalis-pedis (L): 2+ Neurologic Exam: alert, oriented x 3, cooperative, 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, normal mood/affect, sensation nml, No motor deficits Skin Exam: normal color, warm, No dry, No petechiae SpO2 Interpretation: normal SpO2: 96 O2 Delivery: Room Air - Course Nursing assessment & vital signs reviewed: Yes EKG Interpreted by Me: RATE (105), Sinus Rhythm, Sinus Tach, NORMAL INTERVALS - Radiology Exams Chest X-ray Interpretation: Reviewed by me (New subtle bilateral mid to lower lung hazy interstitial alveolar opacities without consolidation or large effusion remaining heart and thorax normal.) Ordered Tests: Active Orders 24 hr Category Date Time Status AMA [Release AMA] OM.NOW Care 03/05/21 18:36 Completed [employer]ing [employer] STAT Care 03/05/21 16:46 Completed EKG-ER Only STAT Care 03/05/21 16:45 Completed IV Insertion STAT Care 03/05/21 16:45 Completed Oxygen-ED Only Nasal Cannula 3 lpm Care 03/05/21 16:59 Completed Pulse Oximetry (ED) STAT Care 03/05/21 16:45 Completed CHEST 1 VIEW (PORTABLE) Stat Exams 03/05/21 16:46 Completed BLOOD CULTURE Stat Lab 03/05/21 17:00 Received CBC W DIFF Stat Lab 03/05/21 16:50 Completed CMP Stat Lab 03/05/21 16:50 Completed INFLUENZA A+B NOHEMI Stat Lab 03/05/21 16:50 Completed TROPONIN Q3H Lab 03/05/21 16:50 Completed TROPONIN Q3H Lab 03/05/21 23:00 Ordered Respiratory Therapy Assessment ONCE RT 03/05/21 17:18 Completed Medication Summary Discontinued Medications Generic Name Dose Route Start Last Admin Trade Name Agustin PRN Reason Stop Dose Admin Albuterol/Ipratropium 3 ml 03/05/21 16:45 03/05/21 17:07 Ipratropium/Albuterol Sulfate 3 Ml Ampul.Neb IH 03/05/21 16:46 3 ml STAT ONE Administration Albuterol/Ipratropium Confirm 03/05/21 17:03 Ipratropium/Albuterol Sulfate 3 Ml Ampul.Neb Administered 03/05/21 17:04 Dose 3 ml IH .STK-MED ONE Methylprednisolone Sodium 0 mg 03/05/21 16:45 03/05/21 17:07 Succinate 125 mg/ Sterile IV 03/05/21 16:46 125 mg Water 2 ml STAT ONE Administration Doxycycline Hyclate Confirm 03/05/21 17:01 Doxycycline Hyclate 100 Mg/Vial Injection Administered 03/05/21 17:02 Dose 100 mg IV .STK-MED ONE Azithromycin 500 mg in 250 mls @ 250 mls/hr 03/05/21 16:48 03/05/21 17:58 Zithromax 500 Mg/ 250 Ml Nacl Premix IV 03/05/21 17:47 Not Given STAT STA Doxycycline Hyclate 100 mg/ 100 mls @ 100 mls/hr 03/05/21 22:00 03/05/21 17:07 Dextrose IV 04/04/21 21:59 100 mls/hr Q12HT CHARMAINE Administration Dextrose Confirm 03/05/21 17:01 D5w 100ml Mini Bag 100 Ml Administered 03/05/21 17:02 Dose 100 mls @ ud IV .STK-MED ONE Methylprednisolone Sodium Succinate Confirm 03/05/21 17:00 Methylprednis Sod Succ 125 Mg/2 Ml Vial Administered 03/05/21 17:01 Dose 125 mg .ROUTE .STK-MED ONE Potassium Chloride 40 meq 03/05/21 17:49 03/05/21 18:06 Potassium Chloride 10 Meq Tablet PO 03/05/21 17:50 40 meq STAT ONE Administration Potassium Chloride Confirm 03/05/21 18:05 Potassium Chloride 10 Meq Tablet Administered 03/05/21 18:06 Dose 40 meq PO .STK-MED ONE Sterile Water Confirm 03/05/21 17:00 Water For Injection,Sterile 10 Ml Vial Administered 03/05/21 17:01 Dose 10 ml IJ .STK-MED ONE Lab/Rad Data: Laboratory Result Diagrams 03/05/21 16:50 03/05/21 16:50 Laboratory Results 03/05/21 03/05/21 03/05/21 Range/Units 16:50 16:50 16:50 WBC (4.0-10.5) K/mm3 RBC (4.1-5.4) M/mm3 Hgb (12.0-16.0) gm/dl Hct (35-47) % MCV (78-100) fl MCH (26-32) pg MCHC (32-36) g/dl RDW (11.5-14.0) % Plt Count (150-450) K/mm3 MPV (7.5-11.0) fl Gran % (36.0-66.0) % Eos # (Auto) (0-0.5) Absolute Lymphs (auto) (1.0-4.6) Absolute Monos (auto) (0.0-1.3) Lymphocytes % (24.0-44.0) % Monocytes % (0.0-12.0) % Eosinophils % (0.00-5.0) % Basophils % (0.0-0.4) % Absolute Granulocytes (1.4-6.9) Basophils # (0-0.4) Sodium 141 (137-145) mmol/L Potassium 3.2 L (3.5-5.1) mmol/L Chloride 103 (98-107) mmol/L Carbon Dioxide 29 (22-30) mmol/L Anion Gap 12.8 (5-15) MEQ/L BUN 10 (7-17) mg/dL Creatinine 0.61 (0.52-1.04) mg/dL Estimated GFR > 60.0 ML/MIN Glucose 108 H (74-106) mg/dL Calcium 8.6 (8.4-10.2) mg/dL Total Bilirubin 0.30 (0.2-1.3) mg/dL AST 23 (14-36) U/L ALT 23 (0-35) U/L Alkaline Phosphatase 80 (38-126) U/L Troponin I < 0.012 (0.000-0.034) ng/mL Serum Total Protein 6.8 (6.3-8.2) g/dL Albumin 4.1 (3.5-5.0) g/dL Influenza Type A Ag NEGATIVE (NEGATIVE) Influenza Type B Ag NEGATIVE (NEGATIVE) 03/05/21 Range/Units 16:50 WBC 16.4 H (4.0-10.5) K/mm3 RBC 4.58 (4.1-5.4) M/mm3 Hgb 14.7 (12.0-16.0) gm/dl Hct 44.1 (35-47) % MCV 96.3 (78-100) fl MCH 32.1 H (26-32) pg MCHC 33.3 (32-36) g/dl RDW 12.8 (11.5-14.0) % Plt Count 372 (150-450) K/mm3 MPV 9.8 (7.5-11.0) fl Gran % 83.2 H (36.0-66.0) % Eos # (Auto) 0.17 (0-0.5) Absolute Lymphs (auto) 1.38 (1.0-4.6) Absolute Monos (auto) 1.20 (0.0-1.3) Lymphocytes % 8.4 L (24.0-44.0) % Monocytes % 7.3 (0.0-12.0) % Eosinophils % 1.0 (0.00-5.0) % Basophils % 0.1 (0.0-0.4) % Absolute Granulocytes 13.63 H (1.4-6.9) Basophils # 0.02 (0-0.4) Sodium (137-145) mmol/L Potassium (3.5-5.1) mmol/L Chloride (98-107) mmol/L Carbon Dioxide (22-30) mmol/L Anion Gap (5-15) MEQ/L BUN (7-17) mg/dL Creatinine (0.52-1.04) mg/dL Estimated GFR ML/MIN Glucose (74-106) mg/dL Calcium (8.4-10.2) mg/dL Total Bilirubin (0.2-1.3) mg/dL AST (14-36) U/L ALT (0-35) U/L Alkaline Phosphatase (38-126) U/L Troponin I (0.000-0.034) ng/mL Serum Total Protein (6.3-8.2) g/dL Albumin (3.5-5.0) g/dL Influenza Type A Ag (NEGATIVE) Influenza Type B Ag (NEGATIVE) - Progress Progress: improved Air Movement: good Progress Note: Patient reassessed. She feels much better. Patient ambulated in our ED with a 97% saturation. Patient is still wheezing however. I feel patient may benefit from another breathing treatment but patient is refusing to stay. Patient states she has got 4 dogs at home but need attention. She must leave at this time. Risks and benefits were discussed. In spite of her risks and benefits patient wants to go home. Portions of this note were created with voice recognition technology. There may be grammatical, spelling, punctuation or sound alike errors r. 03/05/21 18:29 Potassium replaced. 03/05/21 18:31 Patient is of sound mind. Patient is appropriate to make informed and independent medical decisions. Patient understands that leaving AGAINST MEDICAL ADVICE can result in delayed diagnosis, increased risk of morbidity, mortality, short and long-term disability including . In spite of these risks, patient has decided to leave AGAINST MEDICAL ADVICE. Patient understands that she may return to our ED at any point if he or she reconsiders. Patient agrees to follow-up with her primary care doctor within 48 hours for reevaluation. Patient voices no other complaints or concerns at this time. We will release patient AGAINST MEDICAL ADVICE per their request. 03/05/21 19:17 Blood Culture(s) Obtained: Yes Antibiotics given: Yes Counseled pt/family regarding: lab results, diagnosis, need for follow-up, rad results - Departure Departure Disposition: AMA Clinical Impression: COPD exacerbation, Pneumonia, Leukocytosis, Hypokalemia Condition: Stable Critical Care Time: No Referrals: MARBELLA COLON MD [Primary Care Provider] - Follow up/PCP as directed Instructions: Chronic Obstructive Pulmonary Disease Additional Instructions: Discharge/Care Plan SHAWNEE MASON was seen on 03/05/21 in the Emergency Room. The patient was counseled regarding Diagnosis,Lab results, Imaging studies, need for follow up and when to return to the Emergency Room. Prescriptions given: Discharge Note I have spoken with the patient and/or caregivers. I have explained the patient's condition, diagnosis and treatment plan based on the information available to me at this time. I have answered the patient's and/or caregiver's questions and addressed any concerns. The patient and/or caregivers have as good understanding of the patient's diagnosis, condition and treatment plan as can be expected at this point. The vital signs have been stable. The patient's condition is stable and appropriate for discharge from the emergency department. The patient will pursue further outpatient evaluation with the primary care physician or other designated or consulting physician as outlined in the discharge instructions. The patient and/or caregivers are agreeable to this plan of care and follow-up instructions have been explained in detail. The patient and/or caregivers have received these instruction. The patient/and or caregivers are aware that any significant change in condition or worsening of symptoms should prompt an immediate return to this or the closest emergency department or call 911. Prescriptions: Prednisone 10 mg [Deltasone 10 mg] 40 mg PO DAILY 3 Days #12 tablet Albuterol 8 gm Mdi Hfa [Ventolin Hfa MDI] 8 gm IH Q4H #1 gm Azithromycin 250 mg [Zithromax 250 MG TABLET] 250 mg PO ZPACK #6 tablet
[2021-03-05 17:10] LABS: Absolute Neutrophil Ct (ANC) 13.63 (1.4-6.9); BASOPHIL % 0.1 % (0.0-0.4); Basophil (Absolute #) 0.02 (0-0.4); Eosinophil (Absolute #) 0.17 (0-0.5); Hematocrit 44.1 % (35-47); Hemoglobin 14.7 gm/dl (12.0-16.0); Lymphocyte (Absolute #) 1.38 (1.0-4.6); Lymphocytes % 8.4 % (24.0-44.0); Mean Cell Volume 96.3 fl (78-100); Mean Corpuscular Hemoglobin 32.1 pg (26-32); Mean Corpuscular Hgb Concent. 33.3 g/dl (32-36); Mean Platelet Volume 9.8 fl (7.5-11.0); Monocytes % 7.3 % (0.0-12.0); Neutrophil % 83.2 % (36.0-66.0); Platelet Count 372 K/mm3 (150-450); Red Blood Count 4.58 M/mm3 (4.1-5.4); Red Cell Distribution Width 12.8 % (11.5-14.0); White Blood Count 16.4 K/mm3 (4.0-10.5)
[2021-03-05 17:24] LABS: ALBUMIN 4.1 g/dL (3.5-5.0); ALKALINE PHOSPHATASE 80 U/L (38-126); ANION GAP 12.8 MEQ/L (5-15); BLOOD UREA NITROGEN 10 mg/dL (7-17); CHLORIDE 103 mmol/L (98-107); Calcium 8.6 mg/dL (8.4-10.2); Carbon Dioxide 29 mmol/L (22-30); Creatinine 1 0.61 mg/dL (0.52-1.04); EST GLOMERULAR FILTRATION RATE > 60.0 ML/MIN; Glucose 108 mg/dL (74-106); Potassium 3.2 mmol/L (3.5-5.1); SGOT/AST 23 U/L (14-36); SGPT/ALT 23 U/L (0-35); SODIUM 141 mmol/L (137-145); Total Protein 6.8 g/dL (6.3-8.2)
[2021-03-05 17:25] LABS: INFLUENZA A NEGATIVE (NEGATIVE); INFLUENZA B NEGATIVE (NEGATIVE)
[2021-03-05] MEDS ORDERED: Klor Con 10 MEQ PO ONE ×2 (17:49→18:05)
[2021-03-05] MEDS ORDERED: VIBRAMYCIN 100 MG*** 100 MG in Dextrose 5%/Water IV Soln. 100ML PLUS BAG 100 ML IV SCH (22:00)
== END 2021-03-05 18:49 | disposition left against medical advice (07) ==
LOC: ED 16:23
DX: J44.1 Chronic obstructive pulmonary disease with (acute) exacerbation (principal); J18.9 Pneumonia, unspecified organism; D72.829 Elevated white blood cell count, unspecified; E87.6 Hypokalemia; R05.9 Cough, unspecified; R06.02 Shortness of breath; Z87.891 Personal history of nicotine dependence
CPT/HCPCS: 36000; 36415; 71045; 80053; 84484; 85025; 87040; 87400; 93005; 93041; 94640; 94760; 96374; 99284; J2930; A9270-GY

== ENCOUNTER 2021-03-31 18:09 | Emergency (ER) | payer OTHER ==
[2021-03-31] MEDS ORDERED: DUONEB 0.5-3 MG/3 ml Neb IH ONE ×2 (18:20→18:26)
--- NOTE | 2021-03-31 18:55 | ERPHSYRPT ---
- History of Present Illness Time Seen by Provider: 03/31/21 18:20 Source: patient, EMS Exam Limitations: no limitations Patient Subjective Stated Complaint: pt here for increase sob today, she states she is under a lot of stress, she states she has recently broke up with her boyfriend, she wears o2 at 3 lnc, no fever, coughing up clear sputum Triage Nursing Assessment: pt alert, resp labored with excertion, o2 in place, skin w/d. no edema noted Physician History: 45 years old female with history of chronic respiratory failure on 3 L oxygen from COPD/tobacco abuse presented in the ER with chief complaint of worsening shortness of breath since morning. Patient reports she was working yesterday and could not receive her routine neb treatments and this morning she was upset with her boyfriend and started to have increasing shortness of breath despite using oxygen and neb treatments. She is given Solu-Medrol and another DuoNeb treatment in route to ER and started to feel better and currently satting around 96% on 3 L. Denies any chest pain or palpitations. She does have chronic smoker cough with clear sputum. No fever or chills reported. She is feeling almost back to normal. Timing/Duration: today, constant, gradual onset, worse Activities at Onset: activity Severity of Dyspnea-Max: moderate Severity of Dyspnea-Current: mild Possible Cause: frequent episodes Modifying Factors: Improves With: albuterol nebulizer, oxygen. Worsens With: coughing, exertion Associated Symptoms: cough, productive cough, tightness, No chest pain/discomfort Allergies/Adverse Reactions: cephalexin [From Keflex] Allergy (Verified 03/31/21 18:10) ketorolac [From Toradol] Allergy (Verified 03/31/21 18:10) lisinopril Allergy (Verified 03/31/21 18:10) Sulfa (Sulfonamide Antibiotics) Allergy (Verified 03/31/21 18:10) Home Medications: Gabapentin 100 mg [Neurontin 100 MG] 300 mg PO BID 09/22/20 [History] Cyclobenzaprine HCl 5 mg PO BID PRN 10/29/20 [History] Omeprazole 40 mg PO DAILY 02/06/21 [History] Buspirone HCl 5 mg [Buspar 5 mg] 10 mg PO BID 02/07/21 [History] Hx Tetanus, Diphtheria Vaccination/Date Given: Yes Hx Influenza Vaccination/Date Given: Yes Hx Pneumococcal Vaccination/Date Given: Yes Immunizations Up to Date: Yes Travel Risk - International Travel Have you traveled outside of the country in past 3 weeks: No - Coronavirus Screening Are you exhibiting any of the following symptoms?: Yes Symptoms: Cough: New Onset, Shortness of Breath - Vaccine Status Have you recieved a Covid-19 vaccination: No - Review of Systems Constitutional: No Symptoms Eyes: No Symptoms Ears, Nose, & Throat: No Symptoms Respiratory: Cough, Dyspnea, Dyspnea on Exertion (ROJO), Wheezing Cardiac: No Symptoms Abdominal/Gastrointestinal: No Symptoms Genitourinary Symptoms: No Symptoms Musculoskeletal: No Symptoms Skin: No Symptoms Neurological: No Symptoms Psychological: Anxiety Endocrine: No Symptoms Hematologic/Lymphatic: No Symptoms Immunological/Allergic: No Symptoms - Past Medical History Pertinent Past Medical History: Yes Neurological History: Migraines, Peripheral Neuropathy, TIA ENT History: No Pertinent History Cardiac History: Hypertension Respiratory History: Asthma, COPD, Emphysema Endocrine Medical History: No Pertinent History Musculoskeletal History: Arthritis, Osteoarthritis, Other GI Medical History: Pancreatitis History: No Pertinent History Psycho-Social History: Anxiety Female Reproductive Disorders: No Pertinent History Other Medical History: SCIATIC NERVE PROBLEMS - Past Surgical History Past Surgical History: Yes Neuro Surgical History: No Pertinent History Cardiac: No Pertinent History Respiratory: No Pertinent History Gastrointestinal: No Pertinent History Genitourinary: No Pertinent History Musculoskeletal: No Pertinent History Female Surgical History: Tubal Ligation Other Surgical History: jaw fx repair, tubal pregnancies - Social History Smoking Status: Current every day smoker How long have you smoked: 30 yrs Exposure to second hand smoke: Yes Drug Use: none Patient Lives Alone: No - Female History Hx Last Menstrual Period: dec Hx Now: No - Nursing Vital Signs Nursing Vital Signs: Initial Vital Signs Temperature 97.2 F 03/31/21 18:13 Pulse Rate 91 H 03/31/21 18:13 Respiratory Rate 24 03/31/21 18:13 Blood Pressure 142/106 03/31/21 18:13 O2 Sat by Pulse Oximetry 99 03/31/21 18:13 Pain Scale Pain Intensity 4 - Physical Exam General Appearance: no apparent distress, alert, anxiety Eye Exam: PERRL/EOMI, eyes nml inspection Ears, Nose, Throat Exam: hearing grossly normal, normal ENT inspection, normal pharynx Neck Exam: normal inspection, non-tender, supple, full range of motion Respiratory Exam: diminished breath sounds, rhonchi, wheezing, No respiratory distress Cardiovascular/Chest Exam: normal heart sounds, regular rate/rhythm Abdominal/Gastrointestinal Exam: soft, normal bowel sounds, No tenderness Extremity Exam: non-tender, normal range of motion Neurologic Exam: alert, oriented x 3, cooperative Skin Exam: normal color SpO2 Interpretation: O2 applied SpO2: 99 O2 Delivery: Nasal Cannula - Course EKG Interpreted by Me: RATE (90), Sinus Rhythm, NORMAL AXIS, NORMAL INTERVALS, Q-wave (Anteroseptal), Non-specific ST Changes Ordered Tests: Active Orders 24 hr Category Date Time Status 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 Care 03/31/21 18:20 Active EKG-ER Only STAT Care 03/31/21 18:20 Active IV Insertion STAT Care 03/31/21 18:20 Active Oxygen-ED Only Nasal Cannula 3 lpm Care 03/31/21 18:20 Active CHEST 1 VIEW (PORTABLE) Stat Exams 03/31/21 18:20 Taken BLOOD CULTURE Stat Lab 03/31/21 19:04 Received CBC W DIFF Stat Lab 03/31/21 19:04 Completed CMP Stat Lab 03/31/21 19:04 Completed Lactic Acid Stat Lab 03/31/21 19:00 Completed MAGNESIUM Stat Lab 03/31/21 19:04 Completed NT PRO BNP Stat Lab 03/31/21 19:04 Completed TROPONIN Q3H Lab 03/31/21 18:30 Completed TROPONIN Q3H Lab 03/31/21 21:30 Ordered TROPONIN Q3H Lab 04/01/21 00:30 Ordered TROPONIN Q3H Lab 04/01/21 03:30 Ordered TROPONIN Q3H Lab 04/01/21 06:30 Ordered Respiratory Therapy Assessment DAILY RT 03/31/21 18:32 Active Medication Summary Discontinued Medications Generic Name Dose Route Start Last Admin Trade Name Freq PRN Reason Stop Dose Admin Albuterol/Ipratropium 3 ml 03/31/21 18:20 03/31/21 18:28 Ipratropium/Albuterol Sulfate 3 Ml Ampul.Neb IH 03/31/21 18:21 3 ml STAT ONE Administration Albuterol/Ipratropium Confirm 03/31/21 18:26 Ipratropium/Albuterol Sulfate 3 Ml Ampul.Neb Administered 03/31/21 18:27 Dose 3 ml IH .STK-MED ONE Lab/Rad Data: Laboratory Result Diagrams 03/31/21 19:04 03/31/21 19:04 Laboratory Results 03/31/21 03/31/21 03/31/21 Range/Units 19:04 19:04 19:00 WBC 9.9 (4.0-10.5) K/mm3 RBC 4.54 (4.1-5.4) M/mm3 Hgb 14.7 (12.0-16.0) gm/dl Hct 44.4 (35-47) % MCV 97.8 (78-100) fl MCH 32.4 H (26-32) pg MCHC 33.1 (32-36) g/dl RDW 13.0 (11.5-14.0) % Plt Count 379 (150-450) K/mm3 MPV 9.7 (7.5-11.0) fl Gran % 62.8 (36.0-66.0) % Eos # (Auto) 0.44 (0-0.5) Absolute Lymphs (auto) 2.54 (1.0-4.6) Absolute Monos (auto) 0.68 (0.0-1.3) Lymphocytes % 25.6 (24.0-44.0) % Monocytes % 6.9 (0.0-12.0) % Eosinophils % 4.4 (0.00-5.0) % Basophils % 0.3 (0.0-0.4) % Absolute Granulocytes 6.23 (1.4-6.9) Basophils # 0.03 (0-0.4) Sodium 142 (137-145) mmol/L Potassium 3.7 (3.5-5.1) mmol/L Chloride 104 (98-107) mmol/L Carbon Dioxide 31 H (22-30) mmol/L Anion Gap 10.4 (5-15) MEQ/L BUN 9 (7-17) mg/dL Creatinine 0.62 (0.52-1.04) mg/dL Estimated GFR > 60.0 ML/MIN Glucose 108 H (74-106) mg/dL Lactic Acid 1.0 (0.4-2.0) Calcium 9.0 (8.4-10.2) mg/dL Magnesium 2.2 (1.6-2.3) mg/dL Total Bilirubin 0.30 (0.2-1.3) mg/dL AST 30 (14-36) U/L ALT 27 (0-35) U/L Alkaline Phosphatase 98 (38-126) U/L Troponin I (0.000-0.034) ng/mL NT-Pro-B Natriuret Pep 53.0 (0-450) pg/mL Serum Total Protein 6.9 (6.3-8.2) g/dL Albumin 4.1 (3.5-5.0) g/dL 03/31/21 Range/Units 18:30 WBC (4.0-10.5) K/mm3 RBC (4.1-5.4) M/mm3 Hgb (12.0-16.0) gm/dl Hct (35-47) % MCV (78-100) fl MCH (26-32) pg MCHC (32-36) g/dl RDW (11.5-14.0) % Plt Count (150-450) K/mm3 MPV (7.5-11.0) fl Gran % (36.0-66.0) % Eos # (Auto) (0-0.5) Absolute Lymphs (auto) (1.0-4.6) Absolute Monos (auto) (0.0-1.3) Lymphocytes % (24.0-44.0) % Monocytes % (0.0-12.0) % Eosinophils % (0.00-5.0) % Basophils % (0.0-0.4) % Absolute Granulocytes (1.4-6.9) Basophils # (0-0.4) Sodium (137-145) mmol/L Potassium (3.5-5.1) mmol/L Chloride (98-107) mmol/L Carbon Dioxide (22-30) mmol/L Anion Gap (5-15) MEQ/L BUN (7-17) mg/dL Creatinine (0.52-1.04) mg/dL Estimated GFR ML/MIN Glucose (74-106) mg/dL Lactic Acid (0.4-2.0) Calcium (8.4-10.2) mg/dL Magnesium (1.6-2.3) mg/dL Total Bilirubin (0.2-1.3) mg/dL AST (14-36) U/L ALT (0-35) U/L Alkaline Phosphatase (38-126) U/L Troponin I < 0.012 (0.000-0.034) ng/mL NT-Pro-B Natriuret Pep (0-450) pg/mL Serum Total Protein (6.3-8.2) g/dL Albumin (3.5-5.0) g/dL - Progress Progress: improved Air Movement: fair, good Progress Note: 03/31/21 19:45 45 years old is evaluated for worsening shortness of breath in the presence of chronic respiratory failure with COPD. She is already feeling better on presentation. I have given her another breathing treatment here. She already have received a dose of Solu-Medrol. Chest x-ray did not show any acute finding, she is satting around 99% on 3 L which she is normally on. EKG no acute ischemic changes and negative troponins. Grossly unremarkable work-up otherwise. I have offered her observation admission but she wants to go home and I think it is reasonable. I believe she has COPD bronchitis, will give her short course of steroid and doxycycline. Outpatient follow-up recommended. Discussed signs symptoms of worsening needing return to ER which she seems understanding. Stable for discharge. Blood Culture(s) Obtained: Yes Antibiotics given: Yes Counseled pt/family regarding: lab results, diagnosis, need for follow-up, rad results, smoking cessation - Departure Departure Disposition: Home Clinical Impression: COPD exacerbation Condition: Stable Critical Care Time: No Referrals: MARBELLA COLON MD [Primary Care Provider] - Follow up/PCP as directed (In 2 days for reevaluation) Instructions: Chronic Obstructive Pulmonary Disease, Exacerbation of COPD (DC) Additional Instructions: Do not smoke. Use DuoNeb treatments as recommended. Use oxygen as recommended. Return to ER for worsening shortness of breath, chest pain, palpitation, fever chills etc. Prescriptions: Prednisone 20 mg [Deltasone 20 mg] 60 mg PO DAILY 5 Days #15 tablet Doxycycline Hyclate 100 mg [Vibramycin 100 MG] 100 mg PO BID #14 tab
[2021-03-31 19:16] LABS: Absolute Neutrophil Ct (ANC) 6.23 (1.4-6.9); BASOPHIL % 0.3 % (0.0-0.4); Basophil (Absolute #) 0.03 (0-0.4); Eosinophil % 4.4 % (0.00-5.0); Eosinophil (Absolute #) 0.44 (0-0.5); Hematocrit 44.4 % (35-47); Hemoglobin 14.7 gm/dl (12.0-16.0); Lymphocyte (Absolute #) 2.54 (1.0-4.6); Lymphocytes % 25.6 % (24.0-44.0); Mean Cell Volume 97.8 fl (78-100); Mean Corpuscular Hemoglobin 32.4 pg (26-32); Mean Corpuscular Hgb Concent. 33.1 g/dl (32-36); Mean Platelet Volume 9.7 fl (7.5-11.0); Monocyte (Absolute #) 0.68 (0.0-1.3); Monocytes % 6.9 % (0.0-12.0); Neutrophil % 62.8 % (36.0-66.0); Platelet Count 379 K/mm3 (150-450); Red Blood Count 4.54 M/mm3 (4.1-5.4); White Blood Count 9.9 K/mm3 (4.0-10.5)
[2021-03-31 19:30] LABS: ALBUMIN 4.1 g/dL (3.5-5.0); ALKALINE PHOSPHATASE 98 U/L (38-126); ANION GAP 10.4 MEQ/L (5-15); BLOOD UREA NITROGEN 9 mg/dL (7-17); CHLORIDE 104 mmol/L (98-107); Carbon Dioxide 31 mmol/L (22-30); Creatinine 1 0.62 mg/dL (0.52-1.04); EST GLOMERULAR FILTRATION RATE > 60.0 ML/MIN; Glucose 108 mg/dL (74-106); MAGNESIUM 2.2 mg/dL (1.6-2.3); Potassium 3.7 mmol/L (3.5-5.1); SGOT/AST 30 U/L (14-36); SGPT/ALT 27 U/L (0-35); SODIUM 142 mmol/L (137-145); Total Protein 6.9 g/dL (6.3-8.2)
[2021-03-31] MEDS ORDERED: Vibramycin 100 MG PO ONE (19:44)
[2021-03-31] MEDS ORDERED: Vibramycin 100 MG ONE (19:48)
[2021-03-31 20:05] VITALS: BP 139/109; PULSE 90; O2SAT 100
--- NOTE | 2021-03-31 20:10 | XRAY ---
Indication: Short of breath. History COPD. Comparison: March 05, 2021. Portable chest hyperinflated and now clear. Heart not enlarged. Bony thorax intact. Impression: Nonacute hyperinflated chest.
== END 2021-03-31 20:06 | disposition home or self-care (01) ==
LOC: ED 18:09
DX: J44.1 Chronic obstructive pulmonary disease with (acute) exacerbation (principal); Z99.81 Dependence on supplemental oxygen; Z72.0 Tobacco use; I10 Essential (primary) hypertension; Z91.14 Patient's other noncompliance with medication regimen
CPT/HCPCS: 36415; 71045; 80053; 83605; 83735; 83880; 84484; 85025; 87040; 93005; 93041; 94640; 99284; A9270-GY

== ENCOUNTER 2021-05-11 23:29 | Emergency (ER) | payer OTHER ==
--- NOTE | 2021-05-11 23:48 | ERPHSYRPT ---
- History of Present Illness Time Seen by Provider: 05/11/21 23:46 Historian: patient, EMS Exam Limitations: no limitations Physician History: This is a 46-year-old female patient of Dr. Colon who has a significant history of migraine headaches, peripheral neuropathy, TIAs, hypertension, asthma, oxygen dependent COPD (3 L nasal cannula during the day and 4 L nasal cannula oxygen at night) who continues to smoke daily. She also has a history of pancreatitis and anxiety issues. Approximately 1 week ago she noticed bilateral rib pain anteriorly and posterior laterally. This pain went away. It recurred again this evening and it was significant. She denies any trauma. Patient has a chronic cough. It is no different than usual. She does not have any abdominal pain. She does not have any anterior chest pain. She has not had any fevers. She does not have a history of recent nausea vomiting or diarrhea. Timing/Duration: today Activities at Onset: none Quality: aching Abdominal Pain Onset Location: other (No abdominal pain) Pain Radiation: no radiation Severity of Pain-Max: moderate Severity of Pain-Current: mild (To moderate) Associated Symptoms: denies symptoms Previous symptoms: same symptoms as today Allergies/Adverse Reactions: cephalexin [From Keflex] Allergy (Verified 05/11/21 23:33) ketorolac [From Toradol] Allergy (Verified 05/11/21 23:33) lisinopril Allergy (Verified 05/11/21 23:33) Sulfa (Sulfonamide Antibiotics) Allergy (Verified 05/11/21 23:33) Home Medications: Gabapentin 100 mg [Neurontin 100 MG] 300 mg PO BID 09/22/20 [History] Cyclobenzaprine HCl 5 mg PO BID PRN 10/29/20 [History] Omeprazole 40 mg PO DAILY 02/06/21 [History] Buspirone HCl 5 mg [Buspar 5 mg] 10 mg PO BID 02/07/21 [History] Hx Tetanus, Diphtheria Vaccination/Date Given: Yes Hx Influenza Vaccination/Date Given: Yes Hx Pneumococcal Vaccination/Date Given: Yes Travel Risk - International Travel Have you traveled outside of the country in past 3 weeks: No - Coronavirus Screening Are you exhibiting any of the following symptoms?: No Close contact with a COVID-19 positive Pt in past 14-21 Days: No - Vaccine Status Have you recieved a Covid-19 vaccination: No - Review of Systems Constitutional: No Symptoms Eyes: No Symptoms Ears, Nose, & Throat: No Symptoms Respiratory: Cough Cardiac: No Symptoms Abdominal/Gastrointestinal: No Symptoms Genitourinary Symptoms: No Symptoms Musculoskeletal: Other (Lateral rib pain) Skin: No Symptoms Neurological: No Symptoms Psychological: No Symptoms Endocrine: No Symptoms Hematologic/Lymphatic: No Symptoms Immunological/Allergic: No Symptoms All Other Systems: Reviewed and Negative - Past Medical History Pertinent Past Medical History: Yes Neurological History: Migraines, Peripheral Neuropathy, TIA ENT History: No Pertinent History Cardiac History: Hypertension Respiratory History: Asthma, COPD, Emphysema Endocrine Medical History: No Pertinent History Musculoskeletal History: Arthritis, Osteoarthritis, Other GI Medical History: Pancreatitis History: No Pertinent History Psycho-Social History: Anxiety Female Reproductive Disorders: No Pertinent History Other Medical History: SCIATIC NERVE PROBLEMS - Past Surgical History Past Surgical History: Yes Neuro Surgical History: No Pertinent History Cardiac: No Pertinent History Respiratory: No Pertinent History Gastrointestinal: No Pertinent History Genitourinary: No Pertinent History Musculoskeletal: No Pertinent History Female Surgical History: Tubal Ligation Other Surgical History: jaw fx repair, tubal pregnancies - Social History Smoking Status: Current every day smoker How long have you smoked: 30 yrs Exposure to second hand smoke: Yes Drug Use: none Patient Lives Alone: No - Nursing Vital Signs Nursing Vital Signs: Initial Vital Signs Temperature 97.6 F 05/11/21 23:38 Pulse Rate 115 H 05/11/21 23:38 Respiratory Rate 24 05/11/21 23:38 Blood Pressure 140/88 05/11/21 23:38 O2 Sat by Pulse Oximetry 98 05/11/21 23:38 Pain Scale Pain Intensity 10 - Physical Exam General Appearance: no apparent distress, alert, anxiety, obese Eye Exam: PERRL/EOMI, eyes nml inspection Ears, Nose, Throat Exam: normal ENT inspection, moist mucous membranes Neck Exam: normal inspection, non-tender, supple, full range of motion Respiratory Exam: normal breath sounds, lungs clear, airway intact, other (Patient has bilateral rib pain to palpation in the bilateral subcostal region and posterior lateral ribs. 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, normal mood/affect, nml cerebellar function, nml station & gait, sensation nml Skin Exam: normal color, warm, dry Lymphatic Exam: No adenopathy SpO2 Interpretation: normal O2 Delivery: Room Air - Course Nursing assessment & vital signs reviewed: Yes Ordered Tests: Active Orders 24 hr Category Date Time Status CHEST 1 VIEW (PORTABLE) Stat Exams 05/12/21 00:02 Taken Medication Summary Discontinued Medications Generic Name Dose Route Start Last Admin Trade Name Ramirezq PRN Reason Stop Dose Admin Hydrocodone Bitart/Acetaminophen 2 tab 05/12/21 00:07 Hydrocodone/Apap 5/325 Mg Tablet PO 05/12/21 00:08 SENT HOME W/ PATIENT ONE Methylprednisolone Sodium 0 mg 05/12/21 00:08 Succinate 125 mg/ Sterile IM 05/12/21 00:09 Water 2 ml STAT ONE Orphenadrine Citrate 60 mg 05/12/21 00:08 Orphenadrine Citrate 60 Mg/2 Ml Amp IM 05/12/21 00:09 STAT ONE - Progress Progress: improved, pain not gone completely Progress Note: 05/12/21 00:21 Chest x-ray shows no acute cardiopulmonary process. There are no rib fractures appreciated. Counseled pt/family regarding: diagnosis, need for follow-up, rad results - Departure Departure Disposition: Home Clinical Impression: Rib pain, Muscle spasm Condition: Stable Critical Care Time: No Referrals: MARBELLA COLON MD [Primary Care Provider] - Follow up/PCP as directed Additional Instructions: Stop your cyclobenzaprine. May restart your cyclobenzaprine after you complete your treatment with the Norflex (orphenadrine) medication. Follow-up with your primary care provider for persistent symptoms. Prescriptions: Prednisone 10 mg [Deltasone 10 mg] 10 mg PO TID #12 tablet Orphenadrine Citrate 100 mg [Norflex 100 MG Tablet] 100 mg PO BID #10 tab
[2021-05-12] MEDS ORDERED: NORCO 5/325 MG PO ONE (00:07)
[2021-05-12] MEDS ORDERED: solu-MEDROL 125 MG, Sterile H2O 10 ml 2 ML IM ONE ×2 (00:08)
[2021-05-12] MEDS ORDERED: Norflex 60 MG/2 ML IM ONE (00:08)
[2021-05-12] MEDS ORDERED: Norflex 60 MG/2 ML ONE (00:20)
[2021-05-12] MEDS ORDERED: solu-MEDROL ONE (00:20)
[2021-05-12] MEDS ORDERED: NORCO 5/325 MG ONE (00:20)
[2021-05-12 00:37] VITALS: BP 143/97; PULSE 105; O2SAT 100
--- NOTE | 2021-05-12 07:17 | XRAY ---
Indication: Cough. Bilateral rib pain. Comparison: April 15, 2021. Portable chest again demonstrates normal heart and lungs with tiny right apical calcified granuloma. Bony thorax intact. No new/acute findings.
== END 2021-05-12 00:45 | disposition home or self-care (01) ==
LOC: ED 23:29
DX: R07.81 Pleurodynia (principal); M62.838 Other muscle spasm; I10 Essential (primary) hypertension; J43.9 Emphysema, unspecified; Z99.81 Dependence on supplemental oxygen; Z72.0 Tobacco use; G62.9 Polyneuropathy, unspecified; Z79.52 Long term (current) use of systemic steroids; Z79.899 Other long term (current) drug therapy
CPT/HCPCS: 71045; 96372; 99284; J2360; J2930; A9270-GY

== ENCOUNTER 2021-05-17 18:03 | Emergency (ER) | payer OTHER ==
[2021-05-17] MEDS ORDERED: DUONEB 0.5-3 MG/3 ml Neb IH ONE (19:37)
[2021-05-17] MEDS ORDERED: solu-MEDROL 125 MG, Sterile H2O 10 ml 2 ML IV ONE ×2 (19:37)
[2021-05-17] MEDS ORDERED: VENTOLIN COMMON CANISTER IH ONE (19:44)
[2021-05-17] MEDS ORDERED: Sterile H2O 10 ml IJ ONE (19:49)
[2021-05-17] MEDS ORDERED: solu-MEDROL ONE (19:49)
[2021-05-17 20:03] LABS: Hemoglobin 14.5 gm/dl (12.0-16.0); Mean Cell Volume 96.6 fl (78-100); Mean Corpuscular Hemoglobin 32.6 pg (26-32); Mean Corpuscular Hgb Concent. 33.7 g/dl (32-36); Mean Platelet Volume 9.2 fl (7.5-11.0); Platelet Count 398 K/mm3 (150-450); Red Blood Count 4.45 M/mm3 (4.1-5.4); White Blood Count 15.2 K/mm3 (4.0-10.5)
[2021-05-17] MEDS ORDERED: HYDROCODONE-ACETAMIN 2.5-108/5 ML SOLUTION PO STA (20:25)
[2021-05-17 20:28] LABS: ALBUMIN 3.9 g/dL (3.5-5.0); ALKALINE PHOSPHATASE 114 U/L (38-126); BLOOD UREA NITROGEN 8 mg/dL (7-17); CHLORIDE 101 mmol/L (98-107); Calcium 8.8 mg/dL (8.4-10.2); Carbon Dioxide 32 mmol/L (22-30); Creatinine 1 0.58 mg/dL (0.52-1.04); EST GLOMERULAR FILTRATION RATE > 60.0 ML/MIN; Glucose 104 mg/dL (74-106); MAGNESIUM 1.7 mg/dL (1.6-2.3); Potassium 3.1 mmol/L (3.5-5.1); SGOT/AST 19 U/L (14-36); SGPT/ALT 19 U/L (0-35); SODIUM 141 mmol/L (137-145); Total Protein 6.7 g/dL (6.3-8.2)
[2021-05-17 20:38] VITALS: O2SAT 94
[2021-05-17] MEDS ORDERED: HYDROCODONE-ACETAMIN 2.5-108/5 ML SOLUTION ONE (20:48)
[2021-05-17 20:53] LABS: ATYPICAL LYMPHS 3 %; BAND 3 % (0.0-2.0); Eosinophil 5 % (0.00-3.0); Lymphocytes 19 % (24-44); Monocyte 9 % (0.0-12.0); Neutrophils 61 % (36.0-66.0); Platelet Estimate NORMAL (NORMAL); Total Cells Counted 100
[2021-05-17] MEDS ORDERED: Vibramycin 100 MG PO ONE (21:13)
--- NOTE | 2021-05-17 21:18 | ERPHSYRPT ---
- History of Present Illness Time Seen by Provider: 05/17/21 18:58 Source: patient Exam Limitations: no limitations Patient Subjective Stated Complaint: Patient states she tested positive for COVID-19 last week at [facility] ED but is unable to give exact date. She states she began having increased SOB today and coughing up pale yellow sputum. Denies fevers. Does state she has chest pain when she coughs. Wears oxygen at all times at home; 3L per N/C during the day and 4L per N/C during the noc. Triage Nursing Assessment: Patient ambulated back to ED. She is alert and oriented and answering questions appropriately. SOB noted. Patient sitting straight up in bed, states she can't lay flat. Patient did cough up a small amount of sputum that is pale yellow while this nurse in the room. Expiratoy rhonchi noted in upper lung ferrer. Right lower lung is diminished and some rhales noted in left lower lobe. Physician History: 46 years old female with history of chronic respiratory failure secondary to [place] PD on 3 L oxygen, tobacco abuse, hypertension recent COVID-19 presented with increasing shortness of breath the last for 5 days along with cough productive of yellow-green sputum. No fever chills and generalized weakness fatigue tiredness. Timing/Duration: day(s) (5), constant, gradual onset, worse Activities at Onset: activity Severity of Dyspnea-Max: moderate Severity of Dyspnea-Current: moderate Possible Cause: illness exposure Modifying Factors: Improves With: albuterol inhaler, albuterol nebulizer, oxygen. Worsens With: coughing Associated Symptoms: cough, productive cough, tightness, No fever Allergies/Adverse Reactions: cephalexin [From Keflex] Allergy (Verified 05/17/21 19:20) ketorolac [From Toradol] Allergy (Verified 05/17/21 19:20) lisinopril Allergy (Verified 05/17/21 19:20) Sulfa (Sulfonamide Antibiotics) Allergy (Verified 05/17/21 19:20) Home Medications: Gabapentin 100 mg [Neurontin 100 MG] 300 mg PO BID 09/22/20 [History] Cyclobenzaprine HCl 5 mg PO BID PRN 10/29/20 [History] Omeprazole 40 mg PO DAILY 02/06/21 [History] Buspirone HCl 5 mg [Buspar 5 mg] 10 mg PO BID 02/07/21 [History] Hx Tetanus, Diphtheria Vaccination/Date Given: Yes Hx Influenza Vaccination/Date Given: No (unknown) Hx Pneumococcal Vaccination/Date Given: No (unknown) Immunizations Up to Date: Yes Travel Risk - International Travel Have you traveled outside of the country in past 3 weeks: No - Coronavirus Screening Are you exhibiting any of the following symptoms?: Yes Symptoms: Cough: New Onset, Shortness of Breath Close contact with a COVID-19 positive Pt in past 14-21 Days: No - Vaccine Status Have you recieved a Covid-19 vaccination: No - Review of Systems Constitutional: Chills, Fatigue Eyes: No Symptoms Ears, Nose, & Throat: No Symptoms Respiratory: Cough, Dyspnea, Dyspnea on Exertion (ROJO), Wheezing Cardiac: No Symptoms Abdominal/Gastrointestinal: No Symptoms Genitourinary Symptoms: No Symptoms Musculoskeletal: No Symptoms Skin: No Symptoms Neurological: No Symptoms Psychological: Anxiety Endocrine: No Symptoms Hematologic/Lymphatic: No Symptoms Immunological/Allergic: No Symptoms - Past Medical History Pertinent Past Medical History: Yes Neurological History: Migraines, Peripheral Neuropathy, TIA ENT History: No Pertinent History Cardiac History: Hypertension Respiratory History: Asthma, COPD, Emphysema Endocrine Medical History: No Pertinent History Musculoskeletal History: Arthritis, Osteoarthritis, Other GI Medical History: Pancreatitis History: No Pertinent History Psycho-Social History: Anxiety Female Reproductive Disorders: No Pertinent History Other Medical History: SCIATIC NERVE PROBLEMS - Past Surgical History Past Surgical History: Yes Neuro Surgical History: No Pertinent History Cardiac: No Pertinent History Respiratory: No Pertinent History Gastrointestinal: No Pertinent History Genitourinary: No Pertinent History Musculoskeletal: No Pertinent History Female Surgical History: Tubal Ligation Other Surgical History: jaw fx repair, tubal pregnancies - Social History Smoking Status: Current every day smoker How long have you smoked: 30 yrs Exposure to second hand smoke: Yes Drug Use: none Patient Lives Alone: No - Female History Hx Last Menstrual Period: NOW Hx Now: No - Nursing Vital Signs Nursing Vital Signs: Initial Vital Signs Temperature 99 F 05/17/21 19:21 Pulse Rate 103 H 05/17/21 19:21 Respiratory Rate 24 05/17/21 19:21 Blood Pressure 135/104 05/17/21 19:21 O2 Sat by Pulse Oximetry 97 05/17/21 19:21 Pain Scale Pain Intensity 8 - Physical Exam General Appearance: no apparent distress, alert, anxiety Eye Exam: PERRL/EOMI, eyes nml inspection Ears, Nose, Throat Exam: hearing grossly normal, normal ENT inspection, normal pharynx Neck Exam: normal inspection, non-tender, supple, full range of motion Respiratory Exam: diminished breath sounds, rhonchi, wheezing, No accessory muscle use Cardiovascular/Chest Exam: normal heart sounds, tachycardia Abdominal/Gastrointestinal Exam: soft, normal bowel sounds, No tenderness Extremity Exam: non-tender, normal range of motion Neurologic Exam: alert, oriented x 3, cooperative Skin Exam: normal color SpO2 Interpretation: normal SpO2: 94 O2 Delivery: Nasal Cannula - Course EKG Interpreted by Me: RATE (112), Sinus Tach, NORMAL AXIS, NORMAL INTERVALS, NORMAL QRS Ordered Tests: Active Orders 24 hr Category Date Time Status [place] STAT Care 05/17/21 19:38 Active EKG-ER Only STAT Care 05/17/21 19:37 Active IV Insertion STAT Care 05/17/21 19:37 Active Oxygen-ED Only Nasal Cannula 3 lpm Care 05/17/21 19:37 Active CHEST 1 VIEW (PORTABLE) Stat Exams 05/17/21 19:38 Taken BLOOD CULTURE Stat Lab 05/17/21 19:55 Received CBC W DIFF Stat Lab 05/17/21 19:50 Completed CMP Stat Lab 05/17/21 19:50 Received D-DIMER QUANTITATIVE Stat Lab 05/17/21 20:15 Completed Lactic Acid Stat Lab 05/17/21 19:52 Completed MAGNESIUM Stat Lab 05/17/21 19:50 Received Manual Differential NC Stat Lab 05/17/21 19:50 Completed TROPONIN Q3H Lab 05/17/21 19:50 Received TROPONIN Q3H Lab 05/17/21 22:45 Ordered TROPONIN Q3H Lab 05/18/21 01:45 Ordered TROPONIN Q3H Lab 05/18/21 04:45 Ordered TROPONIN Q3H Lab 05/18/21 07:45 Ordered Respiratory Therapy Assessment DAILY RT 05/17/21 19:44 Completed Medication Summary Discontinued Medications Generic Name Dose Route Start Last Admin Trade Name Freq PRN Reason Stop Dose Admin Hydrocodone Bitart/Acetaminophen 10 ml 05/17/21 20:25 05/17/21 20:48 Hydrocodone/Acetaminophen 5 Ml Udcup PO 05/17/21 20:26 10 ml STAT STA Administration Hydrocodone Bitart/Acetaminophen Confirm 05/17/21 20:48 Hydrocodone/Acetaminophen 5 Ml Udcup Administered 05/17/21 20:49 Dose 10 ml .ROUTE .STK-MED ONE Albuterol Sulfate 4 puff 05/17/21 19:44 05/17/21 19:45 Albuterol Common Canister Inhaler 05/17/21 19:45 4 puff UD ONE Administration Albuterol/Ipratropium 3 ml 05/17/21 19:37 Ipratropium/Albuterol Sulfate 3 Ml Ampul.Neb 05/17/21 19:38 STAT ONE Methylprednisolone Sodium 0 mg 05/17/21 19:37 05/17/21 19:50 Succinate 125 mg/ Sterile IV 05/17/21 19:38 125 mg Water 2 ml STAT ONE Administration Methylprednisolone Sodium Succinate Confirm 05/17/21 19:49 Methylprednis Sod Succ 125 Mg/2 Ml Vial Administered 05/17/21 19:50 Dose 125 mg .ROUTE .STK-MED ONE Sterile Water Confirm 05/17/21 19:49 Water For Injection,Sterile 10 Ml Vial Administered 05/17/21 19:50 Dose 10 ml IJ .STK-MED ONE Lab/Rad Data: Laboratory Result Diagrams 05/17/21 19:50 Laboratory Results 05/17/21 05/17/21 05/17/21 Range/Units 20:15 19:52 19:50 WBC 15.2 H (4.0-10.5) K/mm3 RBC 4.45 (4.1-5.4) M/mm3 Hgb 14.5 (12.0-16.0) gm/dl Hct 43.0 (35-47) % MCV 96.6 (78-100) fl MCH 32.6 H (26-32) pg MCHC 33.7 (32-36) g/dl RDW 13.0 (11.5-14.0) % Plt Count 398 (150-450) K/mm3 MPV 9.2 (7.5-11.0) fl Segmented Neutrophils 61 (36.0-66.0) % Band Neutrophils 3 H (0.0-2.0) % Lymphocytes (Manual) 19 L (24-44) % Monocytes (Manual) 9 (0.0-12.0) % Eosinophils (Manual) 5 H (0.00-3.0) % Atypical Lymphocytes 3 % Platelet Estimate NORMAL (NORMAL) RBC Morphology NORMAL D-Dimer 261 (215-500) ng/mL Lactic Acid 1.5 (0.4-2.0) - Progress Progress: improved Air Movement: good Progress Note: 05/17/21 21:16 patient is not in any distress, given albuterol puffs, steroid shot. EKG showed sinus tach with negative troponin and D-dimer. Chest x-ray no acute findings reviewed by me, official report is pending. I believe patient has COPD exacerbation. Started on doxy and will give a short course of steroids, outpatient follow-up recommended. Antibiotics given: Yes Counseled pt/family regarding: lab results, diagnosis, need for follow-up, rad results, smoking cessation - Departure Departure Disposition: Home Clinical Impression: COPD with exacerbation, COVID-19 Condition: Stable Critical Care Time: No Referrals: MARBELLA COLON MD [Primary Care Provider] - Follow Up with PCP/3 days Instructions: Chronic Obstructive Pulmonary Disease, Exacerbation of COPD (DC) Additional Instructions: Continue with your oxygen, use neb treatments regularly, do not smoke Follow-up with primary care for reevaluation. Return to ER for worsening difficulty breathing or if develop chest pain/persistent high-grade fever chills etc. Prescriptions: Dexamethasone [Decadron] 6 mg PO DAILY #5 tablet Doxycycline Hyclate 100 mg [Vibramycin 100 MG] 100 mg PO BID #14 tab
[2021-05-17 21:29] VITALS: BP 153/104; PULSE 94
--- NOTE | 2021-05-18 08:44 | XRAY ---
Indication: Short of breath. COPD. Comparison: May 12, 2021. Portable chest again hyperinflated with incidental tiny right upper lobe calcified granuloma. No focal infiltrate, consolidation, or large effusion. Heart not enlarged. No new/acute findings.
== END 2021-05-17 21:41 | disposition home or self-care (01) ==
LOC: ED 18:03
DX: U07.1 COVID-19 (principal); J44.1 Chronic obstructive pulmonary disease with (acute) exacerbation; Z99.81 Dependence on supplemental oxygen; Z72.0 Tobacco use; J96.10 Chronic respiratory failure, unspecified whether with hypoxia or hypercapnia; I10 Essential (primary) hypertension; R05.9 Cough, unspecified; Z79.52 Long term (current) use of systemic steroids; Z79.899 Other long term (current) drug therapy
CPT/HCPCS: 36000; 36415; 71045; 80053; 83605; 83735; 84484; 85025; 85379; 87040; 93005; 93041; 94640; 96374; 99284; J2930; A9270-GY

== ENCOUNTER 2021-10-17 18:22 | Emergency (ER) | payer OTHER ==
--- NOTE | 2021-10-17 18:24 | ERPHSYRPT ---
- History of Present Illness Time Seen by Provider: 10/17/21 18:24 Source: patient, EMS Exam Limitations: no limitations Physician History: This is a 46-year-old obese -[place] female who has a history of oxygen dependent COPD and uses 4 L of nasal cannula for this, she also has a history of hypertension, gastroesophageal reflux disease, migraine headaches, TIAs and peripheral neuropathy. She has anxiety issues as well. Patient does not have any electricity that is functioning at home and therefore has no air conditioning. She has not been able to run her oxygen tank because of the lack of lack of electricity. Patient was brought into the emergency department by ambulance service. They placed an IV and provide the patient with Solu-Medrol intravenously and patient received a DuoNeb and 2 albuterol nebulizer treatments. She arrives emergency department feeling better. She is a current daily smoker of cigarettes. Patient also states that her nebulizer machine was at a relatives home and did not have it at her house. Timing/Duration: day(s) (Last few days) Activities at Onset: none Severity of Dyspnea-Max: moderate Severity of Dyspnea-Current: mild Possible Cause: occasional episodes Modifying Factors: Improves With: albuterol nebulizer (Improved), coughing, oxygen (Improved) Associated Symptoms: anxiety, cough, wheezing, No chest pain/discomfort, No weakness Allergies/Adverse Reactions: cephalexin [From Keflex] Allergy (Verified 10/17/21 18:24) ketorolac [From Toradol] Allergy (Verified 10/17/21 18:24) lisinopril Allergy (Verified 10/17/21 18:24) Sulfa (Sulfonamide Antibiotics) Allergy (Verified 10/17/21 18:24) Home Medications: Gabapentin [Neurontin ] 300 mg PO BID 09/22/20 [History] Cyclobenzaprine HCl 5 mg PO BID PRN 10/29/20 [History] Omeprazole 40 mg PO DAILY 02/06/21 [History] Buspirone HCl 5 mg [Buspar 5 mg] 10 mg PO BID 02/07/21 [History] Hx Tetanus, Diphtheria Vaccination/Date Given: Yes Hx Influenza Vaccination/Date Given: No (unknown) Hx Pneumococcal Vaccination/Date Given: No (unknown) Travel Risk - International Travel Have you traveled outside of the country in past 3 weeks: No - Coronavirus Screening Are you exhibiting any of the following symptoms?: No Close contact with a COVID-19 positive Pt in past 14-21 Days: No - Vaccine Status Have you recieved a Covid-19 vaccination: No - Review of Systems Constitutional: No Symptoms Eyes: No Symptoms Ears, Nose, & Throat: No Symptoms Respiratory: Cough, Dyspnea, Wheezing Cardiac: No Symptoms Abdominal/Gastrointestinal: No Symptoms Genitourinary Symptoms: No Symptoms Musculoskeletal: No Symptoms Skin: No Symptoms Neurological: No Symptoms Psychological: No Symptoms Endocrine: No Symptoms Hematologic/Lymphatic: No Symptoms Immunological/Allergic: No Symptoms All Other Systems: Reviewed and Negative - Past Medical History Pertinent Past Medical History: Yes Neurological History: Migraines, Peripheral Neuropathy, TIA ENT History: No Pertinent History Cardiac History: Hypertension Respiratory History: Asthma, COPD, Emphysema Endocrine Medical History: No Pertinent History Musculoskeletal History: Arthritis, Osteoarthritis, Other GI Medical History: Pancreatitis History: No Pertinent History Psycho-Social History: Anxiety Female Reproductive Disorders: No Pertinent History Other Medical History: SCIATIC NERVE PROBLEMS - Past Surgical History Past Surgical History: Yes Neuro Surgical History: No Pertinent History Cardiac: No Pertinent History Respiratory: No Pertinent History Gastrointestinal: No Pertinent History Genitourinary: No Pertinent History Musculoskeletal: No Pertinent History Female Surgical History: Tubal Ligation Other Surgical History: jaw fx repair, tubal pregnancies - Social History Smoking Status: Current every day smoker How long have you smoked: 30 yrs Exposure to second hand smoke: Yes Drug Use: none Patient Lives Alone: No - Nursing Vital Signs Nursing Vital Signs: Initial Vital Signs Temperature 97.6 F 10/17/21 18:26 Pulse Rate 113 H 10/17/21 18:26 Respiratory Rate 22 10/17/21 18:26 Blood Pressure 141/102 10/17/21 18:26 O2 Sat by Pulse Oximetry 96 10/17/21 18:26 Pain Scale Pain Intensity 10 - Physical Exam General Appearance: no apparent distress, alert, anxiety, obese Eye Exam: PERRL/EOMI, eyes nml inspection Ears, Nose, Throat Exam: hearing grossly normal, normal ENT inspection, normal pharynx Neck Exam: normal inspection, non-tender, supple, full range of motion Respiratory Exam: airway intact, wheezing, No chest tenderness, No respiratory d istress, No accessory muscle use Cardiovascular/Chest Exam: tachycardia Abdominal/Gastrointestinal Exam: soft, normal bowel sounds, No tenderness Rectal Exam: not done Extremity Exam: non-tender, normal range of motion, normal inspection Neurologic Exam: alert, oriented x 3, cooperative, smt operator II-XII nml as tested, normal mood/affect, nml cerebellar function, nml station & gait, sensation nml Skin Exam: normal color, warm, dry Lymphatic Exam: No adenopathy SpO2 Interpretation: normal - Course Nursing assessment & vital signs reviewed: Yes Ordered Tests: Active Orders 24 hr Category Date Time Status EKG-ER Only STAT Care 10/17/21 18:59 Active IV Insertion STAT Care 10/17/21 18:26 Active Pulse Oximetry (ED) STAT Care 10/17/21 18:26 Active CHEST 1 VIEW (PORTABLE) Stat Exams 10/17/21 18:26 Taken CBC W DIFF Stat Lab 10/17/21 18:56 Completed CMP Stat Lab 10/17/21 18:56 Completed D-DIMER QUANTITATIVE Stat Lab 10/17/21 19:00 Completed NT PRO BNP Stat Lab 10/17/21 18:56 Completed TROPONIN Q3H Lab 10/17/21 19:00 Completed TROPONIN Q3H Lab 10/17/21 22:00 Ordered TROPONIN Q3H Lab 10/18/21 01:00 Ordered TROPONIN Q3H Lab 10/18/21 04:00 Ordered TROPONIN Q3H Lab 10/18/21 07:00 Ordered Respiratory Nebulizer STAT RT 10/17/21 21:40 Completed Respiratory Therapy Assessment DAILY RT 10/17/21 21:41 Active Medication Summary Discontinued Medications Generic Name Dose Route Start Last Admin Trade Name Freq PRN Reason Stop Dose Admin Albuterol/Ipratropium Confirm 10/17/21 21:30 Ipratropium/Albuterol Sulfate 3 Ml Ampul.Neb Administered 10/17/21 21:31 Dose 3 ml IH .STK-MED ONE Albuterol/Ipratropium 3 ml 10/17/21 21:39 10/17/21 21:40 Ipratropium/Albuterol Sulfate 3 Ml Ampul.Neb IH 10/17/21 21:40 3 ml STAT ONE Administration Potassium Chloride 10 meq 10/17/21 19:41 10/17/21 19:55 Potassium Chloride Tab 10 Meq Tab PO 10/17/21 19:42 10 meq STAT ONE Administration Potassium Chloride Confirm 10/17/21 19:53 Potassium Chloride Tab 10 Meq Tab Administered 10/17/21 19:54 Dose 10 meq PO .STK-MED ONE Lab/Rad Data: Laboratory Result Diagrams 10/17/21 18:56 10/17/21 18:56 Laboratory Results 10/17/21 10/17/21 10/17/21 Range/Units 19:17 19:00 19:00 WBC (4.0-10.5) x10^3/uL RBC (4.1-5.4) x10^6/uL Hgb (12.0-16.0) g/dL Hct (35-47) % MCV (78-100) fL MCH (26-32) pg MCHC (32-36) g/dL RDW (11.5-14.0) % Plt Count (150-450) x10^3/uL MPV (7.5-11.0) fL Gran % (36.0-66.0) % Immature Gran % (Auto) (0.00-0.4) % Nucleat RBC Rel Count (0.00-0.1) % Eos # (Auto) (0-0.5) x10^3/uL Immature Gran # (Auto) (0.00-0.03) x10^3u/L Absolute Lymphs (auto) (1.0-4.6) x10^3/uL Absolute Monos (auto) (0.0-1.3) x10^3/uL Absolute Nucleated RBC (0.00-0.01) x10^3u/L Lymphocytes % (24.0-44.0) % Monocytes % (0.0-12.0) % Eosinophils % (0.00-5.0) % Basophils % (0.0-0.4) % Absolute Granulocytes (1.4-6.9) x10^3/uL Basophils # (0-0.4) x10^3/uL D-Dimer 0.23 (0.0-0.50) mg/L Sodium (137-145) mmol/L Potassium (3.5-5.1) mmol/L Chloride (98-107) mmol/L Carbon Dioxide (22-30) mmol/L Anion Gap (5-15) MEQ/L BUN (7-17) mg/dL Creatinine (0.52-1.04) mg/dL Estimated GFR ML/MIN Glucose (74-106) mg/dL Calcium (8.4-10.2) mg/dL Total Bilirubin (0.2-1.3) mg/dL AST (14-36) U/L ALT (0-35) U/L Alkaline Phosphatase (38-126) U/L Troponin I < 0.012 (0.000-0.034) ng/mL NT-Pro-B Natriuret Pep (0-450) pg/mL Serum Total Protein (6.3-8.2) g/dL Albumin (3.5-5.0) g/dL Influenza Type A Ag NEGATIVE (NEGATIVE) Influenza Type B Ag NEGATIVE (NEGATIVE) RSV (PCR) NEGATIVE (Negative) SARS-CoV-2 (PCR) NEGATIVE (NEGATIVE) 10/17/21 10/17/21 Range/Units 18:56 18:56 WBC 14.6 H (4.0-10.5) x10^3/uL RBC 4.60 (4.1-5.4) x10^6/uL Hgb 14.8 (12.0-16.0) g/dL Hct 43.0 (35-47) % MCV 93.5 (78-100) fL MCH 32.2 H (26-32) pg MCHC 34.4 (32-36) g/dL RDW 13.0 (11.5-14.0) % Plt Count 343 (150-450) x10^3/uL MPV 9.5 (7.5-11.0) fL Gran % 69.7 H (36.0-66.0) % Immature Gran % (Auto) 0.7 H (0.00-0.4) % Nucleat RBC Rel Count 0.0 (0.00-0.1) % Eos # (Auto) 0.35 (0-0.5) x10^3/uL Immature Gran # (Auto) 0.10 H (0.00-0.03) x10^3u/L Absolute Lymphs (auto) 3.23 (1.0-4.6) x10^3/uL Absolute Monos (auto) 0.68 (0.0-1.3) x10^3/uL Absolute Nucleated RBC 0.00 (0.00-0.01) x10^3u/L Lymphocytes % 22.1 L (24.0-44.0) % Monocytes % 4.7 (0.0-12.0) % Eosinophils % 2.4 (0.00-5.0) % Basophils % 0.4 (0.0-0.4) % Absolute Granulocytes 10.19 H (1.4-6.9) x10^3/uL Basophils # 0.06 (0-0.4) x10^3/uL D-Dimer (0.0-0.50) mg/L Sodium 140 (137-145) mmol/L Potassium 3.0 L* (3.5-5.1) mmol/L Chloride 103 (98-107) mmol/L Carbon Dioxide 29 (22-30) mmol/L Anion Gap 11.5 (5-15) MEQ/L BUN 5 L (7-17) mg/dL Creatinine 0.57 (0.52-1.04) mg/dL Estimated GFR > 60.0 ML/MIN Glucose 117 H (74-106) mg/dL Calcium 8.3 L (8.4-10.2) mg/dL Total Bilirubin 0.40 (0.2-1.3) mg/dL AST 18 (14-36) U/L ALT 14 (0-35) U/L Alkaline Phosphatase 95 (38-126) U/L Troponin I (0.000-0.034) ng/mL NT-Pro-B Natriuret Pep 77.4 (0-450) pg/mL Serum Total Protein 6.6 (6.3-8.2) g/dL Albumin 3.8 (3.5-5.0) g/dL Influenza Type A Ag (NEGATIVE) Influenza Type B Ag (NEGATIVE) RSV (PCR) (Negative) SARS-CoV-2 (PCR) (NEGATIVE) - Progress Progress: improved, re-examined Air Movement: good Progress Note: 10/17/21 21:57 Chest x-ray shows no acute cardiopulmonary process. Medical decision making: This patient has leukocytosis and acute exacerbation of COPD. It does not appear that she has an infiltrate present. However she does have a elevated white blood cell count with a left shift. We will send a prescription for steroids and antibiotic to her pharmacy. Blood Culture(s) Obtained: Yes Counseled pt/family regarding: lab results, diagnosis, need for follow-up, rad results - Departure Departure Disposition: Home Clinical Impression: COPD exacerbation, Leukocytosis Condition: Stable Critical Care Time: No Referrals: MARBELLA COLON MD [Primary Care Provider] - Follow up/PCP as directed Instructions: Chronic Obstructive Pulmonary Disease Additional Instructions: Drink plenty fluids. Stop smoking cigarettes. Take your medication as prescribed. Perform your nebulizer treatment every 4 hours while awake. Wear your oxygen as prescribed. Follow-up with your primary care physician for further evaluation and management. Prescriptions: Prednisone 10 mg [Deltasone 10 mg] 10 mg PO TID #12 tablet Levofloxacin [Levaquin 500 MG Tablet] 500 mg PO DAILY #7 tablet
[2021-10-17 18:59] LABS: Absolute Neutrophil Ct (ANC) 10.19 x10^3/uL (1.4-6.9); Basophil (Absolute #) 0.06 x10^3/uL (0-0.4); Eosinophil % 2.4 % (0.00-5.0); Eosinophil (Absolute #) 0.35 x10^3/uL (0-0.5); Hemoglobin 14.8 g/dL (12.0-16.0); Lymphocyte (Absolute #) 3.23 x10^3/uL (1.0-4.6); Lymphocytes % 22.1 % (24.0-44.0); Mean Cell Volume 93.5 fL (78-100); Mean Corpuscular Hemoglobin 32.2 pg (26-32); Mean Corpuscular Hgb Concent. 34.4 g/dL (32-36); Mean Platelet Volume 9.5 fL (7.5-11.0); Monocyte (Absolute #) 0.68 x10^3/uL (0.0-1.3); Monocytes % 4.7 % (0.0-12.0); Neutrophil % 69.7 % (36.0-66.0); Platelet Count 343 x10^3/uL (150-450); White Blood Count 14.6 x10^3/uL (4.0-10.5)
[2021-10-17 19:22] LABS: ALBUMIN 3.8 g/dL (3.5-5.0); ALKALINE PHOSPHATASE 95 U/L (38-126); ANION GAP 11.5 MEQ/L (5-15); BLOOD UREA NITROGEN 5 mg/dL (7-17); CHLORIDE 103 mmol/L (98-107); Calcium 8.3 mg/dL (8.4-10.2); Carbon Dioxide 29 mmol/L (22-30); Creatinine 1 0.57 mg/dL (0.52-1.04); EST GLOMERULAR FILTRATION RATE > 60.0 ML/MIN; Glucose 117 mg/dL (74-106); NT PRO BNP 77.4 pg/mL (0-450); SGOT/AST 18 U/L (14-36); SGPT/ALT 14 U/L (0-35); SODIUM 140 mmol/L (137-145); Total Protein 6.6 g/dL (6.3-8.2)
[2021-10-17] MEDS ORDERED: Klor Con PO ONE ×2 (19:41→19:53)
[2021-10-17 19:57] LABS: INFLUENZA A NEGATIVE (NEGATIVE); INFLUENZA B NEGATIVE (NEGATIVE); RESPIRATORY SYNCTIAL VIRUS NEGATIVE (Negative); SARS-CoV-2 Xpert Express NEGATIVE (NEGATIVE)
[2021-10-17] MEDS ORDERED: DUONEB 0.5-3 MG/3 ml Neb IH ONE ×2 (21:30→21:39)
[2021-10-17 22:15] VITALS: BP 133/76; PULSE 100; O2SAT 95
== END 2021-10-17 22:15 | disposition home or self-care (01) ==
LOC: ED 18:22
DX: J44.1 Chronic obstructive pulmonary disease with (acute) exacerbation (principal); D72.829 Elevated white blood cell count, unspecified; Z99.81 Dependence on supplemental oxygen; Z59.89 Other problems related to housing and economic circumstances; I10 Essential (primary) hypertension; Z72.0 Tobacco use; Z79.899 Other long term (current) drug therapy; Z79.52 Long term (current) use of systemic steroids; Z20.828 Contact with and (suspected) exposure to other viral communicable diseases
CPT/HCPCS: 0241U; 36000; 36415; 71045; 80053; 83880; 84484; 85025; 85379; 94640; 94760; 99283; A9270-GY

== ENCOUNTER 2021-11-06 14:11 | Emergency (ER) | payer OTHER ==
--- NOTE | 2021-11-06 14:17 | ERPHSYRPT ---
- History of Present Illness Time Seen by Provider: 11/06/21 14:17 Historian: patient Exam Limitations: no limitations Physician History: This is a 46-year-old -[place]ov[place] female who is a patient of Dr. Bryant presents with chest pain that began yesterday. It is localized in the left anterior chest. She states it is sharp. Patient is a current daily smoker of cigarettes. She is oxygen dependent COPD patient with 4 L nasal cannula oxygen that she wears throughout the day. Patient has a history of hypertension, gastroesophageal reflux disease and TIAs. She has peripheral neuropathy migraine headaches and anxiety issues. Patient is supposed to be on a daily baby aspirin but has not been taking that medication. Patient has no adverse reactions to taking aspirin. Patient became concerned because the left chest pain is persistent. It does not radiate. Timing/Duration: yesterday, constant Activities at Onset: none Quality: sharpness Location: other (Left anterior chest) Severity of Pain-Max: moderate Severity of Pain-Current: mild (To moderate) Associated Symptoms: shortness of breath (Chronic) Nitro Today/Relief: no nitro taken today Aspirin Treatment Today: no aspirin today Allergies/Adverse Reactions: cephalexin [From Keflex] Allergy (Verified 11/06/21 14:24) ketorolac [From Toradol] Allergy (Verified 11/06/21 14:24) lisinopril Allergy (Verified 11/06/21 14:24) Sulfa (Sulfonamide Antibiotics) Allergy (Verified 11/06/21 14:24) Home Medications: Gabapentin [Neurontin ] 300 mg PO BID 09/22/20 [History] Cyclobenzaprine HCl 5 mg PO BID PRN 10/29/20 [History] Omeprazole 40 mg PO DAILY 02/06/21 [History] Buspirone HCl 5 mg [Buspar 5 mg] 10 mg PO BID 02/07/21 [History] Hx Tetanus, Diphtheria Vaccination/Date Given: Yes Hx Influenza Vaccination/Date Given: No (unknown) Hx Pneumococcal Vaccination/Date Given: No (unknown) Travel Risk - International Travel Have you traveled outside of the country in past 3 weeks: No - Coronavirus Screening Are you exhibiting any of the following symptoms?: No Close contact with a COVID-19 positive Pt in past 14-21 Days: No - Vaccine Status Have you recieved a Covid-19 vaccination: No - Review of Systems Constitutional: No Symptoms Eyes: No Symptoms Ears, Nose, & Throat: No Symptoms Respiratory: No Symptoms Cardiac: Chest Pain (Left anterior chest wall) Abdominal/Gastrointestinal: No Symptoms Genitourinary Symptoms: No Symptoms Musculoskeletal: No Symptoms Skin: No Symptoms Neurological: No Symptoms Psychological: No Symptoms Endocrine: No Symptoms Hematologic/Lymphatic: No Symptoms Immunological/Allergic: No Symptoms All Other Systems: Reviewed and Negative - Past Medical History Pertinent Past Medical History: Yes Neurological History: Migraines, Peripheral Neuropathy, TIA ENT History: No Pertinent History Cardiac History: Hypertension Respiratory History: Asthma, COPD, Emphysema Endocrine Medical History: No Pertinent History Musculoskeletal History: Arthritis, Osteoarthritis, Other GI Medical History: Pancreatitis History: No Pertinent History Psycho-Social History: Anxiety Female Reproductive Disorders: No Pertinent History Other Medical History: SCIATIC NERVE PROBLEMS - Past Surgical History Past Surgical History: Yes Neuro Surgical History: No Pertinent History Cardiac: No Pertinent History Respiratory: No Pertinent History Gastrointestinal: No Pertinent History Genitourinary: No Pertinent History Musculoskeletal: No Pertinent History Female Surgical History: Tubal Ligation Other Surgical History: jaw fx repair, tubal pregnancies - Social History Smoking Status: Current every day smoker How long have you smoked: 30 yrs Exposure to second hand smoke: Yes Drug Use: none Patient Lives Alone: No - Nursing Vital Signs Nursing Vital Signs: Initial Vital Signs Temperature 97.1 F 11/06/21 14:16 Pulse Rate 107 H 11/06/21 14:16 Respiratory Rate 18 11/06/21 14:16 Blood Pressure 142/104 11/06/21 14:16 O2 Sat by Pulse Oximetry 97 11/06/21 14:16 Pain Scale Pain Intensity 8 - Physical Exam General Appearance: no apparent distress, alert, anxiety Eye Exam: PERRL/EOMI, eyes nml inspection Ears, Nose, Throat Exam: normal ENT inspection, moist mucous membranes Neck Exam: normal inspection, non-tender, supple, full range of motion Respiratory Exam: normal breath sounds, chest tenderness (Left anterior chest), lungs clear, airway intact, No respiratory distress Cardiovascular Exam: regular rate/rhythm, normal heart sounds, normal peripheral pulses Gastrointestinal/Abdomen Exam: soft, normal bowel sounds, No tenderness Pelvic Exam: not done Rectal Exam: not done Back Exam: normal inspection, normal range of motion, No CVA tenderness Extremity Exam: normal inspection, normal range of motion, pelvis stable Neurologic Exam: alert, oriented x 3, cooperative, 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 No changes from EKG dated 05/17/2021.) Ordered Tests: Active Orders 24 hr Category Date Time Status EKG-ER Only STAT Care 11/06/21 14:19 Active IV Insertion STAT Care 11/06/21 14:19 Active Pulse Oximetry (ED) STAT Care 11/06/21 14:19 Active CHEST 1 VIEW (PORTABLE) Stat Exams 11/06/21 14:19 Completed CBC W DIFF Stat Lab 11/06/21 14:43 Completed CMP Stat Lab 11/06/21 14:43 Completed D-DIMER QUANTITATIVE Stat Lab 11/06/21 14:43 Completed NT PRO BNP Stat Lab 11/06/21 14:43 Completed TROPONIN Q3H Lab 11/06/21 14:43 Completed TROPONIN Q3H Lab 11/06/21 17:30 Ordered TROPONIN Q3H Lab 11/06/21 20:30 Ordered TROPONIN Q3H Lab 11/06/21 23:30 Ordered TROPONIN Q3H Lab 11/07/21 02:30 Ordered Medication Summary Discontinued Medications Generic Name Dose Route Start Last Admin Trade Name Agustin PRN Reason Stop Dose Admin Aspirin 324 mg 11/06/21 14:40 11/06/21 14:42 Aspirin 81 Mg Tab.Chew PO 11/06/21 14:41 324 mg STAT ONE Administration Aspirin Confirm 11/06/21 14:44 Aspirin 81 Mg Tab.Chew Administered 11/06/21 14:45 Dose 324 mg .ROUTE .STK-MED ONE Potassium Chloride 40 meq 11/06/21 15:38 11/06/21 16:07 Potassium Chloride Tab 10 Meq Tab PO 11/06/21 15:39 40 meq STAT ONE Administration Potassium Chloride Confirm 11/06/21 16:07 Potassium Chloride Tab 10 Meq Tab Administered 11/06/21 16:08 Dose 40 meq PO .STK-MED ONE Lab/Rad Data: Laboratory Result Diagrams 11/06/21 14:43 11/06/21 14:43 Laboratory Results 11/06/21 11/06/21 11/06/21 Range/Units 14:43 14:43 14:43 WBC (4.0-10.5) x10^3/uL RBC (4.1-5.4) x10^6/uL Hgb (12.0-16.0) g/dL Hct (35-47) % MCV (78-100) fL MCH (26-32) pg MCHC (32-36) g/dL RDW (11.5-14.0) % Plt Count (150-450) x10^3/uL MPV (7.5-11.0) fL Gran % (36.0-66.0) % Immature Gran % (Auto) (0.00-0.4) % Nucleat RBC Rel Count (0.00-0.1) % Eos # (Auto) (0-0.5) x10^3/uL Immature Gran # (Auto) (0.00-0.03) x10^3u/L Absolute Lymphs (auto) (1.0-4.6) x10^3/uL Absolute Monos (auto) (0.0-1.3) x10^3/uL Absolute Nucleated RBC (0.00-0.01) x10^3u/L Lymphocytes % (24.0-44.0) % Monocytes % (0.0-12.0) % Eosinophils % (0.00-5.0) % Basophils % (0.0-0.4) % Absolute Granulocytes (1.4-6.9) x10^3/uL Basophils # (0-0.4) x10^3/uL D-Dimer 0.34 (0.0-0.50) mg/L Sodium 141 (137-145) mmol/L Potassium 2.7 L* (3.5-5.1) mmol/L Chloride 106 (98-107) mmol/L Carbon Dioxide 24 (22-30) mmol/L Anion Gap 14.3 (5-15) MEQ/L BUN 2 L (7-17) mg/dL Creatinine 0.68 (0.52-1.04) mg/dL Estimated GFR > 60.0 ML/MIN Glucose 138 H (74-106) mg/dL Calcium 9.1 (8.4-10.2) mg/dL Total Bilirubin 0.50 (0.2-1.3) mg/dL AST 33 (14-36) U/L ALT 32 (0-35) U/L Alkaline Phosphatase 100 (38-126) U/L Troponin I < 0.012 (0.000-0.034) ng/mL NT-Pro-B Natriuret Pep 162 (0-450) pg/mL Serum Total Protein 6.8 (6.3-8.2) g/dL Albumin 3.8 (3.5-5.0) g/dL 11/06/21 Range/Units 14:43 WBC 8.4 (4.0-10.5) x10^3/uL RBC 4.36 (4.1-5.4) x10^6/uL Hgb 14.2 (12.0-16.0) g/dL Hct 41.8 (35-47) % MCV 95.9 (78-100) fL MCH 32.6 H (26-32) pg MCHC 34.0 (32-36) g/dL RDW 13.2 (11.5-14.0) % Plt Count 350 (150-450) x10^3/uL MPV 10.1 (7.5-11.0) fL Gran % 87.8 H (36.0-66.0) % Immature Gran % (Auto) 0.5 H (0.00-0.4) % Nucleat RBC Rel Count 0.0 (0.00-0.1) % Eos # (Auto) 0 (0-0.5) x10^3/uL Immature Gran # (Auto) 0.04 H (0.00-0.03) x10^3u/L Absolute Lymphs (auto) 0.76 L (1.0-4.6) x10^3/uL Absolute Monos (auto) 0.20 (0.0-1.3) x10^3/uL Absolute Nucleated RBC 0.00 (0.00-0.01) x10^3u/L Lymphocytes % 9.1 L (24.0-44.0) % Monocytes % 2.4 (0.0-12.0) % Eosinophils % 0.0 (0.00-5.0) % Basophils % 0.2 (0.0-0.4) % Absolute Granulocytes 7.35 H (1.4-6.9) x10^3/uL Basophils # 0.02 (0-0.4) x10^3/uL D-Dimer (0.0-0.50) mg/L Sodium (137-145) mmol/L Potassium (3.5-5.1) mmol/L Chloride (98-107) mmol/L Carbon Dioxide (22-30) mmol/L Anion Gap (5-15) MEQ/L BUN (7-17) mg/dL Creatinine (0.52-1.04) mg/dL Estimated GFR ML/MIN Glucose (74-106) mg/dL Calcium (8.4-10.2) mg/dL Total Bilirubin (0.2-1.3) mg/dL AST (14-36) U/L ALT (0-35) U/L Alkaline Phosphatase (38-126) U/L Troponin I (0.000-0.034) ng/mL NT-Pro-B Natriuret Pep (0-450) pg/mL Serum Total Protein (6.3-8.2) g/dL Albumin (3.5-5.0) g/dL - Progress Progress: improved, re-examined Air Movement: good Progress Note: 11/06/21 14:55 Chest x-ray shows no acute cardiopulmonary process. - Departure Departure Disposition: Home Clinical Impression: Non-cardiac chest pain, Hypokalemia Condition: Stable Critical Care Time: No Referrals: MARBELLA COLON MD [Primary Care Provider] - Follow up/PCP as directed Additional Instructions: Eat bananas, nuts and green leafy vegetables. Take your medication as prescribed. Return to the [facility] lab on the morning of 11/08/2021 to obtain a repeat blood level to check your potassium level. Call your primary care provider later in the morning on 11/08/2021 to obtain your potassium level results. Prescriptions: Potassium Chloride Tab* [Klor Con] 20 meq PO BID #8 tab
[2021-11-06] MEDS ORDERED: BABY ASPIRIN 81 MG CHEW PO ONE (14:40)
[2021-11-06] MEDS ORDERED: BABY ASPIRIN 81 MG CHEW ONE (14:44)
--- NOTE | 2021-11-06 14:49 | XRAY ---
Indication: Chest pain. COPD. Emphysema. Asthma. Comparison: October 17, 2021. Portable chest remains hyperinflated and clear with a few incidental right lung calcified granulomas. Heart not enlarged. No new/acute findings.
[2021-11-06 15:03] LABS: Absolute Neutrophil Ct (ANC) 7.35 x10^3/uL (1.4-6.9); Basophil (Absolute #) 0.02 x10^3/uL (0-0.4); Eosinophil (Absolute #) 0 x10^3/uL (0-0.5); Hematocrit 41.8 % (35-47); Hemoglobin 14.2 g/dL (12.0-16.0); Lymphocyte (Absolute #) 0.76 x10^3/uL (1.0-4.6); Lymphocytes % 9.1 % (24.0-44.0); Mean Cell Volume 95.9 fL (78-100); Mean Corpuscular Hemoglobin 32.6 pg (26-32); Mean Platelet Volume 10.1 fL (7.5-11.0); Monocytes % 2.4 % (0.0-12.0); Neutrophil % 87.8 % (36.0-66.0); Platelet Count 350 x10^3/uL (150-450); Red Blood Count 4.36 x10^6/uL (4.1-5.4); Red Cell Distribution Width 13.2 % (11.5-14.0); White Blood Count 8.4 x10^3/uL (4.0-10.5)
[2021-11-06 15:22] VITALS: BP 143/99
[2021-11-06 15:26] LABS: SGPT/ALT 32 U/L (0-35)
[2021-11-06 15:29] LABS: ALBUMIN 3.8 g/dL (3.5-5.0); ALKALINE PHOSPHATASE 100 U/L (38-126); ANION GAP 14.3 MEQ/L (5-15); CHLORIDE 106 mmol/L (98-107); Calcium 9.1 mg/dL (8.4-10.2); Carbon Dioxide 24 mmol/L (22-30); Creatinine 1 0.68 mg/dL (0.52-1.04); EST GLOMERULAR FILTRATION RATE > 60.0 ML/MIN; Glucose 138 mg/dL (74-106); NT PRO BNP 162 pg/mL (0-450); SGOT/AST 33 U/L (14-36); SODIUM 141 mmol/L (137-145); Total Protein 6.8 g/dL (6.3-8.2)
[2021-11-06 15:36] LABS: BLOOD UREA NITROGEN 2 mg/dL (7-17)
[2021-11-06 15:38] LABS: Potassium 2.7 mmol/L (3.5-5.1)
[2021-11-06] MEDS ORDERED: Klor Con PO ONE ×2 (15:38→16:07)
[2021-11-06 16:27] VITALS: PULSE 70; O2SAT 99
== END 2021-11-06 16:30 | disposition home or self-care (01) ==
LOC: ED 14:11
DX: R07.89 Other chest pain (principal); E87.6 Hypokalemia; I10 Essential (primary) hypertension; J44.9 Chronic obstructive pulmonary disease, unspecified; Z72.0 Tobacco use; Z99.81 Dependence on supplemental oxygen; Z79.899 Other long term (current) drug therapy; Z28.310 Unvaccinated for COVID-19
CPT/HCPCS: 36000; 36415; 71045; 80053; 83880; 84484; 85025; 85379; 93005; 94760; 99284; A9270-GY

== ENCOUNTER 2021-11-21 11:33 | Emergency (ER) | payer OTHER ==
[2021-11-21] MEDS ORDERED: VALIUM 10 MG/2 ML SYRINGE IV ONE (11:54)
--- NOTE | 2021-11-21 12:01 | ERPHSYRPT ---
- History of Present Illness Time Seen by Provider: 11/21/21 11:45 Source: patient, EMS Exam Limitations: clinical condition Patient Subjective Stated Complaint: PT TO ER WITH COMPLAINTS OF SOB THAT STARTED 2 DAYS AGO, WORSE TODAY. PT STATES SHE HAS CHEST PAIN 10/10. PT STATES SHE COULDNT CATCH HER BREATH. PT CAME IN ON CPAP. Triage Nursing Assessment: PT TO ER VIA EMS. PT ON CPAP. PT WITH RETRACTIONS. APPEARS TO BE IN RESPITORY DISTRESS. PT SKIN MOIST. PT ALERT & ORIENTED. RT HERE UPON PT ARRIVAL. PT WITH PRODUCTIVE COUGH. Physician History: This is a 46-year-old -[place]i female patient of Dr. Colon who has significant, oxygen dependent COPD and asthma as well as emphysema who presents to the emergency department with worsening shortness of breath over the last 2 days. Patient wears 4 L of oxygen via nasal cannula. However, in the last several weeks she has been seen in this emergency department 3 times for the same complaint. She has had a change in her living situation. She lacks electricity. She continues to smoke cigarettes and her home environment is dump per her report. Today, she called EMS because she was having significant shortness of breath. EMS arrived and her room air oxygenation level was 78%. She was not moving much oxygen/air per EMS report. They placed her on a CPAP and she improved enough to feel as though she was receiving oxygen and air. EMS was then able to provide her with a DuoNeb and place an IV and provide the patient with 125 mg of intravenous Solu-Medrol. Patient arrives to the emergency department on a CPAP at 98 to 99%. Patient is very anxious. Patient has been off of her anxiety medicine for several days. She states "my dog ate it "patient has a history of hypertension, migraine headaches and gastroesophageal reflux disease. Timing/Duration: day(s) (2) Activities at Onset: none Severity of Dyspnea-Max: moderate Severity of Dyspnea-Current: moderate Possible Cause: frequent episodes Modifying Factors: Improves With: activity, coughing, exertion, oxygen, rest Associated Symptoms: anxiety, cough, wheezing Allergies/Adverse Reactions: cephalexin [From Keflex] Allergy (Verified 11/21/21 11:51) ketorolac [From Toradol] Allergy (Verified 11/21/21 11:51) lisinopril Allergy (Verified 11/21/21 11:51) Sulfa (Sulfonamide Antibiotics) Allergy (Verified 11/21/21 11:51) Home Medications: Gabapentin [Neurontin ] 300 mg PO BID 09/22/20 [History] Cyclobenzaprine HCl 5 mg PO BID PRN 10/29/20 [History] Omeprazole 40 mg PO DAILY 02/06/21 [History] Buspirone HCl 5 mg [Buspar 5 mg] 10 mg PO BID 02/07/21 [History] Hx Tetanus, Diphtheria Vaccination/Date Given: Yes Hx Influenza Vaccination/Date Given: No (unknown) Hx Pneumococcal Vaccination/Date Given: No (unknown) Travel Risk - International Travel Have you traveled outside of the country in past 3 weeks: No - Coronavirus Screening Are you exhibiting any of the following symptoms?: Yes Symptoms: Shortness of Breath Close contact with a COVID-19 positive Pt in past 14-21 Days: No - Vaccine Status Have you recieved a Covid-19 vaccination: No - Review of Systems Constitutional: No Symptoms Eyes: No Symptoms Ears, Nose, & Throat: No Symptoms Respiratory: Cough, Dyspnea, Wheezing Cardiac: No Symptoms Abdominal/Gastrointestinal: No Symptoms Genitourinary Symptoms: No Symptoms Musculoskeletal: No Symptoms Skin: No Symptoms Neurological: No Symptoms Psychological: No Symptoms Endocrine: No Symptoms Hematologic/Lymphatic: No Symptoms Immunological/Allergic: No Symptoms All Other Systems: Reviewed and Negative - Past Medical History Pertinent Past Medical History: Yes Neurological History: Migraines, Peripheral Neuropathy, TIA ENT History: No Pertinent History Cardiac History: Hypertension Respiratory History: Asthma, COPD, Emphysema Endocrine Medical History: No Pertinent History Musculoskeletal History: Arthritis, Osteoarthritis, Other GI Medical History: Pancreatitis History: No Pertinent History Psycho-Social History: Anxiety Female Reproductive Disorders: No Pertinent History Other Medical History: SCIATIC NERVE PROBLEMS - Past Surgical History Past Surgical History: Yes Neuro Surgical History: No Pertinent History Cardiac: No Pertinent History Respiratory: No Pertinent History Gastrointestinal: No Pertinent History Genitourinary: No Pertinent History Musculoskeletal: No Pertinent History Female Surgical History: Tubal Ligation Other Surgical History: jaw fx repair, tubal pregnancies - Social History Smoking Status: Current every day smoker How long have you smoked: 30 yrs Exposure to second hand smoke: Yes Drug Use: none Patient Lives Alone: No - Female History Hx Now: No - Nursing Vital Signs Nursing Vital Signs: Initial Vital Signs Temperature 97 F 11/21/21 11:41 Pulse Rate 105 H 11/21/21 11:41 Respiratory Rate 30 H 11/21/21 11:41 Blood Pressure 154/113 11/21/21 11:41 O2 Sat by Pulse Oximetry 99 11/21/21 11:41 Pain Scale Pain Intensity 0 - Physical Exam General Appearance: moderate distress, alert, anxiety Eye Exam: PERRL/EOMI, eyes nml inspection Ears, Nose, Throat Exam: hearing grossly normal, normal ENT inspection, normal pharynx Neck Exam: normal inspection, non-tender, supple, full range of motion Respiratory Exam: respiratory distress, airway intact, accessory muscle use, wheezing, No chest tenderness Cardiovascular/Chest Exam: tachycardia Abdominal/Gastrointestinal Exam: soft, normal bowel sounds, No tenderness Rectal Exam: not done Extremity Exam: non-tender, normal range of motion, normal inspection Neurologic Exam: alert, oriented x 3, 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 No change from EKG dated 11/06/2021.) Ordered Tests: Active Orders 24 hr Category Date Time Status Cable Splicer STAT Care 11/21/21 12:15 Active EKG-ER Only STAT Care 11/21/21 11:44 Active IV Insertion STAT Care 11/21/21 11:44 Active Pulse Oximetry (ED) STAT Care 11/21/21 11:44 Active CHEST 1 VIEW (PORTABLE) Stat Exams 11/21/21 11:44 Completed ABG [ARTERIAL BLOOD GASES] Stat Lab 11/21/21 11:39 Completed CBC W DIFF Stat Lab 11/21/21 12:15 Completed CMP Stat Lab 11/21/21 12:15 Completed D-DIMER QUANTITATIVE Stat Lab 11/21/21 12:15 Completed NT PRO BNP Stat Lab 11/21/21 12:15 Completed TROPONIN Q3H Lab 11/21/21 12:15 Completed TROPONIN Q3H Lab 11/21/21 14:45 Ordered TROPONIN Q3H Lab 11/21/21 17:45 Ordered TROPONIN Q3H Lab 11/21/21 20:45 Ordered TROPONIN Q3H Lab 11/21/21 23:45 Ordered Medication Summary Discontinued Medications Generic Name Dose Route Start Last Admin Trade Name Agustin PRN Reason Stop Dose Admin Hydrocodone Bitart/Acetaminophen 10 ml 11/21/21 12:56 11/21/21 13:14 Hydrocodone/Acetaminophen 5 Ml Udcup PO 11/21/21 12:57 10 ml STAT STA Administration Hydrocodone Bitart/Acetaminophen Confirm 11/21/21 13:09 Hydrocodone/Acetaminophen 5 Ml Udcup Administered 11/21/21 13:10 Dose 10 ml .ROUTE .STK-MED ONE Methylprednisolone Sodium 0 mg 11/21/21 12:56 11/21/21 13:13 Succinate 125 mg/ Sterile IV 11/21/21 12:57 125 mg Water 2 ml STAT ONE Administration Diazepam 5 mg 11/21/21 11:54 Diazepam 10 Mg/2 Ml Disp.Syringe IV 11/21/21 11:55 STAT ONE Methylprednisolone Sodium Succinate Confirm 11/21/21 13:09 Methylprednis Sod Succ 125 Mg/2 Ml Vial Administered 11/21/21 13:10 Dose 125 mg .ROUTE .STK-MED ONE Sterile Water Confirm 11/21/21 13:09 Water For Injection,Sterile 10 Ml Vial Administered 11/21/21 13:10 Dose 10 ml IJ .STK-MED ONE Lab/Rad Data: Laboratory Result Diagrams 11/21/21 12:15 11/21/21 12:15 Laboratory Results 11/21/21 11/21/21 11/21/21 Range/Units 12:15 12:15 12:15 WBC (4.0-10.5) x10^3/uL RBC (4.1-5.4) x10^6/uL Hgb (12.0-16.0) g/dL Hct (35-47) % MCV (78-100) fL MCH (26-32) pg MCHC (32-36) g/dL RDW (11.5-14.0) % Plt Count (150-450) x10^3/uL MPV (7.5-11.0) fL Gran % (36.0-66.0) % Immature Gran % (Auto) (0.00-0.4) % Nucleat RBC Rel Count (0.00-0.1) % Eos # (Auto) (0-0.5) x10^3/uL Immature Gran # (Auto) (0.00-0.03) x10^3u/L Absolute Lymphs (auto) (1.0-4.6) x10^3/uL Absolute Monos (auto) (0.0-1.3) x10^3/uL Absolute Nucleated RBC (0.00-0.01) x10^3u/L Lymphocytes % (24.0-44.0) % Monocytes % (0.0-12.0) % Eosinophils % (0.00-5.0) % Basophils % (0.0-0.4) % Absolute Granulocytes (1.4-6.9) x10^3/uL Basophils # (0-0.4) x10^3/uL D-Dimer 0.43 (0.0-0.50) mg/L Puncture Site pCO2 (35-45) mmHg pO2 (75-100) mmHg Base Excess (-2.0-2.0) O2 Saturation (94-100) g/dF ABG pH (7.35-7.45) ABG HCO3 (22-28) ABG O2 Sat (Measured) (95-100) % Apollo Test A-a Gradient a/A Ratio Hemoglobin Carboxyhemoglobin (0.0-6.9) % THgb Methemoglobin (1.4-1.5) % Potassium (3.5-5.1) Temperature C POC O2 Flow Rate % Sodium (137-145) mmol/L Chloride (98-107) mmol/L Carbon Dioxide (22-30) mmol/L Anion Gap (5-15) MEQ/L BUN (7-17) mg/dL Creatinine (0.52-1.04) mg/dL Estimated GFR ML/MIN Glucose (74-106) mg/dL Calcium (8.4-10.2) mg/dL Total Bilirubin (0.2-1.3) mg/dL AST (14-36) U/L ALT (0-35) U/L Alkaline Phosphatase (38-126) U/L Troponin I < 0.012 (0.000-0.034) ng/mL NT-Pro-B Natriuret Pep (0-450) pg/mL Serum Total Protein (6.3-8.2) g/dL Albumin (3.5-5.0) g/dL Influenza Type A Ag NEGATIVE (NEGATIVE) Influenza Type B Ag NEGATIVE (NEGATIVE) RSV (PCR) NEGATIVE (Negative) SARS-CoV-2 (PCR) NEGATIVE (NEGATIVE) 11/21/21 11/21/21 11/21/21 Range/Units 12:15 12:15 11:39 WBC 10.8 H (4.0-10.5) x10^3/uL RBC 4.72 (4.1-5.4) x10^6/uL Hgb 15.1 (12.0-16.0) g/dL Hct 45.1 (35-47) % MCV 95.6 (78-100) fL MCH 32.0 (26-32) pg MCHC 33.5 (32-36) g/dL RDW 13.1 (11.5-14.0) % Plt Count 309 (150-450) x10^3/uL MPV 9.3 (7.5-11.0) fL Gran % 61.6 (36.0-66.0) % Immature Gran % (Auto) 0.5 H (0.00-0.4) % Nucleat RBC Rel Count 0.0 (0.00-0.1) % Eos # (Auto) 0.44 (0-0.5) x10^3/uL Immature Gran # (Auto) 0.05 H (0.00-0.03) x10^3u/L Absolute Lymphs (auto) 2.79 (1.0-4.6) x10^3/uL Absolute Monos (auto) 0.82 (0.0-1.3) x10^3/uL Absolute Nucleated RBC 0.00 (0.00-0.01) x10^3u/L Lymphocytes % 25.7 (24.0-44.0) % Monocytes % 7.6 (0.0-12.0) % Eosinophils % 4.1 (0.00-5.0) % Basophils % 0.5 (0.0-0.4) % Absolute Granulocytes 6.69 (1.4-6.9) x10^3/uL Basophils # 0.05 (0-0.4) x10^3/uL D-Dimer (0.0-0.50) mg/L Puncture Site RIGHT BRACHIAL pCO2 46 H (35-45) mmHg pO2 90 (75-100) mmHg Base Excess -1.9 (-2.0-2.0) O2 Saturation 95.6 (94-100) g/dF ABG pH 7.33 L (7.35-7.45) ABG HCO3 24.3 (22-28) ABG O2 Sat (Measured) 97.9 (95-100) % Apollo Test NOT APPLICABLE A-a Gradient 138 a/A Ratio 0.39 Hemoglobin 15.4 Carboxyhemoglobin 1.1 (0.0-6.9) % THgb Methemoglobin 1.2 L (1.4-1.5) % Potassium 3.5 3.5 (3.5-5.1) Temperature 37.0 C POC O2 Flow Rate 40 % Sodium 141 (137-145) mmol/L Chloride 108 H (98-107) mmol/L Carbon Dioxide 24 (22-30) mmol/L Anion Gap 12.0 (5-15) MEQ/L BUN 6 L (7-17) mg/dL Creatinine 0.54 (0.52-1.04) mg/dL Estimated GFR > 60.0 ML/MIN Glucose 112 H (74-106) mg/dL Calcium 8.8 (8.4-10.2) mg/dL Total Bilirubin 0.60 (0.2-1.3) mg/dL AST 27 (14-36) U/L ALT 16 (0-35) U/L Alkaline Phosphatase 109 (38-126) U/L Troponin I (0.000-0.034) ng/mL NT-Pro-B Natriuret Pep 90.9 (0-450) pg/mL Serum Total Protein 6.9 (6.3-8.2) g/dL Albumin 4.1 (3.5-5.0) g/dL Influenza Type A Ag (NEGATIVE) Influenza Type B Ag (NEGATIVE) RSV (PCR) (Negative) SARS-CoV-2 (PCR) (NEGATIVE) - Progress Progress: improved, re-examined Air Movement: fair Progress Note: 11/21/21 12:51 Chest x-ray shows no new or acute findings. 11/21/21 14:08 Medical decision making: This is the third visit I have had the pleasure of taking care of this patient in the last approximately 6 weeks. Each time the patient comes in moderate distress. Patient's clinical picture turns around rapidly. Patient now has a heart rate in the 80s, normal sinus rhythm, she has a normal respiratory rate and her oxygen saturation on 4 L nasal cannula (her usual chronic daily level) is 100%. Patient's troponin is normal as is her D- dimer level. She is resting comfortably. There is no evidence of any pneumonia. Her COVID and flu tests are negative. I believe this is a COPD exacerbation. We will discharge her to home 11/21/21 14:10 Blood Culture(s) Obtained: Yes Antibiotics given: No Counseled pt/family regarding: lab results, diagnosis, need for follow-up, rad results - Departure Departure Disposition: Home Clinical Impression: COPD exacerbation Condition: Stable Critical Care Time: No Referrals: MARBELLA COLON MD [Primary Care Provider] - Follow up/PCP as directed Instructions: Chronic Obstructive Pulmonary Disease Additional Instructions: Stop smoking. Follow-up with your primary care provider for further evaluation and management. Use your inhalers and nebulizers as prescribed. Take your new prescription as prescribed. Prescriptions: Prednisone 10 mg [Deltasone 10 mg] 10 mg PO TID #12 tablet
[2021-11-21 12:03] LABS: A-aADO2 138; ABG HEMOGLOBIN 15.4; ABG POTASSIUM 3.5 (3.5-5.1); ABG SITE RIGHT BRACHIAL; ARTERIAL BLD GAS O2 SATURATION 97.9 % (95-100); ARTERIAL BLOOD GAS BASE EXCESS -1.9 (-2.0-2.0); ARTERIAL BLOOD GAS FIO2 40 %; ARTERIAL BLOOD GAS PCO2 46 mmHg (35-45); ARTERIAL BLOOD GAS PO2 90 mmHg (75-100); ARTERIAL BLOOD GAS pH 7.33 (7.35-7.45); CARBOXYHEMOGLOBIN 1.1 % THgb (0.0-6.9); HCO3- 24.3 (22-28); HGB O2 SAT 95.6 g/dF (94-100); Methhemoglobin 1.2 % (1.4-1.5)
--- NOTE | 2021-11-21 12:19 | XRAY ---
Indication: Short of breath. COPD. Comparison: November 04, 2021 Portable chest unchanged again hyperinflated and clear. Heart not enlarged. No new/acute findings.
[2021-11-21 12:23] LABS: Absolute Neutrophil Ct (ANC) 6.69 x10^3/uL (1.4-6.9); Basophil (Absolute #) 0.05 x10^3/uL (0-0.4); Eosinophil % 4.1 % (0.00-5.0); Eosinophil (Absolute #) 0.44 x10^3/uL (0-0.5); Hematocrit 45.1 % (35-47); Hemoglobin 15.1 g/dL (12.0-16.0); Lymphocyte (Absolute #) 2.79 x10^3/uL (1.0-4.6); Lymphocytes % 25.7 % (24.0-44.0); Mean Cell Volume 95.6 fL (78-100); Mean Corpuscular Hgb Concent. 33.5 g/dL (32-36); Mean Platelet Volume 9.3 fL (7.5-11.0); Monocyte (Absolute #) 0.82 x10^3/uL (0.0-1.3); Monocytes % 7.6 % (0.0-12.0); Neutrophil % 61.6 % (36.0-66.0); Platelet Count 309 x10^3/uL (150-450); Red Blood Count 4.72 x10^6/uL (4.1-5.4); Red Cell Distribution Width 13.1 % (11.5-14.0); White Blood Count 10.8 x10^3/uL (4.0-10.5)
[2021-11-21 12:44] LABS: ALBUMIN 4.1 g/dL (3.5-5.0); ALKALINE PHOSPHATASE 109 U/L (38-126); BLOOD UREA NITROGEN 6 mg/dL (7-17); CHLORIDE 108 mmol/L (98-107); Calcium 8.8 mg/dL (8.4-10.2); Carbon Dioxide 24 mmol/L (22-30); Creatinine 1 0.54 mg/dL (0.52-1.04); EST GLOMERULAR FILTRATION RATE > 60.0 ML/MIN; Glucose 112 mg/dL (74-106); NT PRO BNP 90.9 pg/mL (0-450); Potassium 3.5 mmol/L (3.5-5.1); SGOT/AST 27 U/L (14-36); SGPT/ALT 16 U/L (0-35); SODIUM 141 mmol/L (137-145); Total Protein 6.9 g/dL (6.3-8.2)
[2021-11-21] MEDS ORDERED: HYDROCODONE-ACETAMIN 2.5-108/5 ML SOLUTION PO STA (12:56)
[2021-11-21] MEDS ORDERED: solu-MEDROL 125 MG, Sterile H2O 10 ml 2 ML IV ONE ×2 (12:56)
[2021-11-21 12:58] LABS: INFLUENZA A NEGATIVE (NEGATIVE); INFLUENZA B NEGATIVE (NEGATIVE); RESPIRATORY SYNCTIAL VIRUS NEGATIVE (Negative); SARS-CoV-2 Xpert Express NEGATIVE (NEGATIVE)
[2021-11-21] MEDS ORDERED: Sterile H2O 10 ml IJ ONE (13:09)
[2021-11-21] MEDS ORDERED: HYDROCODONE-ACETAMIN 2.5-108/5 ML SOLUTION ONE (13:09)
[2021-11-21] MEDS ORDERED: solu-MEDROL ONE (13:09)
[2021-11-21 14:05] VITALS: BP 138/87
[2021-11-21 14:32] VITALS: PULSE 72; O2SAT 100
== END 2021-11-21 14:59 | disposition home or self-care (01) ==
LOC: ED 11:33
DX: J44.1 Chronic obstructive pulmonary disease with (acute) exacerbation (principal); Z99.81 Dependence on supplemental oxygen; Z72.0 Tobacco use; I10 Essential (primary) hypertension; Z79.52 Long term (current) use of systemic steroids; Z79.899 Other long term (current) drug therapy; Z28.310 Unvaccinated for COVID-19; Z59.89 Other problems related to housing and economic circumstances; Z20.828 Contact with and (suspected) exposure to other viral communicable diseases
CPT/HCPCS: 0241U; 36000; 36415; 36600; 71045; 80053; 82375; 82803; 83880; 84484; 85025; 85379; 93005; 93041; 94760; 96374; 99284; 96375; J2930; A9270-GY

== ENCOUNTER 2021-11-21 15:32 | Emergency (ER) | payer OTHER ==
--- NOTE | 2021-11-21 15:42 | ERPHSYRPT ---
- History of Present Illness Time Seen by Provider: 11/21/21 15:38 Source: patient Exam Limitations: no limitations Physician History: This a 46-year-old -[place] female who just left here from this emergency department with a diagnosis of COPD exacerbation. She could not get herself a ride home so she decided to walk. She then called the ambulance because she was overheated and short of breath so she returned back to the emergency department this was approximately 20 minutes after she was discharged from the hospital emergency department. She did not need to be admitted to the hospital and she does not need to be in the emergency department any longer. Before she left she was screaming and yelling and cussing at the nursing staff her vital signs are stable upon admission to the emergency department. She is yelling and cussing because we told her, after performing a medical screening exam on her that she did not any longer need to be in the emergency department. Severity: mild Associated Symptoms: shortness of breath, other (She also states that she is overheated) Allergies/Adverse Reactions: cephalexin [From Keflex] Allergy (Verified 11/21/21 15:34) ketorolac [From Toradol] Allergy (Verified 11/21/21 15:34) lisinopril Allergy (Verified 11/21/21 15:34) Sulfa (Sulfonamide Antibiotics) Allergy (Verified 11/21/21 15:34) Home Medications: Gabapentin [Neurontin ] 300 mg PO BID 09/22/20 [History] Cyclobenzaprine HCl 5 mg PO BID PRN 10/29/20 [History] Omeprazole 40 mg PO DAILY 02/06/21 [History] Buspirone HCl 5 mg [Buspar 5 mg] 10 mg PO BID 02/07/21 [History] Hx Tetanus, Diphtheria Vaccination/Date Given: Yes Hx Influenza Vaccination/Date Given: No (unknown) Hx Pneumococcal Vaccination/Date Given: No (unknown) Travel Risk - International Travel Have you traveled outside of the country in past 3 weeks: No - Coronavirus Screening Are you exhibiting any of the following symptoms?: No Close contact with a COVID-19 positive Pt in past 14-21 Days: No - Vaccine Status Have you recieved a Covid-19 vaccination: No - Review of Systems Constitutional: No Symptoms Eyes: No Symptoms Ears, Nose, & Throat: No Symptoms Respiratory: Dyspnea (No different than at the discharge of her emergency department hospitalization) Cardiac: No Symptoms Abdominal/Gastrointestinal: No Symptoms Genitourinary Symptoms: No Symptoms Musculoskeletal: No Symptoms Skin: No Symptoms Neurological: No Symptoms Psychological: No Symptoms Endocrine: No Symptoms Hematologic/Lymphatic: No Symptoms Immunological/Allergic: No Symptoms All Other Systems: Reviewed and Negative - Past Medical History Pertinent Past Medical History: Yes Neurological History: Migraines, Peripheral Neuropathy, TIA ENT History: No Pertinent History Cardiac History: Hypertension Respiratory History: Asthma, COPD, Emphysema Endocrine Medical History: No Pertinent History Musculoskeletal History: Arthritis, Osteoarthritis, Other GI Medical History: Pancreatitis History: No Pertinent History Psycho-Social History: Anxiety Female Reproductive Disorders: No Pertinent History Other Medical History: SCIATIC NERVE PROBLEMS - Past Surgical History Past Surgical History: Yes Neuro Surgical History: No Pertinent History Cardiac: No Pertinent History Respiratory: No Pertinent History Gastrointestinal: No Pertinent History Genitourinary: No Pertinent History Musculoskeletal: No Pertinent History Female Surgical History: Tubal Ligation Other Surgical History: jaw fx repair, tubal pregnancies - Social History Smoking Status: Current every day smoker How long have you smoked: 30 yrs Exposure to second hand smoke: Yes Drug Use: none Patient Lives Alone: No - Physical Exam General Appearance: no apparent distress, alert Eye Exam: PERRL/EOMI Ears, Nose, Throat Exam: normal ENT inspection, moist mucous membranes Neck Exam: normal inspection, non-tender, supple, full range of motion Respiratory Exam: normal breath sounds, lungs clear, airway intact, No chest tenderness, No respiratory distress Gastrointestinal/Abdomen Exam: No tenderness Pelvic Exam: not done Rectal Exam: not done Back Exam: normal inspection, normal range of motion, No CVA tenderness, No vertebral tenderness Extremity Exam: normal inspection, normal range of motion, pelvis stable Neurologic Exam: alert, oriented x 3, cooperative, 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, normal mood/affect, nml cerebellar function, nml station & gait, sensation nml Skin Exam: normal color, warm, dry Lymphatic Exam: No adenopathy SpO2 Interpretation: normal O2 Delivery: Room Air - Progress Counseled pt/family regarding: diagnosis, need for follow-up - Departure Departure Disposition: Home Clinical Impression: Encounter for medical screening examination Condition: Stable Critical Care Time: No Referrals: MARBELLA COLON MD [Primary Care Provider] - Follow up/PCP as directed Additional Instructions: Discharged to home with the same instructions that you were given approximately 30 minutes ago.
[2021-11-21 15:46] VITALS: BP 139/95
[2021-11-21 16:32] VITALS: PULSE 80; O2SAT 99
== END 2021-11-21 16:35 | disposition home or self-care (01) ==
LOC: ED 15:32
DX: Z71.1 Person with feared health complaint in whom no diagnosis is made (principal); R06.02 Shortness of breath; J44.9 Chronic obstructive pulmonary disease, unspecified; I10 Essential (primary) hypertension; Z79.899 Other long term (current) drug therapy; Z28.310 Unvaccinated for COVID-19
CPT/HCPCS: 99282

== ENCOUNTER 2021-12-22 13:48 | Emergency (ER) | payer OTHER ==
--- NOTE | 2021-12-22 13:51 | ERPHSYRPT ---
- History of Present Illness Time Seen by Provider: 12/22/21 13:51 Source: patient, EMS Exam Limitations: no limitations Physician History: This is a 46-year-old -[place] white female known to me and to the emergency department because of frequent visits for shortness of breath. Her primary care doctor is Dr. Colon. Patient is a current daily smoker of cigare ttes. She is oxygen dependent COPD and wears 4 L nasal cannula oxygen. In the last 2 to 3 days patient states that her shortness of air is worsening. She called the ambulance service to transport her to the emergency department. Patient received nebulizer treatment as well as 125 mg of intravenous Solu- Medrol. By the time he arrived to the emergency department, patient states she has no chest pain and has very minimal shortness of air. Her room air oxygenation is 98% on her usual 4 L oxygen nasal cannula. Patient wants to be tested for COVID. Patient has a history of anxiety, asthma and gastroesophageal reflux disease Timing/Duration: day(s) Possible Cause: frequent episodes, chronic episodes Modifying Factors: Improves With: activity, oxygen (Improves) Associated Symptoms: anxiety, wheezing, No chest pain/discomfort Allergies/Adverse Reactions: cephalexin [From Keflex] Allergy (Verified 12/22/21 14:01) ketorolac [From Toradol] Allergy (Verified 12/22/21 14:01) lisinopril Allergy (Verified 12/22/21 14:01) Sulfa (Sulfonamide Antibiotics) Allergy (Verified 12/22/21 14:01) Home Medications: Gabapentin [Neurontin ] 300 mg PO BID 09/22/20 [History] Omeprazole 40 mg PO DAILY 02/06/21 [History] Buspirone HCl 5 mg [Buspar 5 mg] 10 mg PO BID 02/07/21 [History] Hx Tetanus, Diphtheria Vaccination/Date Given: Yes Hx Influenza Vaccination/Date Given: No (unknown) Hx Pneumococcal Vaccination/Date Given: No (unknown) Travel Risk - International Travel Have you traveled outside of the country in past 3 weeks: No - Coronavirus Screening Are you exhibiting any of the following symptoms?: Yes Symptoms: Shortness of Breath Close contact with a COVID-19 positive Pt in past 14-21 Days: Yes - Vaccine Status Have you recieved a Covid-19 vaccination: No - Review of Systems Constitutional: No Symptoms Eyes: No Symptoms Ears, Nose, & Throat: No Symptoms Respiratory: Cough, Dyspnea on Exertion (ROJO), Wheezing Cardiac: No Symptoms Abdominal/Gastrointestinal: No Symptoms Genitourinary Symptoms: No Symptoms Musculoskeletal: No Symptoms Skin: No Symptoms Neurological: No Symptoms Psychological: No Symptoms Endocrine: No Symptoms Hematologic/Lymphatic: No Symptoms Immunological/Allergic: No Symptoms All Other Systems: Reviewed and Negative - Past Medical History Pertinent Past Medical History: Yes Neurological History: Migraines, Peripheral Neuropathy, TIA ENT History: No Pertinent History Cardiac History: Hypertension Respiratory History: Asthma, COPD, Emphysema Endocrine Medical History: No Pertinent History Musculoskeletal History: Arthritis, Osteoarthritis, Other GI Medical History: Pancreatitis History: No Pertinent History Psycho-Social History: Anxiety Female Reproductive Disorders: No Pertinent History Other Medical History: SCIATIC NERVE PROBLEMS - Past Surgical History Past Surgical History: Yes Neuro Surgical History: No Pertinent History Cardiac: No Pertinent History Respiratory: No Pertinent History Gastrointestinal: No Pertinent History Genitourinary: No Pertinent History Musculoskeletal: No Pertinent History Female Surgical History: Tubal Ligation Other Surgical History: jaw fx repair, tubal pregnancies - Social History Smoking Status: Current every day smoker How long have you smoked: 30 yrs Exposure to second hand smoke: Yes Drug Use: none Patient Lives Alone: No - Nursing Vital Signs Nursing Vital Signs: Initial Vital Signs Temperature 97.0 F 12/22/21 13:49 Pulse Rate 75 12/22/21 13:49 Blood Pressure 126/93 12/22/21 13:49 O2 Sat by Pulse Oximetry 97 12/22/21 13:49 Pain Scale Pain Intensity 10 - Physical Exam General Appearance: no apparent distress, alert, anxiety Eye Exam: PERRL/EOMI, eyes nml inspection Ears, Nose, Throat Exam: hearing grossly normal Neck Exam: normal inspection, non-tender, supple, full range of motion Respiratory Exam: normal breath sounds, lungs clear, airway intact, No chest tenderness, No respiratory distress Cardiovascular/Chest Exam: normal heart sounds, regular rate/rhythm, normal peripheral pulses, No murmur Abdominal/Gastrointestinal Exam: soft, normal bowel sounds, No tenderness Rectal Exam: not done Extremity Exam: non-tender, normal range of motion, normal inspection, normal capillary refill, no calf tenderness, no pedal edema, pelvis stable Neurologic Exam: alert, oriented x 3, 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, 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, normal mood/affect, nml cerebellar function, nml station & gait, sensation nml Skin Exam: normal color, warm, dry Lymphatic Exam: No adenopathy SpO2 Interpretation: normal O2 Delivery: Room Air - Course Nursing assessment & vital signs reviewed: Yes Ordered Tests: Active Orders 24 hr Category Date Time Status Hydrology Teacher STAT Care 12/22/21 14:06 Active EKG-ER Only STAT Care 12/22/21 14:06 Active IV Insertion STAT Care 12/22/21 14:06 Active Pulse Oximetry (ED) STAT Care 12/22/21 14:06 Active CHEST 1 VIEW (PORTABLE) Stat Exams 12/22/21 14:06 Taken CBC W DIFF Stat Lab 12/22/21 14:25 Completed CMP Stat Lab 12/22/21 14:25 Completed NT PRO BNP Stat Lab 12/22/21 14:25 Completed TROPONIN Q4H Lab 12/22/21 14:25 Completed TROPONIN Q4H Lab 12/22/21 18:15 Ordered TROPONIN Q4H Lab 12/22/21 22:15 Ordered Lab/Rad Data: Laboratory Result Diagrams 12/22/21 14:25 12/22/21 14:25 Laboratory Results 12/22/21 12/22/21 12/22/21 Range/Units 14:55 14:25 14:25 WBC (4.0-10.5) x10^3/uL RBC (4.1-5.4) x10^6/uL Hgb (12.0-16.0) g/dL Hct (35-47) % MCV (78-100) fL MCH (26-32) pg MCHC (32-36) g/dL RDW (11.5-14.0) % Plt Count (150-450) x10^3/uL MPV (7.5-11.0) fL Gran % (36.0-66.0) % Immature Gran % (Auto) (0.00-0.4) % Nucleat RBC Rel Count (0.00-0.1) % Eos # (Auto) (0-0.5) x10^3/uL Immature Gran # (Auto) (0.00-0.03) x10^3u/L Absolute Lymphs (auto) (1.0-4.6) x10^3/uL Absolute Monos (auto) (0.0-1.3) x10^3/uL Absolute Nucleated RBC (0.00-0.01) x10^3u/L Lymphocytes % (24.0-44.0) % Monocytes % (0.0-12.0) % Eosinophils % (0.00-5.0) % Basophils % (0.0-0.4) % Absolute Granulocytes (1.4-6.9) x10^3/uL Basophils # (0-0.4) x10^3/uL Sodium 143 (137-145) mmol/L Potassium 3.7 (3.5-5.1) mmol/L Chloride 104 (98-107) mmol/L Carbon Dioxide 35 H (22-30) mmol/L Anion Gap 7.1 (5-15) MEQ/L BUN 8 (7-17) mg/dL Creatinine 0.54 (0.52-1.04) mg/dL Estimated GFR > 60.0 ML/MIN Glucose 104 (74-106) mg/dL Calcium 8.6 (8.4-10.2) mg/dL Total Bilirubin 0.30 (0.2-1.3) mg/dL AST 20 (14-36) U/L ALT 16 (0-35) U/L Alkaline Phosphatase 101 (38-126) U/L Troponin I < 0.012 (0.000-0.034) ng/mL NT-Pro-B Natriuret Pep 106 (0-450) pg/mL Serum Total Protein 7.3 (6.3-8.2) g/dL Albumin 3.8 (3.5-5.0) g/dL Influenza Type A Ag NEGATIVE (NEGATIVE) Influenza Type B Ag NEGATIVE (NEGATIVE) RSV (PCR) NEGATIVE (Negative) SARS-CoV-2 (PCR) NEGATIVE (NEGATIVE) 12/22/21 Range/Units 14:25 WBC 7.9 (4.0-10.5) x10^3/uL RBC 4.60 (4.1-5.4) x10^6/uL Hgb 14.5 (12.0-16.0) g/dL Hct 44.0 (35-47) % MCV 95.7 (78-100) fL MCH 31.5 (26-32) pg MCHC 33.0 (32-36) g/dL RDW 13.0 (11.5-14.0) % Plt Count 505 H (150-450) x10^3/uL MPV 9.4 (7.5-11.0) fL Gran % 43.8 (36.0-66.0) % Immature Gran % (Auto) 0.4 (0.00-0.4) % Nucleat RBC Rel Count 0.0 (0.00-0.1) % Eos # (Auto) 0.38 (0-0.5) x10^3/uL Immature Gran # (Auto) 0.03 (0.00-0.03) x10^3u/L Absolute Lymphs (auto) 3.33 (1.0-4.6) x10^3/uL Absolute Monos (auto) 0.68 (0.0-1.3) x10^3/uL Absolute Nucleated RBC 0.00 (0.00-0.01) x10^3u/L Lymphocytes % 42.0 (24.0-44.0) % Monocytes % 8.6 (0.0-12.0) % Eosinophils % 4.8 (0.00-5.0) % Basophils % 0.4 (0.0-0.4) % Absolute Granulocytes 3.47 (1.4-6.9) x10^3/uL Basophils # 0.03 (0-0.4) x10^3/uL Sodium (137-145) mmol/L Potassium (3.5-5.1) mmol/L Chloride (98-107) mmol/L Carbon Dioxide (22-30) mmol/L Anion Gap (5-15) MEQ/L BUN (7-17) mg/dL Creatinine (0.52-1.04) mg/dL Estimated GFR ML/MIN Glucose (74-106) mg/dL Calcium (8.4-10.2) mg/dL Total Bilirubin (0.2-1.3) mg/dL AST (14-36) U/L ALT (0-35) U/L Alkaline Phosphatase (38-126) U/L Troponin I (0.000-0.034) ng/mL NT-Pro-B Natriuret Pep (0-450) pg/mL Serum Total Protein (6.3-8.2) g/dL Albumin (3.5-5.0) g/dL Influenza Type A Ag (NEGATIVE) Influenza Type B Ag (NEGATIVE) RSV (PCR) (Negative) SARS-CoV-2 (PCR) (NEGATIVE) - Progress Progress: improved, re-examined Air Movement: good Progress Note: 12/22/21 15:07 Chest x-ray shows no acute cardiopulmonary process. Blood Culture(s) Obtained: No Antibiotics given: No Counseled pt/family regarding: lab results, diagnosis, need for follow-up, rad results - Departure Departure Disposition: Home Clinical Impression: COPD exacerbation Condition: Stable Critical Care Time: No Referrals: MARBELLA COLON MD [Primary Care Provider] - Follow up/PCP as directed Instructions: Chronic Obstructive Pulmonary Disease Additional Instructions: Drink plenty of fluids. Stop smoking. Wear your oxygen as prescribed. Use your steroid medication as prescribed. Follow-up with Dr. Colon's office on 12/24/2021, for further evaluation and management Prescriptions: Prednisone 10 mg [Deltasone 10 mg] 10 mg PO TID #12 tablet
[2021-12-22 14:01] VITALS: BP 126/93; PULSE 75
[2021-12-22 14:43] VITALS: O2SAT 98
[2021-12-22 15:21] LABS: Absolute Neutrophil Ct (ANC) 3.47 x10^3/uL (1.4-6.9); Basophil (Absolute #) 0.03 x10^3/uL (0-0.4); Eosinophil % 4.8 % (0.00-5.0); Eosinophil (Absolute #) 0.38 x10^3/uL (0-0.5); Hemoglobin 14.5 g/dL (12.0-16.0); Lymphocyte (Absolute #) 3.33 x10^3/uL (1.0-4.6); Mean Cell Volume 95.7 fL (78-100); Mean Corpuscular Hemoglobin 31.5 pg (26-32); Mean Platelet Volume 9.4 fL (7.5-11.0); Monocyte (Absolute #) 0.68 x10^3/uL (0.0-1.3); Monocytes % 8.6 % (0.0-12.0); Neutrophil % 43.8 % (36.0-66.0); Platelet Count 505 x10^3/uL (150-450); White Blood Count 7.9 x10^3/uL (4.0-10.5)
[2021-12-22 15:39] LABS: ALBUMIN 3.8 g/dL (3.5-5.0); ALKALINE PHOSPHATASE 101 U/L (38-126); ANION GAP 7.1 MEQ/L (5-15); BLOOD UREA NITROGEN 8 mg/dL (7-17); CHLORIDE 104 mmol/L (98-107); Calcium 8.6 mg/dL (8.4-10.2); Carbon Dioxide 35 mmol/L (22-30); Creatinine 1 0.54 mg/dL (0.52-1.04); EST GLOMERULAR FILTRATION RATE > 60.0 ML/MIN; Glucose 104 mg/dL (74-106); NT PRO BNP 106 pg/mL (0-450); Potassium 3.7 mmol/L (3.5-5.1); SGOT/AST 20 U/L (14-36); SGPT/ALT 16 U/L (0-35); SODIUM 143 mmol/L (137-145); Total Protein 7.3 g/dL (6.3-8.2)
[2021-12-22 15:45] LABS: INFLUENZA A NEGATIVE (NEGATIVE); INFLUENZA B NEGATIVE (NEGATIVE); RESPIRATORY SYNCTIAL VIRUS NEGATIVE (Negative); SARS-CoV-2 Xpert Express NEGATIVE (NEGATIVE)
--- NOTE | 2021-12-22 21:41 | XRAY ---
Indication: Short of breath. Emphysema. Comparison: November 21, 2021 Portable chest remains hyperinflated and clear. Heart not enlarged. Bony thorax intact. No new/acute findings.
== END 2021-12-22 16:17 | disposition home or self-care (01) ==
LOC: ED 13:48
DX: J44.1 Chronic obstructive pulmonary disease with (acute) exacerbation (principal); Z99.81 Dependence on supplemental oxygen; Z72.0 Tobacco use; I10 Essential (primary) hypertension; Z79.899 Other long term (current) drug therapy; Z79.52 Long term (current) use of systemic steroids; Z28.310 Unvaccinated for COVID-19; Z20.828 Contact with and (suspected) exposure to other viral communicable diseases
CPT/HCPCS: 0241U; 36415; 71045; 80053; 83880; 84484; 85025; 93005; 93041; 94760; 99283

== ENCOUNTER 2022-09-24 17:57 | Emergency (ER) | payer OTHER | END 2022-09-24 19:25 | disposition left against medical advice (07) | LOC: ED 17:57 | DX: Z53.21 Procedure and treatment not carried out due to patient leaving prior to being seen by health care provider (principal) ==

== ENCOUNTER 2023-06-27 11:51 | Observation (INO) | payer OTHER ==
[2023-06-27] MEDS ORDERED: DUONEB 0.5-3 MG/3 ml Neb IH ONE ×2 (12:04→12:55)
[2023-06-27] MEDS: DUONEB 0.5-3 MG/3 ml Neb IH ONE ×2 (12:07→12:57)
[2023-06-27] MEDS ORDERED: Sodium Chloride 0.9% 1000 ML 1,000 ML ONE (12:08)
[2023-06-27] MEDS ORDERED: solu-MEDROL ONE (12:08)
[2023-06-27] MEDS ORDERED: Sterile H2O 10 ml IJ ONE (12:08)
[2023-06-27] MEDS: solu-MEDROL 125 MG, Sterile H2O 10 ml 2 ML IV ONE (12:12)
[2023-06-27] MEDS: Sodium Chloride 0.9% 1000 ML 1,000 ML IV STA (12:12)
[2023-06-27 12:30] LABS: Absolute Neutrophil Ct (ANC) 8.68 x10^3/uL (1.4-6.9); BASOPHIL % 0.5 % (0.0-0.4); Basophil (Absolute #) 0.06 x10^3/uL (0-0.4); Eosinophil % 3.1 % (0.00-5.0); Hematocrit 45.4 % (35-47); Hemoglobin 15.5 g/dL (12.0-16.0); IMMATURE GRAN # 0.04 x10^3u/L (0.00-0.03); IMMATURE GRAN % 0.3 % (0.00-0.4); Lymphocyte (Absolute #) 2.94 x10^3/uL (1.0-4.6); Lymphocytes % 23.1 % (24.0-44.0); Mean Corpuscular Hemoglobin 32.4 pg (26-32); Mean Corpuscular Hgb Concent. 34.1 g/dL (32-36); Mean Platelet Volume 9.7 fL (7.5-11.0); Monocyte (Absolute #) 0.59 x10^3/uL (0.0-1.3); Monocytes % 4.6 % (0.0-12.0); Neutrophil % 68.4 % (36.0-66.0); Platelet Count 370 x10^3/uL (150-450); Red Blood Count 4.78 x10^6/uL (4.1-5.4); Red Cell Distribution Width 12.4 % (11.5-14.0); White Blood Count 12.7 x10^3/uL (4.0-10.5)
--- NOTE | 2023-06-27 12:38 | XRAY ---
Indication: Pneumonia. COPD. Comparison: December 22, 2021 PA/lateral chest again hyperinflated and clear with a few incidental tiny calcified granulomas. Heart and mediastinal structures within normal limits. Bony thorax intact. Impression: Continued nonacute hyperinflated chest with incidental old granulomatous disease.
[2023-06-27 13:02] LABS: INFLUENZA A NEGATIVE (NEGATIVE); INFLUENZA B NEGATIVE (NEGATIVE); RESPIRATORY SYNCTIAL VIRUS NEGATIVE (NEGATIVE); SARS-CoV-2 Xpert Express NEGATIVE (NEGATIVE)
[2023-06-27 13:03] LABS: ALBUMIN 4.3 g/dL (3.5-5.0); ANION GAP 9.8 MEQ/L (5-15); BILIRUBIN,TOTAL 0.4 mg/dL (0.2-1.3); Calcium 8.9 mg/dL (8.4-10.2); Creatinine 1 0.56 mg/dL (0.52-1.04); EST GLOMERULAR FILTRATION RATE 112.5 ML/MIN; Potassium 3.7 mmol/L (3.5-5.1); Total Protein 7.5 g/dL (6.3-8.2)
[2023-06-27 13:05] LABS: NT PRO BNPII 120 pg/mL (<300); TROPONIN < 0.012 ng/mL (0.000-0.034)
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
--- NOTE | 2023-06-27 14:19 | PCM.HP ---
History of Present Illness - Chief Complaint Chief Complaint: COPD Date: 06/27/23 History of Present Illness: is a 48 year old female with a pmxh of COPD, TIA, migraines, peripheral neuropathy, emphysema, HTN, arthritis, and anxiety who presented to ED 06/27/23 with a two week history of progressive shortness of breath, dry cough, and wheezing. She reports recent ED visit at [facility] two days ago for these symptoms where she received one dose IV abx and a steroid shot. Her symptoms have persisted. She is prescribed 3L of oxygen during the day and 4L at night by Dr. Ayala but reports the company that supplies the oxygen picked it up as she no longer has a prescription due to missed follow up. She is a current everyday smoker of 1/2 PPD. Denies fever, N/V/D, abdominal pain, or recent sick contacts. In ED, patient tachycardic and hypertensive with spo2 at 81% on RA with ambulation. EKG with NS, no ST elevation/deviations. CXR with no acute cardiopulmonary abnormalities. Lab findings remarkable for WBC at 12.7. Respiratory viral panel negative. Patient admitted with Acute respiratory failure with hypoxia secondary to COPD exacerbation. Will treat with azithromycin, neb/in, supplemental oxygen, and steroids. Will have CM work on getting home oxygen reinstated. - Review of Systems Constitutional: No Symptoms Eyes: No Symptoms Ears, Nose, & Throat: No Symptoms Respiratory: Cough, Short Of Breath Cardiac: No Symptoms Abdominal/Gastrointestinal: No Symptoms Genitourinary Symptoms: No Symptoms Musculoskeletal: Back Pain Skin: Skin Lesions (scabbed areas to BLE mild edema) Neurological: No Symptoms Psychological: Anxiety Endocrine: No Symptoms Hematologic/Lymphatic: No Symptoms Immunological/Allergic: No Symptoms Medications & Allergies Home Medications: Home Medication List Albuterol Sulfate [Albuterol Sulfate Hfa] 2 inh PO UD 06/27/23 [History Confirmed 06/27/23] Fluticasone Propion/Salmeterol [Fluticasone-Salmeterol 115-21] 2 inh PO BID 06/27/23 [History Confirmed 06/27/23] Allergies/Adverse Reactions: Allergies Allergy/AdvReac Type Severity Reaction Status Date / Time cephalexin [From Keflex] Allergy Verified 06/27/23 12:02 ketorolac [From Toradol] Allergy Verified 06/27/23 12:02 lisinopril Allergy Verified 06/27/23 12:02 Sulfa (Sulfonamide Allergy Verified 06/27/23 12:02 Antibiotics) - Past Medical History Past Medical History: Yes Neurological History: Migraines, Peripheral Neuropathy, TIA ENT History: No Pertinent History Cardiac History: Hypertension Respiratory History: Asthma, COPD, Emphysema Endocrine Medical History: No Pertinent History Musculoskelatal History: Arthritis, Osteoarthritis, Other GI Medical History: Pancreatitis History: No Pertinent History Pyscho-Social History: Anxiety Reproductive Disorders: No Pertinent History Comment: SCIATIC NERVE PROBLEMS - Female History Are you now?: No (tubal removal) - Past Surgical History Past Surgical History: Yes Neuro Surgical History: No Pertinent History Cardiac History: No Pertinent History Respiratory Surgery: No Pertinent History GI Surgical History: No Pertinent History Genitourinary Surgical Hx: No Pertinent History Musculskeletal Surgical Hx: No Pertinent History Female Surgical History: Tubal Ligation Other Surgical History: jaw fx repair, tubal pregnancies - Social History Smoking Status: Current every day smoker How long have you smoked: 30 yrs Exposure to second hand smoke: Yes Alcohol: Occasionally Drug Use: none - Physical Exam Vital Signs: Vital Signs - 24 hr Temp Pulse Resp BP BP Pulse Ox 06/27/23 13:52 96 06/27/23 13:20 89 22 166/104 96 06/27/23 13:19 88 23 96 06/27/23 13:18 101 H 18 96 06/27/23 13:16 83 18 166/104 95 06/27/23 12:59 101 H 18 95 06/27/23 12:10 99 H 16 95 06/27/23 12:00 105 H 22 121/76 96 06/27/23 11:53 97.7 F 109 H 13 142/113 96 General Appearance: no apparent distress Neurologic Exam: alert, oriented x 3, cooperative Eye Exam: PERRL/EOMI Ears, Nose, Throat Exam: normal ENT inspection Neck Exam: normal inspection Respiratory Exam: diminished breath sounds, wheezing Cardiovascular Exam: regular rate/rhythm, normal heart sounds Gastrointestinal/Abdomen Exam: soft, normal bowel sounds Pelvic Exam: not done Rectal Exam: deferred Back Exam: normal inspection Extremity Exam: swelling Skin Exam: normal color Results - Labs Lab/Micro Results: Lab Results-Last 24 Hours 06/27/23 06/27/23 06/27/23 Range/Units 12:15 12:15 12:15 WBC 12.7 H (4.0-10.5) x10^3/uL RBC 4.78 (4.1-5.4) x10^6/uL Hgb 15.5 (12.0-16.0) g/dL Hct 45.4 (35-47) % MCV 95.0 (78-100) fL MCH 32.4 H (26-32) pg MCHC 34.1 (32-36) g/dL RDW 12.4 (11.5-14.0) % Plt Count 370 (150-450) x10^3/uL MPV 9.7 (7.5-11.0) fL Gran % 68.4 H (36.0-66.0) % Immature Gran % (Auto) 0.3 (0.00-0.4) % Nucleat RBC Rel Count 0.0 (0.00-0.1) % Eos # (Auto) 0.40 (0-0.5) x10^3/uL Immature Gran # (Auto) 0.04 H (0.00-0.03) x10^3u/L Absolute Lymphs (auto) 2.94 (1.0-4.6) x10^3/uL Absolute Monos (auto) 0.59 (0.0-1.3) x10^3/uL Absolute Nucleated RBC 0.00 (0.00-0.01) x10^3u/L Lymphocytes % 23.1 L (24.0-44.0) % Monocytes % 4.6 (0.0-12.0) % Eosinophils % 3.1 (0.00-5.0) % Basophils % 0.5 (0.0-0.4) % Absolute Granulocytes 8.68 H (1.4-6.9) x10^3/uL Basophils # 0.06 (0-0.4) x10^3/uL Sodium 143 (135-145) mmol/L Potassium 3.7 (3.5-5.1) mmol/L Chloride 106 (98-107) mmol/L Carbon Dioxide 30 (22-30) mmol/L Anion Gap 9.8 (5-15) MEQ/L BUN 8 (7-17) mg/dL Creatinine 0.56 (0.52-1.04) mg/dL Estimated GFR 112.5 ML/MIN Glucose 85 (74-106) mg/dL Calcium 8.9 (8.4-10.2) mg/dL Total Bilirubin 0.40 (0.2-1.3) mg/dL AST 27 (14-36) U/L ALT 18 (0-35) U/L Alkaline Phosphatase 97 (38-126) U/L Troponin I < 0.012 (0.000-0.034) ng/mL NT-Pro-B Natriuret Pep 120 (<300) pg/mL Serum Total Protein 7.5 (6.3-8.2) g/dL Albumin 4.3 (3.5-5.0) g/dL Influenza Type A Ag (NEGATIVE) Influenza Type B Ag (NEGATIVE) RSV (PCR) (NEGATIVE) SARS-CoV-2 (PCR) (NEGATIVE) 06/27/23 Range/Units 12:20 WBC (4.0-10.5) x10^3/uL RBC (4.1-5.4) x10^6/uL Hgb (12.0-16.0) g/dL Hct (35-47) % MCV (78-100) fL MCH (26-32) pg MCHC (32-36) g/dL RDW (11.5-14.0) % Plt Count (150-450) x10^3/uL MPV (7.5-11.0) fL Gran % (36.0-66.0) % Immature Gran % (Auto) (0.00-0.4) % Nucleat RBC Rel Count (0.00-0.1) % Eos # (Auto) (0-0.5) x10^3/uL Immature Gran # (Auto) (0.00-0.03) x10^3u/L Absolute Lymphs (auto) (1.0-4.6) x10^3/uL Absolute Monos (auto) (0.0-1.3) x10^3/uL Absolute Nucleated RBC (0.00-0.01) x10^3u/L Lymphocytes % (24.0-44.0) % Monocytes % (0.0-12.0) % Eosinophils % (0.00-5.0) % Basophils % (0.0-0.4) % Absolute Granulocytes (1.4-6.9) x10^3/uL Basophils # (0-0.4) x10^3/uL Sodium (135-145) mmol/L Potassium (3.5-5.1) mmol/L Chloride (98-107) mmol/L Carbon Dioxide (22-30) mmol/L Anion Gap (5-15) MEQ/L BUN (7-17) mg/dL Creatinine (0.52-1.04) mg/dL Estimated GFR ML/MIN Glucose (74-106) mg/dL Calcium (8.4-10.2) mg/dL Total Bilirubin (0.2-1.3) mg/dL AST (14-36) U/L ALT (0-35) U/L Alkaline Phosphatase (38-126) U/L Troponin I (0.000-0.034) ng/mL NT-Pro-B Natriuret Pep (<300) pg/mL Serum Total Protein (6.3-8.2) g/dL Albumin (3.5-5.0) g/dL Influenza Type A Ag NEGATIVE (NEGATIVE) Influenza Type B Ag NEGATIVE (NEGATIVE) RSV (PCR) NEGATIVE (NEGATIVE) SARS-CoV-2 (PCR) NEGATIVE (NEGATIVE) - Radiology Impressions Radiology Exams & Impressions: Radiology Procedures Category Date Time Status CHEST 2 VIEWS (PA AND LAT) Stat Exams 06/27/23 12:05 Completed - Other Procedures and Tests Respiratory Therapy 06/27/23 12:10 Respiratory Therapy Assessment DAILY 06/27/23 13:46 Oxygen Nasal Cannula 2 lpm Respiratory Therapy Consult ONCE Assessment/Plan (1) Acute hypoxic respiratory failure Current Visit: Yes Status: Acute Assessment & Plan: -secondary to COPD exacerbation -supplemental oxygen with spo2 goal 88-92% -Qualify for home oxygen -RT consult -NEBS/INH Prn -solumedrol 40mg bid -titrate per clinical response -Respiratory panel negative -Empiric abx with azithromycin Code(s): J96.01 - ACUTE RESPIRATORY FAILURE WITH HYPOXIA (2) COPD exacerbation Current Visit: Yes Status: Acute Assessment & Plan: -see ARF Code(s): J44.1 - CHRONIC OBSTRUCTIVE PULMONARY DISEASE W (ACUTE) EXACERBATION (3) Smoker Current Visit: Yes Status: Acute Assessment & Plan: -advised cessation -nicotine patch Code(s): F17.200 - NICOTINE DEPENDENCE, UNSPECIFIED, UNCOMPLICATED (4) Hypertension Current Visit: Yes Status: Acute Assessment & Plan: -allergy to lisinopril -Monitor -amlodipine 5mg Code(s): I10 - ESSENTIAL (PRIMARY) HYPERTENSION (5) Leukocytosis Current Visit: Yes Status: Acute Assessment & Plan: -Reactive from recent steroid use vs infective process -Continue to monitor/trend -Azithromycin Code(s): D72.829 - ELEVATED WHITE BLOOD CELL COUNT, UNSPECIFIED
[2023-06-27] MEDS ORDERED: TYLENOL 325 MG PO PRN (14:59)
[2023-06-27] MEDS: NORVASC 5 MG PO ONE (15:43)
[2023-06-27] MEDS ORDERED: VENTOLIN COMMON CANISTER IH PRN (16:23)
[2023-06-27] MEDS: Zithromax 500 MG/ 250 ML NaCl Premix 500 MG/250 ML IVPB IV SCH (17:11)
[2023-06-27] MEDS: ENOXAPARIN SODIUM SQ SCH (17:11)
[2023-06-27] MEDS: DUONEB 0.5-3 MG/3 ml Neb IH SCH (19:46)
[2023-06-27] MEDS: Advair Hfa 115/21 Common canister IH SCH (19:47)
[2023-06-27] MEDS: solu-MEDROL 20 MG, Sterile H2O 10 ml 1 ML IV SCH (21:10)
[2023-06-27] MEDS: Mucinex 600MG ER Tabs PO SCH (21:11)
--- NOTE | 2023-06-28 05:14 | PCM.NOTE ---
Date and Time: 06/28/23511 Subjective Assessment: is a 48 year old female with a pmxh of COPD, TIA, migraines, peripheral neuropathy, emphysema, HTN, arthritis, and anxiety who presented to ED 06/27/23 with a two week history of progressive shortness of breath, dry cough, and wheezing. She reports recent ED visit at [facility] two days ago for these symptoms where she received one dose IV abx and a steroid shot. Her symptoms have persisted. She is prescribed 3L of oxygen during the day and 4L at night by Dr. Ayala but reports the company that supplies the oxygen picked it up as she no longer has a prescription due to missed follow up. She is a current everyday smoker of 1/2 PPD. Denies fever, N/V/D, abdominal pain, or recent sick contacts. In ED, patient tachycardic and hypertensive with spo2 at 81% on RA with ambulation. EKG with NS, no ST elevation/deviations. CXR with no acute cardiopulmonary abnormalities. Lab findings remarkable for WBC at 12.7. Respiratory viral panel negative. Patient admitted with Acute respiratory failure with hypoxia secondary to COPD exacerbation. Will treat with azithromycin, neb/inh, supplemental oxygen, and steroids. Will have CM work on getting home oxygen reinstated. Objective Data Vital Signs: Vital Signs - 24 hr Temp Pulse Resp BP BP Pulse Ox 06/28/23 04:05 95 H 18 97 06/28/23 04:00 97.8 F 92 H 14 127/75 100 06/28/23 00:24 95 H 18 99 06/27/23 23:12 97.7 F 95 H 18 130/87 100 06/27/23 20:00 97.7 F 99 H 16 124/77 100 06/27/23 19:49 85 20 100 06/27/23 14:44 88 18 94 L 06/27/23 14:22 97.1 F 83 18 175/96 96 06/27/23 13:52 96 06/27/23 13:48 98 06/27/23 13:20 89 22 166/104 96 06/27/23 13:19 88 23 96 06/27/23 13:18 101 H 18 96 06/27/23 13:16 83 18 166/104 95 06/27/23 12:59 101 H 18 95 06/27/23 12:10 99 H 16 95 06/27/23 12:00 105 H 22 121/76 96 06/27/23 11:53 97.7 F 109 H 13 142/113 96 Pain Assessment - Last Documented Pain Intensity 9 Intake and Output: Intake & Output 06/25/23 06/26/23 06/27/23 06/28/23 11:59 11:59 11:59 11:59 Intake Total 1120 Balance 1120 Weight 61.235 kg 62.5 kg Lab Results: Lab Results-Last 24 Hours 06/27/23 06/27/23 06/27/23 Range/Units 12:15 12:15 12:15 WBC 12.7 H (4.0-10.5) x10^3/uL RBC 4.78 (4.1-5.4) x10^6/uL Hgb 15.5 (12.0-16.0) g/dL Hct 45.4 (35-47) % MCV 95.0 (78-100) fL MCH 32.4 H (26-32) pg MCHC 34.1 (32-36) g/dL RDW 12.4 (11.5-14.0) % Plt Count 370 (150-450) x10^3/uL MPV 9.7 (7.5-11.0) fL Gran % 68.4 H (36.0-66.0) % Immature Gran % (Auto) 0.3 (0.00-0.4) % Nucleat RBC Rel Count 0.0 (0.00-0.1) % Eos # (Auto) 0.40 (0-0.5) x10^3/uL Immature Gran # (Auto) 0.04 H (0.00-0.03) x10^3u/L Absolute Lymphs (auto) 2.94 (1.0-4.6) x10^3/uL Absolute Monos (auto) 0.59 (0.0-1.3) x10^3/uL Absolute Nucleated RBC 0.00 (0.00-0.01) x10^3u/L Lymphocytes % 23.1 L (24.0-44.0) % Monocytes % 4.6 (0.0-12.0) % Eosinophils % 3.1 (0.00-5.0) % Basophils % 0.5 (0.0-0.4) % Absolute Granulocytes 8.68 H (1.4-6.9) x10^3/uL Basophils # 0.06 (0-0.4) x10^3/uL Sodium 143 (135-145) mmol/L Potassium 3.7 (3.5-5.1) mmol/L Chloride 106 (98-107) mmol/L Carbon Dioxide 30 (22-30) mmol/L Anion Gap 9.8 (5-15) MEQ/L BUN 8 (7-17) mg/dL Creatinine 0.56 (0.52-1.04) mg/dL Estimated GFR 112.5 ML/MIN Glucose 85 (74-106) mg/dL POC Glucometer (74 to 106) mg/dL Hemoglobin A1c (4.5-6.0) % Calcium 8.9 (8.4-10.2) mg/dL Total Bilirubin 0.40 (0.2-1.3) mg/dL AST 27 (14-36) U/L ALT 18 (0-35) U/L Alkaline Phosphatase 97 (38-126) U/L Troponin I < 0.012 (0.000-0.034) ng/mL NT-Pro-B Natriuret Pep 120 (<300) pg/mL Serum Total Protein 7.5 (6.3-8.2) g/dL Albumin 4.3 (3.5-5.0) g/dL Influenza Type A Ag (NEGATIVE) Influenza Type B Ag (NEGATIVE) RSV (PCR) (NEGATIVE) SARS-CoV-2 (PCR) (NEGATIVE) 06/27/23 06/27/23 06/27/23 Range/Units 12:15 12:20 15:14 WBC (4.0-10.5) x10^3/uL RBC (4.1-5.4) x10^6/uL Hgb (12.0-16.0) g/dL Hct (35-47) % MCV (78-100) fL MCH (26-32) pg MCHC (32-36) g/dL RDW (11.5-14.0) % Plt Count (150-450) x10^3/uL MPV (7.5-11.0) fL Gran % (36.0-66.0) % Immature Gran % (Auto) (0.00-0.4) % Nucleat RBC Rel Count (0.00-0.1) % Eos # (Auto) (0-0.5) x10^3/uL Immature Gran # (Auto) (0.00-0.03) x10^3u/L Absolute Lymphs (auto) (1.0-4.6) x10^3/uL Absolute Monos (auto) (0.0-1.3) x10^3/uL Absolute Nucleated RBC (0.00-0.01) x10^3u/L Lymphocytes % (24.0-44.0) % Monocytes % (0.0-12.0) % Eosinophils % (0.00-5.0) % Basophils % (0.0-0.4) % Absolute Granulocytes (1.4-6.9) x10^3/uL Basophils # (0-0.4) x10^3/uL Sodium (135-145) mmol/L Potassium (3.5-5.1) mmol/L Chloride (98-107) mmol/L Carbon Dioxide (22-30) mmol/L Anion Gap (5-15) MEQ/L BUN (7-17) mg/dL Creatinine (0.52-1.04) mg/dL Estimated GFR ML/MIN Glucose (74-106) mg/dL POC Glucometer 146 H (74 to 106) mg/dL Hemoglobin A1c 5.42 (4.5-6.0) % Calcium (8.4-10.2) mg/dL Total Bilirubin (0.2-1.3) mg/dL AST (14-36) U/L ALT (0-35) U/L Alkaline Phosphatase (38-126) U/L Troponin I (0.000-0.034) ng/mL NT-Pro-B Natriuret Pep (<300) pg/mL Serum Total Protein (6.3-8.2) g/dL Albumin (3.5-5.0) g/dL Influenza Type A Ag NEGATIVE (NEGATIVE) Influenza Type B Ag NEGATIVE (NEGATIVE) RSV (PCR) NEGATIVE (NEGATIVE) SARS-CoV-2 (PCR) NEGATIVE (NEGATIVE) 06/27/23 06/27/23 06/27/23 Range/Units 16:12 19:35 20:43 WBC (4.0-10.5) x10^3/uL RBC (4.1-5.4) x10^6/uL Hgb (12.0-16.0) g/dL Hct (35-47) % MCV (78-100) fL MCH (26-32) pg MCHC (32-36) g/dL RDW (11.5-14.0) % Plt Count (150-450) x10^3/uL MPV (7.5-11.0) fL Gran % (36.0-66.0) % Immature Gran % (Auto) (0.00-0.4) % Nucleat RBC Rel Count (0.00-0.1) % Eos # (Auto) (0-0.5) x10^3/uL Immature Gran # (Auto) (0.00-0.03) x10^3u/L Absolute Lymphs (auto) (1.0-4.6) x10^3/uL Absolute Monos (auto) (0.0-1.3) x10^3/uL Absolute Nucleated RBC (0.00-0.01) x10^3u/L Lymphocytes % (24.0-44.0) % Monocytes % (0.0-12.0) % Eosinophils % (0.00-5.0) % Basophils % (0.0-0.4) % Absolute Granulocytes (1.4-6.9) x10^3/uL Basophils # (0-0.4) x10^3/uL Sodium (135-145) mmol/L Potassium (3.5-5.1) mmol/L Chloride (98-107) mmol/L Carbon Dioxide (22-30) mmol/L Anion Gap (5-15) MEQ/L BUN (7-17) mg/dL Creatinine (0.52-1.04) mg/dL Estimated GFR ML/MIN Glucose (74-106) mg/dL POC Glucometer 146 H (74 to 106) mg/dL Hemoglobin A1c (4.5-6.0) % Calcium (8.4-10.2) mg/dL Total Bilirubin (0.2-1.3) mg/dL AST (14-36) U/L ALT (0-35) U/L Alkaline Phosphatase (38-126) U/L Troponin I < 0.012 < 0.012 (0.000-0.034) ng/mL NT-Pro-B Natriuret Pep (<300) pg/mL Serum Total Protein (6.3-8.2) g/dL Albumin (3.5-5.0) g/dL Influenza Type A Ag (NEGATIVE) Influenza Type B Ag (NEGATIVE) RSV (PCR) (NEGATIVE) SARS-CoV-2 (PCR) (NEGATIVE) Radiology Exams: Radiology Procedures Category Date Time Status CHEST 2 VIEWS (PA AND LAT) Stat Exams 06/27/23 12:05 Completed Multi-Disciplinary Progress Notes: Multi-Disciplinary Progress Notes 06/27/23 15:53 Respiratory Note by Chen Bolden Patient's O2 sat on Room Air at rest is 88%. Patient placed back on O2 at 3lpm per NC and O2 sat increased to 94% on 3lpm per NC at rest. Initialized on 06/27/23 15:53 - END OF NOTE Assessment/Plan (1) Acute hypoxic respiratory failure Current Visit: Yes Status: Acute Assessment & Plan: -secondary to COPD exacerbation -supplemental oxygen with spo2 goal 88-92% -Qualify for home oxygen -RT consult -NEBS/INH Prn -solumedrol 40mg bid -titrate per clinical response -Respiratory panel negative -Empiric abx with azithromycin Code(s): J96.01 - ACUTE RESPIRATORY FAILURE WITH HYPOXIA (2) COPD exacerbation Current Visit: Yes Status: Acute Assessment & Plan: -see ARF Code(s): J44.1 - CHRONIC OBSTRUCTIVE PULMONARY DISEASE W (ACUTE) EXACERBATION (3) Smoker Current Visit: Yes Status: Acute Assessment & Plan: -advised cessation -nicotine patch Code(s): F17.200 - NICOTINE DEPENDENCE, UNSPECIFIED, UNCOMPLICATED (4) Hypertension Current Visit: Yes Status: Acute Assessment & Plan: -allergy to lisinopril -Monitor -amlodipine 5mg Code(s): I10 - ESSENTIAL (PRIMARY) HYPERTENSION (5) Leukocytosis Current Visit: Yes Status: Acute Assessment & Plan: -Reactive from recent steroid use vs infective process -Continue to monitor/trend -Azithromycin Code(s): D72.829 - ELEVATED WHITE BLOOD CELL COUNT, UNSPECIFIED VTE: Lovenox PPI: Protonix Dispo: 1-2 days Code(s): J96.01 - ACUTE RESPIRATORY FAILURE WITH HYPOXIA (2) COPD exacerbation Current Visit: Yes Status: Acute Code(s): J44.1 - CHRONIC OBSTRUCTIVE PULMONARY DISEASE W (ACUTE) EXACERBATION (3) Smoker Current Visit: Yes Status: Acute Code(s): F17.200 - NICOTINE DEPENDENCE, UNSPECIFIED, UNCOMPLICATED (4) Hypertension Current Visit: Yes Status: Acute Code(s): I10 - ESSENTIAL (PRIMARY) HYPERTENSION (5) Leukocytosis Current Visit: Yes Status: Acute Code(s): D72.829 - ELEVATED WHITE BLOOD CELL COUNT, UNSPECIFIED
[2023-06-28 05:36] LABS: Absolute Neutrophil Ct (ANC) 15.81 x10^3/uL (1.4-6.9); BASOPHIL % 0.1 % (0.0-0.4); Basophil (Absolute #) 0.02 x10^3/uL (0-0.4); Eosinophil (Absolute #) 0 x10^3/uL (0-0.5); Hematocrit 43.6 % (35-47); Hemoglobin 14.5 g/dL (12.0-16.0); IMMATURE GRAN # 0.08 x10^3u/L (0.00-0.03); IMMATURE GRAN % 0.4 % (0.00-0.4); Lymphocyte (Absolute #) 1.41 x10^3/uL (1.0-4.6); Lymphocytes % 7.8 % (24.0-44.0); Mean Cell Volume 96.2 fL (78-100); Mean Corpuscular Hgb Concent. 33.3 g/dL (32-36); Mean Platelet Volume 9.7 fL (7.5-11.0); Monocyte (Absolute #) 0.71 x10^3/uL (0.0-1.3); Monocytes % 3.9 % (0.0-12.0); Neutrophil % 87.8 % (36.0-66.0); Platelet Count 330 x10^3/uL (150-450); Red Blood Count 4.53 x10^6/uL (4.1-5.4); Red Cell Distribution Width 12.1 % (11.5-14.0)
[2023-06-28 05:48] LABS: ALBUMIN 3.8 g/dL (3.5-5.0); ANION GAP 13.9 MEQ/L (5-15); BILIRUBIN,TOTAL 0.2 mg/dL (0.2-1.3); Calcium 8.6 mg/dL (8.4-10.2); Creatinine 1 0.62 mg/dL (0.52-1.04); EST GLOMERULAR FILTRATION RATE 109.8 ML/MIN; Potassium 3.7 mmol/L (3.5-5.1); Total Protein 6.6 g/dL (6.3-8.2)
[2023-06-28 08:01] VITALS: BP 138/87; PULSE 80; RESP 19; TEMP 98.6; O2SAT 99
[2023-06-28] MEDS: NORVASC 5 MG PO SCH (08:54)
[2023-06-28] MEDS: PROTONIX 40 MG IV IV SCH (08:54)
--- NOTE | 2023-06-28 10:18 | PCM.NOTE ---
Date and Time: 06/28/23 1014 - Review of Systems Constitutional: No Symptoms Eyes: No Symptoms Ears, Nose, & Throat: No Symptoms Respiratory: Cough, Short Of Breath Objective Data Vital Signs: Vital Signs - 24 hr Temp Pulse Resp BP BP Pulse Ox 06/28/23 08:00 98.6 F 80 19 138/87 99 06/28/23 07:32 81 18 98 06/28/23 04:05 95 H 18 97 06/28/23 04:00 97.8 F 92 H 14 127/75 100 06/28/23 00:24 95 H 18 99 06/27/23 23:12 97.7 F 95 H 18 130/87 100 06/27/23 20:00 97.7 F 99 H 16 124/77 100 06/27/23 19:49 85 20 100 06/27/23 14:44 88 18 94 L 06/27/23 14:22 97.1 F 83 18 175/96 96 06/27/23 13:52 96 06/27/23 13:48 98 06/27/23 13:20 89 22 166/104 96 06/27/23 13:19 88 23 96 06/27/23 13:18 101 H 18 96 06/27/23 13:16 83 18 166/104 95 06/27/23 12:59 101 H 18 95 06/27/23 12:10 99 H 16 95 06/27/23 12:00 105 H 22 121/76 96 06/27/23 11:53 97.7 F 109 H 13 142/113 96 Pain Assessment - Last Documented Pain Intensity 9 Intake and Output: Intake & Output 06/25/23 06/26/23 06/27/23 06/28/23 11:59 11:59 11:59 11:59 Intake Total 1240 Balance 1240 Weight 61.235 kg 62.5 kg Lab Results: Lab Results-Last 24 Hours 06/27/23 06/27/23 06/27/23 Range/Units 12:15 12:15 12:15 WBC 12.7 H (4.0-10.5) x10^3/uL RBC 4.78 (4.1-5.4) x10^6/uL Hgb 15.5 (12.0-16.0) g/dL Hct 45.4 (35-47) % MCV 95.0 (78-100) fL MCH 32.4 H (26-32) pg MCHC 34.1 (32-36) g/dL RDW 12.4 (11.5-14.0) % Plt Count 370 (150-450) x10^3/uL MPV 9.7 (7.5-11.0) fL Gran % 68.4 H (36.0-66.0) % Immature Gran % (Auto) 0.3 (0.00-0.4) % Nucleat RBC Rel Count 0.0 (0.00-0.1) % Eos # (Auto) 0.40 (0-0.5) x10^3/uL Immature Gran # (Auto) 0.04 H (0.00-0.03) x10^3u/L Absolute Lymphs (auto) 2.94 (1.0-4.6) x10^3/uL Absolute Monos (auto) 0.59 (0.0-1.3) x10^3/uL Absolute Nucleated RBC 0.00 (0.00-0.01) x10^3u/L Lymphocytes % 23.1 L (24.0-44.0) % Monocytes % 4.6 (0.0-12.0) % Eosinophils % 3.1 (0.00-5.0) % Basophils % 0.5 (0.0-0.4) % Absolute Granulocytes 8.68 H (1.4-6.9) x10^3/uL Basophils # 0.06 (0-0.4) x10^3/uL Sodium 143 (135-145) mmol/L Potassium 3.7 (3.5-5.1) mmol/L Chloride 106 (98-107) mmol/L Carbon Dioxide 30 (22-30) mmol/L Anion Gap 9.8 (5-15) MEQ/L BUN 8 (7-17) mg/dL Creatinine 0.56 (0.52-1.04) mg/dL Estimated GFR 112.5 ML/MIN Glucose 85 (74-106) mg/dL POC Glucometer (74 to 106) mg/dL Hemoglobin A1c (4.5-6.0) % Calcium 8.9 (8.4-10.2) mg/dL Total Bilirubin 0.40 (0.2-1.3) mg/dL AST 27 (14-36) U/L ALT 18 (0-35) U/L Alkaline Phosphatase 97 (38-126) U/L Troponin I < 0.012 (0.000-0.034) ng/mL NT-Pro-B Natriuret Pep 120 (<300) pg/mL Serum Total Protein 7.5 (6.3-8.2) g/dL Albumin 4.3 (3.5-5.0) g/dL Procalcitonin (0.030-0.080) ng/mL Influenza Type A Ag (NEGATIVE) Influenza Type B Ag (NEGATIVE) RSV (PCR) (NEGATIVE) SARS-CoV-2 (PCR) (NEGATIVE) 06/27/23 06/27/23 06/27/23 Range/Units 12:15 12:20 15:14 WBC (4.0-10.5) x10^3/uL RBC (4.1-5.4) x10^6/uL Hgb (12.0-16.0) g/dL Hct (35-47) % MCV (78-100) fL MCH (26-32) pg MCHC (32-36) g/dL RDW (11.5-14.0) % Plt Count (150-450) x10^3/uL MPV (7.5-11.0) fL Gran % (36.0-66.0) % Immature Gran % (Auto) (0.00-0.4) % Nucleat RBC Rel Count (0.00-0.1) % Eos # (Auto) (0-0.5) x10^3/uL Immature Gran # (Auto) (0.00-0.03) x10^3u/L Absolute Lymphs (auto) (1.0-4.6) x10^3/uL Absolute Monos (auto) (0.0-1.3) x10^3/uL Absolute Nucleated RBC (0.00-0.01) x10^3u/L Lymphocytes % (24.0-44.0) % Monocytes % (0.0-12.0) % Eosinophils % (0.00-5.0) % Basophils % (0.0-0.4) % Absolute Granulocytes (1.4-6.9) x10^3/uL Basophils # (0-0.4) x10^3/uL Sodium (135-145) mmol/L Potassium (3.5-5.1) mmol/L Chloride (98-107) mmol/L Carbon Dioxide (22-30) mmol/L Anion Gap (5-15) MEQ/L BUN (7-17) mg/dL Creatinine (0.52-1.04) mg/dL Estimated GFR ML/MIN Glucose (74-106) mg/dL POC Glucometer 146 H (74 to 106) mg/dL Hemoglobin A1c 5.42 (4.5-6.0) % Calcium (8.4-10.2) mg/dL Total Bilirubin (0.2-1.3) mg/dL AST (14-36) U/L ALT (0-35) U/L Alkaline Phosphatase (38-126) U/L Troponin I (0.000-0.034) ng/mL NT-Pro-B Natriuret Pep (<300) pg/mL Serum Total Protein (6.3-8.2) g/dL Albumin (3.5-5.0) g/dL Procalcitonin (0.030-0.080) ng/mL Influenza Type A Ag NEGATIVE (NEGATIVE) Influenza Type B Ag NEGATIVE (NEGATIVE) RSV (PCR) NEGATIVE (NEGATIVE) SARS-CoV-2 (PCR) NEGATIVE (NEGATIVE) 06/27/23 06/27/23 06/27/23 Range/Units 16:12 19:35 20:43 WBC (4.0-10.5) x10^3/uL RBC (4.1-5.4) x10^6/uL Hgb (12.0-16.0) g/dL Hct (35-47) % MCV (78-100) fL MCH (26-32) pg MCHC (32-36) g/dL RDW (11.5-14.0) % Plt Count (150-450) x10^3/uL MPV (7.5-11.0) fL Gran % (36.0-66.0) % Immature Gran % (Auto) (0.00-0.4) % Nucleat RBC Rel Count (0.00-0.1) % Eos # (Auto) (0-0.5) x10^3/uL Immature Gran # (Auto) (0.00-0.03) x10^3u/L Absolute Lymphs (auto) (1.0-4.6) x10^3/uL Absolute Monos (auto) (0.0-1.3) x10^3/uL Absolute Nucleated RBC (0.00-0.01) x10^3u/L Lymphocytes % (24.0-44.0) % Monocytes % (0.0-12.0) % Eosinophils % (0.00-5.0) % Basophils % (0.0-0.4) % Absolute Granulocytes (1.4-6.9) x10^3/uL Basophils # (0-0.4) x10^3/uL Sodium (135-145) mmol/L Potassium (3.5-5.1) mmol/L Chloride (98-107) mmol/L Carbon Dioxide (22-30) mmol/L Anion Gap (5-15) MEQ/L BUN (7-17) mg/dL Creatinine (0.52-1.04) mg/dL Estimated GFR ML/MIN Glucose (74-106) mg/dL POC Glucometer 146 H (74 to 106) mg/dL Hemoglobin A1c (4.5-6.0) % Calcium (8.4-10.2) mg/dL Total Bilirubin (0.2-1.3) mg/dL AST (14-36) U/L ALT (0-35) U/L Alkaline Phosphatase (38-126) U/L Troponin I < 0.012 < 0.012 (0.000-0.034) ng/mL NT-Pro-B Natriuret Pep (<300) pg/mL Serum Total Protein (6.3-8.2) g/dL Albumin (3.5-5.0) g/dL Procalcitonin (0.030-0.080) ng/mL Influenza Type A Ag (NEGATIVE) Influenza Type B Ag (NEGATIVE) RSV (PCR) (NEGATIVE) SARS-CoV-2 (PCR) (NEGATIVE) 06/28/23 06/28/23 06/28/23 Range/Units 05:07 05:07 05:07 WBC 18.0 H (4.0-10.5) x10^3/uL RBC 4.53 (4.1-5.4) x10^6/uL Hgb 14.5 (12.0-16.0) g/dL Hct 43.6 (35-47) % MCV 96.2 (78-100) fL MCH 32.0 (26-32) pg MCHC 33.3 (32-36) g/dL RDW 12.1 (11.5-14.0) % Plt Count 330 (150-450) x10^3/uL MPV 9.7 (7.5-11.0) fL Gran % 87.8 H (36.0-66.0) % Immature Gran % (Auto) 0.4 (0.00-0.4) % Nucleat RBC Rel Count 0.0 (0.00-0.1) % Eos # (Auto) 0 (0-0.5) x10^3/uL Immature Gran # (Auto) 0.08 H (0.00-0.03) x10^3u/L Absolute Lymphs (auto) 1.41 (1.0-4.6) x10^3/uL Absolute Monos (auto) 0.71 (0.0-1.3) x10^3/uL Absolute Nucleated RBC 0.00 (0.00-0.01) x10^3u/L Lymphocytes % 7.8 L (24.0-44.0) % Monocytes % 3.9 (0.0-12.0) % Eosinophils % 0.0 (0.00-5.0) % Basophils % 0.1 (0.0-0.4) % Absolute Granulocytes 15.81 H (1.4-6.9) x10^3/uL Basophils # 0.02 (0-0.4) x10^3/uL Sodium 140 (135-145) mmol/L Potassium 3.7 (3.5-5.1) mmol/L Chloride 107 (98-107) mmol/L Carbon Dioxide 23 (22-30) mmol/L Anion Gap 13.9 (5-15) MEQ/L BUN 12 (7-17) mg/dL Creatinine 0.62 (0.52-1.04) mg/dL Estimated GFR 109.8 ML/MIN Glucose 183 H (74-106) mg/dL POC Glucometer (74 to 106) mg/dL Hemoglobin A1c (4.5-6.0) % Calcium 8.6 (8.4-10.2) mg/dL Total Bilirubin 0.20 (0.2-1.3) mg/dL AST 19 (14-36) U/L ALT 18 (0-35) U/L Alkaline Phosphatase 83 (38-126) U/L Troponin I (0.000-0.034) ng/mL NT-Pro-B Natriuret Pep (<300) pg/mL Serum Total Protein 6.6 (6.3-8.2) g/dL Albumin 3.8 (3.5-5.0) g/dL Procalcitonin 0.035 (0.030-0.080) ng/mL Influenza Type A Ag (NEGATIVE) Influenza Type B Ag (NEGATIVE) RSV (PCR) (NEGATIVE) SARS-CoV-2 (PCR) (NEGATIVE) 06/28/23 Range/Units 07:38 WBC (4.0-10.5) x10^3/uL RBC (4.1-5.4) x10^6/uL Hgb (12.0-16.0) g/dL Hct (35-47) % MCV (78-100) fL MCH (26-32) pg MCHC (32-36) g/dL RDW (11.5-14.0) % Plt Count (150-450) x10^3/uL MPV (7.5-11.0) fL Gran % (36.0-66.0) % Immature Gran % (Auto) (0.00-0.4) % Nucleat RBC Rel Count (0.00-0.1) % Eos # (Auto) (0-0.5) x10^3/uL Immature Gran # (Auto) (0.00-0.03) x10^3u/L Absolute Lymphs (auto) (1.0-4.6) x10^3/uL Absolute Monos (auto) (0.0-1.3) x10^3/uL Absolute Nucleated RBC (0.00-0.01) x10^3u/L Lymphocytes % (24.0-44.0) % Monocytes % (0.0-12.0) % Eosinophils % (0.00-5.0) % Basophils % (0.0-0.4) % Absolute Granulocytes (1.4-6.9) x10^3/uL Basophils # (0-0.4) x10^3/uL Sodium (135-145) mmol/L Potassium (3.5-5.1) mmol/L Chloride (98-107) mmol/L Carbon Dioxide (22-30) mmol/L Anion Gap (5-15) MEQ/L BUN (7-17) mg/dL Creatinine (0.52-1.04) mg/dL Estimated GFR ML/MIN Glucose (74-106) mg/dL POC Glucometer 108 H (74 to 106) mg/dL Hemoglobin A1c (4.5-6.0) % Calcium (8.4-10.2) mg/dL Total Bilirubin (0.2-1.3) mg/dL AST (14-36) U/L ALT (0-35) U/L Alkaline Phosphatase (38-126) U/L Troponin I (0.000-0.034) ng/mL NT-Pro-B Natriuret Pep (<300) pg/mL Serum Total Protein (6.3-8.2) g/dL Albumin (3.5-5.0) g/dL Procalcitonin (0.030-0.080) ng/mL Influenza Type A Ag (NEGATIVE) Influenza Type B Ag (NEGATIVE) RSV (PCR) (NEGATIVE) SARS-CoV-2 (PCR) (NEGATIVE) Radiology Exams: Radiology Procedures Category Date Time Status CHEST 2 VIEWS (PA AND LAT) Stat Exams 06/27/23 12:05 Completed Multi-Disciplinary Progress Notes: Multi-Disciplinary Progress Notes 06/27/23 15:53 Respiratory Note by Chen Bolden Patient's O2 sat on Room Air at rest is 88%. Patient placed back on O2 at 3lpm per NC and O2 sat increased to 94% on 3lpm per NC at rest. Initialized on 06/27/23 15:53 - END OF NOTE Assessment/Plan (1) Acute hypoxic respiratory failure Current Visit: Yes Status: Acute Code(s): J96.01 - ACUTE RESPIRATORY FAILURE WITH HYPOXIA (2) COPD exacerbation Current Visit: Yes Status: Acute Code(s): J44.1 - CHRONIC OBSTRUCTIVE PULMONARY DISEASE W (ACUTE) EXACERBATION (3) Smoker Current Visit: Yes Status: Acute Code(s): F17.200 - NICOTINE DEPENDENCE, UNSPECIFIED, UNCOMPLICATED (4) Hypertension Current Visit: Yes Status: Acute Code(s): I10 - ESSENTIAL (PRIMARY) HYPERTENSION (5) Leukocytosis Current Visit: Yes Status: Acute Code(s): D72.829 - ELEVATED WHITE BLOOD CELL COUNT, UNSPECIFIED
--- NOTE | 2023-06-28 10:24 | PCM.DS ---
Discharge Summary Date of Admission: 06/27/23 14:05 Date of Discharge: 06/28/23 Admitting Physician: ESTEE ISAAC MD Primary Care Provider: MARBELLA COLON CARMEN Allergies Allergies cephalexin [From Keflex] Allergy (Verified 06/27/23 12:02) ketorolac [From Toradol] Allergy (Verified 06/27/23 12:02) lisinopril Allergy (Verified 06/27/23 12:02) Sulfa (Sulfonamide Antibiotics) Allergy (Verified 06/27/23 12:02) Hospital Summary - Hospital Course Hospital Course: is a 48 year old female with a pmxh of COPD, TIA, migraines, peripheral neuropathy, emphysema, HTN, arthritis, and anxiety who presented to ED 06/27/23 with a two week history of progressive shortness of breath, dry cough, and wheezing. She reports recent ED visit at [facility] two days ago for these symptoms where she received one dose IV abx and a steroid shot. Her symptoms have persisted. She is prescribed 3L of oxygen during the day and 4L at night by Dr. Balbuena but reports the company that supplies the oxygen picked it up as she no longer has a prescription due to missed follow up. She is a current everyday smoker of 1/2 PPD. Denies fever, N/V/D, abdominal pain, or recent sick contacts. In ED, patient tachycardic and hypertensive with spo2 at 81% on RA with ambulation. EKG with NS, no ST elevation/deviations. CXR with no acute cardiopulmonary abnormalities. Lab findings remarkable for WBC at 12.7. Respiratory viral panel negative. Patient admitted with Acute respiratory failure with hypoxia secondary to COPD exacerbation.IP treatment with azithr omycin, neb/inh, supplemental oxygen, and steroids. Oxygen and nebulizer ordered for home use. Dyspnea and cough improved. Patient at baseline oxygen, requesting discharge today. Blood pressure controlled with the initiation of amlodipine. Will dismiss her on azithromycin, duonebs, medrol dosepack, amlodipine, and nicotine patch. Advised close follow up with PCP/pulm, keep blood pressure log until follow up. Advised smoking cessation. Patient agreeable to plan and stable for discharge. Discharge Note New Diagnosis: Copd exacerbation New Medications:azithromycin, duonebs, medrol dosepack, amlodipine, and nicotine patch Follow Up: PCP/Pulm Latest Assessment & Plan (1) Acute hypoxic respiratory failure Current Visit: Yes Status: Acute Assessment & Plan: -secondary to COPD exacerbation -supplemental oxygen with spo2 goal 88-92% -Qualify for home oxygen -RT consult -NEBS/INH Prn -solumedrol 40mg bid -titrate per clinical response -Respiratory panel negative -Empiric abx with azithromycin Code(s): J96.01 - ACUTE RESPIRATORY FAILURE WITH HYPOXIA (2) COPD exacerbation Current Visit: Yes Status: Acute Assessment & Plan: -see ARF Code(s): J44.1 - CHRONIC OBSTRUCTIVE PULMONARY DISEASE W (ACUTE) EXACERBATION (3) Smoker Current Visit: Yes Status: Acute Assessment & Plan: -advised cessation -nicotine patch Code(s): F17.200 - NICOTINE DEPENDENCE, UNSPECIFIED, UNCOMPLICATED (4) Hypertension Current Visit: Yes Status: Acute Assessment & Plan: -allergy to lisinopril -Monitor -amlodipine 5mg Code(s): I10 - ESSENTIAL (PRIMARY) HYPERTENSION (5) Leukocytosis Current Visit: Yes Status: Acute Assessment & Plan: -Reactive from recent steroid use vs infective process -Continue to monitor/trend -Azithromycin Code(s): D72.829 - ELEVATED WHITE BLOOD CELL COUNT, UNSPECIFIED VTE: Lovenox I spent 35 minutes [id number] with the patient on the day of discharge performing discharge exam, discussing hospital stay and discharge instructions with patient and caregivers, preparation of discharge records, prescriptions & referral forms and addressing any questions/concerns the patient had as documented above. - Vitals & Intake/Output Vital Signs: Vital Signs Temperature 98.6 F 06/28/23 08:00 Pulse Rate 80 06/28/23 08:00 Respiratory Rate 19 06/28/23 08:00 Blood Pressure 138/87 06/28/23 08:00 O2 Sat by Pulse Oximetry 99 06/28/23 08:00 Intake & Output: Intake & Output 06/25/23 06/26/23 06/27/23 06/28/23 11:59 11:59 11:59 11:59 Intake Total 1240 Balance 1240 Weight 61.235 kg 62.5 kg - Lab Result Diagrams: 06/28/23 05:07 06/28/23 05:07 Lab Results-Last 24 Hrs: Lab Results-Last 24 Hours 06/27/23 06/27/23 06/27/23 Range/Units 12:15 12:15 12:15 WBC 12.7 H (4.0-10.5) x10^3/uL RBC 4.78 (4.1-5.4) x10^6/uL Hgb 15.5 (12.0-16.0) g/dL Hct 45.4 (35-47) % MCV 95.0 (78-100) fL MCH 32.4 H (26-32) pg MCHC 34.1 (32-36) g/dL RDW 12.4 (11.5-14.0) % Plt Count 370 (150-450) x10^3/uL MPV 9.7 (7.5-11.0) fL Gran % 68.4 H (36.0-66.0) % Immature Gran % (Auto) 0.3 (0.00-0.4) % Nucleat RBC Rel Count 0.0 (0.00-0.1) % Eos # (Auto) 0.40 (0-0.5) x10^3/uL Immature Gran # (Auto) 0.04 H (0.00-0.03) x10^3u/L Absolute Lymphs (auto) 2.94 (1.0-4.6) x10^3/uL Absolute Monos (auto) 0.59 (0.0-1.3) x10^3/uL Absolute Nucleated RBC 0.00 (0.00-0.01) x10^3u/L Lymphocytes % 23.1 L (24.0-44.0) % Monocytes % 4.6 (0.0-12.0) % Eosinophils % 3.1 (0.00-5.0) % Basophils % 0.5 (0.0-0.4) % Absolute Granulocytes 8.68 H (1.4-6.9) x10^3/uL Basophils # 0.06 (0-0.4) x10^3/uL Sodium 143 (135-145) mmol/L Potassium 3.7 (3.5-5.1) mmol/L Chloride 106 (98-107) mmol/L Carbon Dioxide 30 (22-30) mmol/L Anion Gap 9.8 (5-15) MEQ/L BUN 8 (7-17) mg/dL Creatinine 0.56 (0.52-1.04) mg/dL Estimated GFR 112.5 ML/MIN Glucose 85 (74-106) mg/dL POC Glucometer (74 to 106) mg/dL Hemoglobin A1c (4.5-6.0) % Calcium 8.9 (8.4-10.2) mg/dL Total Bilirubin 0.40 (0.2-1.3) mg/dL AST 27 (14-36) U/L ALT 18 (0-35) U/L Alkaline Phosphatase 97 (38-126) U/L Troponin I < 0.012 (0.000-0.034) ng/mL NT-Pro-B Natriuret Pep 120 (<300) pg/mL Serum Total Protein 7.5 (6.3-8.2) g/dL Albumin 4.3 (3.5-5.0) g/dL Procalcitonin (0.030-0.080) ng/mL Influenza Type A Ag (NEGATIVE) Influenza Type B Ag (NEGATIVE) RSV (PCR) (NEGATIVE) SARS-CoV-2 (PCR) (NEGATIVE) 06/27/23 06/27/23 06/27/23 Range/Units 12:15 12:20 15:14 WBC (4.0-10.5) x10^3/uL RBC (4.1-5.4) x10^6/uL Hgb (12.0-16.0) g/dL Hct (35-47) % MCV (78-100) fL MCH (26-32) pg MCHC (32-36) g/dL RDW (11.5-14.0) % Plt Count (150-450) x10^3/uL MPV (7.5-11.0) fL Gran % (36.0-66.0) % Immature Gran % (Auto) (0.00-0.4) % Nucleat RBC Rel Count (0.00-0.1) % Eos # (Auto) (0-0.5) x10^3/uL Immature Gran # (Auto) (0.00-0.03) x10^3u/L Absolute Lymphs (auto) (1.0-4.6) x10^3/uL Absolute Monos (auto) (0.0-1.3) x10^3/uL Absolute Nucleated RBC (0.00-0.01) x10^3u/L Lymphocytes % (24.0-44.0) % Monocytes % (0.0-12.0) % Eosinophils % (0.00-5.0) % Basophils % (0.0-0.4) % Absolute Granulocytes (1.4-6.9) x10^3/uL Basophils # (0-0.4) x10^3/uL Sodium (135-145) mmol/L Potassium (3.5-5.1) mmol/L Chloride (98-107) mmol/L Carbon Dioxide (22-30) mmol/L Anion Gap (5-15) MEQ/L BUN (7-17) mg/dL Creatinine (0.52-1.04) mg/dL Estimated GFR ML/MIN Glucose (74-106) mg/dL POC Glucometer 146 H (74 to 106) mg/dL Hemoglobin A1c 5.42 (4.5-6.0) % Calcium (8.4-10.2) mg/dL Total Bilirubin (0.2-1.3) mg/dL AST (14-36) U/L ALT (0-35) U/L Alkaline Phosphatase (38-126) U/L Troponin I (0.000-0.034) ng/mL NT-Pro-B Natriuret Pep (<300) pg/mL Serum Total Protein (6.3-8.2) g/dL Albumin (3.5-5.0) g/dL Procalcitonin (0.030-0.080) ng/mL Influenza Type A Ag NEGATIVE (NEGATIVE) Influenza Type B Ag NEGATIVE (NEGATIVE) RSV (PCR) NEGATIVE (NEGATIVE) SARS-CoV-2 (PCR) NEGATIVE (NEGATIVE) 06/27/23 06/27/23 06/27/23 Range/Units 16:12 19:35 20:43 WBC (4.0-10.5) x10^3/uL RBC (4.1-5.4) x10^6/uL Hgb (12.0-16.0) g/dL Hct (35-47) % MCV (78-100) fL MCH (26-32) pg MCHC (32-36) g/dL RDW (11.5-14.0) % Plt Count (150-450) x10^3/uL MPV (7.5-11.0) fL Gran % (36.0-66.0) % Immature Gran % (Auto) (0.00-0.4) % Nucleat RBC Rel Count (0.00-0.1) % Eos # (Auto) (0-0.5) x10^3/uL Immature Gran # (Auto) (0.00-0.03) x10^3u/L Absolute Lymphs (auto) (1.0-4.6) x10^3/uL Absolute Monos (auto) (0.0-1.3) x10^3/uL Absolute Nucleated RBC (0.00-0.01) x10^3u/L Lymphocytes % (24.0-44.0) % Monocytes % (0.0-12.0) % Eosinophils % (0.00-5.0) % Basophils % (0.0-0.4) % Absolute Granulocytes (1.4-6.9) x10^3/uL Basophils # (0-0.4) x10^3/uL Sodium (135-145) mmol/L Potassium (3.5-5.1) mmol/L Chloride (98-107) mmol/L Carbon Dioxide (22-30) mmol/L Anion Gap (5-15) MEQ/L BUN (7-17) mg/dL Creatinine (0.52-1.04) mg/dL Estimated GFR ML/MIN Glucose (74-106) mg/dL POC Glucometer 146 H (74 to 106) mg/dL Hemoglobin A1c (4.5-6.0) % Calcium (8.4-10.2) mg/dL Total Bilirubin (0.2-1.3) mg/dL AST (14-36) U/L ALT (0-35) U/L Alkaline Phosphatase (38-126) U/L Troponin I < 0.012 < 0.012 (0.000-0.034) ng/mL NT-Pro-B Natriuret Pep (<300) pg/mL Serum Total Protein (6.3-8.2) g/dL Albumin (3.5-5.0) g/dL Procalcitonin (0.030-0.080) ng/mL Influenza Type A Ag (NEGATIVE) Influenza Type B Ag (NEGATIVE) RSV (PCR) (NEGATIVE) SARS-CoV-2 (PCR) (NEGATIVE) 06/28/23 06/28/23 06/28/23 Range/Units 05:07 05:07 05:07 WBC 18.0 H (4.0-10.5) x10^3/uL RBC 4.53 (4.1-5.4) x10^6/uL Hgb 14.5 (12.0-16.0) g/dL Hct 43.6 (35-47) % MCV 96.2 (78-100) fL MCH 32.0 (26-32) pg MCHC 33.3 (32-36) g/dL RDW 12.1 (11.5-14.0) % Plt Count 330 (150-450) x10^3/uL MPV 9.7 (7.5-11.0) fL Gran % 87.8 H (36.0-66.0) % Immature Gran % (Auto) 0.4 (0.00-0.4) % Nucleat RBC Rel Count 0.0 (0.00-0.1) % Eos # (Auto) 0 (0-0.5) x10^3/uL Immature Gran # (Auto) 0.08 H (0.00-0.03) x10^3u/L Absolute Lymphs (auto) 1.41 (1.0-4.6) x10^3/uL Absolute Monos (auto) 0.71 (0.0-1.3) x10^3/uL Absolute Nucleated RBC 0.00 (0.00-0.01) x10^3u/L Lymphocytes % 7.8 L (24.0-44.0) % Monocytes % 3.9 (0.0-12.0) % Eosinophils % 0.0 (0.00-5.0) % Basophils % 0.1 (0.0-0.4) % Absolute Granulocytes 15.81 H (1.4-6.9) x10^3/uL Basophils # 0.02 (0-0.4) x10^3/uL Sodium 140 (135-145) mmol/L Potassium 3.7 (3.5-5.1) mmol/L Chloride 107 (98-107) mmol/L Carbon Dioxide 23 (22-30) mmol/L Anion Gap 13.9 (5-15) MEQ/L BUN 12 (7-17) mg/dL Creatinine 0.62 (0.52-1.04) mg/dL Estimated GFR 109.8 ML/MIN Glucose 183 H (74-106) mg/dL POC Glucometer (74 to 106) mg/dL Hemoglobin A1c (4.5-6.0) % Calcium 8.6 (8.4-10.2) mg/dL Total Bilirubin 0.20 (0.2-1.3) mg/dL AST 19 (14-36) U/L ALT 18 (0-35) U/L Alkaline Phosphatase 83 (38-126) U/L Troponin I (0.000-0.034) ng/mL NT-Pro-B Natriuret Pep (<300) pg/mL Serum Total Protein 6.6 (6.3-8.2) g/dL Albumin 3.8 (3.5-5.0) g/dL Procalcitonin 0.035 (0.030-0.080) ng/mL Influenza Type A Ag (NEGATIVE) Influenza Type B Ag (NEGATIVE) RSV (PCR) (NEGATIVE) SARS-CoV-2 (PCR) (NEGATIVE) 06/28/23 Range/Units 07:38 WBC (4.0-10.5) x10^3/uL RBC (4.1-5.4) x10^6/uL Hgb (12.0-16.0) g/dL Hct (35-47) % MCV (78-100) fL MCH (26-32) pg MCHC (32-36) g/dL RDW (11.5-14.0) % Plt Count (150-450) x10^3/uL MPV (7.5-11.0) fL Gran % (36.0-66.0) % Immature Gran % (Auto) (0.00-0.4) % Nucleat RBC Rel Count (0.00-0.1) % Eos # (Auto) (0-0.5) x10^3/uL Immature Gran # (Auto) (0.00-0.03) x10^3u/L Absolute Lymphs (auto) (1.0-4.6) x10^3/uL Absolute Monos (auto) (0.0-1.3) x10^3/uL Absolute Nucleated RBC (0.00-0.01) x10^3u/L Lymphocytes % (24.0-44.0) % Monocytes % (0.0-12.0) % Eosinophils % (0.00-5.0) % Basophils % (0.0-0.4) % Absolute Granulocytes (1.4-6.9) x10^3/uL Basophils # (0-0.4) x10^3/uL Sodium (135-145) mmol/L Potassium (3.5-5.1) mmol/L Chloride (98-107) mmol/L Carbon Dioxide (22-30) mmol/L Anion Gap (5-15) MEQ/L BUN (7-17) mg/dL Creatinine (0.52-1.04) mg/dL Estimated GFR ML/MIN Glucose (74-106) mg/dL POC Glucometer 108 H (74 to 106) mg/dL Hemoglobin A1c (4.5-6.0) % Calcium (8.4-10.2) mg/dL Total Bilirubin (0.2-1.3) mg/dL AST (14-36) U/L ALT (0-35) U/L Alkaline Phosphatase (38-126) U/L Troponin I (0.000-0.034) ng/mL NT-Pro-B Natriuret Pep (<300) pg/mL Serum Total Protein (6.3-8.2) g/dL Albumin (3.5-5.0) g/dL Procalcitonin (0.030-0.080) ng/mL Influenza Type A Ag (NEGATIVE) Influenza Type B Ag (NEGATIVE) RSV (PCR) (NEGATIVE) SARS-CoV-2 (PCR) (NEGATIVE) Micro Results-Entire Visit: Accuchecks Date 06/28/23 Date 06/27/23 Date 06/27/23 Time 08:00 Time 16:24 Time 15:15 - Radiology Exams Ordered Rad Exams-Entire Visit: Radiology Procedures Category Date Time Status CHEST 2 VIEWS (PA AND LAT) Stat Exams 06/27/23 12:05 Completed - Procedures and Test Procedures and Tests throughout Hospitalization: Therapy Orders & Screens 06/27/23 12:10 Respiratory Therapy Assessment DAILY Comment: 06/27/23 13:46 Oxygen Nasal Cannula 2 lpm Comment: Respiratory Therapy Consult ONCE Comment: Reason For Exam: 06/27/23 14:44 RT Screen per Nursing Assess ONCE Comment: Protocol Order Physician Instructions: Greater than 3 points order RT Admission Screen Reason For Exam: Triggered on Admission Diagnosis: COPD Diagnosis: COPD Pneumonia: No Home O2: Yes Asthma: No CHF: No Home CPAP/BIPAP: No Home Nebs/MDI: Yes Total Points: 10 Smoking Cessation Education ONCE Comment: Diagnosis: COPD Smoking Status: Current every day smoker How long have you smoked: 30 yrs Have you smoked in the past 12 months: Yes Approximately how many cigarettes per day: 3-10 Do you dip or chew tobacco: No If,Former Smoker,when did you quit: one week ago 06/27/23 18:43 FLUTTER [Flutter Therapy] UD Comment: Diagnosis: COPD Discharge Exam General Appearance: no apparent distress Neurologic Exam: alert, oriented x 3, cooperative Eye Exam: PERRL Ears, Nose, Throat Exam: normal ENT inspection Neck Exam: normal inspection Respiratory Exam: diminished breath sounds, wheezing Cardiovascular Exam: regular rate/rhythm, normal heart sounds Gastrointestinal/Abdomen Exam: soft, normal bowel sounds Pelvic Exam: deferred Rectal Exam: deferred Back Exam: normal inspection Extremity Exam: normal inspection Skin Exam: normal color Final Diagnosis/Problem List - Final Discharge Diagnosis/Problem (1) Acute hypoxic respiratory failure Current Visit: Yes Status: Resolved Code(s): J96.01 - ACUTE RESPIRATORY FAILURE WITH HYPOXIA (2) COPD exacerbation Current Visit: Yes Status: Acute Code(s): J44.1 - CHRONIC OBSTRUCTIVE PULMONARY DISEASE W (ACUTE) EXACERBATION (3) Smoker Current Visit: Yes Status: Chronic Code(s): F17.200 - NICOTINE DEPENDENCE, UNSPECIFIED, UNCOMPLICATED (4) Hypertension Current Visit: Yes Status: Chronic Code(s): I10 - ESSENTIAL (PRIMARY) HYPERTENSION (5) Leukocytosis Current Visit: Yes Status: Acute Code(s): D72.829 - ELEVATED WHITE BLOOD CELL COUNT, UNSPECIFIED - Discharge Disposition: Home, Self-Care Condition: Stable Prescriptions: New Azithromycin 250 mg PO DAILY 4 Days #4 tablet Albuterol/Ipratropium 3ml Neb* [DUONEB 0.5-3 MG/3 ml Neb] 3 ml IH Q4HPRN PRN 30 Days #120 amp PRN Reason: Shortness Of Breath/Wheezing Methylprednisolone Packet [Medrol Dosepack] 4 mg PO UD #30 packet Guaifenesin 600 mg ER [Mucinex 600MG ER Tabs] 600 mg PO BID 7 Days #14 tablet Nicotine 21 mg [Nicoderm CQ 21 MG] 21 mg TOP DAILY 44 Days #44 patch Amlodipine Besylate 5 mg [Norvasc 5 mg] 5 mg PO QAM 30 Days #30 tablet PANTOPRAZOLE 40 mg Tablet [Protonix 40MG Tablet] 40 mg PO DAILY 30 Days #30 tab Continue Fluticasone Propion/Salmeterol [Fluticasone-Salmeterol 115-21] 2 inh PO BID Albuterol Sulfate [Albuterol Sulfate Hfa] 2 inh PO UD Follow up with: MARBELLA COLON MD [Primary Care Provider] - 07/10/23 3:00 pm SAMMY BALBUENA [ACTIVE STAFF] - (call Friday for appt)
== END 2023-06-28 11:15 | disposition home or self-care (01) ==
LOC: ED 11:51 → MED SURG 14:05
PROVIDERS: ADMIT Internal Medicine; ATTEND Internal Medicine
DX: J96.01 Acute respiratory failure with hypoxia (principal); J44.1 Chronic obstructive pulmonary disease with (acute) exacerbation; F17.200 Nicotine dependence, unspecified, uncomplicated; I10 Essential (primary) hypertension; D72.829 Elevated white blood cell count, unspecified; Z79.899 Other long term (current) drug therapy; Z20.828 Contact with and (suspected) exposure to other viral communicable diseases; Z91.148 Patient's other noncompliance with medication regimen for other reason; Z86.73 Personal history of transient ischemic attack (TIA), and cerebral infarction without residual deficits
CPT/HCPCS: 0241U; 36000; 36415; 71046; 80053; 82947; 83036; 83880; 84145; 84484; 85025; 93005; 93041; 93268; 94640; 94667; 94762; 96360; 96374; 99285; G0378; Q3014; J0456; J1650; J2920; J2930; A9270-GY